=== PATIENT | male | born 1955 | race Two or more races ===

== ENCOUNTER → 2023-09-22 07:55 | Outpatient (BNV) | payer MEDICARE, SELFPAY | PROVIDERS: PCP Internal Medicine; Visit Provider Internal Medicine Medical Oncology | DX: D64.9 Anemia, unspecified (principal) | CPT/HCPCS: 99204; 99213; 99214 ==

== ENCOUNTER → 2023-09-22 09:37 | Outpatient (BNV) | payer MEDICARE, SELFPAY | PROVIDERS: PCP Internal Medicine; Visit Provider Internal Medicine | DX: I48.91 Unspecified atrial fibrillation (principal) | CPT/HCPCS: 93010 ==

== ENCOUNTER 2023-09-27 12:05 | Outpatient (REF) | payer MEDICARE, SELFPAY ==
[2023-09-27 13:28] LABS: OBS1 POSITIVE (NEGATIVE)
[2023-09-27 13:29] LABS: OBS Int Ctl Valid YES; OBS2 POSITIVE (NEGATIVE); OBS3 POSITIVE (NEGATIVE)
== END 2023-09-27 12:06 | disposition home or self-care (01) ==
LOC: HO.LNP 12:05
PROVIDERS: Visit Provider Internal Medicine Medical Oncology
DX: D46.4 Refractory anemia, unspecified (principal)
CPT/HCPCS: 82270

== ENCOUNTER 2023-10-20 12:25 | Day surgery (SDC) | payer MEDICARE, SELFPAY ==
--- NOTE | ~2023-10-20 | CT_ITS ---
Thrombocytopenia PROCEDURES: 1. Limited preprocedure CT of the pelvis. Permanent images saved in PACS. 2. 11 g bone marrow core biopsy of the right posterior iliac spine 3. 11 g bone marrow aspirate of the right posterior iliac spine CLINICIANS: Corbin Cutler PA-C MEDICATIONS: -Fentanyl 75 mcg, and lidocaine 1% 10 mL SQ -Antibiotics: None -For additional details, please see nursing flowsheet. COMPLICATIONS: None ESTIMATED BLOOD LOSS: < 5 ml CONTRAST: None SPECIMENS: 11 g core placed in formalin. Bone marrow aspirate placed in EDTA and sodium heparin tubes PROCEDURE NOTE: The procedure, risks, benefits, and alternatives were carefully explained to the patient and written informed consent was obtained. The patient was placed prone on the CT table. A timeout was performed. A limited CT of the pelvis was performed to localize posterior iliac spine and choose appropriate needle entry and trajectory. The patient was prepped and draped in usual sterile fashion. The skin, subcutaneous tissues, and periosteum were anesthetized with lidocaine. Under CT guidance, an 11-gauge bone marrow biopsy needle was advanced into the right posterior iliac spine, with the tip positioned slightly cephalad. An 11-gauge core biopsy of the bone marrow was performed and was placed in formalin. Next, the 11-gauge bone marrow biopsy needle was then advanced into the posterior iliac spine, under CT guidance, with the tip positioned slightly caudal. A bone marrow aspirate was performed. The specimen was placed in the provided EDTA and sodium heparin tubes. The needle was removed. A dry dressing was applied and secured with Tegaderm. There were no immediate complications. The patient was stable after the procedure and was transferred to the post anesthesia care unit. The procedure was done under moderate sedation with a dedicated nurse for monitoring of vital signs. CT/CT biopsy asp core bone marrow Impression: CT-guided bone marrow biopsy and aspirate This procedure was performed by Corbin Cutler PA-C and supervised by Dr. Fiore.
[2023-10-20 12:36] VITALS: BMI 41.8
[2023-10-20 12:47] LABS: INTERNATIONAL NORM RATIO 1.1 (0.9-1.1); Prothrombin Time 13.8 SEC (11.1-13.3)
[2023-10-20 12:50] LABS: Partial Thromboplastin Time 32.4 SEC (26.0-36.8)
[2023-10-20 13:01] LABS: Glucose, Whole Blood 83 mg/dL (60-115)
[2023-10-20 14:10] VITALS: BP 130/64; PULSE 67; RESP 18; TEMP 36.6; O2SAT 96
[2023-10-20 14:25] VITALS: BP 124/62; PULSE 62; RESP 18; TEMP 36.6; O2SAT 96
[2023-10-20 14:44] LABS: Bone Marrow SEE SEPARATE REPORT
== END 2023-10-20 14:39 | disposition home or self-care (01) ==
PROVIDERS: Pathology Anatomic Pathology & Clinical Pathology; Physician Assistant Surgical; Student in an Organized Health Care Education/Training Program; PCP Internal Medicine; Visit Provider Internal Medicine Medical Oncology
DX: D64.9 Anemia, unspecified (principal); D69.6 Thrombocytopenia, unspecified; E61.1 Iron deficiency; E11.22 Type 2 diabetes mellitus with diabetic chronic kidney disease; I12.9 Hypertensive chronic kidney disease with stage 1 through stage 4 chronic kidney disease, or unspecified chronic kidney disease; N18.4 Chronic kidney disease, stage 4 (severe); D63.1 Anemia in chronic kidney disease; I48.0 Paroxysmal atrial fibrillation; Z79.01 Long term (current) use of anticoagulants; Z79.4 Long term (current) use of insulin; Z79.84 Long term (current) use of oral hypoglycemic drugs; Z79.899 Other long term (current) drug therapy; Z88.0 Allergy status to penicillin; Z98.890 Other specified postprocedural states; F17.200 Nicotine dependence, unspecified, uncomplicated
CPT/HCPCS: 36415; 38222; 82947; 85610; 85730; 88184; 88185; 88237; 88264; 88305; 88311; 88313; 88374; J2250; J2310; J3010

== ENCOUNTER → 2023-10-20 12:44 | Outpatient (BNV) | payer MEDICARE, SELFPAY | PROVIDERS: PCP Internal Medicine; Visit Provider Physician Assistant Surgical | DX: D69.6 Thrombocytopenia, unspecified (principal) | CPT/HCPCS: 38222; 77012 ==

== ENCOUNTER 2024-02-07 10:00 | Outpatient (RCR) | payer MEDICARE, SELFPAY ==
[2024-01-31 09:45] VITALS: BP 102/51; PULSE 62; RESP 16; TEMP 37; O2SAT 94
[2024-01-31] MEDS: Ferric Carboxymaltose 750 MG in 0.9 % Sodium Chloride 250 ML 1060 MG IV (10:44)
[2024-01-31] MEDS: 0.9 % Sodium Chloride Flush 10 ML SYRINGE 5 ML IVFLUSH (11:08)
[2024-02-07 09:53] VITALS: BP 105/48; PULSE 73; RESP 18; TEMP 37.3; O2SAT 91
[2024-02-07] MEDS: Ferric Carboxymaltose 750 MG in 0.9 % Sodium Chloride 250 ML 1060 MG IV (10:09)
== END 2024-02-07 10:32 | disposition home or self-care (01) ==
LOC: HO.INF 10:00
PROVIDERS: Visit Provider Internal Medicine Medical Oncology
DX: D64.9 Anemia, unspecified (principal)
CPT/HCPCS: 96365; J1439

== ENCOUNTER 2024-08-27 15:38 | Inpatient (IN) | payer MEDICARE, SELFPAY ==
--- NOTE | ~2024-08-27 | XR_ITS ---
CLINICAL HISTORY: abd pain and distension 1 view abdomen Comparison: None Findings: Nonspecific bowel gas pattern with paucity of small bowel gas. No pneumoperitoneum or pneumatosis. No abnormal calcifications. No acute fractures. IMPRESSION: Nonspecific bowel gas pattern with generalized paucity of small bowel gas. Fluid-filled small-bowel loops can not be excluded. This document has been electronically signed by: Moon Gray MD on 08/28/2024 21:31:12
--- NOTE | ~2024-08-27 | XR_ITS ---
CLINICAL HISTORY: sob, crackles 1 view chest x-ray Comparison: CR - XR KUB - 08/28/24 19:53 EST Findings: No consolidation or effusion. The heart is within the upper limits of normal in size for technique. No acute fracture. IMPRESSION: 1. No acute cardiopulmonary abnormality. This document has been electronically signed by: Andrew Huggins on 08/30/2024 09:09:58
--- NOTE | ~2024-08-27 | XR_ITS ---
CLINICAL HISTORY: shortness of breath 2 view chest x-ray Comparison: None Findings: The lungs are clear. Heart size is normal. No acute fracture. IMPRESSION: 1. No acute findings. This document has been electronically signed by: Franko Groves MD on 08/27/2024 17:12:56
[2024-08-27 15:47] VITALS: BP 160/88; PULSE 64; O2SAT 100
[2024-08-27 15:53] VITALS: BP 129/47; PULSE 68; RESP 18; TEMP 36.8; O2SAT 98; BMI 41.4
--- NOTE | 2024-08-27 16:12 | ECG_ITS ---
Test Reason : SHORTNESS OF BREATH Blood Pressure : */* mmHG Vent. Rate : 68 BPM Atrial Rate : 68 BPM P-R Int : 186 ms QRS Dur : 76 ms QT Int : 386 ms P-R-T Axes : 17 21 49 degrees QTcB Int : 410 ms Normal sinus rhythm Normal ECG When compared with ECG of 22-Sep-2023 09:37, No significant change was found Referred By: Joseline Vazquez Electronically Signed By: Valdez Lowery
--- NOTE | 2024-08-27 16:13 | ED_ITS ---
HPI - SOB/Dyspnea General Chief Complaint: Dyspnea Stated Complaint: shortness of breath Time Seen by Provider: 08/27/24 15:56 Source: patient and EMS Mode of arrival: EMS Limitations: no limitations History of Present Illness ED Provider: Joseline Vazquez NP HPI Narrative: Patient is a 69-year-old male with past medical history of CKD stage [address] Ponce, atrial fibrillation on anticoagulation with warfarin, hypertension, diverticulitis, anemia, diabetes presents emergency department for evaluation. He reports that he has been experiencing intermittent shortness of breath for the past few years. However today after he walked up the stairs with his laundry he noticed he was feeling shortness of breath and dizziness, he put his laundry away. He sat down at the kitchen table and subsequently felt very cold having shaking chills and nausea. His daughter suggested that his sugar might be low though he did not feel this way. He drank a glass of orange juice any took 3 acetaminophen. He reports it this seemed to work some. He had 2 more glasses of orange juice half a sandwich and some coffee. Reports symptom onset was at approximately 12:00 this afternoon, about 4 hours prior to arrival, during this time he has also experienced 2 episodes of soft stools followed by 1 episode of liquid diarrhea without hematochezia or melena. He and his daughter thought to call EMS for further evaluation given the sudden increase in his shortness of breath from baseline. He denies any headache, vision changes, neck pain, chest pain, back pain, vomiting, abdominal pain. numbness or tingling of the extremities, genitourinary symptoms. Related Data Home Medications ?Medication ?Instructions ?Recorded ?Confirmed atenolol 50 mg tablet 50 mg PO DAILY 09/22/23 08/28/24 atorvastatin 40 mg tablet 40 mg PO BEDTIME 09/22/23 08/28/24 dapagliflozin propanediol 10 mg 10 mg PO DAILY 09/22/23 08/28/24 tablet (Farxiga) glipizide 5 mg tablet 5 mg PO BID 09/22/23 08/28/24 insulin glargine 100 unit/mL 62 unit subcut DAILY 09/22/23 08/28/24 subcutaneous solution (Lantus U-100 Insulin) insulin syringe-needle U-100 1 mL 09/22/23 07/27/24 31 gauge x 5/16 (BD Insulin Syringe Ultra-Fine) losartan 50 mg tablet 25 mg PO DAILY 09/22/23 08/28/24 warfarin 5 mg tablet 5 mg PO DAILY@1800 09/22/23 08/28/24 omeprazole 20 mg capsule,delayed 20 mg PO DAILY@0630 10/20/23 08/28/24 release calcitriol 0.25 mcg capsule 0.25 mcg PO Q48H 08/17/24 08/28/24 cetirizine 10 mg tablet 10 mg PO DAILY 08/28/24 08/28/24 isosorbide mononitrate 30 mg 30 mg PO DAILY 08/28/24 08/28/24 tablet,extended release 24 hr torsemide 20 mg tablet 40 mg PO BID 08/28/24 08/28/24 Allergies Allergy/AdvReac Type Severity Reaction Status Date / Time Penicillins Allergy Hives Verified 08/27/24 15:55 Review of Systems 2 Review of Systems: Yes all other systems are reviewed and are negative [facility] Past Medical History Attestation statement: The following information was validated with the patient. Source: old records reviewed Medical History Iron deficiency Chronic kidney disease Diabetes Surgical History H/O hernia repair Family History Family History Mother Cancer Lung cancer Father Testicular cancer Social History Social History Household Members: None Patient Tobacco Use Status: Current someday Tobacco user Tobacco use type: Cigarette Cigarettes Per Day: 2 Patient Interested in Nicotine Replacement: No Patient Given Instructions on How to Stop Smoking: No Advance Directives: No Advance Directives Information Provided: No Do you have a plan to hurt others: No Plan Nutrition Risks: No Nutritional Risk service: No Current occupational status: retired Physical Exam 2 Vital Signs: Vital Signs: Last Vital Signs Temp 97.8 F 08/28/24 12:00 Pulse 71 08/28/24 12:00 Resp 20 08/28/24 12:00 BP 126/59 L 08/28/24 12:00 Pulse Ox 95 08/28/24 12:00 O2 Del Method Nasal Cannula 08/28/24 12:00 O2 Flow Rate 2 08/28/24 12:00 BMI result Body Mass Index 41.4 Appearance: Alert.?Oriented to person, place and time. No acute distress.?Normal affect. Eyes: Pupils equal, round and reactive to light.? ENT: Pharynx normal.?? Neck: Normal inspection.? Neck supple.?? CVS: Heart sounds normal. Normal heart rate and rhythm.? Pulses normal.?? Respiratory: No respiratory distress.? Lung sounds mild rales at the bilateral bases Abdomen: Soft and non-tender. Normoactive bowel sounds. Skin: Skin warm and dry.? Normal skin color.? Extremities: No lower extremity edema.? No calf ttp? Neuro: Moves all extremities spontaneously. Sensation intact bilaterally. No focal neuro deficits. Ambulates with normal steady gait. Course Reevaluation(s) Reevaluation #1: CBC is without leukocytosis, stable chronic microcytic anemia that does not meet transfusion criteria at this time no active bleeding H&H 8.8 and 31.5, chronic thrombocytopenia. INR 3.6. BNP of 604. high sensitive troponin within normal range, EKG revealing normal sinus rhythm with ventricular rate of 68, QTC 410, no ST elevation, no evidence of acute ischemia . Urinalysis without evidence of infection. Chest x-ray without consolidation or infiltrate to suggest pneumonia, I do appreciate some haziness in the right lung base concerning for mild CHF exacerbation and conjunction with his BNP. Viral serologies and chemistries are pending at this time Reevaluation #2: Patient ambulated to the bathroom he again began feeling tremulous, dizzy. Stating ?I know I need an orange juice?. Obtaining POC, repeat temperature. On review, renal function is at baseline BUN/creatinine 58/2.57. INR 3.6 he is currently taking 5 mg of warfarin daily. He is mildly hyperkalemic 5.6 without acute see EKG changes, non a sinus rhythm with ventricular rate of 68, QTC 410, no ST elevation. POC glucose is 48 - provided with 2 orange juices and a sandwich. Time: 19:49 Reevaluation #3: Repeat point of care glucose 88, he is still mildly tremulous, reports that he feels persistently nauseous has no appetite to eat, continuously encouraged to eat but as far as only consumed half a sandwich and a single orange juice. Have concern about his persistent recurrent hypoglycemia in the setting of not really taking much oral intake, in conjunction with mild fluid volume overload, will receive 20 mg furosemide IV, D5W at 01:25 and pending for admission to medicine service Medications Administered Generic Name Dose Route Start Last Admin Trade Name Driss PRN Reason Stop Dose Admin Acetaminophen 650 mg 08/27/24 22:35 08/28/24 09:04 Acetaminophen 325 Mg Tablet PO 650 mg Q6H PRN Administration Pain, Mild 1-3,fever,headache Atenolol 50 mg 08/28/24 11:00 08/28/24 12:19 Atenolol 50 Mg Tablet PO 50 mg DAILY DAMIAN Administration Protocol Calcitriol 0.25 mcg 08/28/24 11:00 08/28/24 12:20 Calcitriol 0.25 Mcg Capsule PO 0.25 mcg Q48H DAMIAN Administration Isosorbide Mononitrate 30 mg 08/28/24 11:00 08/28/24 12:20 Isosorbide Mononitrate 30 Mg Tab.Er.24h PO 30 mg DAILY DAMIAN Administration Protocol Omeprazole 20 mg 08/28/24 06:30 08/28/24 05:50 Omeprazole 20 Mg Capsule.Dr PO 20 mg DAILY@0630 DAMIAN Administration Sodium Chloride 3 ml 08/28/24 00:00 08/28/24 07:46 0.9 % Sodium Chloride Flush 3 Ml Syringe IVFLUSH Not Given QSHIFT DAMIAN Discontinued Medications Generic Name Dose Route Start Last Admin Trade Name Driss PRN Reason Stop Dose Admin Furosemide 20 mg 08/27/24 21:24 08/27/24 22:03 Furosemide 20 Mg/2 Ml Vial IVPUSH 08/27/24 21:25 20 mg ONCE ONE Administration Protocol Dextrose 1,000 mls @ 100 mls/hr 08/27/24 21:30 08/28/24 09:39 D5w IVCONT Infused .Q10H DAMIAN Infusion Ondansetron HCl 4 mg 08/27/24 18:56 08/27/24 19:45 Ondansetron Hcl 4 Mg/2 Ml Vial IVPUSH 08/27/24 18:57 4 mg ONCE ONE Administration Sodium Zirconium Cyclosilicate 10 gm 08/27/24 20:01 08/27/24 20:15 Sodium Zirconium Cyclosilicate 10 Gm Powd.Pack PO 08/27/24 20:02 10 gm ONCE ONE Administration Sodium Zirconium Cyclosilicate 10 gm 08/28/24 06:23 08/28/24 06:44 Sodium Zirconium Cyclosilicate 10 Gm Powd.Pack PO 08/28/24 06:24 10 gm ONCE ONE Administration Medical Decision Making Medical Decision Making MDM Narrative: Patient is a 69-year-old male with past medical history of CKD stage [address] Ponce, atrial fibrillation on anticoagulation with warfarin, hypertension, diverticulitis, anemia, diabetes who presents emergency department for evaluation of sudden onset worsening shortness of breath shakiness dizziness and nausea as per HPI. Symptoms seemed to improve greatly after rest following carrying laundry up the stairs as well as with consumption of orange juice. Had no associated chest pain with this. He did have a few episodes of loose/diarrheal stools as per HPI as well. His abdominal examination is benign. At this time he reports feeling well has no physical complaints and states ?I feel silly for being here?. Currently he is overall well-appearing, nontoxic, afebrile, no respiratory distress. No rash or lesions, urticaria, or evidence of angioedema to suggest allergic reaction/anaphylaxis source of his symptoms. No swallowing difficulties to suggest aspiration. No associated chest pain, lower extremity redness pain or swelling, history of VTE/malignancy to suggest ACS, or pulmonary embolism and he is chronically anticoagulated with compliance on warfarin. Given his history of CKD, some possibility for CHF/fluid volume overload though I do not clinically appreciate significant findings to suggest such. Has a history of atrial fibrillation but is not noted to be tachycardic, endorses no palpitations. No recent URI symptoms to suggest viral illness, or pneumonia. He does have history of anemia and associated dizziness, though no acute bleeding does not appear overtly pale, no chest pain, given his history will obtain type and screen in addition to CBC in the event that symptoms are secondary to acute anemia. Differential Diagnosis Differential Diagnoses: The differential diagnosis associated with the presentation includes (See narrative above) Admission/Observation Consideration of admission/observation: Escalation of care including admission/observation considered (See narrative above and course narrative for further detail) Lab Data [facility] Lab Attestation statement: I reviewed the patient's lab results. (See course narrative) 08/27/24 17:55 08/28/24 12:47 Labs: Lab Results 08/27/24 08/27/24 08/27/24 Range/Units 17:55 19:50 20:40 WBC 7.3 (4.8-10.8) X10*3/uL RBC 4.16 L (4.60-5.80) X10*6/uL Hgb 8.8 L (14.0-18.0) g/dl Hct 31.5 L (42.0-52.0) % MCV 75.7 L (80.0-98.0) fL MCH 21.2 L (27.0-33.0) pg MCHC 27.9 L (31.0-36.0) g/dl RDW 19.5 H (11.0-16.0) % Plt Count 105 L (160-400) X10*3/uL MPV 10.7 (9.4-12.4) fL Immature Gran % (Auto) 0.4 (0.0-0.4) % Neut % (Auto) 87.3 H (45-73) % Lymph % (Auto) 2.2 L (20-40) % [place] % (Auto) 7.1 (2-11) % Eos % (Auto) 2.7 (0-4) % Baso % (Auto) 0.3 (0-2) % Lymph # (Auto) 0.2 L (1.2-4.9) X10*3/uL [place] # (Auto) 0.5 (0.1-1.2) X10*3/uL Eos # (Auto) 0.2 (0.0-0.4) X10*3/uL Baso # (Auto) 0.0 (0.0-0.2) X10*3/uL Abs Immat Gran (auto) 0.03 (0.00-0.03) X10*3/uL Absolute Neuts (auto) 6.4 (2.0-8.3) x10*3/uL Absolute Nucleated RBC 0.000 (0.0-0.012) X10*3/uL Nucleated RBC % (auto) 0.0 (0.0-0.2) /100WBC PT 42.3 H (10.9-12.4) SEC INR 3.6 H D (0.9-1.1) Sodium 139 (135-145) mmol/L Potassium 5.6 H (3.3-5.1) mmol/L Chloride 108 (96-108) mmol/L Carbon Dioxide 22 (22-29) mmol/L Anion Gap 15 (12-20) BUN 58 H (9-16) mg/dL Creatinine 2.57 H (0.5-1.4) mg/dL Estim Creat Clear Calc 33.1 Estimated GFR 25 POC Glucose 48 L* 88 (60-115) mg/dL Random Glucose 61 (60-115) mg/dL Estimat Average Glucose 120 mg/dL Hemoglobin A1c % 5.8 (<6.0) % Calcium 8.4 (8.4-10.2) mg/dL Magnesium 1.7 (1.6-2.6) mg/dL Total Bilirubin 0.9 (0.0-1.0) mg/dL AST 20 (5-37) U/L ALT 17 (0-40) U/L Alkaline Phosphatase 103 (39-117) U/L Troponin I High Sens 6.9 (<3.5-35.0) ng/L B-Natriuretic Peptide 604 H (<100) pg/mL Total Protein 7.6 (6.5-8.0) g/dL Albumin 4.1 (3.5-5.0) g/dL Lipase 25 (8-78) U/L Urine Color Yellow Urine Appearance Clear Urine pH 5.5 (5.0-9.0) Ur Specific [place] 1.010 (1.005-1.025) Urine Protein 30 (1+) H (Neg-Trace) mg/dL Urine Glucose (UA) 250 H (Negative) mg/dL Urine Ketones Negative (Negative) mg/dL Urine Blood Negative (Negative) Urine Nitrite Negative (Negative) Ur Leukocyte Esterase Negative (Negative) Urine RBC 0-2 (0-2) /HPF Urine WBC 0-5 (0-5) /HPF Ur Squamous Epith Cells 0-2 (0-2) /HPF Urine Bacteria None Seen (None Seen) Hyaline Casts 0-2 (0-2) /LPF Influenza Type A (PCR) (Negative) Influenza Type B (PCR) (Negative) RSV RNA Qual (PCR) (Negative) SARS-CoV-2 RNA (RT-PCR) (Negative) Blood Type O Positive Antibody Screen NEGATIVE 08/27/24 Range/Units 21:35 WBC (4.8-10.8) X10*3/uL RBC (4.60-5.80) X10*6/uL Hgb (14.0-18.0) g/dl Hct (42.0-52.0) % MCV (80.0-98.0) fL MCH (27.0-33.0) pg MCHC (31.0-36.0) g/dl RDW (11.0-16.0) % Plt Count (160-400) X10*3/uL MPV (9.4-12.4) fL Immature Gran % (Auto) (0.0-0.4) % Neut % (Auto) (45-73) % Lymph % (Auto) (20-40) % [place] % (Auto) (2-11) % Eos % (Auto) (0-4) % Baso % (Auto) (0-2) % Lymph # (Auto) (1.2-4.9) X10*3/uL [place] # (Auto) (0.1-1.2) X10*3/uL Eos # (Auto) (0.0-0.4) X10*3/uL Baso # (Auto) (0.0-0.2) X10*3/uL Abs Immat Gran (auto) (0.00-0.03) X10*3/uL Absolute Neuts (auto) (2.0-8.3) x10*3/uL Absolute Nucleated RBC (0.0-0.012) X10*3/uL Nucleated RBC % (auto) (0.0-0.2) /100WBC PT (10.9-12.4) SEC INR (0.9-1.1) Sodium (135-145) mmol/L Potassium (3.3-5.1) mmol/L Chloride (96-108) mmol/L Carbon Dioxide (22-29) mmol/L Anion Gap (12-20) BUN (9-16) mg/dL Creatinine (0.5-1.4) mg/dL Estim Creat Clear Calc Estimated GFR POC Glucose (60-115) mg/dL Random Glucose (60-115) mg/dL Estimat Average Glucose mg/dL Hemoglobin A1c % (<6.0) % Calcium (8.4-10.2) mg/dL Magnesium (1.6-2.6) mg/dL Total Bilirubin (0.0-1.0) mg/dL AST (5-37) U/L ALT (0-40) U/L Alkaline Phosphatase (39-117) U/L Troponin I High Sens (<3.5-35.0) ng/L B-Natriuretic Peptide (<100) pg/mL Total Protein (6.5-8.0) g/dL Albumin (3.5-5.0) g/dL Lipase (8-78) U/L Urine Color Urine Appearance Urine pH (5.0-9.0) Ur Specific [place] (1.005-1.025) Urine Protein (Neg-Trace) mg/dL Urine Glucose (UA) (Negative) mg/dL Urine Ketones (Negative) mg/dL Urine Blood (Negative) Urine Nitrite (Negative) Ur Leukocyte Esterase (Negative) Urine RBC (0-2) /HPF Urine WBC (0-5) /HPF Ur Squamous Epith Cells (0-2) /HPF Urine Bacteria (None Seen) Hyaline Casts (0-2) /LPF Influenza Type A (PCR) NEGATIVE (Negative) Influenza Type B (PCR) NEGATIVE (Negative) RSV RNA Qual (PCR) NEGATIVE (Negative) SARS-CoV-2 RNA (RT-PCR) NEGATIVE (Negative) Blood Type Antibody Screen Independent Interpretation I performed an independent interpretation of an: EKG (See course narrative) and Plain X-Ray (See course narrative) Radiology Impression Discussion of test interpretation with radiology: I have reviewed the radiologist's reading. Radiologist Impression: 2 view chest x-ray Comparison: None Findings: The lungs are clear. Heart size is normal. No acute fracture. IMPRESSION: 1. No acute findings Independent Historian Clinical information obtained from an independent historian. History obtained from or confirmed by: EMS External Record Review External record reviewed: Prior outpatient labs Chronic Conditions Patient?s care impacted by: Other (See narrative above) Critical Care Time Critical Care Time Critical Care Time: Yes Total Critical Care Time: 35 Attestation: I personally attest to this critical care time spent taking care of the patient exclusive of all other billable procedures was approximately 35 minutes including initial evaluation of patient, ordering tests, x-ray interpretation, EKG interpretation, acute hypoglycemic management, furosemide IV and re- evalutation,medical consultation, documentation, re-evaluation. Discharge Plan Discharge Clinical Impression: Shortness of breath, Acute hyperkalemia, Hypoglycemia associated with type 2 diabetes mellitus Patient Disposition: Admitted As Inpatient Interventions: Admission Worksheet (ED) Last Done: 08/28/24 08:44 Discharge Date/Time: 08/28/24 09:26
[2024-08-27 18:08] LABS: MANUAL DIFF FLAG NO
[2024-08-27 18:13] LABS: Appearance Urine Clear; Color Urine Yellow; Glucose Urine UA 250 mg/dL (Negative); Leukocyte Esterase Urine Negative (Negative); Nitrite Urine Negative (Negative); PH 5.5 (5.0-9.0); UMIC TRIGGER UACC YES; Urine Blood Negative (Negative); Urine Ketones Negative (Negative); Urine Protein 30 (1+) mg/dL (Neg-Trace)
[2024-08-27 18:16] LABS: Basophils Percent Auto 0.3 % (0-2); Eosinophils Absolute Auto 0.2 X10*3/uL (0.0-0.4); Eosinophils Percent Auto 2.7 % (0-4); Hematocrit 31.5 % (42.0-52.0); Hemoglobin 8.8 g/dl (14.0-18.0); Imm Gran Abs Auto 0.03 X10*3/uL (0.00-0.03); Imm Gran Pct Auto 0.4 % (0.0-0.4); Lymphocytes Absolute Auto 0.2 X10*3/uL (1.2-4.9); Lymphocytes Percent Auto 2.2 % (20-40); Mean Corpuscular HGB Conc 27.9 g/dl (31.0-36.0); Mean Corpuscular Hemoglobin 21.2 pg (27.0-33.0); Mean Corpuscular Volume 75.7 fL (80.0-98.0); Mean Platelet Volume 10.7 fL (9.4-12.4); Monocytes Absolute Auto 0.5 X10*3/uL (0.1-1.2); Monocytes Percent Auto 7.1 % (2-11); Neutrophils Absolute Auto 6.4 x10*3/uL (2.0-8.3); Neutrophils Percent Auto 87.3 % (45-73); Platelet Count 105 X10*3/uL (160-400); Red Blood Count 4.16 X10*6/uL (4.60-5.80); Red Cell Distribution Width 19.5 % (11.0-16.0); White Blood Count 7.3 X10*3/uL (4.8-10.8)
[2024-08-27 18:18] LABS: Bacteria Urine None Seen (None Seen); Hyaline Casts Urine 0-2 /LPF (0-2); RBC Urine 0-2 /HPF (0-2); Squamous Epithelial Cell Urine 0-2 /HPF (0-2); WBC Urine 0-5 /HPF (0-5)
[2024-08-27 18:20] LABS: INTERNATIONAL NORM RATIO 3.6 (0.9-1.1); Prothrombin Time 42.3 SEC (10.9-12.4)
[2024-08-27 18:32] LABS: B Type Natriuretic Peptide 604 pg/mL (<100)
[2024-08-27 18:33] LABS: Troponin-I High Sensitivity 6.9 ng/L (<3.5-35.0)
[2024-08-27 18:41] LABS: Alanine Aminotransferase 17 U/L (0-40); Albumin Level 4.1 g/dL (3.5-5.0); Alkaline Phosphatase 103 U/L (39-117); Anion Gap 15 (12-20); Aspartate Amino Transferase 20 U/L (5-37); Bilirubin Total 0.9 mg/dL (0.0-1.0); Blood Urea Nitrogen 58 mg/dL (9-16); Calcium 8.4 mg/dL (8.4-10.2); Carbon Dioxide 22 mmol/L (22-29); Chloride 108 mmol/L (96-108); Creatinine Clr Calc Pharmacy 33.1; Estimated Glomerular Filt Rate 25; Glucose Random 61 mg/dL (60-115); Lipase 25 U/L (8-78); Magnesium 1.7 mg/dL (1.6-2.6); Potassium 5.6 mmol/L (3.3-5.1); Sodium 139 mmol/L (135-145); Total Protein 7.6 g/dL (6.5-8.0)
[2024-08-27] MEDS: ondansetron HCL 4 MG/2 ML VIAL IVPUSH (19:45)
[2024-08-27 19:54] LABS: Glucose, Whole Blood 48 mg/dL (60-115)
[2024-08-27 20:03] VITALS: BP 148/57; PULSE 69; RESP 24; TEMP 36.9; O2SAT 94
[2024-08-27] MEDS: Sodium Zirconium Cyclosilicate 10 GM POWD.PACK PO (20:15)
[2024-08-27 20:44] LABS: Glucose, Whole Blood 88 mg/dL (60-115)
--- NOTE | 2024-08-27 21:44 | P.HPHOSP_ITS ---
History of Present Illness Date of Service: 08/27/24 Chief Complaint: hypoglycemia A 69 years old male with PMH of DMII, HTN, HLD, CKD4, Afib on warfarin presents to ED with SOB and hypoglycemic event at residential. The patient reports feeling unwell for the last few days with decrease PO intake, malaise, no energy, SOB and nausea. No chest pain, palpitations, vomiting, diarrhea or urinary symptoms. Noted to have low blood sugar reading in 40s with symptoms. he is on Lantus, Glipizide and Farxiga from his home medications. in ED CXR showing no clear infiltrates but slight fluid congestion, elevated BNP at 600. mild hyperkalemia with stable Creatinine. he had another episodes of low sugar around 48, responded to Dextrose IV. will be admitted for close monitoring. Review of Systems 2 Review of Systems: No fever, chills but has weakness No chest pain, palpitation having shortness of breath or coughing No abdominal pain, nausea or vomiting No urinary symptoms PMFSH Medical History Iron deficiency Chronic kidney disease Diabetes Family History Mother Cancer Lung cancer Father Testicular cancer Surgical History H/O hernia repair Social History Household Members: None Patient Tobacco Use Status: Current someday Tobacco user Advance Directives: No Advance Directives Information Provided: No Do you have a plan to hurt others: No Plan service: No Current occupational status: retired Meds Allergies Allergy/AdvReac Type Severity Reaction Status Date / Time Penicillins Allergy Hives Verified 08/27/24 15:55 Active Medications: Current Medications Dextrose (D5w) 1,000 mls @ 150 mls/hr IVCONT .[id number] DAMIAN Home Medications ?Medication ?Instructions ?Recorded ?Confirmed ?Last Taken ?Type atenolol 50 mg tablet 50 mg PO DAILY 09/22/23 07/27/24 Unknown History atorvastatin 40 mg tablet 40 mg PO BEDTIME 09/22/23 07/27/24 Unknown History dapagliflozin propanediol 10 mg 10 mg PO DAILY 09/22/23 07/27/24 Unknown History tablet (Farxiga) glipizide 5 mg tablet 5 mg PO BID 09/22/23 07/27/24 Unknown History insulin glargine 100 unit/mL 100 unit subcut DAILY 09/22/23 07/27/24 Unknown History subcutaneous solution (Lantus U-100 Insulin) insulin syringe-needle U-100 1 mL 09/22/23 07/27/24 Unknown History 31 gauge x 5/16 (BD Insulin Syringe Ultra-Fine) losartan 50 mg tablet 25 mg PO DAILY 09/22/23 07/27/24 Unknown History torsemide 20 mg tablet 40 mg PO DAILY 09/22/23 08/17/24 Unknown History warfarin 5 mg tablet 5 mg PO DAILY 09/22/23 07/27/24 Unknown History omeprazole 20 mg capsule,delayed 20 mg PO DAILY 10/20/23 07/27/24 Unknown History release calcitriol 0.25 mcg capsule 0.25 mcg PO Q OTHER DAY 08/17/24 08/17/24 Unknown History Physical Exam 2 Vital Signs and Narrative: Vital Signs: Last Vital Signs Temp 98.5 F 08/27/24 20:03 Pulse 69 08/27/24 20:03 Resp 24 H 08/27/24 20:03 BP 148/57 H 08/27/24 20:03 Pulse Ox 94 08/27/24 20:03 O2 Del Method Room Air 08/27/24 20:03 BMI result Body Mass Index 41.4 Const: Other: Constitutional : Awake, interactive, not in distress Neck : Normal inspection, Supple Cardiovascular : RRR, no JVP, no lower extremity edema Respiratory : good bilateral air entry, no crackles, wheezes or rhonchi Gastrointestinal: soft, lax, Normal bowel sounds, Non tender Skin : Warm, Dry Neurological : Alert & oriented x3, No focal deficit Results Labs 08/27/24 17:55 08/27/24 17:55 Labs: Laboratory Results - last 24 hr 08/27/24 08/27/24 08/27/24 17:55 19:50 20:40 MCV 75.7 L MCH 21.2 L MCHC 27.9 L RDW 19.5 H Plt Count 105 L MPV 10.7 Immature Gran % (Auto) 0.4 Neut % (Auto) 87.3 H Lymph % (Auto) 2.2 L [place] % (Auto) 7.1 Eos % (Auto) 2.7 Baso % (Auto) 0.3 Lymph # (Auto) 0.2 L [place] # (Auto) 0.5 Eos # (Auto) 0.2 Baso # (Auto) 0.0 Abs Immat Gran (auto) 0.03 Absolute Neuts (auto) 6.4 Absolute Nucleated RBC 0.000 Nucleated RBC % (auto) 0.0 PT 42.3 H INR 3.6 H D Anion Gap 15 Estim Creat Clear Calc 33.1 Estimated GFR 25 POC Glucose 48 L* 88 Random Glucose 61 Calcium 8.4 Magnesium 1.7 Total Bilirubin 0.9 AST 20 ALT 17 Alkaline Phosphatase 103 Troponin I High Sens 6.9 B-Natriuretic Peptide 604 H Total Protein 7.6 Albumin 4.1 Lipase 25 Urine Color Yellow Urine Appearance Clear Urine pH 5.5 Ur Specific [place] 1.010 Urine Protein 30 (1+) H Urine Glucose (UA) 250 H Urine Ketones Negative Urine Blood Negative Urine Nitrite Negative Ur Leukocyte Esterase Negative Urine RBC 0-2 Urine WBC 0-5 Ur Squamous Epith Cells 0-2 Urine Bacteria None Seen Hyaline Casts 0-2 Blood Type O Positive Antibody Screen NEGATIVE Assessment and Plan (1) Hypoglycemia associated with type 2 diabetes mellitus: Status: Acute (2) Acute hyperkalemia: Status: Acute (3) Shortness of breath: Status: Acute Plan A 69 years old male with PMH of DMII, HTN, HLD, CKD4, Afib on warfarin presents to ED with SOB and hypoglycemic event at residential. Acute hypoglycemic events in DMII on insulin Hold Lantus, Glipizide and Faxiga IV D5W for now POC start SSI tomorrow start diet Acute hyperkalemia Lokelma follow BMP SOB negative Flu, RSV and Covid CXR clear Not hypoxic, check [facility] resp viral panel Tylenol for chills CKD4 stable, monitor BMP Afib, HTN Continue Atenolol Continue Warfarin, follow INR GERD PPI chronic dCHF not in exacerbation continue Torsemide DVT PPx Warfarin The patient will be monitored for 24-48 hours for hypoglycemic events Quality Stroke Does the patient have a stroke diagnosis?: No VTE Prior VTE?: No VTE Risk Level:: Medical - moderate - high VTE Device Contraindication: Treatment Not Indicated VTE Drug Contraindication: N/A - Med Ordered
[2024-08-27] MEDS: Furosemide 20 MG/2 ML VIAL IVPUSH (22:03)
[2024-08-27] MEDS: Dextrose 5 % 1,000 ML 150 ML IVCONT (22:04)
[2024-08-27 22:26] LABS: Influenza A PCR NEGATIVE (Negative); Influenza B PCR NEGATIVE (Negative); Resp Syncy Virus RNA Qual PCR NEGATIVE (Negative); SARS COV2 PCR INHOUSE NEGATIVE (Negative)
[2024-08-27 23:46] VITALS: BP 138/47; PULSE 73; RESP 30; TEMP 37.5; O2SAT 91
[2024-08-28] VITALS (10 sets, daily range): BP systolic 102–145; BP diastolic 47–63; PULSE 62–73; RESP 18–20; TEMP 36.5–37.8; O2SAT 90–98
[2024-08-28 00:03] LABS: Glucose, Whole Blood 145 mg/dL (60-115)
[2024-08-28] MEDS: 0.9 % Sodium Chloride Flush 3 ML SYRINGE IVFLUSH ×3 (01:00→21:23)
[2024-08-28] MEDS: Acetaminophen 325 MG TABLET 650 MG PO ×4 (02:05→21:29)
[2024-08-28 02:17] LABS: Glucose, Whole Blood 121 mg/dL (60-115)
--- NOTE | 2024-08-28 04:32 | PC.NURSE ---
sitting up on stretcher, no complaints. continues on oxygen/NC/2L. waiting for bed assignemtn.
[2024-08-28 05:03] LABS: INTERNATIONAL NORM RATIO 4.1 (0.9-1.1); Prothrombin Time 47.6 SEC (10.9-12.4)
[2024-08-28 05:16] LABS: Anion Gap 15 (12-20); Blood Urea Nitrogen 60 mg/dL (9-16); Calcium 7.8 mg/dL (8.4-10.2); Carbon Dioxide 20 mmol/L (22-29); Chloride 105 mmol/L (96-108); Creatinine Clr Calc Pharmacy 28.2; Estimated Glomerular Filt Rate 21; Glucose Random 143 mg/dL (60-115); Potassium 5.8 mmol/L (3.3-5.1); Sodium 134 mmol/L (135-145)
[2024-08-28] MEDS: Omeprazole 20 MG CAPSULE.DR PO (05:50)
[2024-08-28 05:52] LABS: Estimated Average Glucose 120 mg/dL; Hemoglobin A1C 95.7218 umol/L; Hemoglobin A1c % 5.8 % (<6.0); Total Hemoglobin (HGBA1C) 2386.5652 umol/L
[2024-08-28] MEDS: Dextrose 5 % 1,000 ML 100 ML IVCONT (06:40)
[2024-08-28] MEDS: Sodium Zirconium Cyclosilicate 10 GM POWD.PACK PO (06:44)
--- NOTE | 2024-08-28 07:02 | PC.NURSE ---
Dr Velasquez notified of INR-4.1 bun-60 CR-3.1 little bit worse than yesterday.
[2024-08-28 07:48] LABS: Glucose, Whole Blood 114 mg/dL (60-115)
[2024-08-28 09:00] LABS: Adenovirus PCR Not Detected (Not Detect.); Bordetella parapertussis PCR Not Detected (Not Detect.); Bordetella pertussis PCR Not Detected (Not Detect.); Chlamydia pneumoniae PCR Not Detected (Not Detect.); Coronavirus 229E PCR Not Detected (Not Detect.); Coronavirus HKU1 PCR Not Detected (Not Detect.); Coronavirus NL63 PCR Not Detected (Not Detect.); Coronavirus OC43 PCR Not Detected (Not Detect.); Human metapneumovirus PCR Not Detected (Not Detect.); Influenza A PCR Not Detected (Not Detect.); Influenza B PCR Not Detected (Not Detect.); Mycoplasma pneumoniae PCR Not Detected (Not Detect.); Parainfluenza 1 PCR Not Detected (Not Detect.); Parainfluenza 2 PCR Not Detected (Not Detect.); Parainfluenza 3 PCR Not Detected (Not Detect.); Parainfluenza 4 PCR Not Detected (Not Detect.); RSV PCR Not Detected (Not Detect.); Rhino/Enterovirus PCR Not Detected (Not Detect.)
--- NOTE | 2024-08-28 09:20 | HO.PM.IMPN ---
Subjective Subjective Date of Service: 08/28/24 Interval History: no further diarrhea Physical Exam Vital Signs: Vital Signs: Last Vital Signs Temp 100.0 F 08/28/24 08:58 Pulse 71 08/28/24 08:58 Resp 18 08/28/24 08:58 BP 132/47 L 08/28/24 08:58 Pulse Ox 98 08/28/24 08:58 O2 Del Method Nasal Cannula 08/28/24 08:58 O2 Flow Rate 2 08/28/24 08:58 BMI result Body Mass Index 41.4 General: AO X 3, no acute distress Resp: CTA bilateral, no accessory muscles used CVS: S1,S2,RRR GI: soft, non tender, non distended Neuro: motor grossly intact, alert Psych: appropriate affect, appropriate insight Objective Data Active Medications Acetaminophen (Acetaminophen 325 Mg Tablet) 650 mg PO Q6H PRN PRN Reason: Pain, Mild 1-3,fever,headache Last Admin: 08/28/24 09:04 Dose: 650 mg Documented By: EL Benzonatate (Benzonatate 100 Mg Capsule) 100 mg PO TID PRN PRN Reason: Cough Calcium Carbonate (Calcium Carbonate 750 Mg Tab.Chew) 750 mg PO Q4H PRN PRN Reason: Heartburn Magnesium Hydroxide (Milk Of Magnesia 30 Ml Oral.Susp) 30 ml PO DAILY PRN PRN Reason: Constipation Melatonin (Melatonin 3 Mg Tablet) 6 mg PO BEDTIME PRN PRN Reason: Insomnia Omeprazole (Omeprazole 20 Mg Capsule.Dr) 20 mg PO DAILY@0630 [facility] Last Admin: 08/28/24 05:50 Dose: 20 mg Documented By: VALENTINE Ondansetron HCl (Ondansetron Hcl 4 Mg/2 Ml Vial) 4 mg IVPUSH Q8H PRN PRN Reason: Nausea and Vomiting Sodium Chloride (0.9 % Sodium Chloride Flush 3 Ml Syringe) 3 ml IVFLUSH QSHIFT [facility] Last Admin: 08/28/24 07:46 Dose: Not Given Documented By: EL Non-Admin Reason: IV Running Torsemide (Torsemide 20 Mg Tablet) 40 mg PO DAILY [facility]; Protocol Warfarin Sodium (Warfarin Sodium 5 Mg Tablet) 5 mg PO DAILY@1800 [facility] Labs 08/27/24 17:55 08/28/24 04:39 Labs: Laboratory Results - last 24 hr 08/27/24 08/27/24 08/27/24 17:55 19:50 20:40 MCV 75.7 L MCH 21.2 L MCHC 27.9 L RDW 19.5 H Plt Count 105 L MPV 10.7 Immature Gran % (Auto) 0.4 Neut % (Auto) 87.3 H Lymph % (Auto) 2.2 L [place] % (Auto) 7.1 Eos % (Auto) 2.7 Baso % (Auto) 0.3 Lymph # (Auto) 0.2 L [place] # (Auto) 0.5 Eos # (Auto) 0.2 Baso # (Auto) 0.0 Abs Immat Gran (auto) 0.03 Absolute Neuts (auto) 6.4 Absolute Nucleated RBC 0.000 Nucleated RBC % (auto) 0.0 PT 42.3 H INR 3.6 H D Anion Gap 15 Estim Creat Clear Calc 33.1 Estimated GFR 25 POC Glucose 48 L* 88 Random Glucose 61 Estimat Average Glucose 120 Hemoglobin A1c % 5.8 Calcium 8.4 Magnesium 1.7 Total Bilirubin 0.9 AST 20 ALT 17 Alkaline Phosphatase 103 Troponin I High Sens 6.9 B-Natriuretic Peptide 604 H Total Protein 7.6 Albumin 4.1 Lipase 25 Urine Color Yellow Urine Appearance Clear Urine pH 5.5 Ur Specific [place] 1.010 Urine Protein 30 (1+) H Urine Glucose (UA) 250 H Urine Ketones Negative Urine Blood Negative Urine Nitrite Negative Ur Leukocyte Esterase Negative Urine RBC 0-2 Urine WBC 0-5 Ur Squamous Epith Cells 0-2 Urine Bacteria None Seen Hyaline Casts 0-2 Influenza Type A (PCR) Influenza Type B (PCR) RSV RNA Qual (PCR) SARS-CoV-2 RNA (RT-PCR) Blood Type O Positive Antibody Screen NEGATIVE 08/27/24 08/27/24 08/28/24 21:35 23:58 02:12 MCV MCH MCHC RDW Plt Count MPV Immature Gran % (Auto) Neut % (Auto) Lymph % (Auto) [place] % (Auto) Eos % (Auto) Baso % (Auto) Lymph # (Auto) [place] # (Auto) Eos # (Auto) Baso # (Auto) Abs Immat Gran (auto) Absolute Neuts (auto) Absolute Nucleated RBC Nucleated RBC % (auto) PT INR Anion Gap Estim Creat Clear Calc Estimated GFR POC Glucose 145 H 121 H Random Glucose Estimat Average Glucose Hemoglobin A1c % Calcium Magnesium Total Bilirubin AST ALT Alkaline Phosphatase Troponin I High Sens B-Natriuretic Peptide Total Protein Albumin Lipase Urine Color Urine Appearance Urine pH Ur Specific [place] Urine Protein Urine Glucose (UA) Urine Ketones Urine Blood Urine Nitrite Ur Leukocyte Esterase Urine RBC Urine WBC Ur Squamous Epith Cells Urine Bacteria Hyaline Casts Influenza Type A (PCR) NEGATIVE Influenza Type B (PCR) NEGATIVE RSV RNA Qual (PCR) NEGATIVE SARS-CoV-2 RNA (RT-PCR) NEGATIVE Blood Type Antibody Screen 08/28/24 08/28/24 04:39 07:44 MCV MCH MCHC RDW Plt Count MPV Immature Gran % (Auto) Neut % (Auto) Lymph % (Auto) [place] % (Auto) Eos % (Auto) Baso % (Auto) Lymph # (Auto) [place] # (Auto) Eos # (Auto) Baso # (Auto) Abs Immat Gran (auto) Absolute Neuts (auto) Absolute Nucleated RBC Nucleated RBC % (auto) PT 47.6 H INR 4.1 H Anion Gap 15 Estim Creat Clear Calc 28.2 Estimated GFR 21 POC Glucose 114 Random Glucose 143 H Estimat Average Glucose Hemoglobin A1c % Calcium 7.8 L D Magnesium Total Bilirubin AST ALT Alkaline Phosphatase Troponin I High Sens B-Natriuretic Peptide Total Protein Albumin Lipase Urine Color Urine Appearance Urine pH Ur Specific [place] Urine Protein Urine Glucose (UA) Urine Ketones Urine Blood Urine Nitrite Ur Leukocyte Esterase Urine RBC Urine WBC Ur Squamous Epith Cells Urine Bacteria Hyaline Casts Influenza Type A (PCR) Influenza Type B (PCR) RSV RNA Qual (PCR) SARS-CoV-2 RNA (RT-PCR) Blood Type Antibody Screen Assessment and Plan (1) Hypoglycemia associated with type 2 diabetes mellitus: Status: Acute Plan 69M PMH morbid obesity, diabetes, hypertension, hyperlipidemia, CKD 4, paroxysmal atrial fibrillation on Coumadin presented with shortness of breath and hypoglycemia. Diabetes with acute hypoglycemia Hold Lantus, glipizide, Farxiga Hold D5W and monitor CKD 4 with hyperkalemia Continue Lokelma, low-potassium diet, follow up BMP Paroxysmal atrial fibrillation Continue warfarin, atenolol Chronic diastolic CHF Continue torsemide Morbid obesity Weight loss recommended DVT prophylaxis with Coumadin Full code reason for continued hospitalization: Monitoring hypoglycemia and hyperkalemia Quality Stroke Does the patient have a stroke diagnosis?: No VTE Prior VTE?: No VTE Risk Level:: Medical - moderate - high VTE Device Contraindication: Treatment Not Indicated VTE Drug Contraindication: N/A - Med Ordered
[2024-08-28 09:38] LABS: SARS-CoV-2 PCR Not Detected (Not Detect.)
--- NOTE | 2024-08-28 10:44 | PHA.MEDREC ---
Addendum entered by Lianne Giraldo RPh 08/28/24 11:07: reviewed by [facility]. Original Note: Pharmacy Consult ? Medication Reconciliation Pharmacy has completed the medication reconciliation. Spoke to patient to confirm med list. Patient states he hasn't started taking Jardiance 10 mg yet. He was instructed to start taking after he runs out of Farxiga 10 mg. Patient confirmed Lantus U-100 is 62 units daily. patient states he last took his medications 08/26/24.
[2024-08-28] MEDS: atenoloL 50 MG TABLET PO (12:19)
[2024-08-28] MEDS: Isosorbide Mononitrate 30 MG TAB.ER.24H PO (12:20)
[2024-08-28] MEDS: calcitrioL 0.25 MCG CAPSULE PO (12:20)
[2024-08-28 12:32] LABS: Glucose, Whole Blood 129 mg/dL (60-115)
[2024-08-28 13:22] LABS: Anion Gap 12 (12-20); Blood Urea Nitrogen 63 mg/dL (9-16); Calcium 7.3 mg/dL (8.4-10.2); Carbon Dioxide 23 mmol/L (22-29); Chloride 104 mmol/L (96-108); Creatinine Clr Calc Pharmacy 28.5; Estimated Glomerular Filt Rate 21; Glucose Random 115 mg/dL (60-115); Potassium 5.5 mmol/L (3.3-5.1); Sodium 133 mmol/L (135-145)
--- NOTE | 2024-08-28 13:45 | MHC.CM.PN ---
pt lives alone is independent has no services has own ride home dc plan home no sevices
[2024-08-28] MEDS: ondansetron HCL 4 MG/2 ML VIAL IVPUSH (15:29)
[2024-08-28 15:55] LABS: Glucose, Whole Blood 133 mg/dL (60-115)
--- NOTE | 2024-08-28 18:18 | PC.NURSE ---
Patient not tolerating regular diet ,c/o nausea when eating,c/o abdominal discomfort,Dr. King notified,diet changed to clear liquid,KUB ordered,patient made aware
[2024-08-28 20:23] LABS: Glucose, Whole Blood 143 mg/dL (60-115)
[2024-08-28] MEDS: Atorvastatin Calcium 40 MG TABLET PO (21:21)
[2024-08-28] MEDS: Torsemide 20 MG TABLET 40 MG PO (21:22)
[2024-08-28 23:36] LABS: Glucose, Whole Blood 130 mg/dL (60-115)
[2024-08-29] MEDS: diphenhydrAMINE HCL 25 MG CAPSULE 50 MG PO (03:12)
[2024-08-29 03:14] VITALS: BP 115/56; PULSE 67; RESP 19; TEMP 36.7; O2SAT 93
--- NOTE | 2024-08-29 03:14 | PC.NURSE ---
Pt reported itchiness to both feet & face, Dr. Bah made aware, new orders placed. Meds given per SEP.
[2024-08-29 03:21] LABS: Glucose, Whole Blood 142 mg/dL (60-115)
[2024-08-29] MEDS: Omeprazole 20 MG CAPSULE.DR PO (05:42)
[2024-08-29] MEDS: Calcium Carbonate 750 MG TAB.CHEW PO (05:45)
[2024-08-29 07:02] LABS: Hematocrit 30.5 % (42.0-52.0); Hemoglobin 8.6 g/dl (14.0-18.0); Mean Corpuscular HGB Conc 28.2 g/dl (31.0-36.0); Mean Corpuscular Hemoglobin 21.3 pg (27.0-33.0); Mean Corpuscular Volume 75.7 fL (80.0-98.0); Mean Platelet Volume 10.8 fL (9.4-12.4); PLT CLUMP 1; Platelet Count 108 X10*3/uL (160-400); Red Blood Count 4.03 X10*6/uL (4.60-5.80); Red Cell Distribution Width 20.6 % (11.0-16.0); White Blood Count 4.8 X10*3/uL (4.8-10.8)
[2024-08-29 07:06] LABS: INTERNATIONAL NORM RATIO 2.3 (0.9-1.1); Prothrombin Time 26.4 SEC (10.9-12.4)
[2024-08-29 07:17] LABS: Anion Gap 17 (12-20); Blood Urea Nitrogen 72 mg/dL (9-16); Calcium 7.7 mg/dL (8.4-10.2); Carbon Dioxide 17 mmol/L (22-29); Chloride 105 mmol/L (96-108); Creatinine Clr Calc Pharmacy 24.8; Estimated Glomerular Filt Rate 18; Glucose Random 129 mg/dL (60-115); Potassium 5.2 mmol/L (3.3-5.1); Sodium 134 mmol/L (135-145)
--- NOTE | 2024-08-29 07:22 | PC.NURSE ---
Bun [address] King made aware
[2024-08-29 07:50] VITALS: BP 129/60; PULSE 74; RESP 18; TEMP 36.3; O2SAT 93
[2024-08-29] MEDS: Loratadine 10 MG TABLET PO (07:52)
[2024-08-29] MEDS: Isosorbide Mononitrate 30 MG TAB.ER.24H PO (07:52)
[2024-08-29] MEDS: atenoloL 50 MG TABLET PO (07:52)
[2024-08-29] MEDS: Torsemide 20 MG TABLET 40 MG PO ×2 (07:52→20:19)
[2024-08-29 07:58] LABS: Glucose, Whole Blood 124 mg/dL (60-115)
[2024-08-29] MEDS: 0.9 % Sodium Chloride Flush 3 ML SYRINGE IVFLUSH ×3 (07:58→20:20)
--- NOTE | 2024-08-29 08:29 | P.PNIM_ITS ---
Subjective Subjective Date of Service: 08/29/24 Interval History: abd bloating improved, ready to restart solids, no further diarrhea, had formed stool Physical Exam 2 Vital Signs: Vital Signs: Last Vital Signs Temp 97.4 F 08/29/24 07:50 Pulse 74 08/29/24 07:50 Resp 18 08/29/24 07:50 BP 129/60 08/29/24 07:50 Pulse Ox 93 08/29/24 07:50 O2 Del Method Room Air 08/29/24 07:50 O2 Flow Rate 2 08/28/24 23:25 BMI result Body Mass Index 41.4 General: AO X 3, no acute distress Resp: CTA bilateral, no accessory muscles used CVS: S1,S2,RRR GI: soft, non tender, distended - reports unchanged from baseline Neuro: motor grossly intact, alert Psych: appropriate affect, appropriate insight Objective Data Active Medications Acetaminophen (Acetaminophen 325 Mg Tablet) 650 mg PO Q6H PRN PRN Reason: Pain, Mild 1-3,fever,headache Last Admin: 08/28/24 21:29 Dose: 650 mg Documented By: SABIHA Atenolol (Atenolol 50 Mg Tablet) 50 mg PO DAILY [facility]; Protocol Last Admin: 08/29/24 07:52 Dose: 50 mg Documented By: MONICA Atorvastatin Calcium (Atorvastatin Calcium 40 Mg Tablet) 40 mg PO BEDTIME [facility] Last Admin: 08/28/24 21:21 Dose: 40 mg Documented By: SABIHA Benzonatate (Benzonatate 100 Mg Capsule) 100 mg PO TID PRN PRN Reason: Cough Calcitriol (Calcitriol 0.25 Mcg Capsule) 0.25 mcg PO Q48H DAMIAN Last Admin: 08/28/24 12:20 Dose: 0.25 mcg Documented By: MONICA Calcium Carbonate (Calcium Carbonate 750 Mg Tab.Chew) 750 mg PO Q4H PRN PRN Reason: Heartburn Last Admin: 08/29/24 05:45 Dose: 750 mg Documented By: SABIHA Isosorbide Mononitrate (Isosorbide Mononitrate 30 Mg Tab.Er.24h) 30 mg PO DAILY [facility]; Protocol Last Admin: 08/29/24 07:52 Dose: 30 mg Documented By: MONICA Loratadine (Loratadine 10 Mg Tablet) 10 mg PO DAILY [facility] Last Admin: 08/29/24 07:52 Dose: 10 mg Documented By: MONICA Magnesium Hydroxide (Milk Of Magnesia 30 Ml Oral.Susp) 30 ml PO DAILY PRN PRN Reason: Constipation Melatonin (Melatonin 3 Mg Tablet) 6 mg PO BEDTIME PRN PRN Reason: Insomnia Omeprazole (Omeprazole 20 Mg Capsule.) 20 mg PO DAILY@0630 [facility] Last Admin: 08/29/24 05:42 Dose: 20 mg Documented By: SABIHA Ondansetron HCl (Ondansetron Hcl 4 Mg/2 Ml Vial) 4 mg IVPUSH Q8H PRN PRN Reason: Nausea and Vomiting Last Admin: 08/28/24 15:29 Dose: 4 mg Documented By: MONICA Sodium Chloride (0.9 % Sodium Chloride Flush 3 Ml Syringe) 3 ml IVFLUSH QSHIFT [facility] Last Admin: 08/29/24 07:58 Dose: 3 ml Documented By: MONICA Torsemide (Torsemide 20 Mg Tablet) 40 mg PO BID [facility]; Protocol Last Admin: 08/29/24 07:52 Dose: 40 mg Documented By: MONICA Warfarin Sodium (Warfarin Sodium 5 Mg Tablet) 5 mg PO DAILY@1800 [facility] Labs 08/29/24 05:58 08/29/24 05:58 Labs: Laboratory Results - last 24 hr 08/27/24 08/28/24 08/28/24 23:55 12:27 12:47 MCV MCH MCHC RDW Plt Count MPV Absolute Nucleated RBC Nucleated RBC % (auto) PT INR Anion Gap 12 Estim Creat Clear Calc 28.5 Estimated GFR 21 POC Glucose 129 H Random Glucose 115 Calcium 7.3 L D Respiratory Panel [place] See Note Adenovirus (Rapid PCR) Not Detected B.pert (TEM-PCR) Not Detected B.parapertussis DNA PCR Not Detected C. pneumoniae DNA (PCR) Not Detected Coronavirus OC43 (PCR) Not Detected Coronavirus HKU1 (PCR) Not Detected Coronavirus 229E (PCR) Not Detected Coronavirus NL63 (PCR) Not Detected Human Metapneumovir PCR Not Detected Influenza A (RT-PCR) Not Detected Influenza B (RT-PCR) Not Detected M. pneumoniae (PCR) Not Detected Parainfluenza 1 (PCR) Not Detected Parainfluenza 2 (PCR) Not Detected Parainfluenza 3 (PCR) Not Detected Parainfluenza 4 (PCR) Not Detected RSV (PCR) Not Detected Entero/Rhino (PCR) Not Detected SARS-CoV-2 RNA (RT-PCR) Not Detected 08/28/24 08/28/24 08/28/24 15:51 20:18 23:27 MCV MCH MCHC RDW Plt Count MPV Absolute Nucleated RBC Nucleated RBC % (auto) PT INR Anion Gap Estim Creat Clear Calc Estimated GFR POC Glucose 133 H 143 H 130 H Random Glucose Calcium Respiratory Panel [place] Adenovirus (Rapid PCR) B.pert (TEM-PCR) B.parapertussis DNA PCR C. pneumoniae DNA (PCR) Coronavirus OC43 (PCR) Coronavirus HKU1 (PCR) Coronavirus 229E (PCR) Coronavirus NL63 (PCR) Human Metapneumovir PCR Influenza A (RT-PCR) Influenza B (RT-PCR) M. pneumoniae (PCR) Parainfluenza 1 (PCR) Parainfluenza 2 (PCR) Parainfluenza 3 (PCR) Parainfluenza 4 (PCR) RSV (PCR) Entero/Rhino (PCR) SARS-CoV-2 RNA (RT-PCR) 08/29/24 08/29/24 08/29/24 03:16 05:58 07:52 MCV 75.7 L MCH 21.3 L MCHC 28.2 L RDW 20.6 H Plt Count 108 L MPV 10.8 Absolute Nucleated RBC 0.000 Nucleated RBC % (auto) 0.0 PT 26.4 H D INR 2.3 H Anion Gap 17 Estim Creat Clear Calc 24.8 Estimated GFR 18 POC Glucose 142 H 124 H Random Glucose 129 H Calcium 7.7 L Respiratory Panel [place] Adenovirus (Rapid PCR) B.pert (TEM-PCR) B.parapertussis DNA PCR C. pneumoniae DNA (PCR) Coronavirus OC43 (PCR) Coronavirus HKU1 (PCR) Coronavirus 229E (PCR) Coronavirus NL63 (PCR) Human Metapneumovir PCR Influenza A (RT-PCR) Influenza B (RT-PCR) M. pneumoniae (PCR) Parainfluenza 1 (PCR) Parainfluenza 2 (PCR) Parainfluenza 3 (PCR) Parainfluenza 4 (PCR) RSV (PCR) Entero/Rhino (PCR) SARS-CoV-2 RNA (RT-PCR) Assessment and Plan (1) Hypoglycemia associated with type 2 diabetes mellitus: Status: Acute Plan 69M PMH morbid obesity, diabetes, hypertension, hyperlipidemia, CKD 4, paroxysmal atrial fibrillation on Coumadin presented with shortness of breath and hypoglycemia. Diabetes with acute hypoglycemia Hold Lantus, glipizide, Farxiga Hold D5W and monitor - so far stable with POC in low 100s juliet on CKD 4 with hyperkalemia and acute metabolic acidosis Continue Lokelma, low-potassium diet, sodium bicarb po, follow up BMP gastroenteritis appears improved, follow up stool studies, restart solids Paroxysmal atrial fibrillation Continue warfarin, atenolol Chronic diastolic CHF Continue torsemide Morbid obesity Weight loss recommended DVT prophylaxis with Coumadin Full code reason for continued hospitalization: juliet, monitoring po tolerance Quality Stroke Does the patient have a stroke diagnosis?: No VTE Prior VTE?: No VTE Risk Level:: Medical - moderate - high VTE Device Contraindication: Treatment Not Indicated VTE Drug Contraindication: N/A - Med Ordered
--- NOTE | 2024-08-29 10:41 | PC.NURSE ---
Patient c/o his hands are swollen,Dr. King made aware
[2024-08-29 10:43] LABS: Adenovirus F 40/41 Not Detected (Not Detect.); Astrovirus Not Detected (Not Detect.); Campylobacter Not Detected (Not Detect.); Cryptosporidium Not Detected (Not Detect.); Cyclospora cayetanensis Not Detected (Not Detect.); E. coli EAEC Not Detected (Not Detect.); E. coli EPEC Not Detected (Not Detect.); E. coli ETEC Not Detected (Not Detect.); E. coli STEC Not Detected (Not Detect.); Entamoeba histolytica Not Detected (Not Detect.); Giardia lamblia Not Detected (Not Detect.); Plesiomonas shigelloides Not Detected (Not Detect.); Rotavirus A Not Detected (Not Detect.); Salmonella Not Detected (Not Detect.); Sapovirus Not Detected (Not Detect.); Shigella sp./EIEC Not Detected (Not Detect.); Vibrio Not Detected (Not Detect.); Vibrio Cholerae Not Detected (Not Detect.); Yersinia enterocolitica Not Detected (Not Detect.)
[2024-08-29] MEDS: Sodium Bicarbonate 650 MG TABLET PO ×3 (10:51→20:20)
[2024-08-29 11:27] VITALS: BP 121/58; PULSE 70; RESP 16; TEMP 36.8; O2SAT 92
[2024-08-29 11:36] LABS: Glucose, Whole Blood 175 mg/dL (60-115)
[2024-08-29 12:42] LABS: Norovirus GI/GII Detect (Not Detect.)
[2024-08-29 15:23] VITALS: BP 118/58; PULSE 70; RESP 18; TEMP 36.9; O2SAT 96
[2024-08-29 16:37] LABS: Glucose, Whole Blood 107 mg/dL (60-115)
[2024-08-29] MEDS: Warfarin Sodium 5 MG TABLET PO (18:23)
[2024-08-29 19:07] VITALS: BP 132/62; PULSE 72; RESP 18; TEMP 36.9; O2SAT 95
[2024-08-29 20:03] LABS: Glucose, Whole Blood 149 mg/dL (60-115)
[2024-08-29 20:19] VITALS: BP 132/62
[2024-08-29] MEDS: Atorvastatin Calcium 40 MG TABLET PO (20:19)
[2024-08-29] MEDS: Acetaminophen 325 MG TABLET 650 MG PO (20:19)
[2024-08-30] VITALS: BP 133/60; PULSE 73; RESP 18; TEMP 36.8; O2SAT 93
[2024-08-30 00:59] LABS: Glucose, Whole Blood 146 mg/dL (60-115)
[2024-08-30 03:51] VITALS: BP 134/63; PULSE 70; RESP 16; TEMP 36.3; O2SAT 93
[2024-08-30] MEDS: Omeprazole 20 MG CAPSULE.DR PO (05:35)
[2024-08-30 05:36] LABS: Glucose, Whole Blood 136 mg/dL (60-115)
[2024-08-30 06:16] LABS: INTERNATIONAL NORM RATIO 1.9 (0.9-1.1)
[2024-08-30 06:26] LABS: Hematocrit 30.7 % (42.0-52.0); Hemoglobin 8.7 g/dl (14.0-18.0); Mean Corpuscular HGB Conc 28.3 g/dl (31.0-36.0); Mean Corpuscular Hemoglobin 21.3 pg (27.0-33.0); Mean Corpuscular Volume 75.2 fL (80.0-98.0); Platelet Count 109 X10*3/uL (160-400); Red Blood Count 4.08 X10*6/uL (4.60-5.80); Red Cell Distribution Width 20.6 % (11.0-16.0); White Blood Count 5.2 X10*3/uL (4.8-10.8)
[2024-08-30 06:27] LABS: Anion Gap 15 (12-20); Blood Urea Nitrogen 78 mg/dL (9-16); Calcium 7.8 mg/dL (8.4-10.2); Carbon Dioxide 21 mmol/L (22-29); Chloride 104 mmol/L (96-108); Creatinine Clr Calc Pharmacy 25.4; Estimated Glomerular Filt Rate 18; Glucose Random 144 mg/dL (60-115); Potassium 4.5 mmol/L (3.3-5.1); Sodium 135 mmol/L (135-145)
[2024-08-30 07:25] LABS: Glucose, Whole Blood 132 mg/dL (60-115)
[2024-08-30] MEDS: Isosorbide Mononitrate 30 MG TAB.ER.24H PO (07:51)
[2024-08-30] MEDS: Loratadine 10 MG TABLET PO (07:51)
[2024-08-30] MEDS: Sodium Bicarbonate 650 MG TABLET PO (07:51)
[2024-08-30] MEDS: atenoloL 50 MG TABLET PO (07:51)
[2024-08-30] MEDS: Torsemide 20 MG TABLET 40 MG PO (07:51)
[2024-08-30] MEDS: 0.9 % Sodium Chloride Flush 3 ML SYRINGE IVFLUSH (07:52)
[2024-08-30 07:53] VITALS: BP 135/63; PULSE 71; RESP 18; TEMP 36.6; O2SAT 95
[2024-08-30 08:34] VITALS: BP 135/63; PULSE 71; O2SAT 95
--- NOTE | 2024-08-30 11:06 | P.DS_ITS ---
DS: Providers Provider Date of Service: 08/30/24 Date of admission: 08/29/24 07:30 Date of discharge: 08/30/24 Primary care physician: Eder Ortega DO, MD Consults: 08/28/24 22:06 Consult to Wound Care Routine Reason for consultation: redness between buttocks 08/29/24 21:06 Consult to Wound Care Routine Reason for consultation: blanchable redness between buttocks DS: Diagnosis Discharge Diagnosis (1) Hypoglycemia associated with type 2 diabetes mellitus: Status: Acute DS: Summary Hospital Course Hospital Course: Admission note HPI A 69 years old male with PMH of DMII, HTN, HLD, CKD4, Afib on warfarin presents to ED with SOB and hypoglycemic event at skilled nursing. The patient reports feeling unwell for the last few days with decrease PO intake, malaise, no energy, SOB and nausea. No chest pain, palpitations, vomiting, diarrhea or urinary symptoms. Noted to have low blood sugar reading in 40s with symptoms. he is on Lantus, Glipizide and Farxiga from his home medications. in ED CXR showing no clear infiltrates but slight fluid congestion, elevated BNP at 600. mild hyperkalemia with stable Creatinine. he had another episodes of low sugar around 48, responded to Dextrose IV. will be admitted for close monitoring. Hospital course The patient was admitted and treated for: # Type II Diabetes with acute hypoglycemia. Glucose on admission as low as 48. HbA1c of 5.8. Held Lantus, glipizide, Farxiga and started on D5W with fair response which was then discontinued. He did not require any insulin supplement while in hospital as his readings were 100-150s. Advised to restart his Lantus as low as 20 units for now and increase as tolerated. To keep both Farxiga and GLipizide on hold and follow with PCP for further adjustemnt of needed. Visiting nurses to follow with him at home. # He was also monitored for worsening CKD 4 with hyperkalemia and acute metabolic acidosis Potassium corrected by using Lokelma and low-potassium diet. Acidosis resolved by sodium bicarb po. To follow up with nephrology team as outpatient with repeat BMP. He was making good amount of urine while on Torsemide. to add Lokelma on discharge as well and repeat BMP next week. # Norovirus infection likely contributing to his overall weakness and dehydration with decrease PO intake. Stool became more formed. advised to stay hydrated. # Paroxysmal atrial fibrillation, Continued warfarin, atenolol # Chronic diastolic CHF, Continue torsemide # Morbid obesity, Weight loss recommended Discharge plan Hold Farxiga and Glipizide Decrease Lantus to 20 units daily only Monitor sugar levels at home for the next 2 weeks and report findings to PCP Start sodium bicarbonate twice a day continue rest of home medicaitons Follow up with PCP and nephrology within the next 2 weeks for close follow up To repeat blood work Time Attestation Discharge Coordination Time (in mins): 37 Quality: Safe Use of Opioids Does Pt have an Active Cancer Diagnosis on the Problem List?: No Quality: Stroke Does the patient have a stroke diagnosis?: No Physical Exam Vital Signs: Vital Signs: Last Vital Signs Temp 97.9 F 08/30/24 07:53 Pulse 71 08/30/24 08:34 Resp 18 08/30/24 07:53 BP 135/63 08/30/24 08:34 Pulse Ox 95 08/30/24 08:34 O2 Del Method Room Air 08/30/24 07:53 O2 Flow Rate 2 08/28/24 23:25 BMI result Body Mass Index 41.4 Const: Other: Constitutional : Awake, interactive, not in distress Neck : Normal inspection, Supple Cardiovascular : RRR, no JVP, no lower extremity edema Respiratory : good bilateral air entry, no crackles, wheezes or rhonchi Gastrointestinal: soft, lax, Normal bowel sounds, Non tender Skin : Warm, Dry Neurological : Alert & oriented x3, No focal deficit DS: Data Data Completed and Pending Labs on day of discharge: Laboratory Results - last 24 hr 08/28/24 08/29/24 08/29/24 15:25 11:30 16:33 WBC RBC Hgb Hct MCV MCH MCHC RDW Plt Count MPV Absolute Nucleated RBC Nucleated RBC % (auto) PT INR Sodium Potassium Chloride Carbon Dioxide Anion Gap BUN Creatinine Estim Creat Clear Calc Estimated GFR POC Glucose 175 H 107 Random Glucose Calcium Stl C. cayetanensis PCR Not Detected Stool Rotavirus A PCR Not Detected Stl Adenov F 40/41 PCR Not Detected Stool Astrovirus (PCR) Not Detected Stool Campylobacter PCR Not Detected Stool Cryptosporidium PCR Not Detected Stl Sh Tox Pr E STEC PCR Not Detected Stool E coli O157 PCR Not applicable Stl Enterotoxigenic E PCR Not Detected Stool EPEC (PCR) Not Detected Stool EAEC (PCR) Not Detected Stl E. histolytica PCR Not Detected Stool Giardia Lamblia PCR Not Detected Stl P. shigelloides PCR Not Detected Stool Salmonella PCR Not Detected Stool Sapovirus (PCR) Not Detected Stl Shigella/EIEC PCR Not Detected St Y.enterocolitica PCR Not Detected Stool Vibrio (PCR) Not Detected Stl Vibrio cholerae PCR Not Detected Stl Norovirus GI/GII PCR Detect A 08/29/24 08/30/24 08/30/24 19:59 00:10 03:55 WBC RBC Hgb Hct MCV MCH MCHC RDW Plt Count MPV Absolute Nucleated RBC Nucleated RBC % (auto) PT INR Sodium Potassium Chloride Carbon Dioxide Anion Gap BUN Creatinine Estim Creat Clear Calc Estimated GFR POC Glucose 149 H 146 H 136 H Random Glucose Calcium Stl C. cayetanensis PCR Stool Rotavirus A PCR Stl Adenov F 40/41 PCR Stool Astrovirus (PCR) Stool Campylobacter PCR Stool Cryptosporidium PCR Stl Sh Tox Pr E STEC PCR Stool E coli O157 PCR Stl Enterotoxigenic E PCR Stool EPEC (PCR) Stool EAEC (PCR) Stl E. histolytica PCR Stool Giardia Lamblia PCR Stl P. shigelloides PCR Stool Salmonella PCR Stool Sapovirus (PCR) Stl Shigella/EIEC PCR St Y.enterocolitica PCR Stool Vibrio (PCR) Stl Vibrio cholerae PCR Stl Norovirus GI/GII PCR 08/30/24 08/30/24 05:40 07:19 WBC 5.2 RBC 4.08 L Hgb 8.7 L Hct 30.7 L MCV 75.2 L MCH 21.3 L MCHC 28.3 L RDW 20.6 H Plt Count 109 L MPV Not Reportable Absolute Nucleated RBC 0.000 Nucleated RBC % (auto) 0.0 PT 22.0 H INR 1.9 H Sodium 135 Potassium 4.5 Chloride 104 Carbon Dioxide 21 L Anion Gap 15 BUN 78 H Creatinine 3.34 H Estim Creat Clear Calc 25.4 Estimated GFR 18 POC Glucose 132 H Random Glucose 144 H Calcium 7.8 L Stl C. cayetanensis PCR Stool Rotavirus A PCR Stl Adenov F 40/41 PCR Stool Astrovirus (PCR) Stool Campylobacter PCR Stool Cryptosporidium PCR Stl Sh Tox Pr E STEC PCR Stool E coli O157 PCR Stl Enterotoxigenic E PCR Stool EPEC (PCR) Stool EAEC (PCR) Stl E. histolytica PCR Stool Giardia Lamblia PCR Stl P. shigelloides PCR Stool Salmonella PCR Stool Sapovirus (PCR) Stl Shigella/EIEC PCR St Y.enterocolitica PCR Stool Vibrio (PCR) Stl Vibrio cholerae PCR Stl Norovirus GI/GII PCR Discharge Plan Discharge Anticipated Discharge Date/Time: 08/30/24 10:54 Patient Disposition: Home Health Service Discharge Diagnosis: Low blood sugar Noro virus infection Worsening kidney function Referrals: Eder Ortega DO, MD [Primary Care Provider] - 1 Week Discharge Medications: New sodium bicarbonate 650 mg Tablet 650 mg PO BID Qty: 180 0RF Lokelma 5 gram powder in packet 5 g PO DAILY Qty: 30 2RF Continued losartan 50 mg tablet 25 mg PO DAILY atorvastatin 40 mg tablet 40 mg PO BEDTIME warfarin 5 mg tablet 5 mg PO DAILY@1800 (DME) insulin syringe-needle U-100 [BD Insulin Syringe Ultra-Fine] 1 mL 31 gauge x 5/16 syringe MISCELLANEOUS DAILY atenolol 50 mg tablet 50 mg PO DAILY calcitriol 0.25 mcg Capsule 0.25 mcg PO Q48H cetirizine 10 mg tablet 10 mg PO DAILY isosorbide mononitrate 30 mg tablet extended release 24 hr 30 mg PO DAILY torsemide 20 mg tablet 40 mg PO BID omeprazole 20 mg Capsule,Delayed Release(Dr/Ec) 20 mg PO DAILY@0630 Changed insulin glargine [Lantus U-100 Insulin] 100 unit/mL solution 20 unit subcut DAILY Qty: 10 0RF Held glipizide 5 mg tablet 5 mg PO BID Hold Instructions: Until follow up with PCP for evaluation if needed or not. dapagliflozin propanediol [Farxiga] 10 mg tablet 10 mg PO DAILY Hold Instructions: Until follow up with PCP for evaluation if needed or not. Discharge Orders: Discharge Order (Routine); Ordered 08/30/24 Ordered By: Fidel Velasquez Diet: Diabetic diet Activity on Discharge: As tolerated Stand Alone Forms: Patient Portal Discharge page Print Language: Vincentian Other Ambulatory Orders: Basic Metabolic Panel (Routine) Timeframe: 5 Days Facility: [facility] - Location: Laboratory Ordered By: Fidel Velasquez Care Plan Goals: Hold Farxiga and Glipizide Decrease Lantus to 20 units daily only Monitor sugar levels at home for the next 2 weeks and report findings to PCP Start sodium bicarbonate twice a day continue rest of home medicaitons Follow up with PCP and nephrology within the next 2 weeks for close follow up To repeat blood work Health Concerns: Low blood sugar Worsening kidney function Plan of Treatment: Hold Farxiga and Glipizide Lower Lantus follow with PCP Assessment: as above Discharge Date/Time: 08/30/24 14:16
[2024-08-30 11:15] LABS: Glucose, Whole Blood 174 mg/dL (60-115)
--- NOTE | 2024-08-30 11:25 | HO.WOUND ---
Wound Consult: Initial 69yr old?male admitted to [facility] on 08/29/24 - See progress notes and H&P for detailed history.? Wound consult placed for intergluteal area.? Patient agreeable to assessment and photo documentation.? Patient reports he began using barrier cream today and this has helped significantly. He reports it is due to his frequent liquid bowel movements. Of note patient was positive for norovirus and was experiencing significant liquid bowel movements. Intergluteal Etiology: ?MASD ?Present on Admission Wound Bed: red pink moist tissue within the gluteal fold no open wounds noted Drainage / Odor: none Edges: ? mirrored Elvira wound: ? Intact No Induration, Fluctuance or Warmth noted Pain: tenderness reported Goals of Treatment: ? barrier cream recommended Recommendations: 1.Intergluteal - Cleanse with PH balanced wipes, pat dry. Apply barrier cream twice daily and after episodes of loose stool. Re-consult wound care Nurse for wound deterioration or wound changes.
--- NOTE | 2024-08-30 11:25 | W.MHC.F2F ---
Service Date Service Date: 08/30/24 Encounter Date of encounter: 08/30/24 Reasons for Services Signs and symptoms assessed: Hypoglycemia, Diabetes management. Reason for half-way: monitoring of unstable blood sugar and teach disease management Homebound: Leaving the home is medically contraindicated at this time without the asist of a device and/or another person due th the listed conditions above and below. Reason homebound: unable to drive Certification: Based on the above findings, I certify that this patient is confined to the home and needs intermittent half-way care, physical therapy and/or speech therapy, or continues to need occupational therapy. The patient is under my care, and I have initiated the establishment of the plan of care. The patient will be followed by a physician who will periodically review the plan of care. Time Spent With Patient Time: Total time managing care of this patient today ____ minutes.
[2024-08-30 12:00] VITALS: BP 131/63; PULSE 74; RESP 17; TEMP 36.7; O2SAT 95
[2024-08-30] MEDS: calcitrioL 0.25 MCG CAPSULE PO (12:48)
--- NOTE | 2024-08-30 15:00 | MHC.CM.PN ---
Patient is discharged to home today with home services. [facility] has been referred per pt choice. Patient arranged for transportation home.
== END 2024-08-30 14:16 | disposition home health service (06) | DRG 638 ==
LOC: HO.ED 16:20 → HO.EDOVER 22:43 → HO.S3 08-28 08:39
PROVIDERS: Internal Medicine; Nurse Practitioner Family; Admitting Provider Student in an Organized Health Care Education/Training Program; Emergency Provider Emergency Medicine; PCP Internal Medicine; Visit Provider Student in an Organized Health Care Education/Training Program
DX: E11.649 Type 2 diabetes mellitus with hypoglycemia without coma (principal); A08.11 Acute gastroenteropathy due to Norwalk agent; E87.21 Acute metabolic acidosis; I13.0 Hypertensive heart and chronic kidney disease with heart failure and stage 1 through stage 4 chronic kidney disease, or unspecified chronic kidney disease; I50.32 Chronic diastolic (congestive) heart failure; Z68.41 Body mass index [BMI] 40.0-44.9, adult; E87.5 Hyperkalemia; E66.01 Morbid (severe) obesity due to excess calories; E78.5 Hyperlipidemia, unspecified; I48.0 Paroxysmal atrial fibrillation; Z71.3 Dietary counseling and surveillance; N18.4 Chronic kidney disease, stage 4 (severe); E11.22 Type 2 diabetes mellitus with diabetic chronic kidney disease; F17.210 Nicotine dependence, cigarettes, uncomplicated; Z20.822 Contact with and (suspected) exposure to COVID-19; Z71.6 Tobacco abuse counseling; Z79.4 Long term (current) use of insulin; Z79.01 Long term (current) use of anticoagulants; Z79.84 Long term (current) use of oral hypoglycemic drugs; Z79.899 Other long term (current) drug therapy
CPT/HCPCS: 0241U; 36415; 71045; 71046; 74018; 80048; 80053; 81001; 82947; 83036; 83690; 83735; 83880; 84484; 85025; 85027; 85610; 86850; 86900; 86901; 87507; 87633; 93005; 97162; 99221; 99285; J1940; J2405; Q5106

== ENCOUNTER → 2024-08-27 16:02 | Outpatient (BNV) | payer MEDICARE, SELFPAY | PROVIDERS: Emergency Provider Emergency Medicine; Visit Provider Student in an Organized Health Care Education/Training Program | DX: E11.649 Type 2 diabetes mellitus with hypoglycemia without coma (principal); N18.4 Chronic kidney disease, stage 4 (severe); E87.5 Hyperkalemia | CPT/HCPCS: 99222; 99232; 99239 ==

== ENCOUNTER → 2024-08-27 16:12 | Outpatient (BNV) | payer MEDICARE, SELFPAY | PROVIDERS: Emergency Provider Emergency Medicine; Visit Provider Specialist | DX: R06.02 Shortness of breath (principal) | CPT/HCPCS: 71046 ==

== ENCOUNTER → 2024-08-27 16:12 | Outpatient (BNV) | payer MEDICARE, SELFPAY | PROVIDERS: Admitting Provider Student in an Organized Health Care Education/Training Program; Emergency Provider Emergency Medicine; PCP Internal Medicine; Visit Provider Internal Medicine Cardiovascular Disease | DX: R06.02 Shortness of breath (principal) | CPT/HCPCS: 93010 ==

== ENCOUNTER 2024-08-27 22:35 | Outpatient (BNV) | payer MEDICARE, SELFPAY | END 2024-08-28 19:50 | PROVIDERS: Admitting Provider Student in an Organized Health Care Education/Training Program; Emergency Provider Emergency Medicine; PCP Internal Medicine; Visit Provider Student in an Organized Health Care Education/Training Program | DX: R14.0 Abdominal distension (gaseous) (principal) | CPT/HCPCS: 74018 ==

== ENCOUNTER 2024-08-29 07:30 | Outpatient (BNV) | payer MEDICARE, SELFPAY | END 2024-08-29 11:25 | PROVIDERS: Admitting Provider Student in an Organized Health Care Education/Training Program; Emergency Provider Emergency Medicine; PCP Internal Medicine; Visit Provider Radiology Vascular & Interventional Radiology | DX: R06.02 Shortness of breath (principal); R09.89 Other specified symptoms and signs involving the circulatory and respiratory systems | CPT/HCPCS: 71045 ==

== ENCOUNTER 2024-09-14 12:26 | Inpatient (IN) | payer MEDICARE, SELFPAY ==
--- NOTE | ~2024-09-14 | MR_ITS ---
CLINICAL HISTORY: ptosis weakness-check for brain aneurism MR Angiography head without intravenous contrast Comparison: None Findings No ICA or M1 occlusion. The basilar artery is patent. Right vertebral artery is dominant. Imaged and tortuous anterior communicating artery is diminutive. Proximal ICAs, MCAs, and cardiology consultants are otherwise unremarkable. No proximal intracranial arterial aneurysm. Phase artifacts noted including about imaged brainstem and basal ganglia regions. IMPRESSION: 1. Negative screening MRA for aneurysm. 2. No ICA or M1 occlusion. 3. The basilar artery is patent. This document has been electronically signed by: Kevin Whittaker MD on 09/15/2024 19:14:53
--- NOTE | ~2024-09-14 | XR_ITS ---
EXAMINATION: XR CHEST CLINICAL INFORMATION: SOB COMPARISON: August 29, 2024. TECHNIQUE: Frontal view of the chest was obtained. FINDINGS: Indistinct margins in the perihilar regions. No pleural effusion. No pneumothorax. Cardiomediastinal silhouette size is mildly prominent, unchanged. Calcified plaque thoracic aorta. Multilevel thoracic spondylosis. XR/XR chest 1V IMPRESSION: Consider mild interstitial edema in the correct clinical settings. Electronically signed by: Celso Camarena MD 09/14/2024 01:58 PM EST
--- NOTE | ~2024-09-14 | CT_ITS ---
EXAMINATION: CT HEAD WITHOUT CONTRAST CLINICAL INFORMATION: left side weaknessx2 days COMPARISON: None available. TECHNIQUE: Contiguous axial imaging was performed from the skull base to vertex without intravenous administration of contrast. This CT examination was performed using dose optimization techniques as appropriate, variously including the following: *Automated exposure control *Adjustment of mA and/or kV according to patient size (this includes techniques or standardized protocols for targeted exams where dose is matched to indication/reason for exam; i.e. extremities or head) *Use of iterative reconstruction technique DLP: No documented mGy-cm FINDINGS: No acute intracranial hemorrhage, mass effect, midline shift, hydrocephalus or herniation. Ryder-white matter differentiation is normal. Mild patchy hypodensity in the deep periventricular white matter. Prominence of the extra-axial CSF spaces cerebral sulci and ventricles likely central volume loss. Posterior cranial fossa contents demonstrated no acute intracranial hemorrhage or mass effect. Calcified plaques in the cavernous supraclinoid segments both ICAs. Calcified plaques in the V4 segments of the vertebral arteries. Sellar/suprasellar region demonstrated no gross masses. Craniocervical junction is intact with a pannus formation in the periodontal region. There is increased density secretions and mucosal thickening, right maxillary sinus resulting in bowing of the medial wall into the right nasal cavity obstructing the right ostiomeatal unit. Mucosal thickening with increased density secretions in the right frontal sinus and right ethmoid air cells. There is increased attenuation within the right tympanic cavity, right mastoid antrum and mastoid air cells. No gross masses in the nasopharynx or the skull base. Bony calvarium is intact. CT/CT head/brain wo IV con IMPRESSION: No acute intracranial hemorrhage. Consider small vessel occlusive disease. Acute on chronic right-sided sinus disease with the questionable fungal infection etiology. Recommend direct inspection. Inflammatory versus infectious processes, right tympanic cavity and mastoid air cells. Cholesteatoma cannot be entirely excluded. Electronically signed by: Celso Camarena MD 09/14/2024 02:26 PM PILY
[2024-09-14 12:53] VITALS: BP 147/72; PULSE 56; RESP 16; TEMP 35.8; O2SAT 100; BMI 42.7
--- NOTE | 2024-09-14 13:43 | ECG_ITS ---
Test Reason : DYSPNEA Blood Pressure : */* mmHG Vent. Rate : 57 BPM Atrial Rate : 57 BPM P-R Int : 186 ms QRS Dur : 82 ms QT Int : 454 ms P-R-T Axes : 28 15 40 degrees QTcB Int : 441 ms Sinus bradycardia Otherwise normal ECG When compared with ECG of 27-Aug-2024 17:18, No significant change was found Referred By: Milad Avilez Electronically Signed By: NATY VERA
--- NOTE | 2024-09-14 13:45 | ED_ITS ---
HPI - General Adult General Chief complaint: Dyspnea Stated complaint: SOB, chills Time Seen by Provider: 09/14/24 13:33 Source: patient Mode of arrival: ambulatory Limitations: no limitations History of Present Illness ED Provider: DR. Avilez HPI narrative: This is a 69-year-old male brought in from Dr. Chong's office (oncologist) for evaluation of a concern of possible left-sided weakness for 2 days. Patient with chronic anemia require Procrit infusion and multiple blood transfusions in the past came in from oncology office for evaluation of a left- sided weakness started 2 days ago, otherwise no slurred speech, no headache, no numbness. Patient is more concern of exertional dyspnea and paroxysmal nocturnal dyspnea with lower extremity swelling and edema. Recently patient had norovirus with diarrhea and was feeling dehydrated and generalized weakness over the past last week now he is feeling better. Related Data Home Medications ?Medication ?Instructions ?Recorded ?Confirmed atenolol 50 mg tablet 50 mg PO DAILY 09/22/23 09/14/24 atorvastatin 40 mg tablet 40 mg PO BEDTIME 09/22/23 09/14/24 dapagliflozin propanediol 10 mg 10 mg PO DAILY 09/22/23 09/14/24 tablet (Farxiga) glipizide 5 mg tablet 5 mg PO BID 09/22/23 09/14/24 insulin syringe-needle U-100 1 mL 09/22/23 09/14/24 31 gauge x 5/16 (BD Insulin Syringe Ultra-Fine) losartan 50 mg tablet 25 mg PO DAILY 09/22/23 09/14/24 warfarin 5 mg tablet 5 mg PO DAILY@1800 09/22/23 09/14/24 omeprazole 20 mg capsule,delayed 20 mg PO DAILY@0630 10/20/23 09/14/24 release calcitriol 0.25 mcg capsule 0.25 mcg PO Q48H 08/17/24 09/14/24 cetirizine 10 mg tablet 10 mg PO DAILY 08/28/24 09/14/24 isosorbide mononitrate 30 mg 30 mg PO DAILY 08/28/24 09/14/24 tablet,extended release 24 hr torsemide 20 mg tablet 40 mg PO BID 08/28/24 09/14/24 sodium zirconium cyclosilicate 10 10 g PO Q OTHER DAY 09/07/24 09/14/24 gram oral powder packet (Lokelma) Previous Rx's ?Medication ?Instructions ?Recorded insulin glargine 100 unit/mL 20 unit (0.2 mL) subcut DAILY #10 08/30/24 subcutaneous solution (Lantus mL U-100 Insulin) sodium bicarbonate 650 mg tablet 650 mg PO BID #180 tabs 08/30/24 Allergies Allergy/AdvReac Type Severity Reaction Status Date / Time Penicillins Allergy Hives Verified 09/14/24 13:02 Review of Systems 2 Review of Systems: All other systems are reviewed and are negative Constitutional: Reports as per HPI and Reports no additional constitutional complaints Eyes: Reports as per HPI and Reports no additional eye complaints Reports system reviewed and no additional complaints, except as documented Cardiovascular: Reports as per HPI and Reports no additional cardiovascular complaints Respiratory: Reports as per HPI and Reports no additional respiratory complaints Gastrointestinal: Reports as per HPI and Reports no additional gastrointestinal complaints Genitourinary: Reports no additional female genitourinary complaints Musculoskeletal: Reports no additional musculoskeletal complaints Skin/Breast: Reports system reviewed and no additional complaints, except as docu Psychiatric: Reports no additional psychiatric complaints Endocrine: Reports no additional endocrine complaints Hematologic/Lymphatic: Reports no additional hematologic/lymphatic complaints Allergic/Immunologic: Reports no additional allergic/immunologic complaints Reports system reviewed and no additional complaints, except as documented and Reports Abnormal speech present [facility] Past Medical History Medical History Iron deficiency Chronic kidney disease Diabetes Surgical History H/O hernia repair Family History Family History Mother Cancer Lung cancer Father Testicular cancer Social History Social History Household Members: None Patient Tobacco Use Status: Current someday Tobacco user Tobacco use type: Cigarette Cigarettes Per Day: 2 Advance Directives: No Advance Directives Information Provided: Yes Do you have a plan to hurt others: No Plan service: No Current occupational status: retired Physical Exam ED Vital Signs: Vital Signs - 24 hr 09/14/24 12:53 Temperature 96.4 F L Pulse Rate 56 Respiratory Rate 16 Blood Pressure 147/72 H Pulse Oximetry 100 Oxygen Delivery Method Room Air BMI result Body Mass Index 42.7 Vital signs have been reviewed and appear to be correct. Blood pressure elevated. Heart rate normal. Respiratory rate normal. Temperature normal. Oxygen saturation normal. Appearance: Alert. Oriented X3. No acute distress. Head: Normal external exam. Normocephalic. Atraumatic. No Vazquez signs noted. No raccoon eyes noted Eyes: PERRLA. EOMI. Conjunctiva and sclera normal. Eyelids normal. ENT: TM's Normal. Pharynx normal. Uvula midline. Moist mucous membranes. No trismus noted. No drooling noted. No muffled voice noted. Neck: Normal inspection. Neck supple. FROM. No adenopathy. Thyroid Normal. No meningeal signs. No neck mass noted. CVS: Normal heart rate and rhythm. Heart sound normal. No murmurs noted. Pulses normal throughout. Respiratory: No respiratory distress. Painless inspiration. Breath sounds normal. No wheezes/rales/rhonchi noted. Chest nontender. No accessory muscle usage noted or decreased air movement noted. Abdomen: Soft and nontender. Bowel sounds normal in all 4 quadrants. No distention noted. No organomegaly noted. No visible injury noted. Back: No CVA tenderness. Full range of motion noted. Skin: Skin warm and dry. Normal skin color. Normal skin turgor. No rashes/lesions/lacerations noted. Extremities: No lower extremity edema. Extremities exhibit normal range of motion. Extremities nontender. Neuro: Mental status: Normal attention, orientation, memory, and affect. Cranial nerves: Pupils are equal, round and reactive to light, EOMI, visual carey are fall, very mild left facial droop, facial sensations are normal. Motor examination normal muscle tone, strength to 4 extremities. DTR are +2, planter's are flexor. Sensory exam; normal coordination, no ataxia, gait stable. Cerebellar exam: Pisfur-vq-xpsy and vvkz-yn-vprl is normal. Extrapyramidal system: No tremors, no rigidity with normal facial expressions. Pronator drift not present NIH Stroke Scale Internal: Initial- Upon Arrival Level of Consciousness: Alert Level of Consciousness Questions: Answers both questions correctly Level of Consciousness Commands: Performs both tasks correctly Best Gaze: Normal Visual: No visual loss Facial Palsy: Minor paralyis (Left-sided) Motor Arm (Right): No drift Motor Arm (Left): No drift Motor Leg (Right): No drift Motor Leg (Left): No drift Limb Ataxia: Absent Sensory: Normal Best Language: No aphasia Dysarthia: Normal Extinction and Inattention: No abnormality Score: 1 Course Reevaluation(s) Reevaluation #1: New onset CHF will consider Lasix, admission for further cardiac workup. A concern of 2-day-old of stroke, neuro exam is intact with NIH score of 0. Time: 16:44 Medical Decision Making Differential Diagnosis Differential Diagnoses: The differential diagnosis associated with the presentation includes (Pneumonia, pneumothorax, pleural effusion, congestive heart failure, ischemic stroke, electrolyte derangement, severe anemia.) Admission/Observation Consideration of admission/observation: Escalation of care including admission/observation considered Consult Healthcare Provider Management of the patient was discussed with: Hospitalist (Dr. Hoskins) Lab Data MDM Lab Attestation statement: I reviewed the patient's lab results. 09/14/24 14:32 09/14/24 14:32 Labs: Lab Results 09/14/24 Range/Units 14:32 WBC 6.1 (4.8-10.8) X10*3/uL RBC 4.11 L (4.60-5.80) X10*6/uL Hgb 8.8 L (14.0-18.0) g/dl Hct 31.5 L (42.0-52.0) % MCV 76.6 L (80.0-98.0) fL MCH 21.4 L (27.0-33.0) pg MCHC 27.9 L (31.0-36.0) g/dl RDW 20.1 H (11.0-16.0) % Plt Count 136 L (160-400) X10*3/uL MPV 10.0 (9.4-12.4) fL Immature Gran % (Auto) 0.3 (0.0-0.4) % Neut % (Auto) 73.7 H (45-73) % Lymph % (Auto) 11.2 L (20-40) % [place] % (Auto) 10.0 (2-11) % Eos % (Auto) 4.1 H (0-4) % Baso % (Auto) 0.7 (0-2) % Lymph # (Auto) 0.7 L (1.2-4.9) X10*3/uL [place] # (Auto) 0.6 (0.1-1.2) X10*3/uL Eos # (Auto) 0.3 (0.0-0.4) X10*3/uL Baso # (Auto) 0.0 (0.0-0.2) X10*3/uL Abs Immat Gran (auto) 0.02 (0.00-0.03) X10*3/uL Absolute Neuts (auto) 4.5 (2.0-8.3) x10*3/uL Absolute Nucleated RBC 0.000 (0.0-0.012) X10*3/uL Nucleated RBC % (auto) 0.0 (0.0-0.2) /100WBC Sodium 142 (135-145) mmol/L Potassium 5.2 H (3.3-5.1) mmol/L Chloride 108 (96-108) mmol/L Carbon Dioxide 25 (22-29) mmol/L Anion Gap 14 (12-20) BUN 49 H (9-16) mg/dL Creatinine 2.66 H (0.5-1.4) mg/dL Estim Creat Clear Calc 32.5 Estimated GFR 24 Random Glucose 68 (60-115) mg/dL Calcium 9.1 (8.4-10.2) mg/dL Total Bilirubin 0.7 (0.0-1.0) mg/dL Direct Bilirubin 0.3 (0.0-0.5) mg/dL AST 22 (5-37) U/L ALT 21 (0-40) U/L Alkaline Phosphatase 100 (39-117) U/L Troponin I High Sens 10.4 D (<3.5-35.0) ng/L B-Natriuretic Peptide 758 H (<100) pg/mL Total Protein 7.8 (6.5-8.0) g/dL Albumin 4.0 (3.5-5.0) g/dL Lipase 62 (8-78) U/L Independent Interpretation I performed an independent interpretation of an: Plain X-Ray (Chest:Consider mild interstitial edema in the correct clinical settings. ) and CT Scan (No acute intracranial hemorrhage. Consider small vessel occlusive disease. Acute on chronic right-sided sinus disease with the questionable fungal infection etiology. Recommend direct inspection. Inflammatory versus infectious processes, right tympanic cavity and mastoid air cells. Cholesteatoma c) Radiology Impression Discussion of test interpretation with radiology: I have reviewed the radiologist's reading. Discharge Plan Discharge Clinical Impression: Congestive heart failure Patient Disposition: Admitted As Inpatient Prescriptions: No Action losartan 50 mg tablet 25 mg PO DAILY atorvastatin 40 mg tablet 40 mg PO BEDTIME warfarin 5 mg tablet 5 mg PO DAILY@1800 (DME) insulin syringe-needle U-100 [BD Insulin Syringe Ultra-Fine] 1 mL 31 gauge x 5/16 syringe MISCELLANEOUS DAILY atenolol 50 mg tablet 50 mg PO DAILY glipizide 5 mg tablet 5 mg PO BID dapagliflozin propanediol [Farxiga] 10 mg tablet 10 mg PO DAILY calcitriol 0.25 mcg Capsule 0.25 mcg PO Q48H Lokelma 10 gram Powder In Packet 10 g PO Q OTHER DAY Rx Instructions: Pt is ordered to take 5 g PO daily, but takes equivalent cumulative dose of 10 g every other day cetirizine 10 mg tablet 10 mg PO DAILY isosorbide mononitrate 30 mg tablet extended release 24 hr 30 mg PO DAILY torsemide 20 mg tablet 40 mg PO BID sodium bicarbonate 650 mg Tablet 650 mg PO BID Qty: 180 0RF insulin glargine [Lantus U-100 Insulin] 100 unit/mL solution 20 unit subcut DAILY Qty: 10 0RF omeprazole 20 mg Capsule,Delayed Release(Dr/Ec) 20 mg PO DAILY@0630 Print Language: Luxembourger
--- OUTSIDE RECORDS SUMMARY | 2024-09-14 14:28 | XMS_ITS | Clinical Summary ---
Author Organization [facility] [employer] [facility] Address [address] [facility] [place] [address] Phone Care Team Providers Care Admitting Coordinator Name Role Phone Eder Ortega DO Primary Care Provider [phone] Allergies Active Allergy Reactions Criticality Noted Date Comments Penicillins Hives 12/08/2023 Medications atenoloL (TENORMIN) 50 mg tablet Take 1 Tablet by mouth daily. Active cetirizine (ZyrTEC) 10 mg tablet Take 1 Tablet by mouth daily. FOR 90 DAYS Active dapagliflozin propanediol (FARXIGA) 10 mg tablet Take 1 Tablet by mouth daily. Active glipiZIDE (GLUCOTROL) 5 mg tablet Take 1 tablet (5 mg total) by mouth 1 (one) time each day. Active insulin glargine (LANTUS) 100 unit/mL injection Inject 60 Units into the skin at bedtime. Active omeprazole (PriLOSEC) [address] capsule Take 1 Capsule by mouth daily. Active torsemide (DEMADEX) 20 mg tablet Take 2 tablets (40 mg total) by mouth 1 (one) time each day. Active warfarin (COUMADIN) 5 mg tablet Take 1 Tablet by mouth See Admin Instructions. As directed by PCP Active isosorbide mononitrate (IMDUR) 30 mg 24 hr tablet TAKE 1 TABLET BY MOUTH EVERY DAY 4 Active losartan (COZAAR) 25 mg tablet Take 1 tablet (25 mg total) by mouth 1 (one) time each day. Active atorvastatin (LIPITOR) 40 mg tablet Take 1 tablet (40 mg total) by mouth 1 (one) time each day. Take 1 Tablet by mouth daily. 90 tablet 3 4 Active Active Problems Problem Noted Date Diagnosed Date Smoking 08/12/2023 Overview (05/15/2024): Last Assessment & Plan: Smoking cessation education given. The patient is not ready to quit. He is aware of the effects on his heart. Dyspnea 08/12/2023 Overview (05/15/2024): Last Assessment & Plan: The patient had been experiencing episodes of dyspnea. Recently, he was reporting chronic shortness of breath with exertion and it was recommended he undergo nuclear stress test. Prior to the test, he underwent a CBC which showed a low hemoglobin of 7.7. He continues to follow with hematology regarding workup for anemia and continues to undergo transfusions as needed. He reports his blood counts have been stable maintaining hemoglobin level greater than 8 consistently. He has been feeling much better for the past month. We discussed this in depth today. Certainly his chronic dyspnea on exertion could be related to his chronic anemia. However, we discussed that the reason for the nuclear stress test to be ordered was to rule out ischemia as a cause of his dyspnea given his multiple risk factors for coronary artery disease including hypertension, hyperlipidemia, smoking, and diabetes. His last H&H was noted to be 8.0 and 26.2 on . At this point, we will arrange for the patient to undergo nuclear stress test to rule out ischemia. He will reschedule this today. He also notes that he did not start isosorbide mononitrate as initially recommended. We discussed the potential side effects and at the end of the discussion, he agrees to start the medication. He will also continue his current dose of atenolol and statin as prescribed. I will notify him of the results of the nuclear stress test as soon as the become available. Patient advised to seek emergency medical attention by calling 911 if they were to develop severe dyspnea, chest pain that did not resolve with rest or nitroglycerin, or if they were to faint. Assessment & Plan (05/30/2024 10:57 AM EST): The patient continues to experience episodes of dyspnea. He reports his symptoms have actually improved. In the past, he was recommended to undergo nuclear stress test, however the nuclear stress test had to be rescheduled due to a low hemoglobin level. He continues with weekly laboratory work with hematology regarding workup for anemia and continues to undergo transfusions as needed. He reports his last hemoglobin level was noted to be 8.2. We discussed the importance of undergoing cardiac testing to rule out ischemia as a cause of his symptoms and the importance of stress testing. At this point, the patient is adamant he does not want to undergo stress testing at this time given he is unable to afford any more procedures or testing and he would like to prioritize his anemia. We discussed that certainly his chronic dyspnea on exertion could be related to his chronic anemia, however he has multiple risk factors for coronary artery disease including hypertension, hyperlipidemia, smoking and diabetes. He will notify our office when he is able to undergo stress testing financially. In the meantime, he will continue on cardioprotective medical therapy with beta- carson, statin, isosorbide mononitrate and warfarin. Patient advised to seek emergency medical attention by calling 911 if they were to develop severe dyspnea, chest pain that did not resolve with rest or nitroglycerin, or if they were to faint. Chronic heart failure with p reserved ejection fraction (HFpEF) 08/12/2023 Overview (05/15/2024): Last Assessment & Plan: Patient has a history of heart failure preserved ejection fraction. He recently underwent echocardiogram July 2023 which showed normal LV function and grade 2 diastolic dysfunction. He will continue his current dose of torsemide as prescribed. He appears euvolemic on physical exam today without clinical signs of acute heart failure. He will continue current therapies. Assessment & Plan (05/30/2024 10:57 AM EST): Patient has a history of heart failure with preserved ejection fraction. His last echocardiogram July 2023 showed normal LV function and grade 2 diastolic dysfunction. He continues on torsemide and Farxiga as prescribed. He appears euvolemic on physical exam today without clinical signs of acute heart failure. Will continue current therapies. Aneurysm of ascending aorta 08/12/2023 Overview (05/15/2024): Last Assessment & Plan: Patient has a history of ascending aorta dilation measuring 3.9 cm on recent echocardiogram completed July 2023. Will continue with periodic echocardiograms to evaluate for progression. Assessment & Plan (05/30/2024 10:57 AM EST): Will continue with annual monitoring of mild dilation of aorta. Last echocardiogram July 2023. Paroxysmal A-fib 08/11/2023 Overview (05/15/2024): Last Assessment & Plan: The patient has a history of paroxysmal atrial fibrillation and continues on rate control therapy with atenolol as prescribed. His heart rate is well-controlled today. He also continues on anticoagulation therapy with warfarin given his [id number]- VASc score of 4. The patient has remained on warfarin despite ongoing anemia. We discussed the possibility of a Watchman device placement and at this point, the patient declined consultation with electrophysiology and does not want to proceed with Watchman device placement at this time given his blood counts have been stable and financially, the patient is unable to afford any more procedures at this point. He will notify us if anything changes with the status of his anemia. He will continue to follow with hematology at [facility]. Assessment & Plan (05/30/2024 10:57 AM EST): Patient has a history of paroxysmal atrial fibrillation continues on rate control therapy with atenolol as prescribed. His heart rate is adequate today. He also continues on anticoagulation therapy with warfarin. He has a [id number] score of 4. He has remained on warfarin despite ongoing anemia and continues to follow with hematology. We did discuss the possibility of a Watchman device placement again today and we have had these discussions in the past as well and the patient continues to decline this procedure at this time. He does not want to proceed with the Watchman device placement given he is unable to afford any more procedures. Orders: Pulse oximetry, spot ECG 12 lead HTN (hypertension) 08/11/2023 Overview (05/15/2024): Last Assessment & Plan: Patient has a history of hypertension. His blood pressure is noted to be acceptable today. He will continue his current antihypertensive medication regimen. Assessment & Plan (05/30/2024 10:57 AM EST): Patient's blood pressure is acceptable today. He will continue his current antihypertensive medication regimen as prescribed. Encounters Date Type Department Care Team Description 06/15/2024 Telephone [facility] [address] [facility] [address] [place] [address] Omaira Cruz NP Appointment (CT Coronary Calcium Scoring) from Last 3 Months Medical History Medical History Date Comments Diabetes mellitus, type II (CMS/HCC) DX:Diabetes mellitus, type II (HCC) Anemia in chronic kidney disease DX:Anemia in chronic kidney disease CKD (chronic kidney disease) , stage IV (CMS/HCC) DX:CKD (chronic kidney disea se), stage IV (HCC) Social History Tobacco Use Types Packs/Day Years Used Date Smoking Tobacco: Some Days Cigarettes Smokeless Tobacco: Never Alcohol Use Standard Drinks/Week Comments Yes 0 (1 standard drink = 0.6 oz pur e alcohol) ocasional Sex and Gender Information Value Date Recorded Sex Assigned at Not on file Legal Sex Male 11:54 AM EST Gender Identity Not on file Sexual Orientation Not on file Obstetrics History Last Filed Vital Signs Vital Sign Reading Time Taken Comments Blood Pressure 126/70 05/30/2024 9:59 AM EST Pulse 65 05/30/2024 9:59 AM EST Temperature - - Respiratory Rate - - Oxygen Saturation 95% 05/30/2024 9:59 AM EST Inhaled Oxygen Concentration - - Weight 117 kg (259 lb) 05/30/2024 9:59 AM EST Height 170.2 cm (5' 7 ) 05/30/2024 9:59 AM EST Body Mass Index 40.57 05/30/2024 9:59 AM EST Plan of Treatment Health Maintenance Due Date Last Done Comments Diabetes: Annual Foot Exam 1964 Diabetes: Annual Retina Eye Exam 1964 DTaP,Tdap,and Td Vaccines (1 - Tdap) 1973 Pneumococcal Vaccine: 50+ Years (1 of 2 - PCV) 1973 Zoster Vaccines (1 of 2) 2004 RSV Immunization Patients 60 + Years Old (1 - Risk 60-74 years 1-dose series) 2014 Abdominal Aortic Aneurysm (AAA) Screen 06/23/2022 Colorectal Cancer Screening: Colonoscopy 06/23/2022 Depression Screening 06/23/2022 Falls Risk Assessment 06/23/2022 Hepatitis C Screening 06/23/2022 Medicare Annual Wellness Visit 06/23/2022 Social Influencers of Health Screening 06/23/2022 COVID-19 Vaccine (2023-2 5 season) 2024 08/08/2021, 12/30/2020, 12/09/2020 Diabetes: Annual Urine Albumin-Creatinine Ratio (uACR) 05/30/2024 Diabetes: Blood Sugar Contro l Test (HGBA1C) 12/06/2024 06/08/2024, 06/10/2023 Diabetes: Annual GFR (Glomerular Filtration Rate) 06/08/2025 06/08/2024 Hypertension/CHF/CAD Annual BMP Blood Test 06/08/2025 06/08/2024 Cholesterol Screening (Lipid Panel) 06/08/2029 06/08/2024 Influenza Vaccine Completed 06/19/2024, 05/10/2023, 05/11/2022 HIB Vaccines Aged Out No longer eligi ble based on patient's age to complete this topic HPV Vaccines Aged Out No longer eligi ble based on patient's age to complete this topic Hepatitis A Vaccines Aged Out No long er eligible based on patient's age to complete this topic Hepatitis B Vaccines Aged Out No long er eligible based on patient's age to complete this topic IPV Vaccines Aged Out No longer eligi ble based on patient's age to complete this topic MMR Vaccines Aged Out No longer eligi ble based on patient's age to complete this topic Meningococcal ACWY Vaccine Aged Out N o longer eligible based on patient's age to complete this topic Meningococcal B Vacine Aged Out No lo nger eligible based on patient's age to complete this topic RSV Immunization Patients Under 20 months Aged Out No longer eligible b ased on patient's age to complete this topic Varicella Vaccines Aged Out No longer eligible based on patient's age to complete this topic Procedures Procedure Name Priority Date/Time Associated Diagnosis Comments PROTHROMBIN TIME WITH INR Routine 08/08/2024 11:33 AM EST senior living (current) use of anticoagulants PROTHROMBIN TIME WITH INR Routine 07/11/2024 11:19 AM EST 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 BASIC METABOLIC PANEL Routine 06/08/2024 1:33 PM EST senior living (current) use of anticoagulants Essential hypertension, malignant Diabetes mellitus (CMS/HCC) Hyperlipemia Chronic kidney disease, stage IV (severe) (CMS/HCC) HEMOGLOBIN A1C Routine 06/08/2024 1:33 PM EST senior living (current) use of anticoagulants Essential hypertension, malignant Diabetes mellitus (CMS/HCC) Hyperlipemia Chronic kidney disease, stage IV (severe) (CMS/HCC) LIPID PANEL WITH REFLEX TO DIRECT LDL Routine 06/08/2024 1:33 PM EST 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 Pathologist [facility] Protime 32.4(H) 10.6 - 13.9 sec LAB COAGULATION METHOD 08/08/2024 1:[address] [facility] INR 2.6 LAB COAGULATION METHOD 08/08/2024 1:[address] [facility] Blood Venous blood specimen / Unknown Venipuncture / Unknown 08/08/2024 11:33 AM EST 08/08/2024 11:33 AM EST us Eder Oretga DO LAB BLOOD ORDERABLES Final Re sult [facility] [address] [place] [address], [place] [phone] * (ABNORMAL) Lipid panel with reflex to direct LDL (06/08/2024 1:33 PM EST) Cholesterol 64 0 - 200 mg/dL LAB CHEMISTRY METHOD 06/08/2024 7:[address] [facility] Triglycerides 159(H) 0 - 150 mg/dL LAB CHEMISTRY METHOD 06/08/2024 7:[address] [facility] HDL 24(L) >=40 mg/dL LAB CHEMISTRY METHOD 06/08/2024 7:31 PM [facility] LDL Calculated 8 0 - 100 mg/dL LAB CHEMISTRY METHOD 06/08/2024 7:[address] [facility] VLDL Cholesterol Shaka 31.8 mg/dL LAB CHEMISTRY METHOD 06/08/2024 7:[address] [facility] Non HDL Chol. (LDL+VLDL) 40 <145 mg/dL LAB CHEMISTRY METHOD 06/08/2024 7:31 PM [facility] Chol/HDL Ratio 2.7 0.0 - 4.4 LAB CHEMISTRY METHOD 06/08/2024 7:31 PM [facility] Blood Venous blood specimen / Unknown Venipuncture / Unknown 06/08/2024 1:33 PM EST 06/08/2024 1:33 PM EST Eder Ortega DO LAB BLOOD ORDERABLES Final Re sult [facility] [address] [place] [address], * Hemoglobin A1c (06/08/2024 1:33 PM EST) Hemoglobin A1C 5.5 <6.5 % LAB CHEMISTRY METHOD 06/08/2024 10:[address] [facility] Mean Bld Glu Estim. 111 mg/dL LAB CHEMISTRY METHOD 06/08/2024 10:[address] [facility] Blood Venous blood specimen / Unknown Venipuncture / Unknown 06/08/2024 1:33 PM EST 06/08/2024 1:33 PM EST [employer] DO LAB BLOOD ORDERABLES Final Re sult [facility] [address] [place] [address], * (ABNORMAL) Basic metabolic panel (06/08/2024 1:33 PM EST) Sodium 143 133 - 145 mmol/L LAB CHEMISTRY METHOD 06/08/2024 7:[address] [facility] Potassium 4.8 3.5 - 5.5 mmol/L LAB CHEMISTRY METHOD 06/08/2024 7:31 PM [facility] Chloride 112(H) 96 - 110 mmol/L LAB CHEMISTRY METHOD 06/08/2024 7:31 PM [facility] CO2 23 21 - 32 mmol/L LAB CHEMISTRY METHOD 06/08/2024 7:31 PM [facility] Anion Gap 8 3 - 11 LAB CHEMISTRY METHOD 06/08/2024 7:31 PM [facility] Glucose 150(H) 70 - 100 mg/dL LAB CHEMISTRY METHOD 06/08/2024 7:31 PM [facility] BUN 39(H) 5 - 25 mg/dL LAB CHEMISTRY METHOD 06/08/2024 7:31 PM [facility] Creatinine 2.80(H) 0.70 - 1.30 mg/dL LAB CHEMISTRY METHOD 06/08/2024 7:31 PM [facility] eGFR 24(L) >=60 mL/min/1. 73m2 LAB CHEMISTRY METHOD 06/08/2024 7:31 PM [facility] Comment:Calculation based on the??Chronic Kidney Disease Epidemiology Collaboration (CKD-EPI) equation refit??without adjustment for race. BUN/Creatinine Ratio 13.9 LAB CHEMISTRY METHOD 06/08/2024 7:31 PM [facility] Calcium 8.2(L) 8.5 - 10.5 mg/dL LAB CHEMISTRY METHOD 06/08/2024 7:[address] [facility] Blood Venous blood specimen / Unknown Venipuncture / Unknown 06/08/2024 1:33 PM EST 06/08/2024 1:33 PM EST Eder Ortega DO LAB BLOOD ORDERABLES Final Re sult [facility] [address] [place] [address], from Last 3 Months or Most Recently Relevant to Health Maintenance Insurance MEDICARE Advance Directives Documents on File Type Date Recorded 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
[2024-09-14 14:38] LABS: Hematocrit 31.5 % (42.0-52.0); Hemoglobin 8.8 g/dl (14.0-18.0); MANUAL DIFF FLAG NO; Red Blood Count 4.11 X10*6/uL (4.60-5.80); White Blood Count 6.1 X10*3/uL (4.8-10.8)
[2024-09-14 14:39] LABS: Basophils Percent Auto 0.7 % (0-2); Eosinophils Absolute Auto 0.3 X10*3/uL (0.0-0.4); Eosinophils Percent Auto 4.1 % (0-4); Imm Gran Abs Auto 0.02 X10*3/uL (0.00-0.03); Imm Gran Pct Auto 0.3 % (0.0-0.4); Lymphocytes Absolute Auto 0.7 X10*3/uL (1.2-4.9); Lymphocytes Percent Auto 11.2 % (20-40); Mean Corpuscular HGB Conc 27.9 g/dl (31.0-36.0); Mean Corpuscular Hemoglobin 21.4 pg (27.0-33.0); Mean Corpuscular Volume 76.6 fL (80.0-98.0); Monocytes Absolute Auto 0.6 X10*3/uL (0.1-1.2); Neutrophils Absolute Auto 4.5 x10*3/uL (2.0-8.3); Neutrophils Percent Auto 73.7 % (45-73); Platelet Count 136 X10*3/uL (160-400); Red Cell Distribution Width 20.1 % (11.0-16.0)
[2024-09-14 14:53] LABS: Alanine Aminotransferase 21 U/L (0-40); Alkaline Phosphatase 100 U/L (39-117); Anion Gap 14 (12-20); Aspartate Amino Transferase 22 U/L (5-37); Bilirubin Direct 0.3 mg/dL (0.0-0.5); Bilirubin Total 0.7 mg/dL (0.0-1.0); Blood Urea Nitrogen 49 mg/dL (9-16); Calcium 9.1 mg/dL (8.4-10.2); Carbon Dioxide 25 mmol/L (22-29); Chloride 108 mmol/L (96-108); Creatinine Clr Calc Pharmacy 32.5; Estimated Glomerular Filt Rate 24; Glucose Random 68 mg/dL (60-115); Lipase 62 U/L (8-78); Potassium 5.2 mmol/L (3.3-5.1); Sodium 142 mmol/L (135-145); Total Protein 7.8 g/dL (6.5-8.0)
[2024-09-14 14:58] LABS: B Type Natriuretic Peptide 758 pg/mL (<100)
[2024-09-14 15:00] LABS: Troponin-I High Sensitivity 10.4 ng/L (<3.5-35.0)
[2024-09-14 18:11] LABS: Glucose, Whole Blood 77 mg/dL (60-115)
--- NOTE | 2024-09-14 18:24 | PM.IMHP ---
History of Present Illness Date of Service: 09/14/24 Attending physician on admission: Melida Hoskins Chief Complaint: chf execerebation HPI:69 years old male with PMH of DMII, HTN, HLD, CKD4, Afib on warfarin presents to ED with SOB(he is sent from oncology office as per ed physician -?left sided weakness 2days duration)and chronic anemia require Procrit infusion and blood transfusions in hematology office . He was recently admitted to the hospital because of hypoglycemia and norovirus infection- where patient said he received IV fluids, and when he went home he started to having leg swelling as well as shortness of breath with exertion mostly. Does not remember if gained any weight, Denies any chest pain or dizziness or nausea vomiting, has some dry cough,denies any soar throat ,rinnrhae ,sinus pain or drainge. Left-sided weakness: Currently patient does not seem to have left-sided weakness, could not not able to elaborate on it , otherwise no slurred speech, no headache, no numbness. Recently patient had norovirus with diarrhea and was feeling dehydrated and generalized weakness over the past last week now he is feeling better. Lab imaging reviewed: H&H 8.8/31.5 Mild thrombocytopenia platelets are 135 BUN 49 creatinine 2.66 Potassium 5.2 EKG sinus bradycardia BNP: 758(last BNP was in 600 range). Chest x-ray: Possible mild interstitial edema CT head:No acute intracranial hemorrhage. Consider small vessel occlusive disease. Review of Systems Review of Systems: As above. Yes all other systems are reviewed and are negative [facility]LY [facility] Medical History Iron deficiency Chronic kidney disease Diabetes Family History Mother Cancer Lung cancer Father Testicular cancer Surgical History H/O hernia repair Social History Household Members: None Patient Tobacco Use Status: Current someday Tobacco user Tobacco use type: Cigarette Cigarettes Per Day: 2 Advance Directives: No Advance Directives Information Provided: Yes Do you have a plan to hurt others: No Plan service: No Current occupational status: retired Meds Allergies Allergy/AdvReac Type Severity Reaction Status Date / Time Penicillins Allergy Hives Verified 09/14/24 13:02 Active Medications: Current Medications Acetaminophen (Acetaminophen 325 Mg Tablet) 650 mg PO Q6H PRN PRN Reason: Pain, Mild 1-3,fever,headache Calcium Carbonate (Calcium Carbonate 750 Mg Tab.Chew) 750 mg PO Q4H PRN PRN Reason: Heartburn Dextrose (Dextrose 50 % 25 Gm/50 Ml Syringe) 25 gm IVPUSH Q15M PRN; Protocol PRN Reason: per Hypoglycemia Standing Ord. Enoxaparin Sodium (Enoxaparin Sodium 40 Mg/0.4 Ml Syringe) 40 mg SUBCUT Q24H DAMIAN Famotidine (Famotidine 20 Mg Tablet) 20 mg PO DAILY DAMIAN Furosemide (Furosemide 40 Mg/4 Ml Vial) 40 mg IVPUSH BID DAMIAN; Protocol Glucose (Glucose Gel 15 Gm Gel..Gram.) 15 gm PO Q15M PRN; Protocol PRN Reason: per Hypoglycemia Standing Ord. Insulin Human Lispro (Insulin Lispro 100 Unit/Ml 3 Ml Vial) 0 unit SUBCUT QIDACHS [facility]; Protocol Magnesium Hydroxide (Milk Of Magnesia 30 Ml Oral.Susp) 30 ml PO DAILY PRN PRN Reason: Constipation Melatonin (Melatonin 3 Mg Tablet) 6 mg PO BEDTIME PRN PRN Reason: Insomnia Sodium Chloride (0.9 % Sodium Chloride Flush 3 Ml Syringe) 3 ml IVFLUSH QSHIFT [facility] Home Medications ?Medication ?Instructions ?Recorded ?Confirmed ?Last Taken ?Type atenolol 50 mg tablet 50 mg PO DAILY 09/22/23 09/14/24 08/26/24 History atorvastatin 40 mg tablet 40 mg PO BEDTIME 09/22/23 09/14/24 08/26/24 History dapagliflozin propanediol 10 mg 10 mg PO DAILY 09/22/23 09/14/24 08/26/24 History tablet (Farxiga) glipizide 5 mg tablet 5 mg PO BID 09/22/23 09/14/24 08/26/24 History insulin syringe-needle U-100 1 mL 09/22/23 09/14/24 Unknown History 31 gauge x 5/16 (BD Insulin Syringe Ultra-Fine) losartan 50 mg tablet 25 mg PO DAILY 09/22/23 09/14/24 08/26/24 History warfarin 5 mg tablet 5 mg PO DAILY@1800 09/22/23 09/14/24 08/26/24 History omeprazole 20 mg capsule,delayed 20 mg PO DAILY@0630 10/20/23 09/14/24 08/26/24 History release calcitriol 0.25 mcg capsule 0.25 mcg PO Q48H 08/17/24 09/14/24 08/26/24 History cetirizine 10 mg tablet 10 mg PO DAILY 08/28/24 09/14/24 08/26/24 History isosorbide mononitrate 30 mg 30 mg PO DAILY 08/28/24 09/14/24 08/26/24 History tablet,extended release 24 hr torsemide 20 mg tablet 40 mg PO BID 08/28/24 09/14/24 08/26/24 History sodium zirconium cyclosilicate 10 10 g PO Q OTHER DAY 09/07/24 09/14/24 Unknown History gram oral powder packet ([employer]) Physical Exam Vital Signs and Narrative: Vital Signs: Last Vital Signs Temp 96.4 F L 09/14/24 12:53 Pulse 56 09/14/24 12:53 Resp 16 09/14/24 12:53 BP 147/72 H 09/14/24 12:53 Pulse Ox 100 09/14/24 12:53 O2 Del Method Room Air 09/14/24 12:53 BMI result Body Mass Index 42.7 Appearance: Alert.? Oriented X3.? Eyes: Pupils equal, round and reactive to light.? Sclera nonicteric.? ENT: Pharynx normal.? Moist mucous membranes. cvs: rrr, [id number] ,jvd equivocal. res: air entry fair ,few rales scattered ta bases. abd: no rebound or guarding ,nt, bs present. ext pulses present , no cyanosis ,2+edema . neuro: axo3 , nonfocal. Results Labs 09/14/24 14:32 09/14/24 14:32 Labs: Laboratory Results - last 24 hr 09/14/24 09/14/24 14:32 18:07 MCV 76.6 L MCH 21.4 L MCHC 27.9 L RDW 20.1 H Plt Count 136 L MPV 10.0 Immature Gran % (Auto) 0.3 Neut % (Auto) 73.7 H Lymph % (Auto) 11.2 L Fajardo % (Auto) 10.0 Eos % (Auto) 4.1 H Baso % (Auto) 0.7 Lymph # (Auto) 0.7 L Fajardo # (Auto) 0.6 Eos # (Auto) 0.3 Baso # (Auto) 0.0 Abs Immat Gran (auto) 0.02 Absolute Neuts (auto) 4.5 Absolute Nucleated RBC 0.000 Nucleated RBC % (auto) 0.0 Anion Gap 14 Estim Creat Clear Calc 32.5 Estimated GFR 24 POC Glucose 77 Random Glucose 68 Calcium 9.1 Total Bilirubin 0.7 Direct Bilirubin 0.3 AST 22 ALT 21 Alkaline Phosphatase 100 B-Natriuretic Peptide 758 H Total Protein 7.8 Albumin 4.0 Lipase 62 Imaging Radiologist's Impressions: Impressions Chest X-Ray 09/14/24 13:43 IMPRESSION: Consider mild interstitial edema in the correct clinical settings. Electronically signed by: Celso Camarena MD 09/14/2024 01:58 PM EST RP Head CT 09/14/24 14:04 IMPRESSION: No acute intracranial hemorrhage. Consider small vessel occlusive disease. Acute on chronic right-sided sinus disease with the questionable fungal infection etiology. Recommend direct inspection. Inflammatory versus infectious processes, right tympanic cavity and mastoid air cells. Cholesteatoma cannot be entirely excluded. Electronically signed by: Celso Camarena MD 09/14/2024 02:26 PM EST RP Assessment and Plan (1) Congestive heart failure: Status: Acute Plan 69M PMH morbid obesity, diabetes, hypertension, hyperlipidemia, CKD 4, paroxysmal atrial fibrillation on Coumadin presented with shortness of breath . acute on ch diastolic Chf excerebation moniter on tele moniter i/o daily weights echo cardiology eval. iv lasix 40 mg bid chf education discussed ? left sided weakness -unclear etiology 2 days duration -seems to be improved to baseline ct head negative added neurochecks neurology input. Diabetes Hold glipizide, Farxiga( from last admission) hold lantus also-fs here is 77 he says his fs were ok at home above 100 will continue to moniter ckd 3b: moniter renal function/electrolytes nephrology eval gastroenteritis-had norovirus infection appears improved. Paroxysmal atrial fibrillation Continue warfarin, atenolol check inr Morbid obesity Weight loss recommended DVT prophylaxis with Coumadin Full code Patient will benefit from 2 midnight stay considering CHF exacerbation in the setting of recent norovirus infection/hydration as well as worsening exertional dyspnea, CKD: Need close I&O monitoring, IV diuretics and nephro /neurology evaluation. Above management discussed with the patient in detail length he understand and in agreement with the above plan, time spent 70 minute, patient full code. Quality Stroke Does the patient have a stroke diagnosis?: No VTE Prior VTE?: No VTE Risk Level:: Medical - moderate - high VTE Device Contraindication: N/A - Device Ordered VTE Drug Contraindication: N/A - Med Ordered
[2024-09-14 18:41] VITALS: BP 164/67; PULSE 69; RESP 16; TEMP 37; O2SAT 98
[2024-09-14] MEDS: Famotidine 20 MG TABLET PO (18:45)
--- NOTE | 2024-09-14 19:19 | PHA.MEDREC ---
Addendum entered by Lianne Giraldo [facility] 09/14/24 19:46: called [facility] to confirm lokel[facility] dosing/frq - [facility] said pt got a 30 ds for daily use but never picked it up so it was returned to stock. Addendum entered by Lianne Giraldo [facility] 09/14/24 19:28: reviewed by [facility]. Original Note: Pharmacy Consult ? Medication Reconciliation Pharmacy has completed the medication reconciliation. Spoke to patient to confirm med list. Patient states he was just discharged 08/30/24 the only change is they added Lokelma 5 gm , Sodium bicarbonate 650 mg and Lantus is now 20 units daily. Patient no longer takes Farxiga 10 mg and Glipizide 5 mg.
[2024-09-14 19:40] VITALS: BP 164/67
[2024-09-14 19:40] LABS: INTERNATIONAL NORM RATIO 2.9 (0.9-1.1); Prothrombin Time 33.5 SEC (10.9-12.4)
[2024-09-14] MEDS: Furosemide 40 MG/4 ML VIAL IVPUSH ×2 (19:40→22:55)
--- NOTE | 2024-09-14 19:59 | PC.NURSE ---
Pt has been very pleasant, he is a/ox4, has remained on RA with minimal SOB, after ambulating he does need to recover his breathing. IV placed for medications in Left FA as his Right is not able to be used due to dialysis fistula. Pt has admit orders in place, pt does not want lovenox and wants to resume his normal coumadin (reporting he takes 5mg daily) last INR was 2 days ago and was 1.9. Dr. Hoskins made aware, no new orders placed at this time. Pt is resting in a recliner per his preference vs stretcher. Vitals have remained stable, pt alerts staff when he needs to ambulate to for stand by assist, pt has been steady on his feet at this time. Pt is a DM and has not eat since yesterday, PO checked and was 77, pt had a juice and sandwhich per his request, pt reports he only takes his insulin at night time and can be sensitive to his blood sugars. Pt given emotional support and updated of the current plan and orders in place at this time.
[2024-09-14 22:43] LABS: Glucose, Whole Blood 106 mg/dL (60-115)
[2024-09-14] MEDS: Atorvastatin Calcium 40 MG TABLET PO (22:50)
[2024-09-14] MEDS: Sodium Bicarbonate 650 MG TABLET PO (22:50)
[2024-09-14 22:53] VITALS: BP 151/62; PULSE 57; RESP 16; TEMP 36.6; O2SAT 97
[2024-09-14 22:55] VITALS: BP 151/62
[2024-09-15] VITALS (10 sets, daily range): BP systolic 124–155; BP diastolic 50–69; PULSE 55–85; RESP 16–20; TEMP 36–36.7; O2SAT 93–97; BMI 39.6
--- NOTE | 2024-09-15 | MHC.EDTECH ---
This tech took over care of patient at 2300,rounded and introduced self to pt,vitals taken, emptied 1000MLS from urinal,(yellow in color), patient is in a recliner ,offered bed patient refused and wants to stay in recliner, patient is resting quietly appears comfortable.
[2024-09-15 06:52] LABS: INTERNATIONAL NORM RATIO 2.3 (0.9-1.1); Prothrombin Time 27.4 SEC (10.9-12.4)
[2024-09-15 06:57] LABS: Anion Gap 15 (12-20); Blood Urea Nitrogen 48 mg/dL (9-16); Calcium 9.2 mg/dL (8.4-10.2); Carbon Dioxide 27 mmol/L (22-29); Chloride 103 mmol/L (96-108); Creatinine Clr Calc Pharmacy 29.7; Estimated Glomerular Filt Rate 22; Glucose Random 146 mg/dL (60-115); Potassium 4.9 mmol/L (3.3-5.1); Sodium 140 mmol/L (135-145)
--- NOTE | 2024-09-15 07:00 | CA_ITS ---
Transthoracic Echocardiogram Patient (Last, First, Middle): Clinton Zapata, Gender: Male Date of : 1955 Age: 69 Procedure Date: 09/15/2024 Procedure Type: Transthoracic Echocardiogram Location: ER Height: 170.18 cm Weight: 123.38 kg BSA: 2.30 m2 Heart Rate: bpm BP: 136 / 51 mmHg President & Ceo: Referring MD: Melida Hoskins MD Symptoms: chf Study Quality: Adequate ECG Rhythm: Sinus Conclusions: - The left ventricular systolic function is normal. The calculated ejection fraction is 67% by biplane method. - Evidence suggests grade II (moderate) diastolic dysfunction. - There is mild calcification of the aortic valve. - There is mild mitral annular calcification. - There is mild tricuspid valve regurgitation. - Mild pulmonary hypertension is present. Findings Procedure Information Contrast agent, definity, is being given per protocol without apparent complications. Left Ventricle Normal left ventricular cavity size. There is mildly increased left ventricular wall thickness. The left ventricular systolic function is normal. The calculated ejection fraction is 67% by biplane method. There is no evidence of regional wall motion abnormalities. Evidence suggests grade II (moderate) diastolic dysfunction. Right Ventricle Moderately increased right ventricular cavity size. There is normal right ventricular systolic function. Atria Moderate biatrial enlargement. Aortic Valve There is a normal trileaflet aortic valve. There is mild calcification of the aortic valve. There is no aortic valve stenosis. There is no aortic valve regurgitation. Mitral Valve There is mild mitral annular calcification. There is trace mitral valve regurgitation. There is no mitral valve stenosis. Pulmonic Valve The pulmonic valve is likely normal. Tricuspid Valve There is mild tricuspid valve regurgitation. Mild pulmonary hypertension is present. Great Vessels The asc aorta is normal in size. Venous The inferior vena cava is mildly dilated and collapses greater than 50% with inspiration. Pericardium/Pleural There is no evidence of pericardial effusion. Prior Study Comparison No prior study available for comparison. Measurements 2D Linear Measurements IVSd: 1.30 0.6-0.9/0.6-1.0 cm LVIDd: 5.76 3.9-5.3/4.2-5.9 cm LVIDd Index: 2.50 2.4-3.2/2.2-3.1 cm/m2 LVIDs: 3.67 2.0-3.6 cm LVPWd: 1.20 0.7-1.1 cm Ao Root: 3.80 2.1-3.5 cm LA Diam: 4.20 2.7-3.8/3.0-4.0 cm LAIDs Index: 1.83 1.5-2.3 cm/m2 LV Mass: 387.36 67-162/88-224 g LV Mass Index: 168.42 43-95/49-115 g/m2 LVOT Diam: 2.10 3.0+(-)1.3 cm 2D Systolic Function EF 4C: 60.30 >55% EF 2C: 71.30 >55% EF BiP: 66.80 >55% Mitral Valve MV Pk E: 0.97 MV PK A: 0.79 MV Decel Time: 308.00 E/A: 1.20 E'Lateral: 10.40 E'Medial: 5.98 E/E' Med: 16.30 E/E' Lat: 9.40 PHT: 90.00 MVA PHT: 2.44 Decel Cottle: 3.15 Aortic Valve AoV Pk Diego: 1.91 AoV Mn Diego: 1.18 AoV VTI: 0.54 AoV Pk Grad: 15.00 Aov Mn Grad: 7.00 SIRISHA Cont.VTI: 1.89 LVOT LVOT Pk Diego: 1.09 LVOT Mn Diego: 0.75 LVOT VTI: 0.29 LVOT Pk Grad: 5.00 LVOT Mn Grad: 3.00 LVOT Diam: 2.10 LVOT Area: 3.46 Diastolic Function MV Pk E: 0.97 MV Pk A: 0.79 E/A: 1.20 E'Medial: 5.98 E/E' Med: 16.30 E' Laterial: 10.40 E/E' Lat: 9.40 Right Ventricle TAPSE (mm): 29.90 TVS' Diego: 14.00 Tricuspid Valve TR Pk Deigo: 2.88 TR Pk Grad: 33.00 RA Press: 8.00 RVSP: 41.00 Great Vessels Aorta Ao Root-2D: 3.80 2.0-3.7 cm Ao Asc: 3.60 2.1-3.4 cm Pulmonary Valve PV Pk Diego: 1.01 Peak PV Grad: 4.00 Updated in Other Vendor System with Status of Final Hesham Du MD electronically signed on 09/15/2024 3:32:31 PM with status of Final
[2024-09-15 07:04] LABS: B Type Natriuretic Peptide 402 pg/mL (<100)
[2024-09-15] MEDS: Omeprazole 20 MG CAPSULE.DR PO (07:21)
[2024-09-15 07:57] LABS: Glucose, Whole Blood 202 mg/dL (60-115)
[2024-09-15] MEDS: Furosemide 40 MG/4 ML VIAL IVPUSH ×2 (08:48→20:10)
[2024-09-15] MEDS: Losartan Potassium 25 MG TABLET PO (08:49)
[2024-09-15] MEDS: Isosorbide Mononitrate 30 MG TAB.ER.24H PO (08:49)
[2024-09-15] MEDS: atenoloL 50 MG TABLET PO (08:50)
[2024-09-15] MEDS: Sodium Zirconium Cyclosilicate 5 GM POWD.PACK PO (08:50)
[2024-09-15] MEDS: Loratadine 10 MG TABLET PO (08:50)
[2024-09-15] MEDS: Famotidine 20 MG TABLET PO (08:58)
[2024-09-15] MEDS: 0.9 % Sodium Chloride Flush 3 ML SYRINGE IVFLUSH ×3 (09:00→20:11)
--- NOTE | 2024-09-15 09:03 | HO.PM.IMPN ---
Subjective Subjective Date of Service: 09/15/24 Interval History: chf, ptosis with some left arm weakness Review of Systems sob somewhat improving no chest pain Physical Exam Vital Signs: Vital Signs: Last Vital Signs Temp 96.8 F 09/15/24 08:52 Pulse 58 09/15/24 08:52 Resp 18 09/15/24 08:52 BP 136/51 L 09/15/24 08:52 Pulse Ox 94 09/15/24 08:52 O2 Del Method Room Air 09/15/24 08:52 BMI result Body Mass Index 42.7 Appearance: Alert.? Oriented X3.? Eyes: has ptosis left side ( at least few days duration). cvs: rrr, [id number] ,jvd equivocal. res: air entry fair ,few rales scattered ta bases. abd: no rebound or guarding ,nt, bs present. ext pulses present , no cyanosis ,2+edema . neuro: axo3 , nonfoca Objective Data Active Medications Acetaminophen (Acetaminophen 325 Mg Tablet) 650 mg PO Q6H PRN PRN Reason: Pain, Mild 1-3,fever,headache Atenolol (Atenolol 50 Mg Tablet) 50 mg PO DAILY [facility]; Protocol Last Admin: 09/15/24 08:50 Dose: 50 mg Documented By: LUDWIN Atorvastatin Calcium (Atorvastatin Calcium 40 Mg Tablet) 40 mg PO BEDTIME [facility] Last Admin: 09/14/24 22:50 Dose: 40 mg Documented By: GIBRAN Calcitriol (Calcitriol 0.25 Mcg Capsule) 0.25 mcg PO Q48H [facility] Calcium Carbonate (Calcium Carbonate 750 Mg Tab.Chew) 750 mg PO Q4H PRN PRN Reason: Heartburn Dextrose (Dextrose 50 % 25 Gm/50 Ml Syringe) 25 gm IVPUSH Q15M PRN; Protocol PRN Reason: per Hypoglycemia Standing Ord. Famotidine (Famotidine 20 Mg Tablet) 20 mg PO DAILY [facility] Last Admin: 09/15/24 08:58 Dose: 20 mg Documented By: LUDWIN Furosemide (Furosemide 40 Mg/4 Ml Vial) 40 mg IVPUSH BID [facility]; Protocol Last Admin: 09/15/24 08:48 Dose: 40 mg Documented By: LUDWIN Glucose (Glucose Gel 15 Gm Gel..Gram.) 15 gm PO Q15M PRN; Protocol PRN Reason: per Hypoglycemia Standing Ord. Insulin Human Lispro (Insulin Lispro 100 Unit/Ml 3 Ml Vial) 0 unit SUBCUT QIDACHS [facility]; Protocol Last Admin: 09/15/24 08:40 Dose: Not Given Documented By: LUDWIN Non-Admin Reason: See Note Comments: pts POC was obtained after he had eaten breakfast Isosorbide Mononitrate (Isosorbide Mononitrate 30 Mg Tab.Er.24h) 30 mg PO DAILY [facility]; Protocol Last Admin: 09/15/24 08:49 Dose: 30 mg Documented By: LUDWIN Loratadine (Loratadine 10 Mg Tablet) 10 mg PO DAILY [facility] Last Admin: 09/15/24 08:50 Dose: 10 mg Documented By: LUDWIN Losartan Potassium (Losartan Potassium 25 Mg Tablet) 25 mg PO DAILY [facility]; Protocol Last Admin: 09/15/24 08:49 Dose: 25 mg Documented By: LUDWIN Magnesium Hydroxide (Milk Of Magnesia 30 Ml Oral.Susp) 30 ml PO DAILY PRN PRN Reason: Constipation Melatonin (Melatonin 3 Mg Tablet) 6 mg PO BEDTIME PRN PRN Reason: Insomnia Omeprazole (Omeprazole 20 Mg Capsule.Dr) 20 mg PO DAILY@0630 [facility] Last Admin: 09/15/24 07:21 Dose: 20 mg Documented By: GIBRAN Sodium Bicarbonate (Sodium Bicarbonate 650 Mg Tablet) 650 mg PO BID [facility] Last Admin: 09/14/24 22:50 Dose: 650 mg Documented By: GIBRAN Sodium Chloride (0.9 % Sodium Chloride Flush 3 Ml Syringe) 3 ml IVFLUSH QSHIFT [facility] Last Admin: 09/15/24 09:00 Dose: 3 ml Documented By: LUDWIN Sodium Zirconium Cyclosilicate (Sodium Zirconium Cyclosilicate 5 Gm Powd.Pack) 5 gm PO DAILY [facility] Last Admin: 09/15/24 08:50 Dose: 5 gm Documented By: LUDWIN Warfarin Sodium (Warfarin Sodium 5 Mg Tablet) 5 mg PO DAILY@1800 [facility] Labs 09/14/24 14:32 09/15/24 05:56 Labs: Laboratory Results - last 24 hr 09/14/24 09/14/24 09/14/24 14:32 18:07 19:30 MCV 76.6 L MCH 21.4 L MCHC 27.9 L RDW 20.1 H Plt Count 136 L MPV 10.0 Immature Gran % (Auto) 0.3 Neut % (Auto) 73.7 H Lymph % (Auto) 11.2 L Hill % (Auto) 10.0 Eos % (Auto) 4.1 H Baso % (Auto) 0.7 Lymph # (Auto) 0.7 L Hill # (Auto) 0.6 Eos # (Auto) 0.3 Baso # (Auto) 0.0 Abs Immat Gran (auto) 0.02 Absolute Neuts (auto) 4.5 Absolute Nucleated RBC 0.000 Nucleated RBC % (auto) 0.0 PT 33.5 H D INR 2.9 H Anion Gap 14 Estim Creat Clear Calc 32.5 Estimated GFR 24 POC Glucose 77 Random Glucose 68 Calcium 9.1 Total Bilirubin 0.7 Direct Bilirubin 0.3 AST 22 ALT 21 Alkaline Phosphatase 100 B-Natriuretic Peptide 758 H Total Protein 7.8 Albumin 4.0 Lipase 62 09/14/24 09/15/24 09/15/24 22:38 05:56 07:53 MCV MCH MCHC RDW Plt Count MPV Immature Gran % (Auto) Neut % (Auto) Lymph % (Auto) Hill % (Auto) Eos % (Auto) Baso % (Auto) Lymph # (Auto) Hill # (Auto) Eos # (Auto) Baso # (Auto) Abs Immat Gran (auto) Absolute Neuts (auto) Absolute Nucleated RBC Nucleated RBC % (auto) PT 27.4 H INR 2.3 H Anion Gap 15 Estim Creat Clear Calc 29.7 Estimated GFR 22 POC Glucose 106 202 H Random Glucose 146 H Calcium 9.2 Total Bilirubin Direct Bilirubin AST ALT Alkaline Phosphatase B-Natriuretic Peptide 402 H Total Protein Albumin Lipase Assessment and Plan (1) Congestive heart failure: Status: Acute (2) Acute worsening of stage 4 chronic kidney disease: Status: Acute Plan 69M PMH morbid obesity, diabetes, hypertension, hyperlipidemia, CKD 4, paroxysmal atrial fibrillation on Coumadin presented with shortness of breath . acute on ch diastolic Chf excerebation moniter on tele moniter i/o daily weights echo cardiology eval. iv lasix 40 mg bid chf education discussed ? intermittent ptosis left sided weakness -unclear etiology ct head negative neurochecks neurology input-rec to check for cerbral aneurism -patient has ckd so will mri to check for it . Diabetes : fs flactuating 100-160 range Hold glipizide, Farxiga( from last admission) hold lantus he says his fs were ok at home above 100 will continue to moniter ckd 3b: moniter renal function/electrolytes nephrology eval gastroenteritis-had norovirus infection appears improved. Paroxysmal atrial fibrillation Continue warfarin, atenolol check inr Morbid obesity Weight loss recommended DVT prophylaxis with Coumadin ongoing need to stay considering CHF exacerbation in the setting of recent norovirus infection/hydration as well as worsening exertional dyspnea, CKD: Need close I&O monitoring, IV diuretics and nephro /neurology evaluation. Quality Stroke Does the patient have a stroke diagnosis?: No VTE Prior VTE?: No VTE Risk Level:: Medical - moderate - high VTE Device Contraindication: N/A - Device Ordered VTE Drug Contraindication: N/A - Med Ordered
--- NOTE | 2024-09-15 11:03 | P.CDIM_ITS ---
PROVIDER RESPONSE TEXT: To clarify, the appropriate diagnosis supported by the clinical indicators: CKD 3b QUERY TEXT: PHYSICIAN'S DOCUMENTATION REQUEST Date of Query: 09/15/2024 07:16 AM EST Patient Name: Clinton Zapata Admit Date: 09/14/2024 Dear Melida Hoskins MD, A review of the medical record indicates additional documentation may be needed. Please review below and update the documentation accordingly. Clinical Indicators: H&P / - 69 year old with PMH morbid obesity, hypertension, CKD 4 Within the written Plan: CKD 3b Monitor renal function/electrolytes Bun 50 Cr 2.70/2.91 Gfr Please clarify which of the following accurately represents the stage of the noted CKD: CKD 3b CKD 4 Other (explain) Clinically unable to determine (explain) Thank you, Sol Gentile, CCS, CDIS Use of terms such as suspected, likely, concern for, or probable (associated with a specific diagnosi s that is being evaluated, monitored, or treated as if it exists) are acceptable and can be coded in the inpatient se tting, when documented at the time of discharge. Please use your independent medical judgment in providing your response. THIS QUERY IS PART OF THE PERMANENT MEDICAL RECORD
--- NOTE | 2024-09-15 12:03 | P.CNNE_ITS ---
History of Present Illness Data of Consult Service Date: 09/15/24 Primary Care Provider: Eder Ortega DO, MD HPI Reason for consult: WEAKNESS 69 YEARS OLD MAN WITH CONGESTIVE HEART FAILURE AND AFIB ON WARFARIN I WAS ASKED TO SEE FOR LEFT-SIDED WEAKNESS. HE SAID THAT HIS WEAKNESS STARTED DAYS AGO. HE WAS MOSTLY TALKING ABOUT HIS LEFT HAND AND ARM BUT ALSO SAID THAT HIS LEFT EYE WAS DROOPING. APPARENTLY LEFT EYE DROOPINESS INITIALLY APPEARED 2-3 YEARS AGO AND WAS HAPPENING INTERMITTENTLY AND RECENTLY GOT WORSE. HE SAID THAT WHEN HE WOKE UP IN THE MORNING HE WAS FINE BUT LATER IN THE DAY HE WAS HAVING THIS PROBLEM AND SOMETIME HE WOULD SEE DOUBLE. BREATHING AND SWALLOWING WERE OKAY. Review of Systems 2 Review of Systems: HE WAS COMPLAINING OF SHORTNESS OF BREATH PMFSH Past Medical History Medical History Iron deficiency Chronic kidney disease Diabetes Family History Family History Mother Cancer Lung cancer Father Testicular cancer Surgical History Surgical History H/O hernia repair Social History Social History Household Members: None Patient Tobacco Use Status: Never used Tobacco Tobacco use type: Cigarette Cigarettes Per Day: 2 Use of substances other than those prescribed or required for medical reasons: No Advance Directives: No Advance Directives Information Provided: Yes Do you have a plan to hurt others: No Plan Nutrition Risks: No Nutritional Risk service: No Current occupational status: retired Meds Allergies Allergy/AdvReac Type Severity Reaction Status Date / Time Penicillins Allergy Hives Verified 09/14/24 13:02 Active Medications: Current Medications Acetaminophen (Acetaminophen 325 Mg Tablet) 650 mg PO Q6H PRN PRN Reason: Pain, Mild 1-3,fever,headache Atenolol (Atenolol 50 Mg Tablet) 50 mg PO DAILY [facility]; Protocol Last Admin: 09/15/24 08:50 Dose: 50 mg Atorvastatin Calcium (Atorvastatin Calcium 40 Mg Tablet) 40 mg PO BEDTIME [facility] Last Admin: 09/14/24 22:50 Dose: 40 mg Calcitriol (Calcitriol 0.25 Mcg Capsule) 0.25 mcg PO Q48H [facility] Calcium Carbonate (Calcium Carbonate 750 Mg Tab.Chew) 750 mg PO Q4H PRN PRN Reason: Heartburn Dextrose (Dextrose 50 % 25 Gm/50 Ml Syringe) 25 gm IVPUSH Q15M PRN; Protocol PRN Reason: per Hypoglycemia Standing Ord. Famotidine (Famotidine 20 Mg Tablet) 20 mg PO DAILY [facility] Last Admin: 09/15/24 08:58 Dose: 20 mg Furosemide (Furosemide 40 Mg/4 Ml Vial) 40 mg IVPUSH BID [facility]; Protocol Last Admin: 09/15/24 08:48 Dose: 40 mg Glucose (Glucose Gel 15 Gm Gel..Gram.) 15 gm PO Q15M PRN; Protocol PRN Reason: per Hypoglycemia Standing Ord. Insulin Human Lispro (Insulin Lispro 100 Unit/Ml 3 Ml Vial) 0 unit SUBCUT QIDACHS [facility]; Protocol Last Admin: 09/15/24 08:40 Dose: Not Given Isosorbide Mononitrate (Isosorbide Mononitrate 30 Mg Tab.Er.24h) 30 mg PO DAILY [facility]; Protocol Last Admin: 09/15/24 08:49 Dose: 30 mg Loratadine (Loratadine 10 Mg Tablet) 10 mg PO DAILY [facility] Last Admin: 09/15/24 08:50 Dose: 10 mg Losartan Potassium (Losartan Potassium 25 Mg Tablet) 25 mg PO DAILY [facility]; Protocol Last Admin: 09/15/24 08:49 Dose: 25 mg Magnesium Hydroxide (Milk Of Magnesia 30 Ml Oral.Susp) 30 ml PO DAILY PRN PRN Reason: Constipation Melatonin (Melatonin 3 Mg Tablet) 6 mg PO BEDTIME PRN PRN Reason: Insomnia Omeprazole (Omeprazole 20 Mg Capsule.Dr) 20 mg PO DAILY@0630 [facility] Last Admin: 09/15/24 07:21 Dose: 20 mg Sodium Bicarbonate (Sodium Bicarbonate 650 Mg Tablet) 650 mg PO BID [facility] Last Admin: 09/14/24 22:50 Dose: 650 mg Sodium Chloride (0.9 % Sodium Chloride Flush 3 Ml Syringe) 3 ml IVFLUSH QSHIFT [facility] Last Admin: 09/15/24 09:00 Dose: 3 ml Sodium Zirconium Cyclosilicate (Sodium Zirconium Cyclosilicate 5 Gm Powd.Pack) 5 gm PO DAILY [facility] Last Admin: 09/15/24 08:50 Dose: 5 gm Warfarin Sodium (Warfarin Sodium 5 Mg Tablet) 5 mg PO DAILY@1800 [facility] Home Medications ?Medication ?Instructions ?Recorded ?Confirmed ?Last Taken ?Type atenolol 50 mg tablet 50 mg PO DAILY 09/22/23 09/14/24 09/14/24 History atorvastatin 40 mg tablet 40 mg PO BEDTIME 09/22/23 09/14/24 09/14/24 History insulin syringe-needle U-100 1 mL 09/22/23 09/14/24 Unknown History 31 gauge x 5/16 (BD Insulin Syringe Ultra-Fine) losartan 50 mg tablet 25 mg PO DAILY 09/22/23 09/14/24 09/14/24 History warfarin 5 mg tablet 5 mg PO DAILY@1800 09/22/23 09/14/24 09/14/24 History omeprazole 20 mg capsule,delayed 20 mg PO DAILY@0630 10/20/23 09/14/24 09/14/24 History release calcitriol 0.25 mcg capsule 0.25 mcg PO Q48H 08/17/24 09/14/24 09/14/24 History cetirizine 10 mg tablet 10 mg PO DAILY 08/28/24 09/14/24 09/14/24 History isosorbide mononitrate 30 mg 30 mg PO DAILY 08/28/24 09/14/24 09/14/24 History tablet,extended release 24 hr torsemide 20 mg tablet 40 mg PO DAILY 08/28/24 09/14/24 09/14/24 History sodium zirconium cyclosilicate 5 5 g PO DAILY 09/14/24 09/14/24 Unknown History gram oral powder packet (Lokelma) Physical Exam 2 Vital Signs: Vital Signs: Last Vital Signs Temp 96.8 F 09/15/24 08:52 Pulse 58 09/15/24 08:52 Resp 18 09/15/24 08:52 BP 136/51 L 09/15/24 08:52 Pulse Ox 94 09/15/24 08:52 O2 Del Method Room Air 09/15/24 08:52 BMI result Body Mass Index 42.7 Neuro: Other: HE IS ALERT AND AWAKE WITH NORMAL SPONTANEITY OF SPEECH FLUENCY COMPREHENSION AND AFFECT. THERE IS MODERATE LEFT-SIDED PTOSIS. THERE WAS NO FOCAL ASYMMETRIC WEAKNESS IN ARMS THOUGH MILD TREMOR AND MILD WEAKNESS WAS NOTED IN ARMS AND LEGS. DEEP TENDON REFLEXES WERE ABSENT. SPEECH WAS NORMAL. VISUAL POPE ARE FULL. EXTRAOCULAR MUSCLES WERE INTACT. PUPILS WERE ROUND REACTIVE. THERE WERE ALSO EQUAL. Results Labs 09/14/24 14:32 09/15/24 05:56 Labs: Short CBC 09/14/24 Range/Units 14:32 WBC 6.1 (4.8-10.8) X10*3/uL Hgb 8.8 L (14.0-18.0) g/dl Hct 31.5 L (42.0-52.0) % Plt Count 136 L (160-400) X10*3/uL BMP 09/14/24 09/15/24 14:32 05:56 Sodium 142 140 Potassium 5.2 H 4.9 Chloride 108 103 Carbon Dioxide 25 27 BUN 49 H 48 H Creatinine 2.66 H 2.91 H Calcium 9.1 9.2 Liver Function 09/14/24 Range/Units 14:32 Total Bilirubin 0.7 (0.0-1.0) mg/dL Direct Bilirubin 0.3 (0.0-0.5) mg/dL AST 22 (5-37) U/L ALT 21 (0-40) U/L Alkaline Phosphatase 100 (39-117) U/L Albumin 4.0 (3.5-5.0) g/dL HEAD CT DID NOT REVEAL ANY SIGNIFICANT ABNORMALITY Assessment and Plan (1) Ptosis: Qualifiers: Laterality: left Qualified Code(s): H02.402 - Unspecified ptosis of left eyelid Status: Acute 69 YEARS OLD MAN WITH LEFT-SIDED PTOSIS HE SAID WAS ASSOCIATED WITH LEFT ARM WEAKNESS. HE ALSO REPORTED THAT THIS PTOSIS FLUCTUATED AND NOT 2-3 YEARS AND WAS NOTED MORE SO IN THE EVENING SOMETIME WITH DOUBLE VISION. IT COULD BE NEUROMUSCULAR DISEASE LIKE MYASTHENIA GRAVIS BUT IF LEFT ARM WEAKNESS WAS ASSOCIATED WITH IT, CEREBRAL ANEURYSM WAS MORE LIKELY POSSIBILITY. THIS IS, IF PTOSIS WAS NEW DURING LAST 2-3 YEARS, WHICH HE SAID IT WAS. I RECOMMEND CTA OF BRAIN TO RULE OUT CEREBRAL ANEURYSM. IF NO ANEURYSM IS FOUND, I RECOMMEND ACETYL CHOLINE RECEPTOR BLOCKING BINDING AND MODULATING ANTIBODY TITERS. Procedures Date of Service Date of Service: 09/15/24
[2024-09-15] MEDS: Acetaminophen 325 MG TABLET 650 MG PO ×2 (12:06→20:11)
[2024-09-15] MEDS: Sodium Bicarbonate 650 MG TABLET PO ×2 (12:06→20:10)
[2024-09-15 12:19] LABS: Glucose, Whole Blood 168 mg/dL (60-115)
--- NOTE | 2024-09-15 12:37 | MHC.CM.PN ---
IMM 09/15/24, Pt. lives alone, he is active with [facility], was DC from here on 08/30/24. PCP confirmed: Eder Ortega, HCP on file and confirmed: Liz. Family to transport home at DC, DCP: home, resume [facility], CM to follow for DC needs.
[2024-09-15 13:22] LABS: Appearance Urine Clear; Color Urine Yellow; Glucose Urine UA 250 mg/dL (Negative); Leukocyte Esterase Urine Negative (Negative); Nitrite Urine Negative (Negative); UMIC TRIGGER UACC YES; Urine Blood Negative (Negative); Urine Ketones Negative (Negative); Urine Protein 30 (1+) mg/dL (Neg-Trace)
[2024-09-15 13:24] LABS: Bacteria Urine None Seen (None Seen); Hyaline Casts Urine 0-2 /LPF (0-2); RBC Urine 0-2 /HPF (0-2); Squamous Epithelial Cell Urine 0-2 /HPF (0-2); WBC Urine 0-5 /HPF (0-5)
--- NOTE | 2024-09-15 13:29 | MHC.EDTECH ---
empty patient urinal for 900 nurse aware
--- NOTE | 2024-09-15 13:39 | PC.NURSE ---
Pt to ECHO.
--- NOTE | 2024-09-15 15:08 | PC.NURSE ---
MD Hoskins made aware that neuro recommends CTA (pt does have CKD).
[2024-09-15 16:34] LABS: Glucose, Whole Blood 132 mg/dL (60-115)
[2024-09-15] MEDS: Warfarin Sodium 5 MG TABLET PO (17:39)
--- NOTE | 2024-09-15 19:43 | PM.CNNEP ---
History of Present Illness Reason for Consult Consult date: 09/15/24 Reason for consult: CKD 4- Patient requesting transfer of renal care to [facility] Chief Complaint Chief complaint: CHF, Exacerbation History of Present Illness Narrative: CKD 4- Patient requesting transfer of renal care to [facility] 69 years old male with DM, HTN & CKD4 presented to ER with SOB. He was recently admitted to the hospital for hypoglycemia and norovirus infection- where patient said he received IV fluids. when he went home he started to having leg swelling as well as shortness of breath with exertion mostly. Does not remember if gained any weight, Denies any chest pain or dizziness or nausea vomiting, has some dry cough,denies any sore throat.He was admitted for further management . Nephrology has been consulted to assist in his clinical care during his current hospital stay Review of Systems Review of Systems Yes all other systems are reviewed and are negative PMF Past Medical History Medical History Iron deficiency Chronic kidney disease Diabetes Family History Family History Mother Cancer Lung cancer Father Testicular cancer Surgical History Surgical History H/O hernia repair Social History Social History Household Members: None Housing: House Do you presently have visiting nurse or other home services: Yes Patient Tobacco Use Status: Current someday Tobacco user Tobacco use type: Cigarette Cigarettes Per Day: 1 service: No Current occupational status: retired Meds Allergies Allergy/AdvReac Type Severity Reaction Status Date / Time Penicillins Allergy Hives Verified 09/14/24 13:02 Active Medications: Current Medications Acetaminophen (Acetaminophen 325 Mg Tablet) 650 mg PO Q6H PRN PRN Reason: Pain, Mild 1-3,fever,headache Atenolol (Atenolol 50 Mg Tablet) 50 mg PO DAILY [facility]; Protocol Last Admin: 09/15/24 08:50 Dose: 50 mg Atorvastatin Calcium (Atorvastatin Calcium 40 Mg Tablet) 40 mg PO BEDTIME [facility] Last Admin: 09/14/24 22:50 Dose: 40 mg Calcitriol (Calcitriol 0.25 Mcg Capsule) 0.25 mcg PO Q48H [facility] Calcium Carbonate (Calcium Carbonate 750 Mg Tab.Chew) 750 mg PO Q4H PRN PRN Reason: Heartburn Dextrose (Dextrose 50 % 25 Gm/50 Ml Syringe) 25 gm IVPUSH Q15M PRN; Protocol PRN Reason: per Hypoglycemia Standing Ord. Famotidine (Famotidine 20 Mg Tablet) 20 mg PO DAILY [facility] Last Admin: 09/15/24 08:58 Dose: 20 mg Furosemide (Furosemide 40 Mg/4 Ml Vial) 40 mg IVPUSH BID [facility]; Protocol Last Admin: 09/15/24 08:48 Dose: 40 mg Glucose (Glucose Gel 15 Gm Gel..Gram.) 15 gm PO Q15M PRN; Protocol PRN Reason: per Hypoglycemia Standing Ord. Insulin Human Lispro (Insulin Lispro 100 Unit/Ml 3 Ml Vial) 0 unit SUBCUT QIDACHS [facility]; Protocol Last Admin: 09/15/24 16:46 Dose: Not Given Isosorbide Mononitrate (Isosorbide Mononitrate 30 Mg Tab.Er.24h) 30 mg PO DAILY [facility]; Protocol Last Admin: 09/15/24 08:49 Dose: 30 mg Loratadine (Loratadine 10 Mg Tablet) 10 mg PO DAILY [facility] Last Admin: 09/15/24 08:50 Dose: 10 mg Losartan Potassium (Losartan Potassium 25 Mg Tablet) 25 mg PO DAILY [facility]; Protocol Last Admin: 09/15/24 08:49 Dose: 25 mg Magnesium Hydroxide (Milk Of Magnesia 30 Ml Oral.Susp) 30 ml PO DAILY PRN PRN Reason: Constipation Melatonin (Melatonin 3 Mg Tablet) 6 mg PO BEDTIME PRN PRN Reason: Insomnia Omeprazole (Omeprazole 20 Mg Capsule.Dr) 20 mg PO DAILY@0630 [facility] Last Admin: 09/15/24 07:21 Dose: 20 mg Sodium Bicarbonate (Sodium Bicarbonate 650 Mg Tablet) 650 mg PO BID [facility] Last Admin: 09/15/24 12:06 Dose: 650 mg Sodium Chloride (0.9 % Sodium Chloride Flush 3 Ml Syringe) 3 ml IVFLUSH QSHIFT [facility] Last Admin: 09/15/24 17:39 Dose: 3 ml Sodium Zirconium Cyclosilicate (Sodium Zirconium Cyclosilicate 5 Gm Powd.Pack) 5 gm PO DAILY [facility] Last Admin: 09/15/24 08:50 Dose: 5 gm Warfarin Sodium (Warfarin Sodium 5 Mg Tablet) 5 mg PO DAILY@1800 [facility] Last Admin: 09/15/24 17:39 Dose: 5 mg Home Medications ?Medication ?Instructions ?Recorded ?Confirmed ?Last Taken ?Type atenolol 50 mg tablet 50 mg PO DAILY 09/22/23 09/14/24 09/14/24 History atorvastatin 40 mg tablet 40 mg PO BEDTIME 09/22/23 09/14/24 09/14/24 History insulin syringe-needle U-100 1 mL 09/22/23 09/14/24 Unknown History 31 gauge x 5/16 (BD Insulin Syringe Ultra-Fine) losartan 50 mg tablet 25 mg PO DAILY 09/22/23 09/14/24 09/14/24 History warfarin 5 mg tablet 5 mg PO DAILY@1800 09/22/23 09/14/24 09/14/24 History omeprazole 20 mg capsule,delayed 20 mg PO DAILY@0630 10/20/23 09/14/24 09/14/24 History release calcitriol 0.25 mcg capsule 0.25 mcg PO Q48H 08/17/24 09/14/24 09/14/24 History cetirizine 10 mg tablet 10 mg PO DAILY 08/28/24 09/14/24 09/14/24 History isosorbide mononitrate 30 mg 30 mg PO DAILY 08/28/24 09/14/24 09/14/24 History tablet,extended release 24 hr torsemide 20 mg tablet 40 mg PO DAILY 08/28/24 09/14/24 09/14/24 History sodium zirconium cyclosilicate 5 5 g PO DAILY 09/14/24 09/14/24 Unknown History gram oral powder packet (Lokelma) Physical Exam Vital Signs: Last Vital Signs Temp 97.2 F 09/15/24 16:46 Pulse 85 09/15/24 16:46 Resp 20 09/15/24 16:46 BP 155/64 H 09/15/24 16:46 Pulse Ox 97 09/15/24 16:46 O2 Del Method Room Air 09/15/24 16:46 BMI result Body Mass Index 39.6 Const General: no acute distress Orientation/consciousness: patient oriented x3 Neck Neck: Yes supple Resp Auscultation: diminished lung sounds Cardio Rate: regular rate GI Palpation (GI): Soft to palpation Skin General skin exam: no rashes or lesions noted Neuro General: patient oriented x3 Extrem General: Yes edema Results Lab Results 09/14/24 14:32 09/15/24 05:56 Lab results: Chemistry 09/14/24 09/15/24 14:32 05:56 Sodium 142 140 Potassium 5.2 H 4.9 Carbon Dioxide 25 27 BUN 49 H 48 H Creatinine 2.66 H 2.91 H Calcium 9.1 9.2 Hematology 09/14/24 14:32 WBC 6.1 Hgb 8.8 L Plt Count 136 L Urinalysis 09/15/24 13:06 Urine Color Yellow Urine Appearance Clear Urine pH 6.0 Ur Specific Chrisney 1.010 Urine Protein 30 (1+) H Urine Glucose (UA) 250 H Urine Ketones Negative Urine Blood Negative Urine Nitrite Negative Ur Leukocyte Esterase Negative Urine RBC 0-2 Urine WBC 0-5 Ur Squamous Epith Cells 0-2 Hyaline Casts 0-2 Assessment and Plan (1) Acute kidney injury superimposed on CKD: Status: Acute Plan MARK due to compromise in renal perfusion with resultant tubular injury Has CKD 4 at baseline. UO good. No reason to suspect obstruction/GN/AIN Continue diuresis; BP needs to be maintained at goal. Continue to hold ARB Shall continue to optimize medications. No indication for renal replacement Shall follow up in the office when discharged for continued care Procedures Date of Service Date of Service: 09/15/24
[2024-09-15] MEDS: Atorvastatin Calcium 40 MG TABLET PO (20:10)
[2024-09-15 20:21] LABS: Glucose, Whole Blood 183 mg/dL (60-115)
[2024-09-15] MEDS: diphenhydrAMINE HCl 12.5 MG/5 ML LIQUID PO (23:36)
[2024-09-16 03:29] VITALS: BP 155/76; PULSE 61; RESP 18; TEMP 36.7; O2SAT 93
[2024-09-16 06:00] VITALS: BMI 39.6
[2024-09-16] MEDS: Omeprazole 20 MG CAPSULE.DR PO (06:12)
[2024-09-16 06:26] LABS: INTERNATIONAL NORM RATIO 2.1 (0.9-1.1); Prothrombin Time 24.6 SEC (10.9-12.4)
[2024-09-16 07:00] VITALS: BP 145/70; PULSE 54; RESP 18; TEMP 36.7; O2SAT 98
[2024-09-16 07:02] LABS: Glucose, Whole Blood 137 mg/dL (60-115)
[2024-09-16] MEDS: atenoloL 50 MG TABLET PO (07:53)
[2024-09-16] MEDS: Sodium Zirconium Cyclosilicate 5 GM POWD.PACK PO (07:53)
[2024-09-16] MEDS: Losartan Potassium 25 MG TABLET PO (07:53)
[2024-09-16] MEDS: Famotidine 20 MG TABLET PO (07:53)
[2024-09-16] MEDS: Furosemide 40 MG/4 ML VIAL IVPUSH (07:54)
[2024-09-16] MEDS: 0.9 % Sodium Chloride Flush 3 ML SYRINGE IVFLUSH ×3 (07:54→20:15)
[2024-09-16] MEDS: Loratadine 10 MG TABLET PO (07:54)
[2024-09-16] MEDS: Isosorbide Mononitrate 30 MG TAB.ER.24H PO (07:54)
[2024-09-16] MEDS: calcitrioL 0.25 MCG CAPSULE PO (08:01)
[2024-09-16] MEDS: Sodium Bicarbonate 650 MG TABLET PO ×2 (10:47→20:14)
[2024-09-16 10:53] LABS: Glucose, Whole Blood 296 mg/dL (60-115)
[2024-09-16 11:01] VITALS: BP 148/63; PULSE 59; RESP 20; TEMP 36.2; O2SAT 96
[2024-09-16] MEDS: Insulin Lispro 100 UNIT/ML 3 ML VIAL SUBCUT (11:52)
[2024-09-16 11:56] LABS: Anion Gap 15 (12-20); Blood Urea Nitrogen 55 mg/dL (9-16); Calcium 8.5 mg/dL (8.4-10.2); Carbon Dioxide 26 mmol/L (22-29); Chloride 100 mmol/L (96-108); Creatinine Clr Calc Pharmacy 25.1; Estimated Glomerular Filt Rate 19; Glucose Random 268 mg/dL (60-115); Potassium 4.8 mmol/L (3.3-5.1); Sodium 136 mmol/L (135-145)
[2024-09-16 12:03] LABS: B Type Natriuretic Peptide 367 pg/mL (<100)
[2024-09-16 16:00] VITALS: BP 126/54; PULSE 56; RESP 18; TEMP 36.5; O2SAT 92
[2024-09-16 16:22] LABS: Glucose, Whole Blood 123 mg/dL (60-115)
--- NOTE | 2024-09-16 16:46 | HO.PM.IMPN ---
Subjective Subjective Date of Service: 09/16/24 Interval History: chf ,ptosis Review of Systems sob seems improving ptosis similar Physical Exam Vital Signs: Vital Signs: Last Vital Signs Temp 97.7 F 09/16/24 16:00 Pulse 56 09/16/24 16:00 Resp 18 09/16/24 16:00 BP 126/54 L 09/16/24 16:00 Pulse Ox 92 09/16/24 16:00 O2 Del Method Room Air 09/16/24 16:00 BMI result Body Mass Index 39.6 Appearance: Alert.? Oriented X3.? Eyes: has ptosis left side ( at least few days duration). cvs: rrr, [id number] ,jvd equivocal. res: air entry fair ,few rales scattered at bases. abd: no rebound or guarding ,nt, bs present. ext pulses present , no cyanosis ,2+edema . neuro: moves all ext. Objective Data Active Medications Acetaminophen (Acetaminophen 325 Mg Tablet) 650 mg PO Q6H PRN PRN Reason: Pain, Mild 1-3,fever,headache Last Admin: 09/15/24 20:11 Dose: 650 mg Documented By: JAYDON Atenolol (Atenolol 50 Mg Tablet) 50 mg PO DAILY [facility]; Protocol Last Admin: 09/16/24 07:53 Dose: 50 mg Documented By: TIM Atorvastatin Calcium (Atorvastatin Calcium 40 Mg Tablet) 40 mg PO BEDTIME [facility] Last Admin: 09/15/24 20:10 Dose: 40 mg Documented By: JAYDON Calcitriol (Calcitriol 0.25 Mcg Capsule) 0.25 mcg PO Q48H [facility] Last Admin: 09/16/24 08:01 Dose: 0.25 mcg Documented By: TIM Calcium Carbonate (Calcium Carbonate 750 Mg Tab.Chew) 750 mg PO Q4H PRN PRN Reason: Heartburn Dextrose (Dextrose 50 % 25 Gm/50 Ml Syringe) 25 gm IVPUSH Q15M PRN; Protocol PRN Reason: per Hypoglycemia Standing Ord. Diphenhydramine HCl (Diphenhydramine Hcl 12.5 Mg/5 Ml Liquid) 12.5 mg PO Q4H PRN PRN Reason: Itching Last Admin: 09/15/24 23:36 Dose: 12.5 mg Documented By: JAYDON Famotidine (Famotidine 20 Mg Tablet) 20 mg PO DAILY [facility] Last Admin: 09/16/24 07:53 Dose: 20 mg Documented By: TIM Furosemide (Furosemide 40 Mg/4 Ml Vial) 40 mg IVPUSH DAILY [facility]; Protocol Glucose (Glucose Gel 15 Gm Gel..Gram.) 15 gm PO Q15M PRN; Protocol PRN Reason: per Hypoglycemia Standing Ord. Insulin Human Lispro (Insulin Lispro 100 Unit/Ml 3 Ml Vial) 0 unit SUBCUT QIDACHS [facility]; Protocol Last Admin: 09/16/24 16:29 Dose: Not Given Documented By: TIM Non-Admin Reason: No Insulin Coverage Isosorbide Mononitrate (Isosorbide Mononitrate 30 Mg Tab.Er.24h) 30 mg PO DAILY [facility]; Protocol Last Admin: 09/16/24 07:54 Dose: 30 mg Documented By: TIM Loratadine (Loratadine 10 Mg Tablet) 10 mg PO DAILY [facility] Last Admin: 09/16/24 07:54 Dose: 10 mg Documented By: TIM Losartan Potassium (Losartan Potassium 25 Mg Tablet) 25 mg PO DAILY [facility]; Protocol Last Admin: 09/16/24 07:53 Dose: 25 mg Documented By: TIM Magnesium Hydroxide (Milk Of Magnesia 30 Ml Oral.Susp) 30 ml PO DAILY PRN PRN Reason: Constipation Melatonin (Melatonin 3 Mg Tablet) 6 mg PO BEDTIME PRN PRN Reason: Insomnia Omeprazole (Omeprazole 20 Mg Capsule.Dr) 20 mg PO DAILY@0630 [facility] Last Admin: 09/16/24 06:12 Dose: 20 mg Documented By: JAYDON Sodium Bicarbonate (Sodium Bicarbonate 650 Mg Tablet) 650 mg PO BID [facility] Last Admin: 09/16/24 10:47 Dose: 650 mg Documented By: TIM Sodium Chloride (0.9 % Sodium Chloride Flush 3 Ml Syringe) 3 ml IVFLUSH QSHIFT [facility] Last Admin: 09/16/24 16:29 Dose: 3 ml Documented By: TIM Sodium Zirconium Cyclosilicate (Sodium Zirconium Cyclosilicate 5 Gm Powd.Pack) 5 gm PO DAILY [facility] Last Admin: 09/16/24 07:53 Dose: 5 gm Documented By: TIM Warfarin Sodium (Warfarin Sodium 5 Mg Tablet) 5 mg PO DAILY@1800 [facility] Last Admin: 09/15/24 17:39 Dose: 5 mg Documented By: ROSCOE Labs 09/14/24 14:32 09/16/24 11:33 Labs: Laboratory Results - last 24 hr 09/15/24 09/16/24 09/16/24 20:18 05:50 06:55 Hold Purple Top SEE NOTE PT 24.6 H INR 2.1 H Anion Gap Estim Creat Clear Calc Estimated GFR POC Glucose 183 H 137 H Random Glucose Calcium B-Natriuretic Peptide 09/16/24 09/16/24 09/16/24 10:45 11:33 16:18 Hold Purple Top PT INR Anion Gap 15 Estim Creat Clear Calc 25.1 Estimated GFR 19 POC Glucose 296 H 123 H Random Glucose 268 H Calcium 8.5 D B-Natriuretic Peptide 367 H Assessment and Plan (1) Acute kidney injury superimposed on CKD: Status: Acute (2) Ptosis: Status: Acute Plan 69M PMH morbid obesity, diabetes, hypertension, hyperlipidemia, CKD 4, paroxysmal atrial fibrillation on Coumadin presented with shortness of breath . acute on ch diastolic Chf excerebation moniter on tele moniter i/o daily weights echo cardiology eval. iv lasix 40 mg bid chf education discussed ? intermittent ptosis left sided weakness -unclear etiology ct head negative neurochecks neurology input-mri: negative for brain aneurism added testing for suspected myasthenia gravis -added acetylcholine ab testing added pyridostigmine 60 mg qid. Diabetes : fs flactuating Hold glipizide, Farxiga( from last admission) hold lantus he says his fs were ok at home above 100 will continue to moniter ckd 3b: moniter renal function/electrolytes nephrology eval gastroenteritis-had norovirus infection appears improved. Paroxysmal atrial fibrillation Continue warfarin, atenolol inr 2.1 Morbid obesity Weight loss recommended DVT prophylaxis with Coumadin ongoing need to stay considering CHF exacerbation in the setting of recent norovirus infection/hydration as well as worsening exertional dyspnea, CKD: Need close I&O monitoring, IV diuretics and nephro /neurology evaluation. Quality Stroke Does the patient have a stroke diagnosis?: No VTE Prior VTE?: No VTE Risk Level:: Medical - moderate - high VTE Device Contraindication: N/A - Device Ordered VTE Drug Contraindication: N/A - Med Ordered
[2024-09-16 17:32] VITALS: BP 126/54; PULSE 56; O2SAT 92
[2024-09-16] MEDS: Warfarin Sodium 5 MG TABLET PO (17:43)
[2024-09-16] MEDS: pyRIDostigmine bromide 60 MG TABLET PO ×2 (17:43→20:14)
[2024-09-16 20:00] VITALS: BP 144/64; PULSE 56; RESP 16; TEMP 36.3; O2SAT 97
[2024-09-16] MEDS: Atorvastatin Calcium 40 MG TABLET PO (20:14)
[2024-09-16] MEDS: diphenhydrAMINE HCl 12.5 MG/5 ML LIQUID PO (20:14)
[2024-09-16] MEDS: Acetaminophen 325 MG TABLET 650 MG PO (20:18)
[2024-09-16 21:53] LABS: Glucose, Whole Blood 199 mg/dL (60-115)
[2024-09-17] VITALS: BP 137/62; PULSE 55; RESP 16; TEMP 36.2; O2SAT 98
[2024-09-17 04:00] VITALS: BP 162/70; PULSE 57; RESP 16; TEMP 36; O2SAT 96
[2024-09-17] MEDS: Omeprazole 20 MG CAPSULE.DR PO (05:37)
[2024-09-17 06:00] VITALS: BMI 39.2
[2024-09-17 06:28] LABS: INTERNATIONAL NORM RATIO 1.9 (0.9-1.1); Prothrombin Time 22.7 SEC (10.9-12.4)
[2024-09-17 07:44] LABS: Glucose, Whole Blood 142 mg/dL (60-115)
[2024-09-17 07:49] VITALS: BP 146/67; PULSE 64; RESP 18; TEMP 36.2; O2SAT 95
--- NOTE | 2024-09-17 08:15 | P.PNIM_ITS ---
Subjective Subjective Date of Service: 09/17/24 Interval History: ? myasthenia chf mild juliet Review of Systems sob seems resolved no chest pain left eye ptosis present Review of Systems: Yes all other systems are reviewed and are negative Physical Exam 2 Vital Signs: Vital Signs: Last Vital Signs Temp 97.1 F 09/17/24 07:49 Pulse 64 09/17/24 07:49 Resp 18 09/17/24 07:49 BP 146/67 H 09/17/24 07:49 Pulse Ox 95 09/17/24 07:49 O2 Del Method Room Air 09/17/24 07:49 BMI result Body Mass Index 39.2 Appearance: Alert.? Oriented X3.? Eyes: has ptosis left side-improving cvs: rrr, [id number] ,jvd equivocal. res: air entry fair ,few rales scattered at bases. abd: no rebound or guarding ,nt, bs present. ext pulses present , no cyanosis ,trace edema . neuro: moves all ext. Objective Data Active Medications Acetaminophen (Acetaminophen 325 Mg Tablet) 650 mg PO Q6H PRN PRN Reason: Pain, Mild 1-3,fever,headache Last Admin: 09/16/24 20:18 Dose: 650 mg Documented By: JAYDON Atenolol (Atenolol 50 Mg Tablet) 50 mg PO DAILY [facility]; Protocol Last Admin: 09/16/24 07:53 Dose: 50 mg Documented By: TIM Atorvastatin Calcium (Atorvastatin Calcium 40 Mg Tablet) 40 mg PO BEDTIME [facility] Last Admin: 09/16/24 20:14 Dose: 40 mg Documented By: JAYDON Calcitriol (Calcitriol 0.25 Mcg Capsule) 0.25 mcg PO Q48H [facility] Last Admin: 09/16/24 08:01 Dose: 0.25 mcg Documented By: TIM Calcium Carbonate (Calcium Carbonate 750 Mg Tab.Chew) 750 mg PO Q4H PRN PRN Reason: Heartburn Dextrose (Dextrose 50 % 25 Gm/50 Ml Syringe) 25 gm IVPUSH Q15M PRN; Protocol PRN Reason: per Hypoglycemia Standing Ord. Diphenhydramine HCl (Diphenhydramine Hcl 12.5 Mg/5 Ml Liquid) 12.5 mg PO Q4H PRN PRN Reason: Itching Last Admin: 09/16/24 20:14 Dose: 12.5 mg Documented By: JAYDON Famotidine (Famotidine 20 Mg Tablet) 20 mg PO DAILY [facility] Last Admin: 09/16/24 07:53 Dose: 20 mg Documented By: TIM Glucose (Glucose Gel 15 Gm Gel..Gram.) 15 gm PO Q15M PRN; Protocol PRN Reason: per Hypoglycemia Standing Ord. Insulin Human Lispro (Insulin Lispro 100 Unit/Ml 3 Ml Vial) 0 unit SUBCUT QIDACHS [facility]; Protocol Last Admin: 09/17/24 07:49 Dose: Not Given Documented By: KEVON Non-Admin Reason: No Insulin Coverage Isosorbide Mononitrate (Isosorbide Mononitrate 30 Mg Tab.Er.24h) 30 mg PO DAILY [facility]; Protocol Last Admin: 09/16/24 07:54 Dose: 30 mg Documented By: TIM Loratadine (Loratadine 10 Mg Tablet) 10 mg PO DAILY [facility] Last Admin: 09/16/24 07:54 Dose: 10 mg Documented By: TIM Losartan Potassium (Losartan Potassium 25 Mg Tablet) 25 mg PO DAILY [facility]; Protocol Last Admin: 09/16/24 07:53 Dose: 25 mg Documented By: TIM Magnesium Hydroxide (Milk Of Magnesia 30 Ml Oral.Susp) 30 ml PO DAILY PRN PRN Reason: Constipation Melatonin (Melatonin 3 Mg Tablet) 6 mg PO BEDTIME PRN PRN Reason: Insomnia Omeprazole (Omeprazole 20 Mg Capsule.Dr) 20 mg PO DAILY@0630 [facility] Last Admin: 09/17/24 05:37 Dose: 20 mg Documented By: JAYDON Pyridostigmine Adrian (Pyridostigmine Adrian 60 Mg Tablet) 60 mg PO QID [facility] Last Admin: 09/16/24 20:14 Dose: 60 mg Documented By: JAYDON Sodium Bicarbonate (Sodium Bicarbonate 650 Mg Tablet) 650 mg PO BID [facility] Last Admin: 09/16/24 20:14 Dose: 650 mg Documented By: JAYDON Sodium Chloride (0.9 % Sodium Chloride Flush 3 Ml Syringe) 3 ml IVFLUSH QSHIFT [facility] Last Admin: 09/16/24 20:15 Dose: 3 ml Documented By: JAYDON Sodium Zirconium Cyclosilicate (Sodium Zirconium Cyclosilicate 5 Gm Powd.Pack) 5 gm PO DAILY [facility] Last Admin: 09/16/24 07:53 Dose: 5 gm Documented By: TIM Warfarin Sodium (Warfarin Sodium 5 Mg Tablet) 5 mg PO DAILY@1800 [facility] Last Admin: 09/16/24 17:43 Dose: 5 mg Documented By: TIM Labs 09/14/24 14:32 09/17/24 05:52 Labs: Laboratory Results - last 24 hr 09/16/24 09/16/24 09/16/24 10:45 11:33 16:18 Hold Purple Top PT INR Anion Gap 15 Estim Creat Clear Calc 25.1 Estimated GFR 19 POC Glucose 296 H 123 H Random Glucose 268 H Calcium 8.5 D B-Natriuretic Peptide 367 H 09/16/24 09/17/24 09/17/24 21:50 05:52 05:56 Hold Purple Top SEE NOTE PT 22.7 H INR 1.9 H Anion Gap Estim Creat Clear Calc Estimated GFR POC Glucose 199 H Random Glucose Calcium B-Natriuretic Peptide 09/17/24 07:16 Hold Purple Top PT INR Anion Gap Estim Creat Clear Calc Estimated GFR POC Glucose 142 H Random Glucose Calcium B-Natriuretic Peptide Assessment and Plan (1) Acute kidney injury superimposed on CKD: Status: Acute (2) Ptosis: Status: Acute Plan 69M PMH morbid obesity, diabetes, hypertension, hyperlipidemia, CKD 4, paroxysmal atrial fibrillation on Coumadin presented with shortness of breath . acute on diastolic Chf excerebation moniter on tele moniter i/o-5.3liter negative daily weights echo plan: cardiology evalnoted hold lasix due somewhat worseing renal function chf education discussed ? intermittent ptosis left sided weakness -unclear etiology ct head negative neurochecks neurology input-mri: negative for brain aneurism added testing for suspected myasthenia gravis -added acetylcholine ab testing added pyridostigmine 60 mg qid. Diabetes : fs flactuating Hold glipizide, Farxiga( from last admission) hold lantus he says his fs were ok at home above 100 will continue to moniter juliet onckd 3b:? related to diuresis moniter renal function/electrolytes nephrology eval gastroenteritis-had norovirus infection appears improved. Paroxysmal atrial fibrillation Continue warfarin, atenolol inr 1.9,added 0.5 mg extra warfarin Morbid obesity Weight loss recommended DVT prophylaxis with Coumadin ongoing need to stay considering CHF exacerbation in the setting of recent norovirus infection/hydration as well as worsening exertional dyspnea, CKD: Need close I&O monitoring, IV diuretics and nephro /neurology evaluation. Quality Stroke Does the patient have a stroke diagnosis?: No VTE Prior VTE?: No VTE Risk Level:: Medical - moderate - high VTE Device Contraindication: N/A - Device Ordered VTE Drug Contraindication: N/A - Med Ordered
[2024-09-17 08:32] LABS: Anion Gap 14 (12-20); Blood Urea Nitrogen 51 mg/dL (9-16); Calcium 8.4 mg/dL (8.4-10.2); Carbon Dioxide 25 mmol/L (22-29); Chloride 103 mmol/L (96-108); Creatinine Clr Calc Pharmacy 28.3; Estimated Glomerular Filt Rate 21; Glucose Random 133 mg/dL (60-115); Potassium 4.7 mmol/L (3.3-5.1); Sodium 137 mmol/L (135-145)
[2024-09-17] MEDS: 0.9 % Sodium Chloride Flush 3 ML SYRINGE IVFLUSH ×3 (08:47→23:52)
[2024-09-17] MEDS: atenoloL 50 MG TABLET PO (08:48)
[2024-09-17] MEDS: Loratadine 10 MG TABLET PO (08:49)
[2024-09-17] MEDS: Isosorbide Mononitrate 30 MG TAB.ER.24H PO (08:49)
[2024-09-17] MEDS: pyRIDostigmine bromide 60 MG TABLET PO ×4 (08:49→21:38)
[2024-09-17] MEDS: Famotidine 20 MG TABLET PO (08:49)
--- NOTE | 2024-09-17 10:08 | PC.NURSE ---
Dr Hoskins notified of 09/17/2024 potassium of 4.7. He ordered [facility] to held.
[2024-09-17] MEDS: Sodium Bicarbonate 650 MG TABLET PO ×2 (10:50→21:38)
[2024-09-17 11:52] LABS: Glucose, Whole Blood 220 mg/dL (60-115)
[2024-09-17 12:00] VITALS: BP 101/49; PULSE 52; RESP 19; TEMP 36.3; O2SAT 93
[2024-09-17] MEDS: Insulin Lispro 100 UNIT/ML 3 ML VIAL SUBCUT (12:20)
[2024-09-17] MEDS: Calcium Carbonate 750 MG TAB.CHEW PO (15:02)
[2024-09-17 15:31] LABS: Glucose, Whole Blood 186 mg/dL (60-115)
[2024-09-17 15:40] VITALS: BP 100/51; PULSE 53; RESP 19; TEMP 36.2; O2SAT 96
[2024-09-17] MEDS: Warfarin Sodium 5 MG TABLET PO (17:54)
[2024-09-17] MEDS: Warfarin Sodium 1 MG TABLET 0.5 MG PO (17:56)
[2024-09-17 19:36] VITALS: BP 133/60; PULSE 55; RESP 20; TEMP 36.5; O2SAT 93
[2024-09-17 21:19] LABS: Glucose, Whole Blood 187 mg/dL (60-115)
[2024-09-17] MEDS: Acetaminophen 325 MG TABLET 650 MG PO (21:38)
[2024-09-17] MEDS: Atorvastatin Calcium 40 MG TABLET PO (21:38)
[2024-09-17] MEDS: diphenhydrAMINE HCl 12.5 MG/5 ML LIQUID PO (21:38)
[2024-09-18] VITALS: BP 143/66; PULSE 54; RESP 20; TEMP 36.4; O2SAT 92
[2024-09-18 04:00] VITALS: BP 138/65; PULSE 56; RESP 16; TEMP 36.5; O2SAT 93
[2024-09-18 06:00] VITALS: BMI 38.8
[2024-09-18] MEDS: Omeprazole 20 MG CAPSULE.DR PO (06:29)
[2024-09-18 07:10] LABS: INTERNATIONAL NORM RATIO 2.1 (0.9-1.1); Prothrombin Time 24.9 SEC (10.9-12.4)
[2024-09-18 07:19] LABS: Anion Gap 13 (12-20); Blood Urea Nitrogen 53 mg/dL (9-16); Calcium 8.5 mg/dL (8.4-10.2); Carbon Dioxide 25 mmol/L (22-29); Chloride 104 mmol/L (96-108); Creatinine Clr Calc Pharmacy 27.6; Estimated Glomerular Filt Rate 21; Glucose Random 158 mg/dL (60-115); Potassium 4.7 mmol/L (3.3-5.1); Sodium 137 mmol/L (135-145)
[2024-09-18 07:31] LABS: Glucose, Whole Blood 163 mg/dL (60-115)
[2024-09-18 07:45] VITALS: BP 153/68; PULSE 55; RESP 20; TEMP 36.1; O2SAT 97
[2024-09-18] MEDS: Famotidine 20 MG TABLET PO (09:18)
[2024-09-18] MEDS: pyRIDostigmine bromide 60 MG TABLET PO ×2 (09:18→12:21)
[2024-09-18] MEDS: Sodium Bicarbonate 650 MG TABLET PO (09:18)
[2024-09-18] MEDS: Loratadine 10 MG TABLET PO (09:18)
[2024-09-18 09:20] VITALS: BP 144/65
[2024-09-18] MEDS: Isosorbide Mononitrate 30 MG TAB.ER.24H PO (09:20)
--- NOTE | 2024-09-18 10:12 | P.PNNP_ITS ---
Subjective Subjective Date of Service: 09/18/24 Interval history: Events noted. Discussed with Dr. Hoskins Physical Exam 2 Vital Signs: Vital Signs: Last Vital Signs Temp 97.0 F 09/18/24 07:45 Pulse 55 09/18/24 07:45 Resp 20 09/18/24 07:45 BP 144/65 H 09/18/24 09:20 Pulse Ox 97 09/18/24 07:45 O2 Del Method Room Air 09/18/24 07:45 BMI result Body Mass Index 38.8 Const: General: no acute distress Orientation/consciousness: patient oriented x3 Neck: Neck: Yes supple Resp: Auscultation: diminished lung sounds Cardio: Rate: regular rate GI: Palpation (GI): Soft to palpation Skin: General skin exam: no rashes or lesions noted Neuro: General: patient oriented x3 Extrem: General: Yes edema Objective Data Labs 09/14/24 14:32 09/18/24 06:35 Labs: Laboratory Results - last 24 hr 09/17/24 09/17/24 09/17/24 11:40 15:13 21:10 PT INR Sodium Potassium Chloride Carbon Dioxide Anion Gap BUN Creatinine Estim Creat Clear Calc Estimated GFR POC Glucose 220 H 186 H 187 H Random Glucose Calcium 09/18/24 09/18/24 06:35 07:28 PT 24.9 H INR 2.1 H Sodium 137 Potassium 4.7 Chloride 104 Carbon Dioxide 25 Anion Gap 13 BUN 53 H Creatinine 2.99 H Estim Creat Clear Calc 27.6 Estimated GFR 21 POC Glucose 163 H Random Glucose 158 H Calcium 8.5 Procedures Date of Service Date of Service: 09/27/24 Assessment & Plan Assessment and plan (1) Acute kidney injury superimposed on CKD: Status: Acute (2) Anemia: Status: Acute Plan MARK due to compromise in renal perfusion with resultant tubular injury Has CKD 4 at baseline. UO good. No reason to suspect obstruction/GN/AIN Continue diuresis; BP needs to be maintained at goal. Continue to hold ARB Shall continue to optimize medications. No indication for renal replacement Can keep on torsemide 40 mg upon discharge Continue Epogen as outpatient to correct anemia Shall follow up in the office when discharged for continued care Time Spent With Patient Time: Total time managing care of this patient today ____ minutes. Progress Note: Quality Stroke Does the patient have a stroke diagnosis?: No
[2024-09-18 10:55] LABS: Glucose, Whole Blood 223 mg/dL (60-115)
[2024-09-18 11:37] VITALS: BP 123/58; PULSE 53; RESP 20; TEMP 36.7; O2SAT 95
[2024-09-18] MEDS: calcitrioL 0.25 MCG CAPSULE PO (11:50)
[2024-09-18] MEDS: atenoloL 50 MG TABLET PO (11:50)
[2024-09-18] MEDS: 0.9 % Sodium Chloride Flush 3 ML SYRINGE IVFLUSH (11:51)
[2024-09-18] MEDS: Insulin Lispro 100 UNIT/ML 3 ML VIAL SUBCUT (11:53)
[2024-09-18] MEDS: Insulin Glargine,Hum.rec.anlog 100 UNIT/ML 10 ML VIAL 10 UNIT SUBCUT (12:20)
--- NOTE | 2024-09-18 12:36 | MHC.CM.PN ---
PT TO [facility] HOME TODAY WITH RESUMPTION OF [facility] VIA PRIVATE TRANSPORT
--- NOTE | 2024-09-18 13:23 | W.MHC.F2F ---
Service Date Service Date: 09/18/24 Encounter Date of encounter: 09/18/24 Encounter: chf , dm , ckd Reasons for Services Signs and symptoms assessed: sob or chest pain or leg edema or fever or chills Reason for group home: CV/CP assess and/or care, diabetic teaching, monitoring of unstable blood sugar, medication management, medication treatment and teach disease management MD Overseeing Care: Eder Ortega Homebound: Leaving the home is medically contraindicated at this time without the asist of a device and/or another person due th the listed conditions above and below. Reason homebound: weakness related to hospital stay Homebound supporting statement: Patient is generalised weak post hospitlisation and need help with going to appointments and labs draws , disease management as well as PT. Certification: Based on the above findings, I certify that this patient is confined to the home and needs intermittent group home care, physical therapy and/or speech therapy, or continues to need occupational therapy. The patient is under my care, and I have initiated the establishment of the plan of care. The patient will be followed by a physician who will periodically review the plan of care. Time Spent With Patient Time: Total time managing care of this patient today ____ minutes.
--- NOTE | 2024-09-18 13:30 | PM.DS ---
DS: Providers Provider Date of Service: 09/18/24 Date of admission: 09/14/24 18:08 Date of discharge: 09/18/24 Primary care physician: Eder Ortega DO, MD Consults: 09/14/24 18:24 Consult to Nephrology Routine Consulting Provider: [facility] Reason for consultation: chf /ckd Has provider been notified: No 09/14/24 18:45 Consult to Neurology Routine Consulting Provider: [facility] Reason for consultation: left sided weakness Has provider been notified: No Attending physician on discharge: Melida Hoskins Discharging clinician: Melida Hoskins DS: Diagnosis Discharge Diagnosis (1) Acute kidney injury superimposed on CKD: Status: Acute (2) Anemia: Status: Acute (3) Ptosis: Status: Acute (4) Congestive heart failure: Status: Acute (5) Acute worsening of stage 4 chronic kidney disease: Status: Acute DS: Summary Hospital Course Hospital Course: HPI:69 years old male with PMH of DMII, HTN, HLD, CKD4, Afib on warfarin presents to ED with SOB(he is sent from oncology office as per ed physician -?left sided weakness 2days duration)and chronic anemia require Procrit infusion and blood transfusions in hematology office . He was recently admitted to the hospital because of hypoglycemia and norovirus infection- where patient said he received IV fluids, and when he went home he started to having leg swelling as well as shortness of breath with exertion mostly. Does not remember if gained any weight, Denies any chest pain or dizziness or nausea vomiting, has some dry cough,denies any soar throat ,rinnrhae ,sinus pain or drainge. Left-sided weakness: Currently patient does not seem to have left-sided weakness, could not not able to elaborate on it , otherwise no slurred speech, no headache, no numbness. Recently patient had norovirus with diarrhea and was feeling dehydrated and generalized weakness over the past last week now he is feeling better. Hospital course: 69M PMH morbid obesity, diabetes, hypertension, hyperlipidemia, CKD 4, paroxysmal atrial fibrillation on Coumadin presented with shortness of breath -patient was started on IV Lasix, I&O monitored, echo done: EF is 67%: With IV diuresis and underlying CKD patient was seen by Nephrology. Patient diuresed well, CKD creatinine is near baseline 2.9. Nephro recommended continue torsemide at home as well as losartan and Lokelma. repeat bmp outpatient. follow up with pcp and nephrology. Diabetes: Recently his glipizide and Farxiga was stopped and Lantus was adjusted due to hypoglycemia last admission. Is fingersticks are fluctuating 140-200 range so Lantus adjusted to 10 units. Monitor fingersticks at home and further management out patiently. CKD: Please see as above,possible Anemia with chronic disease-further workup out patiently with Nephro . Patient came with ptosis; CT head and negative, MRI also negative for brain aneurysm-testing for suspected myasthenia gravis -added acetylcholine ab testing added pyridostigmine 60 mg qid. Patient is to follow-up with neurology outpatient. plan: moniter bmp ,low potassium diet repeat bmp outpatient in 1 week . lantus adjusted to 10 units daily -moniter fs and further adjustment outpatient. moniter cbc outpatient and further workup outpatient, has external haemrroids (added hydrocortisone supp). chf education given -if gains weight 2 lb or more in a week-will need outpatient diurectics dosing assessment with PCP. Consider Follow-up with cardiology outpatient. suspected myasthenia gravis :acetylcholine ab testing, continue pyridostigmine 60 mg qid. Above management discussed with the patient in detail length he understand and in agreement with the above plan, patient will go home with VNA/PT. Time Attestation Total time managing care of this patient today: 40 mintues. Discharge Coordination Time (in mins): 40min Quality: Safe Use of Opioids Does Pt have an Active Cancer Diagnosis on the Problem List?: No Quality: Stroke Does the patient have a stroke diagnosis?: No Physical Exam Vital Signs: Vital Signs: Last Vital Signs Temp 98.0 F 09/18/24 11:37 Pulse 53 09/18/24 11:37 Resp 20 09/18/24 11:37 BP 123/58 L 09/18/24 11:37 Pulse Ox 95 09/18/24 11:37 O2 Del Method Room Air 09/18/24 11:37 BMI result Body Mass Index 38.8 Appearance: Alert.? Oriented X3.? Eyes: has ptosis left side-improving nasal: no nasal pain or dscharge or erythema . cvs: rrr, [id number] . res: air entry fair,no rales or wheezing. abd: no rebound or guarding ,nt, bs present. ext pulses present , no cyanosis ,trace edema . neuro: moves all ext. DS: Data Data Completed and Pending Labs on day of discharge: Laboratory Results - last 24 hr 09/17/24 09/17/24 09/18/24 15:13 21:10 06:35 PT 24.9 H INR 2.1 H Sodium 137 Potassium 4.7 Chloride 104 Carbon Dioxide 25 Anion Gap 13 BUN 53 H Creatinine 2.99 H Estim Creat Clear Calc 27.6 Estimated GFR 21 POC Glucose 186 H 187 H Random Glucose 158 H Calcium 8.5 09/18/24 09/18/24 07:28 10:49 PT INR Sodium Potassium Chloride Carbon Dioxide Anion Gap BUN Creatinine Estim Creat Clear Calc Estimated GFR POC Glucose 163 H 223 H Random Glucose Calcium Imaging Chest x-ray: Radiologist's impression: ITS Impressions Chest X-Ray 09/14/24 13:43 IMPRESSION: Consider mild interstitial edema in the correct clinical settings. Electronically signed by: Celso Camarena MD 09/14/2024 01:58 PM EST RP Head CT 09/14/24 14:04 IMPRESSION: No acute intracranial hemorrhage. Consider small vessel occlusive disease. Acute on chronic right-sided sinus disease with the questionable fungal infection etiology. Recommend direct inspection. Inflammatory versus infectious processes, right tympanic cavity and mastoid air cells. Cholesteatoma cannot be entirely excluded. Electronically signed by: Celso Camarena MD 09/14/2024 02:26 PM EST RP Discharge Plan Discharge Anticipated Discharge Date/Time: 09/18/24 12:00 Patient Disposition: Home Health Service Discharge Diagnosis: chf , possible myasthenia gravis ,ckd Referrals: [facility] [Outside] Tarik Bean MD [Physician] - 1 Week Jero Sanderson MD [Physician] - 2 Weeks Eder Ortega DO, MD [Primary Care Provider] - 1 Week Discharge Medications: New pyridostigmine bromide 60 mg Tablet 60 mg PO QID Qty: 240 0RF hydrocortisone [Proctozone-HC] 2.5 % Cream With Perineal Applicator 1 appl [place] BEDTIME Qty: 14 0RF Continued losartan 50 mg tablet 25 mg PO DAILY atorvastatin 40 mg tablet 40 mg PO BEDTIME warfarin 5 mg tablet 5 mg PO DAILY@1800 (DME) insulin syringe-needle U-100 [BD Insulin Syringe Ultra-Fine] 1 mL 31 gauge x 5/16 syringe MISCELLANEOUS DAILY atenolol 50 mg tablet 50 mg PO DAILY calcitriol 0.25 mcg Capsule 0.25 mcg PO Q48H cetirizine 10 mg tablet 10 mg PO DAILY isosorbide mononitrate 30 mg tablet extended release 24 hr 30 mg PO DAILY torsemide 20 mg tablet 40 mg PO DAILY sodium bicarbonate 650 mg Tablet 650 mg PO BID Qty: 180 0RF Lokelma 5 gram Powder In Packet 5 g PO DAILY omeprazole 20 mg Capsule,Delayed Release(Dr/Ec) 20 mg PO DAILY@0630 Changed insulin glargine [Lantus U-100 Insulin] 100 unit/mL solution 10 unit subcut DAILY Qty: 10 0RF Discharge Orders: Discharge Order (Routine); Ordered 09/18/24 Ordered By: Melida Hoskins Diet: low potassium diet Activity on Discharge: As tolerated Stand Alone Forms: Patient Portal Discharge page Print Language: Latvian Other Ambulatory Orders: Basic Metabolic Panel (Routine) Timeframe: 1 Week Facility: [facility] - Location: Laboratory Ordered By: Melida Hoskins Complete Blood Count no Diff (Routine) Timeframe: 1 Week Facility: [facility] - Location: Laboratory Ordered By: Melida Hoskins Care Plan Goals: 69M PMH morbid obesity, diabetes, hypertension, hyperlipidemia, CKD 4, paroxysmal atrial fibrillation on Coumadin presented with shortness of breath -patient was started on IV Lasix, I&O monitored, echo done: EF is 67%: With IV diuresis and underlying CKD patient was seen by Nephrology. Patient diuresed well, CKD creatinine is near baseline 2.9. Nephro recommended continue torsemide at home as well as losartan and Lokelma. repeat bmp outpatient. follow up with pcp and nephrology. Diabetes: Recently his glipizide and Farxiga was stopped and Lantus was adjusted due to hypoglycemia last admission. Is fingersticks are fluctuating 140-200 range so Lantus adjusted to 10 units. Monitor fingersticks at home and further management out patiently. CKD: Please see as above,possible Anemia with chronic disease-further workup out patiently with Nephro . Patient came with ptosis; CT head and negative, MRI also negative for brain aneurysm-testing for suspected myasthenia gravis -added acetylcholine ab testing added pyridostigmine 60 mg qid. Patient is to follow-up with neurology outpatient. Above management discussed with the patient in detail length he understand and in agreement with the above plan, patient will go home with VNA/PT. Health Concerns: As above. Plan of Treatment: moniter bmp ,low potassium diet hold lokelma /losartan for 1 week and repeat bmp outpatient in 1 week . lantus adjusted to 10 units daily -moniter fs and further adjustment outpatient. moniter cbc outpatient and further workup outpatient, has external haemrroids (added hydrocortisone supp). chf education given -if gains weight 2 lb or more in a week-will need outpatient diurectics dosing assessment with PCP. Consider Follow-up with cardiology outpatient. suspected myasthenia gravis :acetylcholine ab testing, continue pyridostigmine 60 mg qid. Assessment: as above. Patient Instructions: Pyridostigmine [place] (By mouth) Discharge Date/Time: 09/18/24 14:00
--- NOTE | 2024-09-18 13:37 | W.MHC.F2F ---
Service Date Service Date: 09/18/24 Encounter Date of encounter: 09/18/24 Encounter: chf Reasons for Services Signs and symptoms assessed: please see f2f today Overseeing Care: Eder Ortega Homebound: Leaving the home is medically contraindicated at this time without the asist of a device and/or another person due th the listed conditions above and below. Reason homebound: weakness related to hospital stay Homebound supporting statement: Patient is generalised weak post hospitlisation and need help with going to appointments and labs draws as well as PT. Certification: Based on the above findings, I certify that this patient is confined to the home and needs intermittent long term care, physical therapy and/or speech therapy, or continues to need occupational therapy. The patient is under my care, and I have initiated the establishment of the plan of care. The patient will be followed by a physician who will periodically review the plan of care. Time Spent With Patient Time: Total time managing care of this patient today ____ minutes.
[2024-09-21 22:04] LABS: Acetylcholine Recept. Blocking 48 (<15)
[2024-09-22 16:48] LABS: Acetylcholine Recep Modulating 75
[2024-09-23 01:42] LABS: Acetylcholine Receptor Binding 15.67 nmol/L
== END 2024-09-18 14:00 | disposition home health service (06) | DRG 291 ==
LOC: HO.ED 16:50 → HO.EDOVER 18:18 → HO.IMC 09-15 15:17
PROVIDERS: Student in an Organized Health Care Education/Training Program; Admitting Provider Internal Medicine; Emergency Provider Emergency Medicine; PCP Internal Medicine; Visit Provider Internal Medicine
DX: I13.0 Hypertensive heart and chronic kidney disease with heart failure and stage 1 through stage 4 chronic kidney disease, or unspecified chronic kidney disease (principal); I50.33 Acute on chronic diastolic (congestive) heart failure; N17.9 Acute kidney failure, unspecified; G70.00 Myasthenia gravis without (acute) exacerbation; E66.01 Morbid (severe) obesity due to excess calories; D63.1 Anemia in chronic kidney disease; Z68.38 Body mass index [BMI] 38.0-38.9, adult; K52.9 Noninfective gastroenteritis and colitis, unspecified; I48.0 Paroxysmal atrial fibrillation; E11.22 Type 2 diabetes mellitus with diabetic chronic kidney disease; N18.32 Chronic kidney disease, stage 3b; Z79.4 Long term (current) use of insulin; Z79.01 Long term (current) use of anticoagulants; Z79.899 Other long term (current) drug therapy
CPT/HCPCS: 36415; 70450; 70544; 71045; 80048; 80076; 81001; 82947; 83690; 83880; 84484; 85025; 85610; 86041; 86042; 86043; 93005; 93306; 97161; 99285; J1940; Q9957

== ENCOUNTER → 2024-09-14 13:42 | Outpatient (BNV) | payer MEDICARE, SELFPAY | PROVIDERS: Emergency Provider Emergency Medicine; PCP Internal Medicine; Visit Provider Radiology Diagnostic Radiology | DX: R06.02 Shortness of breath (principal); G81.94 Hemiplegia, unspecified affecting left nondominant side | CPT/HCPCS: 70450; 71045 ==

== ENCOUNTER → 2024-09-14 13:43 | Outpatient (BNV) | payer MEDICARE, SELFPAY | PROVIDERS: Admitting Provider Internal Medicine; Emergency Provider Emergency Medicine; PCP Internal Medicine; Visit Provider Internal Medicine | DX: R00.1 Bradycardia, unspecified (principal); R06.09 Other forms of dyspnea | CPT/HCPCS: 93010 ==

== ENCOUNTER 2024-09-14 18:08 | Outpatient (BNV) | payer MEDICARE, SELFPAY | END 2024-09-15 07:00 | PROVIDERS: Admitting Provider Internal Medicine; Emergency Provider Emergency Medicine; PCP Internal Medicine; Visit Provider Internal Medicine | DX: I50.30 Unspecified diastolic (congestive) heart failure (principal); I51.7 Cardiomegaly; I35.8 Other nonrheumatic aortic valve disorders; I34.81 Nonrheumatic mitral (valve) annulus calcification | CPT/HCPCS: 93306 ==

== ENCOUNTER 2024-09-14 18:08 | Outpatient (BNV) | payer MEDICARE, SELFPAY | END 2024-09-15 16:59 | PROVIDERS: Admitting Provider Internal Medicine; Emergency Provider Emergency Medicine; PCP Internal Medicine; Visit Provider Radiology Neuroradiology | DX: R53.1 Weakness (principal); H02.402 Unspecified ptosis of left eyelid | CPT/HCPCS: 70544 ==

== ENCOUNTER → 2024-09-14 18:08 | Outpatient (BNV) | payer MEDICARE, SELFPAY | PROVIDERS: Admitting Provider Internal Medicine; Emergency Provider Emergency Medicine; PCP Internal Medicine; Visit Provider Internal Medicine Nephrology | DX: N17.9 Acute kidney failure, unspecified (principal); N18.9 Chronic kidney disease, unspecified | CPT/HCPCS: 99223 ==

== ENCOUNTER → 2024-09-14 18:08 | Outpatient (BNV) | payer MEDICARE, SELFPAY | PROVIDERS: Admitting Provider Internal Medicine; Emergency Provider Emergency Medicine; PCP Internal Medicine; Visit Provider Internal Medicine | DX: N17.9 Acute kidney failure, unspecified (principal); N18.9 Chronic kidney disease, unspecified; H02.402 Unspecified ptosis of left eyelid | CPT/HCPCS: 99222; 99231; 99232 ==

== ENCOUNTER → 2024-09-14 18:08 | Outpatient (BNV) | payer MEDICARE, SELFPAY | PROVIDERS: Admitting Provider Internal Medicine; Emergency Provider Emergency Medicine; PCP Internal Medicine; Visit Provider Psychiatry & Neurology Neurology | DX: H02.402 Unspecified ptosis of left eyelid (principal) | CPT/HCPCS: 99222 ==

== ENCOUNTER 2024-09-20 14:09 | Observation (INO) | payer MEDICARE, SELFPAY ==
--- NOTE | ~2024-09-20 | CT_ITS ---
EXAMINATION: CT ABDOMEN PELVIS WITHOUT IV CONTRAST HISTORY: Upper abdominal pain COMPARISON: There are no prior studies for comparison. TECHNIQUE: CT scan of the abdomen and pelvis was performed without contrast using standard departmental protocol. Coronal and sagittal reformatted images were generated and reviewed. Oral contrast material was not administered at the request of the referring physician. This CT exam was performed with one or more of the following dose reduction techniques: automated exposure control, adjustment of the mA and/or kV according to patient size, use of iterative reconstruction technique. DLP: 1299 mGy-cm FINDINGS: LOWER CHEST: The visualized lung bases are clear. There is no pleural effusion. CARDIOVASCULATURE: The heart is normal in size. There is no pericardial effusion. LIVER: The liver is normal in size and contour. The liver has an unremarkable unenhanced appearance. GALLBLADDER / BILE DUCTS: The gallbladder is unremarkable. There is no intra or extrahepatic biliary ductal dilatation. SPLEEN: The spleen is normal in size and has an unremarkable unenhanced appearance. PANCREAS: The pancreas has an unremarkable unenhanced appearance. ADRENAL GLANDS: Unremarkable. KIDNEYS/RETROPERITONEUM: The left kidney is atrophic. No renal calculi are identified. There is no hydronephrosis. LYMPH NODES: No retroperitoneal lymphadenopathy is identified in the abdomen or pelvis. VASCULATURE: The abdominal aorta demonstrates atherosclerotic calcification, but is normal in caliber. MESENTERY/PERITONEUM: There is a small amount of free fluid in the paracolic gutters and in the pelvis. There is no free intraperitoneal gas. STOMACH: The stomach is distended with fluid. SMALL BOWEL: There is wall thickening of multiple loops of jejunum, consistent with enteritis. Evaluation is somewhat limited by lack of intravenous and oral contrast material. COLON: There is diverticulosis of the descending and sigmoid colon. There is wall thickening of the sigmoid colon without definite evidence of diverticulitis. APPENDIX: Normal. URINARY BLADDER/PELVIC ORGANS: The urinary bladder is unremarkable. The prostate is normal in size. BONES / SOFT TISSUES: There is degenerative disc disease of the spine. CT/CT abdomen pelvis wo IV con IMPRESSION: 1. Wall thickening of multiple loops of jejunum, consistent with enteritis. Small amount of free fluid in the paracolic gutters and in the pelvis. 2. Diverticulosis of the distal descending and sigmoid colon without evidence of diverticulitis. Electronically signed by: Clinton Cano MD 09/20/2024 03:58 PM [facility]
[2024-09-20 14:18] VITALS: BP 139/58; BP 160/70; PULSE 50; PULSE 51; RESP 16; TEMP 36.6; O2SAT 97; O2SAT 99; BMI 40.3
[2024-09-20 14:56] LABS: MANUAL DIFF FLAG NO
[2024-09-20 14:59] LABS: Basophils Percent Auto 0.6 % (0-2); Eosinophils Absolute Auto 0.2 X10*3/uL (0.0-0.4); Hematocrit 32.8 % (42.0-52.0); Hemoglobin 9.2 g/dl (14.0-18.0); Imm Gran Abs Auto 0.01 X10*3/uL (0.00-0.03); Imm Gran Pct Auto 0.2 % (0.0-0.4); Lymphocytes Absolute Auto 0.5 X10*3/uL (1.2-4.9); Lymphocytes Percent Auto 7.8 % (20-40); Mean Corpuscular Hemoglobin 21.2 pg (27.0-33.0); Mean Corpuscular Volume 75.6 fL (80.0-98.0); Mean Platelet Volume 10.3 fL (9.4-12.4); Monocytes Absolute Auto 0.6 X10*3/uL (0.1-1.2); Monocytes Percent Auto 9.2 % (2-11); Neutrophils Absolute Auto 5.1 x10*3/uL (2.0-8.3); Neutrophils Percent Auto 79.2 % (45-73); Platelet Count 119 X10*3/uL (160-400); Red Blood Count 4.34 X10*6/uL (4.60-5.80); Red Cell Distribution Width 19.3 % (11.0-16.0); White Blood Count 6.4 X10*3/uL (4.8-10.8)
[2024-09-20 15:23] LABS: Alanine Aminotransferase 16 U/L (0-40); Albumin Level 3.8 g/dL (3.5-5.0); Alkaline Phosphatase 91 U/L (39-117); Anion Gap 12 (12-20); Aspartate Amino Transferase 21 U/L (5-37); Bilirubin Total 0.5 mg/dL (0.0-1.0); Blood Urea Nitrogen 55 mg/dL (9-16); Calcium 9.3 mg/dL (8.4-10.2); Carbon Dioxide 25 mmol/L (22-29); Chloride 107 mmol/L (96-108); Creatinine Clr Calc Pharmacy 27.7; Estimated Glomerular Filt Rate 21; Glucose Random 200 mg/dL (60-115); Lipase 112 U/L (8-78); Potassium 5.2 mmol/L (3.3-5.1); Sodium 139 mmol/L (135-145); Total Protein 7.2 g/dL (6.5-8.0)
--- NOTE | 2024-09-20 15:31 | ED_ITS ---
HPI - Abdominal Pain General Chief Complaint: Abdominal Pain Stated Complaint: From home, abd pain/distention, confused, afib EKG Time Seen by Provider: 09/20/24 15:29 Source: patient Mode of arrival: EMS Limitations: no limitations History of Present Illness ED Provider: HPI narrative: 69M PMH morbid obesity, diabetes, hypertension, hyperlipidemia, CKD 4, paroxysmal atrial fibrillation on Coumadin discharge on 09/18 for CHF comes back as at 11:00 noticed pain in the right upper quadrant sharp in character no nausea no vomiting patient's recent diagnose of myasthenia gravis started on pyridostigmine 3 days ago 60 mg 4 times a day since patient is started on pyridostigmine been having multiple episodes of diarrhea unable to hold any food down feel very weak and exhausted patient's diagnose with noro virus on 08/28/24 diarrhea has a improved since then which restarted after taking pyridostigmine Related Data Home Medications ?Medication ?Instructions ?Recorded ?Confirmed atenolol 50 mg tablet 50 mg PO DAILY 09/22/23 09/20/24 atorvastatin 40 mg tablet 40 mg PO BEDTIME 09/22/23 09/20/24 insulin syringe-needle U-100 1 mL 09/22/23 09/14/24 31 gauge x 5/16 (BD Insulin Syringe Ultra-Fine) losartan 50 mg tablet 25 mg PO DAILY 09/22/23 09/20/24 warfarin 5 mg tablet 5 mg PO DAILY@1800 09/22/23 09/20/24 omeprazole 20 mg capsule,delayed 20 mg PO DAILY@0630 10/20/23 09/20/24 release calcitriol 0.25 mcg capsule 0.25 mcg PO Q48H 08/17/24 09/20/24 cetirizine 10 mg tablet 10 mg PO DAILY 08/28/24 09/20/24 isosorbide mononitrate 30 mg 30 mg PO DAILY 08/28/24 09/20/24 tablet,extended release 24 hr torsemide 20 mg tablet 40 mg PO DAILY 08/28/24 09/20/24 sodium zirconium cyclosilicate 5 5 g PO DAILY 09/14/24 09/20/24 gram oral powder packet (Lokelma) Previous Rx's ?Medication ?Instructions ?Recorded sodium bicarbonate 650 mg tablet 650 mg PO BID #180 tabs 08/30/24 hydrocortisone 2.5 % topical cream 1 appl [place] BEDTIME #14 grams 09/18/24 with perineal applicator (Proctozone-HC) insulin glargine 100 unit/mL 10 unit (0.1 mL) subcut DAILY #10 09/18/24 subcutaneous solution (Lantus mL U-100 Insulin) pyridostigmine bromide 60 mg tablet 60 mg PO QID #240 tabs 09/18/24 Allergies Allergy/AdvReac Type Severity Reaction Status Date / Time Penicillins Allergy Hives Verified 09/20/24 14:27 Review of Systems Review of Systems Yes all other systems are reviewed and are negative [facility] Past Medical History Medical History (Updated 09/20/24 @ 19:51 by Kavon Nguyen MD) Myasthenia gravis Iron deficiency Chronic kidney disease Diabetes Surgical History H/O hernia repair Family History Family History Mother Cancer Lung cancer Father Testicular cancer Social History Social History Household Members: None Housing: House Do you presently have visiting nurse or other home services: Yes Alcohol intake: current Alcohol intake frequency: a few times a month Patient Tobacco Use Status: Current someday Tobacco user Tobacco use type: Cigarette Cigarettes Per Day: 1 Smoked in Last 30 Days: Yes Use of substances other than those prescribed or required for medical reasons: No Advance Directives: No Advance Directives Information Provided: Yes Do you have a plan to hurt others: No Plan service: No Current occupational status: retired Physical Exam ED Vital Signs: Vital Signs - 24 hr 09/20/24 14:18 09/20/24 15:54 09/20/24 18:41 Temperature 97.8 F 97.7 F Pulse Rate 51 49 L 52 Respiratory Rate 16 20 17 Blood Pressure 139/58 L 143/57 H 144/54 H Pulse Oximetry 97 98 98 Oxygen Delivery Method Room Air Room Air Room Air 09/20/24 18:43 09/20/24 18:43 09/20/24 18:43 Temperature Pulse Rate 54 52 54 Respiratory Rate Blood Pressure 153/52 H 144/54 H 144/54 H Pulse Oximetry Oxygen Delivery Method BMI result Body Mass Index 40.3 Appearance: Alert. Oriented X3. No acute distress. Eyes: No pallor or icterus slight ptosis of left eye ENT: Pharynx normal. Oral Mucosa moist Neck: Normal inspection. Neck supple. CVS: Normal heart rate and rhythm. Pulses normal. Respiratory: No respiratory distress. Equal air entry bilateral, no wheezing/rales/rhonchi Abdomen: Soft and tenderness right upper quadrant no rebound tenderness or guarding Bowel sounds are present, no mass palpable, no CVA tenderness Skin: Skin warm and dry. Normal skin color. Normal skin turgor. Extremities: No lower extremity edema. No calf tenderness Neuro: Oriented X 3. No motor deficit. No sensory deficit.No cerebellar signs , cranial nerves II-XII intact Medical Decision Making Medical Decision Making MDM Narrative: Patient has increased weakness and diarrhea after taking pyridostigmine lives alone unable to take p.o. fluids because of diarrhea case discussed Dr. Sanderson neurologist advised to decrease the dose of pyridostigmine to 30 mg 3 times a day and start on prednisone 20 mg daily, patient is still not feeling well and weak will admit patient for weakness and diarrhea Differential Diagnosis Differential Diagnoses: The differential diagnosis associated with the presentation includes Admission/Observation Consideration of admission/observation: Escalation of care including admission/observation considered Consult Healthcare Provider Management of the patient was discussed with: Hospitalist Lab Data [facility] Lab Attestation statement: I reviewed the patient's lab results. 09/20/24 14:52 09/20/24 14:53 Labs: Lab Results 09/20/24 09/20/24 09/20/24 Range/Units 14:52 14:53 17:41 WBC 6.4 (4.8-10.8) X10*3/uL RBC 4.34 L (4.60-5.80) X10*6/uL Hgb 9.2 L (14.0-18.0) g/dl Hct 32.8 L (42.0-52.0) % MCV 75.6 L (80.0-98.0) fL MCH 21.2 L (27.0-33.0) pg MCHC 28.0 L (31.0-36.0) g/dl RDW 19.3 H (11.0-16.0) % Plt Count 119 L (160-400) X10*3/uL MPV 10.3 (9.4-12.4) fL Immature Gran % (Auto) 0.2 (0.0-0.4) % Neut % (Auto) 79.2 H (45-73) % Lymph % (Auto) 7.8 L (20-40) % [place] % (Auto) 9.2 (2-11) % Eos % (Auto) 3.0 (0-4) % Baso % (Auto) 0.6 (0-2) % Lymph # (Auto) 0.5 L (1.2-4.9) X10*3/uL [place] # (Auto) 0.6 (0.1-1.2) X10*3/uL Eos # (Auto) 0.2 (0.0-0.4) X10*3/uL Baso # (Auto) 0.0 (0.0-0.2) X10*3/uL Abs Immat Gran (auto) 0.01 (0.00-0.03) X10*3/uL Absolute Neuts (auto) 5.1 (2.0-8.3) x10*3/uL Absolute Nucleated RBC 0.000 (0.0-0.012) X10*3/uL Nucleated RBC % (auto) 0.0 (0.0-0.2) /100WBC Sodium 139 (135-145) mmol/L Potassium 5.2 H (3.3-5.1) mmol/L Chloride 107 (96-108) mmol/L Carbon Dioxide 25 (22-29) mmol/L Anion Gap 12 (12-20) BUN 55 H (9-16) mg/dL Creatinine 2.93 H (0.5-1.4) mg/dL Estim Creat Clear Calc 27.7 Estimated GFR 21 Random Glucose 200 H (60-115) mg/dL Calcium 9.3 D (8.4-10.2) mg/dL Total Bilirubin 0.5 (0.0-1.0) mg/dL AST 21 (5-37) U/L ALT 16 (0-40) U/L Alkaline Phosphatase 91 (39-117) U/L Total Protein 7.2 (6.5-8.0) g/dL Albumin 3.8 (3.5-5.0) g/dL Lipase 112 H (8-78) U/L Influenza Type A (PCR) NEGATIVE (Negative) Influenza Type B (PCR) NEGATIVE (Negative) RSV RNA Qual (PCR) NEGATIVE (Negative) SARS-CoV-2 RNA (RT-PCR) NEGATIVE (Negative) Radiology Impression Discussion of test interpretation with radiology: I have reviewed the radiologist's reading. Radiologist Impression: [address] [address] [address] Scan Report Signed Patient: Clinton Zapata MR#: [id number] : 1955 Acct:[id number] Age/Sex: 69 / M ADM Date: 09/20/24 Loc: HO.ED Attending Dr: Ordering Physician: Kavon Nguyen MD Date of Service: 09/20/24 Procedure(s): CT abdomen pelvis wo IV con Accession Number(s): [id number] cc: Physician,Unknown ; Kavon Nguyen MD~ Report Number: [id number]: Total DLP = 1299.00 mGy-cm EXAMINATION: CT ABDOMEN PELVIS WITHOUT IV CONTRAST HISTORY: Upper abdominal pain COMPARISON: There are no prior studies for comparison. TECHNIQUE: CT scan of the abdomen and pelvis was performed without contrast using standard departmental protocol. Coronal and sagittal reformatted images were generated and reviewed. Oral contrast material was not administered at the request of the referring physician. This CT exam was performed with one or more of the following dose reduction techniques: automated exposure control, adjustment of the mA and/or kV according to patient size, use of iterative reconstruction technique. DLP: 1299 mGy-cm FINDINGS: LOWER CHEST: The visualized lung bases are clear. There is no pleural effusion. CARDIOVASCULATURE: The heart is normal in size. There is no pericardial effusion. LIVER: The liver is normal in size and contour. The liver has an unremarkable unenhanced appearance. GALLBLADDER / BILE DUCTS: The gallbladder is unremarkable. There is no intra or extrahepatic biliary ductal dilatation. SPLEEN: The spleen is normal in size and has an unremarkable unenhanced appearance. PANCREAS: The pancreas has an unremarkable unenhanced appearance. ADRENAL GLANDS: Unremarkable. KIDNEYS/RETROPERITONEUM: The left kidney is atrophic. No renal calculi are identified. There is no hydronephrosis. LYMPH NODES: No retroperitoneal lymphadenopathy is identified in the abdomen or pelvis. VASCULATURE: The abdominal aorta demonstrates atherosclerotic calcification, but is normal in caliber. MESENTERY/PERITONEUM: There is a small amount of free fluid in the paracolic gutters and in the pelvis. There is no free intraperitoneal gas. STOMACH: The stomach is distended with fluid. SMALL BOWEL: There is wall thickening of multiple loops of jejunum, consistent with enteritis. Evaluation is somewhat limited by lack of intravenous and oral contrast material. COLON: There is diverticulosis of the descending and sigmoid colon. There is wall thickening of the sigmoid colon without definite evidence of diverticulitis. APPENDIX: Normal. URINARY BLADDER/PELVIC ORGANS: The urinary bladder is unremarkable. The prostate is normal in size. BONES / SOFT TISSUES: There is degenerative disc disease of the spine. CT/CT abdomen pelvis wo IV con IMPRESSION: 1. Wall thickening of multiple loops of jejunum, consistent with enteritis. Small amount of free fluid in the paracolic gutters and in the pelvis. 2. Diverticulosis of the distal descending and sigmoid colon without evidence of diverticulitis. Medications Administered Discontinued Medications Generic Name Dose Route Start Last Admin Trade Name Freq PRN Reason Stop Dose Admin Loperamide HCl 2 mg 09/20/24 18:32 09/20/24 19:17 Loperamide Hcl 2 Mg Capsule PO 09/20/24 18:33 2 mg ONCE ONE Administration Methylprednisolone Sodium Succinate 125 mg 09/20/24 18:24 09/20/24 19:16 Methylprednisolone Sod Succ 125 Mg/2 Ml Vial IVPUSH 09/20/24 18:25 125 mg ONCE ONE Administration Ondansetron HCl 4 mg 09/20/24 19:11 09/20/24 19:16 Ondansetron Hcl 4 Mg/2 Ml Vial IVPUSH 09/20/24 19:12 4 mg ONCE ONE Administration Pyridostigmine [place] 30 mg 09/20/24 19:08 09/20/24 19:23 Pyridostigmine [place] 60 Mg Tablet PO 09/20/24 19:09 30 mg ONCE ONE Administration Sodium Zirconium Cyclosilicate 10 gm 09/20/24 17:09 09/20/24 18:14 Sodium Zirconium Cyclosilicate 10 Gm Powd.Pack PO 09/20/24 17:10 10 gm ONCE ONE Administration Discharge Plan Discharge Clinical Impression: Diarrhea, Weakness, Myasthenia gravis Patient Disposition: Admitted As Inpatient
[2024-09-20 15:54] VITALS: BP 143/57; PULSE 49; RESP 20; TEMP 36.5; O2SAT 98
--- NOTE | 2024-09-20 16:04 | PC.NURSE ---
pt is alert and oriented, skin pwd, respirations even and unlabored, pt reports epigastric pain and vomiting that started at 1100 today, bowel sounds in all 4 quadrants, abd soft and non-tender, sinus fox on the monitor in the low 40's
--- NOTE | 2024-09-20 17:01 | PC.NURSE ---
Patients daughter is in room asked to see taking care of her father. She said everytime her father gets pain his heart rate drops to 38. patient is tele: afib 38-70's
--- NOTE | 2024-09-20 17:10 | ECG_ITS ---
Test Reason : BRADYCARDIA Blood Pressure : */* mmHG Vent. Rate : 52 BPM Atrial Rate : 52 BPM P-R Int : 178 ms QRS Dur : 88 ms QT Int : 460 ms P-R-T Axes : 61 11 37 degrees QTcB Int : 427 ms Sinus bradycardia with Premature supraventricular complexes Otherwise normal ECG When compared with ECG of 14-Sep-2024 12:47, Premature supraventricular complexes are now Present Referred By: Kavon Nguyen Electronically Signed By: Valdez Lowery
[2024-09-20] MEDS: Sodium Zirconium Cyclosilicate 10 GM POWD.PACK PO (18:14)
--- OUTSIDE RECORDS SUMMARY | 2024-09-20 18:19 | XMS_ITS | Encounter Summary ---
Author Organization [facility] Address [address] [facility] [address] [place] [address] Phone Care Team Providers Care Ornamental Plasterer Helper Name Role Phone Eder Ortega DO Primary Care Provider [phone] Encounter Details Date Type Department Care Team (Late st Contact Info) Description 09/07/2024 Documentation Only [facility] [address] [phone] Dali Carbone MA 100 [facility] [address] [place] [address] Social History Tobacco Use Types Packs/Day Years Used Date Smoking Tobacco: Light Smoker Cigarettes Smokeless Tobacco: Never Comments:1-2 sometimes none a day Alcohol Use Standard Drinks/Week Comments Yes 0 (1 standard drink = 0.6 oz pur e alcohol) Sex and Gender Information Value Date Recorded Sex Assigned at Not on file Legal Sex Male 9:07 AM EDT Gender Identity Not on file Sexual Orientation Not on file documented as of this encounter Plan of Treatment Upcoming Encounters Date Type Department Care Team (Latest Contact Info) Description 09/23/2024 Orders Only [facility] [address] [facility] [address] [place] [address] Cassandra Jordan ARNP [address] [phone] Chronic kidney disease, stage 4 (severe) (HCC); Hypertension; Anemia in chronic kidney disease; Secondary hyperparathyroidism of renal origin (HCC) 10/25/2024 10:00 AM EDT Office Visit [facility] [address] [phone] Cassandra Jordan ARNP [address] [address] documented as of this encounter Procedures Procedure Name Priority Date/Time Associated Diagnosis Comments EXT RESULT ENTRY Routine 09/07/2024 documented in this encounter Results * (ABNORMAL) EXT RESULT ENTRY (09/07/2024) Hemoglobin 8.1(A) 13.5 - 17.5 Hematocrit 28.6(A) 41.0 - 53.0 Sodium 141 137 - 147 Potassium 5.3 3.4 - 5.5 Carbon Dioxide 25 mmol/L BUN 47(A) 4 - 21 mg/dL Creatinine 2.67(A) 0.60 - 1.30 mg/dL Calcium 8.5(A) 8.7 - 10.7 mg/dL eGFR Non-Afr Yemeni 24 09/07/2024 us Historical Provider LAB BLOOD ORDERABLES Marianna l Result documented in this encounter Visit Diagnoses Not on filedocumented in this encounter Care Teams Ornamental Plasterer Helper Relationship Specialty Start Date End Date Eder Ortega DO [address] [place] [address] PCP - General Internal Medicine 02/26/21 documented as of this encounter
--- OUTSIDE RECORDS SUMMARY | 2024-09-20 18:20 | XMS_ITS | Clinical Summary ---
Author Organization [facility] Address [address] [address] Phone Care Team Providers Care Solid Glass Rod Dowel Machine Operator Name Role Phone DexEder loera Primary Care Provider [phone] Allergies Active Allergy Reactions Criticality Noted Date Comments Penicillins 04/17/2021 Medications cetirizine (ZyrTEC) 10 MG tablet Take 10 mg by mouth 1 (one) time each day Active warfarin (COUMADIN) 5 MG tablet Take 5 mg by mouth Active insulin glargine (LANTUS) 100 UNIT/ML injection Inject under the skin every night 60 units qhs Active FREESTYLE LITE test strip USE TO TEST BLOOD SUGAR TWICE DAILY DIRECTED E11.9 30 DAYS Active BD Insulin Syringe U/F 31G X 12/08 1 ML misc 022 Active Lancets (freestyle) lancets USE TO TEST SUGARS TWICE A DAY Active glipiZIDE (GLUCOTROL) 5 MG tablet Take 1 tablet (5 mg total) by mouth 1 (one) time each day 30 tablet 5 022 Active omeprazole (PriLOSEC) [address] capsule Take 20 mg by mouth 1 (one) time each day Do not crush or chew. Active atorvastatin (LIPITOR) 40 MG tablet Take 1 tablet (40 mg total) by mouth at bed time 90 tablet 1 Active isosorbide mononitrate (IMDUR) 30 MG 24 hr tablet Take 30 mg by mouth 1 (one) time each day Active losartan (COZAAR) 25 MG tabletIndications:Outbound Supervisor temi kidney disease, stage 4 (severe) (HCC),Hypertension Take 1 tablet (25 mg total) by mouth 1 (one) time each day 90 tablet 3 024 Active torsemide (DEMADEX) 20 MG tabletIndications:Outbound Supervisor temi kidney disease, stage 4 (severe) (HCC),Hypertension Take 2 tablets (40 mg total) by mouth in the morning and 2 tablets (40 mg total) in the evening. 360 tablet 1 024 2024 Active Additional Information Patient taking differently:40 mg OralDaily, Reported on 06/26/2024 Sodium Zirconium Cyclosilicate (LOKELMA PO) Take by mouth Weekly Active calcitriol (Rocaltrol) 0.25 MCG capsuleIndications:Chr onic kidney disease, stage 4 (severe) (HCC),Secondary hyperparathyroidism of renal origin (HCC) Take 1 capsule (0.25 mcg total) by mouth every other day 15 capsule 5 024 2024 Active atenolol (TENORMIN) 50 MG tablet TAKE 1 TABLET BY MOUTH EVERY DAY 90 tablet 1 025 Active Jardiance 10 MG tabletIndications:Outbound Supervisor temi kidney disease, stage 4 (severe) (HCC),Type 2 diabetes mellitus with diabetic chronic kidney disease (HCC),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 Take 10 mg by mouth 1 (one) time each day in the morning 30 tablet 11 025 2025 Active Dapagliflozin Propanediol (Farxiga) 10 MG tablet Take 10 mg by mouth 1 (one) time each day 90 tablet 3 024 2024 Mary Jane newby(For [facility]) Hospital, Clinic, or Other Facility Administered Medication Ordered Dose Route Frequency Start Date End Date Status epoetin lawson (EPOGEN,PROCRIT) injection 20,000 UnitsIndications:Anemi a due to Renal Failure 30572 Units IV Every 14 days 07/08/2022 Active epoetin lawson (EPOGEN,PROCRIT) injection 40,000 UnitsIndications:Anemi a due to Renal Failure 16288 Units IV Every 14 days 07/22/2022 Active epoetin lawson (EPOGEN,PROCRIT) injection 30,000 UnitsIndications:Anemi a due to Renal Failure 92527 Units IV Every 14 days 08/05/2022 Active ferumoxytol (FERAHEME) injection 510 mgIndications:Iron deficiency anemia, not otherwise specified 510 mg IV Once in dialysis 01/28/2023 Active Epoetin Lawson-epbx solution 20,000 UnitsIndications:Chron ic kidney disease, not otherwise specified,Anemia in chronic kidney disease 23958 Units IJ Once 07/27/2023 A ctive Active Problems Problem Noted Date Diagnosed Date Hypertension 06/26/2024 Anemia in chronic kidney disease 06/26/2024 Secondary hyperparathyroidism of renal origin Hypertensive chronic kidney disease stage 4 08/27 Other iron deficiency anemia 09/17/2023 Type 2 diabetes mellitus wit h diabetic chronic kidney disease 12/02/2021 Type 2 diabetes mellitus without complication Chronic kidney disease, stage 4 (severe) 021 Encounters Date Type Department Care Team Description 09/07/2024 Documentation Only [facility] [address] [place] [address] Dali Carbone MA 08/09/2024 Refill [facility] [place] 100 [facility] 200 [place] [address] Colten Ponce MD 06/26/2024 10:30 AM EST Office Visit [facility] [address] [address] Cassandra Jordan ARNP Chronic kidney disease, stage 4 (severe) (HCC) (Primary Dx); Hypertension; Anemia in chronic kidney disease; Secondary hyperparathyroidism of renal origin (HCC) from Last 3 Months Family History Medical History Relation Comments Diabetes Father Cancer Mother Diabetes Paternal Grandfather Diabetes Paternal Grandmother Relation Status Comments Father Mother Paternal Grandfather Paternal Grandmother Social History Tobacco Use Types Packs/Day Years Used Date Smoking Tobacco: Light Smoker Cigarettes Smokeless Tobacco: Never Tobacco Cessation:Ready to Q uit: Not Asked; Counseling Given: No Comments:1-2 sometimes none a day Alcohol Use Standard Drinks/Week Comments Yes 0 (1 standard drink = 0.6 oz pur e alcohol) Sex and Gender Information Value Date Recorded Sex Assigned at Not on file Legal Sex Male 9:07 AM EDT Gender Identity Not on file Sexual Orientation Not on file Last Filed Vital Signs Vital Sign Reading Time Taken Comments Blood Pressure 122/60 06/26/2024 10:42 AM EST Pulse 64 06/26/2024 10:22 AM EST Temperature - - Respiratory Rate 20 06/22/2023 11:30 AM EST Oxygen Saturation 98% 06/26/2024 10:22 AM EST Inhaled Oxygen Concentration - - Weight 117 kg (258 lb) 06/26/2024 10:22 AM EST Height 172.7 cm (5' 8 ) 04/17/2021 4:04 PM EDT Body Mass Index 39.23 04/17/2021 4:04 PM EDT Plan of Treatment Upcoming Encounters Date Type Department Care Team (Latest Contact Info) Description 09/23/2024 Orders Only [facility] [address] [phone] Cassandra Jordan ARNP [address] [address] Chronic kidney disease, stage 4 (severe) (HCC); Hypertension; Anemia in chronic kidney disease; Secondary hyperparathyroidism of renal origin (HCC) 10/25/2024 10:00 AM EDT Office Visit [facility] [address] [phone] Cassandra Jordan ARNP [address] [address] Health Maintenance Due Date Last Done Comments Pneumococcal Vaccine: 65+ Years (1 of 2 - PCV) 1960 Colorectal Cancer Screening: Annual FOBT 2003 Colorectal Cancer Screening: Colonoscopy 2003 Colorectal Cancer Screening: Sigmoidoscopy 2003 Diabetes: Ophthalmology Exam 04/17/2021 Diabetes: Pedal Pulse Checked 04/17/2021 Diabetes: Sensory Foot Exam 04/17/2021 Diabetes: Visual Foot Exam 04/17/2021 Influenza Vaccine (#1) 2024 Diabetes: Hemoglobin A1C 09/08/202406/08/ 024, 06/10/2023, 03/11/2023, Additional history exists Hepatitis B Vaccine Aged Out No longe r eligible based on patient's age to complete this topic Procedures Procedure Name Priority Date/Time Associated Diagnosis Comments EXT RESULT ENTRY Routine 09/07/2024 HEMOGLOBIN A1C Routine 06/10/2023 11:01 AM EST Anemia in chronic kidney disease Type 2 diabetes mellitus without complication (HCC) Focal segmental glomerulosclerosis Hyperkalemia Hypertensive heart and chronic kidney disease without heart failure, with stage 1 through stage 4 chronic kidney disease, or unspecified chronic kidney disease Iron deficiency anemia, not otherwise specified 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 Chronic kidney disease, stage 4 (severe) (HCC) from Last 3 Months or Most Recently Relevant to Health Maintenance Results * (ABNORMAL) EXT RESULT ENTRY (09/07/2024) Hemoglobin 8.1(A) 13.5 - 17.5 Hematocrit 28.6(A) 41.0 - 53.0 Sodium 141 137 - 147 Potassium 5.3 3.4 - 5.5 Carbon Dioxide 25 mmol/L BUN 47(A) 4 - 21 mg/dL Creatinine 2.67(A) 0.60 - 1.30 mg/dL Calcium 8.5(A) 8.7 - 10.7 mg/dL eGFR Non-Afr Maltese 24 09/07/2024 us Historical Provider LAB BLOOD ORDERABLES Marianna l Result * (ABNORMAL) Hemoglobin A1c (06/10/2023 11:01 AM EST) Hemoglobin A1C 5.9(H) (4.0-5.6) % [facility] Comment: MONITORING: In known diabetic patients, hemoglobin A1c targets should be discussed with health care provider. DIAGNOSTIC USE: ??The [place] Diabetes Association (ADA) and the World Health Organization (WHO) recommend the use of HbA1c to diagnose diabetes using a threshold of 6.5%. Patients who have an HbA1c between 5.7% and 6.4% are considered at increased risk for developing diabetes in the future. CAUTION: Falsely low HbA1c results may be observed in patients with hemolytic anemia, homozygous forms of abnormal hemoglobin (e.g. SS, CC, SC), , recent blood loss or hemoglobin F greater than 7%. Fructosamine may be used as an alternate test in these cases. REFERENCE: ADA: Standards of Medical Care in Diabetes 2020, The Journal of Clinical and Applied Research and Education Volume 43, Supplement 1 Testing performed or reported by [facility], a Service of [facility], [address] [place] [address] Keegan Carrillo MD, Backhoe Operator [facility]# [id number] Blood (Blood, Venous) 06/10/2023 11:01 AM EST 06/10/2023 11:06 AM EST Shawn Florez MD LAB BLOOD ORDERABLES Marianna anderson Result [facility] from Last 3 Months or Most Recently Relevant to Health Maintenance Insurance MEDICARE MEDICARE Care Teams Solid Glass Rod Dowel Machine Operator Relationship Specialty Start Date End Date Eder Ortega DO [address] [place] [address] PCP - General Internal Medicine 02/26/21
--- OUTSIDE RECORDS SUMMARY | 2024-09-20 18:20 | XMS_ITS | Clinical Summary ---
Author Organization [facility] Address [address] [facility] [place] [address] Phone Care Team Providers Care Skip Tracer Name Role Phone Eder Ortega DO Primary Care Provider [phone] Allergies Active Allergy Reactions Criticality Noted Date [...] TAKE 1 TABLET BY MOUTH EVERY DAY Active losartan (COZAAR) 25 mg tablet Take [...] on anticoagulation therapy with warfarin given his [id number]- VASc score of 4. The patient has [...] will continue to follow with hematology at [facility]. Assessment & Plan (05/30/2024 10:57 AM EST): Patient has a history of paroxysmal atrial fibrillation continues on rate control therapy with atenolol as prescribed. His heart rate is adequate today. He also continues on anticoagulation therapy with warfarin. He has a [id number] score of 4. He has remained on [...] his current antihypertensive medication regimen as prescribed. 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 Essential hypertension, malignant Diabetes mellitus (CMS/HCC) Hyperlipemia Chronic kidney disease, stage IV (severe) (CMS/HCC) HEMOGLOBIN A1C Routine 06/08/2024 1:33 PM EST [facility] (current) use of anticoagulants Essential hypertension, malignant Diabetes mellitus (CMS/HCC) Hyperlipemia Chronic kidney disease, stage IV (severe) (CMS/HCC) LIPID PANEL WITH REFLEX TO DIRECT LDL Routine 06/08/2024 1:33 PM EST [facility] (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 Protime 32.4(H) 10.6 - 13.9 sec LAB COAGULATION METHOD 08/08/2024 1:47 PM EST [facility] INR 2.6 LAB COAGULATION METHOD 08/08/2024 1:47 PM [facility] Blood Venous blood specimen / Unknown Venipuncture / Unknown 08/08/2024 11:33 AM EST 08/08/2024 11:33 AM EST us Eder Ortega DO LAB BLOOD ORDERABLES Final Re sult [facility] [address] [place] [address], * (ABNORMAL) Lipid panel with reflex to direct LDL (06/08/2024 1:33 PM EST) Cholesterol 64 0 - 200 mg/dL LAB CHEMISTRY METHOD 06/08/2024 7:31 PM EST [facility] Triglycerides 159(H) 0 - 150 mg/dL LAB CHEMISTRY METHOD 06/08/2024 7:31 PM [facility] HDL 24(L) >=40 mg/dL LAB CHEMISTRY METHOD 06/08/2024 7:31 PM EST [facility] LDL Calculated 8 0 - 100 mg/dL LAB CHEMISTRY METHOD 06/08/2024 7:31 PM [facility] VLDL Cholesterol Shaka 31.8 mg/dL LAB CHEMISTRY METHOD 06/08/2024 7:31 PM [facility] Non HDL Chol. (LDL+VLDL) 40 <145 mg/dL LAB CHEMISTRY METHOD 06/08/2024 7:31 PM [facility] Chol/HDL Ratio 2.7 0.0 - 4.4 LAB CHEMISTRY METHOD 06/08/2024 7:31 PM [facility] Blood Venous blood specimen / Unknown Venipuncture / Unknown 06/08/2024 1:33 PM EST 06/08/2024 1:33 PM EST us Eder Mercadante DO LAB BLOOD ORDERABLES Final Re sult Performing Organization Address City/[facility]/ZIP Co de Phone Number [facility] [address] [place] [address], [place] [phone] * Hemoglobin A1c (06/08/2024 1:33 PM EST) Hemoglobin A1C 5.5 <6.5 % LAB CHEMISTRY METHOD 06/08/2024 10:30 PM [facility] Mean Bld Glu Estim. 111 mg/dL LAB CHEMISTRY METHOD 06/08/2024 10:30 PM [facility] Blood Venous blood specimen / Unknown Venipuncture / Unknown 06/08/2024 1:33 PM EST 06/08/2024 1:33 PM EST us Eder Mercadante DO LAB BLOOD ORDERABLES Final Re sult Performing Organization Address City/[facility]/ZIP Co de Phone Number [facility] [address] [place] [address], [place] [phone] * (ABNORMAL) Basic metabolic panel (06/08/2024 1:33 PM EST) Sodium 143 133 - 145 mmol/L LAB CHEMISTRY METHOD 06/08/2024 7:31 PM [facility] Potassium 4.8 3.5 - 5.5 mmol/L LAB CHEMISTRY METHOD 06/08/2024 7:31 PM [facility] Chloride 112(H) 96 - 110 mmol/L LAB CHEMISTRY METHOD 06/08/2024 7:31 PM [facility] CO2 23 21 - 32 mmol/L LAB CHEMISTRY METHOD 06/08/2024 7:31 PM [facility] Anion Gap 8 3 - 11 LAB CHEMISTRY METHOD 06/08/2024 7:31 PM [facility] Glucose 150(H) 70 - 100 mg/dL LAB CHEMISTRY METHOD 06/08/2024 7:31 PM [facility] BUN 39(H) 5 - 25 mg/dL LAB CHEMISTRY METHOD 06/08/2024 7:31 PM [facility] Creatinine 2.80(H) 0.70 - 1.30 mg/dL LAB CHEMISTRY METHOD 06/08/2024 7:31 PM [facility] eGFR 24(L) >=60 mL/min/1. 73m2 LAB CHEMISTRY METHOD 06/08/2024 7:31 PM [facility] Comment:Calculation based on the??Chronic Kidney Disease Epidemiology Collaboration (CKD-EPI) equation refit??without adjustment for race. BUN/Creatinine Ratio 13.9 LAB CHEMISTRY METHOD 06/08/2024 7:31 PM [facility] Calcium 8.2(L) 8.5 - 10.5 mg/dL LAB CHEMISTRY METHOD 06/08/2024 7:31 PM [facility] Blood Venous blood specimen / Unknown Venipuncture / Unknown 06/08/2024 1:33 PM EST 06/08/2024 1:33 PM EST Eder Ortega DO LAB BLOOD ORDERABLES Final Re sult [facility] [address] [place] [address], from Last 3 Months or Most Recently Relevant to Health Maintenance Insurance MEDICARE Advance Directives Documents on File Type Date Recorded Patient Botany Technician Expl anation Health Care Decision (hx) 05/07/2022 AD CAMACHO DIRECTIVE Health Care Decision (hx) 05/07/2022 AD CAMACHO DIRECTIVE Health Care Decision (hx) 05/07/2022 AD CAMACHO DIRECTIVE Care Teams Skip Tracer Relationship Specialty Start Date End Date Eder Ortega DO [address] [place] [phone] PCP - General 06/27/14
[2024-09-20 18:28] LABS: Influenza A PCR NEGATIVE (Negative); Influenza B PCR NEGATIVE (Negative); Resp Syncy Virus RNA Qual PCR NEGATIVE (Negative); SARS COV2 PCR INHOUSE NEGATIVE (Negative)
[2024-09-20 18:41] VITALS: BP 144/54; PULSE 52; RESP 17; O2SAT 98
[2024-09-20 18:43] VITALS: BP 144/54; BP 153/52; PULSE 52; PULSE 54
[2024-09-20] MEDS: ondansetron HCL 4 MG/2 ML VIAL IVPUSH (19:16)
[2024-09-20] MEDS: methylPREDNISolone Sod Succ 125 MG/2 ML VIAL IVPUSH (19:16)
[2024-09-20] MEDS: Loperamide HCl 2 MG CAPSULE PO (19:17)
[2024-09-20] MEDS: pyRIDostigmine bromide 60 MG TABLET 30 MG PO (19:23)
--- NOTE | 2024-09-20 19:29 | PC.NURSE ---
this rn assumed care of pt. pt ambulatory to bathroom with steady gait, pt reports diarrhea but nausea with no vomiting. pt medicated per mar at this time. pt noted to have bilateral hand shaking.
--- NOTE | 2024-09-20 19:52 | PM.IMHP ---
History of Present Illness Date of Service: 09/20/24 Attending physician on admission: Sergei Peres Chief Complaint: Anais brown Pt is a 69-year-old female with a PMH significant for Paroxysmal AFib on warfarin, HTN, HLD, CKD 4, insulin-dependent type 2 diabetes, and recent diagnosis of myasthenia gravis?who presents to the ED with abdominal pain, bloating, and diarrhea x2 days. Pt was just discharged from this facility 2 days prior on 09/18/2024 after being admitted for SOB, weakness, and diarrhea. Was noted to haveptosis and generalized weakness, and was diagnosed with likely myasthenia gravis and discharged home on pyridostigmine 60 mg q.i.d. pt reports that the medication is a miracle drug and relieves symptoms doses, neck cramps, and generalized weakness very soon after taking it; however, has been experiencing significant side effects. Reports tendon 15 minutes after taking pyridostigmine experiences bloating, extreme gas pains, and then diarrhea. Also has been having nausea without vomiting. Currently pt feels well after receiving a decreased dose of 30 mg. Has been able to tolerate dinner and had no significant abdominal discomfort or diarrhea. Pt, however, lives alone andwould like to stay overnight for observation to monitor how well he tolerates the medication, and whether side effects return. No SOB or difficulty breathing. Denies chest pain /pressure, palpitations. No numbness or tingling in extremities. Currently no weakness, difficulty seeing/changes in vision, nausea, vomiting, or abdominal pain. Patient's daughter was previously at beside an update about her father's treatment plan once known. ED clinician contacted Neurology who suggested reducing pyridostigmine to 30 mg t.i.d. and adding course of prednisone. In the ED pt was bradycardic as low as 49 and hypotension up to 153/52. Labs were significant for Potassium 5.2 and lipase 112, otherwise grossly unremarkable and around baseline for pt. Stable microcytic anemia of 9.2/32.8. stable thrombocytopenia 119. Renal function baseline. Hepatic function baseline. Tested negative for flu, COVID, RSV. CT of abdomen and pelvis found wall thickening of multiple loops of jejunum, consistent with enteritis. EKG demonstrated Sinus bradycardia with premature supraventricular complexes but no evidence of significant ST elevations or depressions. Pt was treated with Lokelma, Solu-Medrol, ondansetron, loperamide, and pyridostigmine. Pt will be admitted to the hospital for treatment and further evaluation of abdominal pain, bloating, diarrhea, and nausea likely secondary to medication side effect. Review of Systems Review of Systems: Negative except for that which is stated in the [facility] Medical History Myasthenia gravis Iron deficiency Chronic kidney disease Diabetes Family History Mother Cancer Lung cancer Father Testicular cancer Surgical History H/O hernia repair Social History Household Members: None Housing: House Do you presently have visiting nurse or other home services: Yes Alcohol intake: current Alcohol intake frequency: a few times a month Patient Tobacco Use Status: Current someday Tobacco user Tobacco use type: Cigarette Cigarettes Per Day: 1 Smoked in Last 30 Days: Yes Use of substances other than those prescribed or required for medical reasons: No Advance Directives: No Advance Directives Information Provided: Yes Do you have a plan to hurt others: No Plan service: No Current occupational status: retired Meds Allergies Allergy/AdvReac Type Severity Reaction Status Date / Time Penicillins Allergy Hives Verified 09/20/24 14:27 Active Medications: Current Medications Acetaminophen (Acetaminophen 325 Mg Tablet) 650 mg PO Q6H PRN PRN Reason: Pain, Mild 1-3,fever,headache Calcium Carbonate (Calcium Carbonate 750 Mg Tab.Chew) 750 mg PO Q4H PRN PRN Reason: Heartburn Dextrose (Dextrose 50 % 25 Gm/50 Ml Syringe) 25 gm IVPUSH Q15M PRN; Protocol PRN Reason: per Hypoglycemia Standing Ord. Glucose (Glucose Gel 15 Gm Gel..Gram.) 15 gm PO Q15M PRN; Protocol PRN Reason: per Hypoglycemia Standing Ord. Insulin Human Lispro (Insulin Lispro 100 Unit/Ml 3 Ml Vial) 0 unit SUBCUT QIDACHS [facility]; Protocol Magnesium Hydroxide (Milk Of Magnesia 30 Ml Oral.Susp) 30 ml PO DAILY PRN PRN Reason: Constipation Melatonin (Melatonin 3 Mg Tablet) 6 mg PO BEDTIME PRN PRN Reason: Insomnia Ondansetron HCl (Ondansetron Hcl 4 Mg/2 Ml Vial) 4 mg IVPUSH Q8H PRN PRN Reason: Nausea and Vomiting Prednisone (Prednisone 20 Mg Tablet) 20 mg PO DAILY DAMIAN Pyridostigmine [place] (Pyridostigmine [place] 60 Mg Tablet) 30 mg PO Q8H DAMIAN Sodium Chloride (0.9 % Sodium Chloride Flush 3 Ml Syringe) 3 ml IVFLUSH QSHIFT [facility] Home Medications ?Medication ?Instructions ?Recorded ?Confirmed ?Last Taken ?Type atenolol 50 mg tablet 50 mg PO DAILY 09/22/23 09/20/24 09/14/24 History atorvastatin 40 mg tablet 40 mg PO BEDTIME 09/22/23 09/20/24 09/14/24 History insulin syringe-needle U-100 1 mL 09/22/23 09/14/24 Unknown History 31 gauge x 5/16 (BD Insulin Syringe Ultra-Fine) losartan 50 mg tablet 25 mg PO DAILY 09/22/23 09/20/24 09/14/24 History warfarin 5 mg tablet 5 mg PO DAILY@1800 09/22/23 09/20/24 09/14/24 History omeprazole 20 mg capsule,delayed 20 mg PO DAILY@0630 10/20/23 09/20/24 09/14/24 History release calcitriol 0.25 mcg capsule 0.25 mcg PO Q48H 08/17/24 09/20/24 09/14/24 History cetirizine 10 mg tablet 10 mg PO DAILY 08/28/24 09/20/24 09/14/24 History isosorbide mononitrate 30 mg 30 mg PO DAILY 08/28/24 09/20/24 09/14/24 History tablet,extended release 24 hr torsemide 20 mg tablet 40 mg PO DAILY 08/28/24 09/20/24 09/14/24 History sodium zirconium cyclosilicate 5 5 g PO DAILY 09/14/24 09/20/24 Unknown History gram oral powder packet (Lokelma) Physical Exam Vital Signs and Narrative: Vital Signs: Last Vital Signs Temp 97.7 F 09/20/24 15:54 Pulse 54 09/20/24 18:43 Resp 17 09/20/24 18:41 BP 144/54 H 09/20/24 18:43 Pulse Ox 98 09/20/24 18:41 O2 Del Method Room Air 09/20/24 18:41 BMI result Body Mass Index 40.3 General: AOx3, no acute distress Face: No ptosis noted Resp: CTA bilaterally CVS: S1, S2, RRR GI: +BS, NT, no distention Skin: Warm, dry Neuro: Cranial nerves II-XII grossly intact bilaterally. Motor grossly intact bilaterally. Strength of upper and lower extremities intact bilaterally Extremities: No edema Psych: Appropriate affect Results Labs 09/20/24 14:52 09/20/24 14:53 Labs: Laboratory Results - last 24 hr 09/20/24 09/20/24 09/20/24 14:52 14:53 17:41 MCV 75.6 L MCH 21.2 L MCHC 28.0 L RDW 19.3 H Plt Count 119 L MPV 10.3 Immature Gran % (Auto) 0.2 Neut % (Auto) 79.2 H Lymph % (Auto) 7.8 L [place] % (Auto) 9.2 Eos % (Auto) 3.0 Baso % (Auto) 0.6 Lymph # (Auto) 0.5 L [place] # (Auto) 0.6 Eos # (Auto) 0.2 Baso # (Auto) 0.0 Abs Immat Gran (auto) 0.01 Absolute Neuts (auto) 5.1 Absolute Nucleated RBC 0.000 Nucleated RBC % (auto) 0.0 Anion Gap 12 Estim Creat Clear Calc 27.7 Estimated GFR 21 Random Glucose 200 H Calcium 9.3 D Total Bilirubin 0.5 AST 21 ALT 16 Alkaline Phosphatase 91 Total Protein 7.2 Albumin 3.8 Lipase 112 H Influenza Type A (PCR) NEGATIVE Influenza Type B (PCR) NEGATIVE RSV RNA Qual (PCR) NEGATIVE SARS-CoV-2 RNA (RT-PCR) NEGATIVE Imaging Radiologist's Impressions: Impressions Abdomen/Pelvis CT 09/20/24 15:31 IMPRESSION: 1. Wall thickening of multiple loops of jejunum, consistent with enteritis. Small amount of free fluid in the paracolic gutters and in the pelvis. 2. Diverticulosis of the distal descending and sigmoid colon without evidence of diverticulitis. Electronically signed by: Clinton Cano MD 09/20/2024 03:58 PM [facility] [place] Assessment and Plan (1) Diarrhea: Status: Acute (2) Abdominal pain: Status: Acute Plan Pt is a 69-year-old female with a PMH significant for Paroxysmal AFib on warfarin, HTN, HLD, CKD 4, insulin-dependent type 2 diabetes, and recent diagnosis of myasthenia gravis?who presents to the ED with abdominal pain, bloating, and diarrhea x2 days. Pt will be admitted to the hospital under observation for treatment and further evaluation of abdominal pain, bloating, diarrhea, and nausea likely secondary to medication side effect. Abdominal pain, bloating, diarrhea, nausea Likely secondary to starting pyridostigmine 60mg qid on 09/18/2024 Will reduce pyridostigmine to 30mg tid Hold atenolol due to bradycardia Add prednisone 20mg daily HFpEF Not in acute exacerbation Hold atenolol Continue torsemide Paroxysmal AFib Continue warfarin Monitor INR HTN Continue losartan Insulin-dependent type 2 diabetes SSI, Lantus Diabetic diet GERD PPI Full Code Attending:?Dr. Peres DVT Prophylaxis: On warfarin Pt will Be admitted to the hospital under observation for treatment and further evaluation of abdominal pain, bloating, diarrhea, nausea likely secondary to pyridostigmine side effects. Quality Stroke Does the patient have a stroke diagnosis?: No VTE Prior VTE?: No VTE Risk Level:: Medical - moderate - high VTE Device Contraindication: Treatment Not Indicated VTE Drug Contraindication: N/A - Med Ordered
--- NOTE | 2024-09-20 20:07 | MHC.CM.ED ---
Addendum entered by Rema Garcia 09/20/24 21:01: [facility] notified via [facility] of patient placement to observation. Addendum entered by Rema Garcia 09/20/24 20:54: HCP is on file. HCP/daughter, Liz Faria ([phone]). Liz requests updates regarding patient care and plan. [place] [facility] [place] and 09/14-09/18/2024. Pt has various medical issues, including a new diagnosis of Myasthenia Gravis. He was started on new medication for M.G. on 09/09-pyridostigmine bromide 60 mg QID. His complaints are weakness and diarrhea from the medication. States his heart rate has been low. States his brother also has M.G. Patient and daughter are not comfortable at home with the side effects of this medication, but the patient states it works well for his M.G. Dr. Nguyen spoke with patient and daughter. Will admit to observation. Original Note: [facility] met with patient and his daughter at the request of Dr. Nguyen. Pt lives alone. Is active with [facility]. Uses not DME. PCP is Eder Ortega
--- NOTE | 2024-09-20 20:08 | PHA.MEDREC ---
Addendum entered by Nicholas Valle judi 09/20/24 20:15: med rec reviewed Original Note: Pharmacy Consult ? Medication Reconciliation Pharmacy has completed the medication reconciliation. patient was just discharged from [facility] [place] 09/18/24. Utilized discharged packet and claims to confirm med list.
[2024-09-20 20:25] VITALS: BP 137/57; PULSE 54; RESP 22; TEMP 36.6; O2SAT 94
[2024-09-20 21:27] LABS: Glucose, Whole Blood 166 mg/dL (60-115)
[2024-09-20] MEDS: Insulin Lispro 100 UNIT/ML 3 ML VIAL SUBCUT (21:29)
[2024-09-20] MEDS: Hydrocortisone 2.5 % Rectal Cr 30 GM TUBE 1 APPL PR (21:49)
[2024-09-20] MEDS: Sodium Bicarbonate 650 MG TABLET PO (21:49)
[2024-09-20] MEDS: Atorvastatin Calcium 40 MG TABLET PO (21:49)
[2024-09-21] MEDS: 0.9 % Sodium Chloride Flush 3 ML SYRINGE IVFLUSH ×2 (00:23→07:50)
[2024-09-21] MEDS: pyRIDostigmine bromide 60 MG TABLET 30 MG PO ×2 (02:33→11:10)
[2024-09-21 04:30] VITALS: BP 159/65; PULSE 57; RESP 18; TEMP 36.6; O2SAT 96
[2024-09-21] MEDS: Acetaminophen 325 MG TABLET 650 MG PO (04:48)
[2024-09-21 05:09] LABS: Basophils Percent Auto 0.2 % (0-2); Eosinophils Percent Auto 0.2 % (0-4); Hematocrit 33.5 % (42.0-52.0); Hemoglobin 9.4 g/dl (14.0-18.0); Imm Gran Abs Auto 0.01 X10*3/uL (0.00-0.03); Imm Gran Pct Auto 0.2 % (0.0-0.4); Lymphocytes Absolute Auto 0.3 X10*3/uL (1.2-4.9); Lymphocytes Percent Auto 5.1 % (20-40); MANUAL DIFF FLAG SCAN; Mean Corpuscular HGB Conc 28.1 g/dl (31.0-36.0); Mean Corpuscular Hemoglobin 21.5 pg (27.0-33.0); Mean Corpuscular Volume 76.5 fL (80.0-98.0); Monocytes Absolute Auto 0.1 X10*3/uL (0.1-1.2); Neutrophils Absolute Auto 4.7 x10*3/uL (2.0-8.3); Neutrophils Percent Auto 93.3 % (45-73); PLT ABN DIST 1; Platelet Count 121 X10*3/uL (160-400); Red Blood Count 4.38 X10*6/uL (4.60-5.80); Red Cell Distribution Width 19.3 % (11.0-16.0); SCAN SMEAR FLAG 1; White Blood Count 5.1 X10*3/uL (4.8-10.8)
[2024-09-21 05:11] LABS: Anion Gap 17 (12-20); Blood Urea Nitrogen 60 mg/dL (9-16); Calcium 9.2 mg/dL (8.4-10.2); Carbon Dioxide 22 mmol/L (22-29); Chloride 103 mmol/L (96-108); Estimated Glomerular Filt Rate 20; Glucose Random 316 mg/dL (60-115); Potassium 5.5 mmol/L (3.3-5.1); Sodium 136 mmol/L (135-145)
[2024-09-21 05:15] LABS: INTERNATIONAL NORM RATIO 2.9 (0.9-1.1); Prothrombin Time 34.2 SEC (10.9-12.4)
[2024-09-21 05:27] LABS: SLIDE REVIEW VERIFIED
[2024-09-21] MEDS: Omeprazole 20 MG CAPSULE.DR PO (06:26)
--- NOTE | 2024-09-21 06:32 | PC.NURSE ---
pt ambulatory to bathroom with steady gait, pt medicated per sep, tolerated well whole with water.
[2024-09-21 07:17] VITALS: BP 150/61; PULSE 53; RESP 18; TEMP 36.5; O2SAT 95
[2024-09-21 07:18] VITALS: BMI 40.6
[2024-09-21 07:19] LABS: Glucose, Whole Blood 262 mg/dL (60-115)
[2024-09-21] MEDS: Insulin Lispro 100 UNIT/ML 3 ML VIAL SUBCUT (07:44)
[2024-09-21] MEDS: Insulin Glargine,Hum.rec.anlog 100 UNIT/ML 10 ML VIAL 8 UNIT SUBCUT (07:45)
[2024-09-21] MEDS: Sodium Bicarbonate 650 MG TABLET PO (07:46)
[2024-09-21] MEDS: Loratadine 10 MG TABLET PO (07:46)
[2024-09-21] MEDS: predniSONE 20 MG TABLET PO (07:46)
[2024-09-21 07:47] VITALS: BP 150/61
[2024-09-21] MEDS: Isosorbide Mononitrate 30 MG TAB.ER.24H PO (07:47)
[2024-09-21] MEDS: Torsemide 20 MG TABLET 40 MG PO (07:47)
--- NOTE | 2024-09-21 09:44 | P.DS_ITS ---
DS: Providers Provider Date of Service: 09/21/24 Date of admission: 09/20/24 19:36 Date of discharge: 09/21/24 Primary care physician: Eder Ortega DO, MD DS: Diagnosis Discharge Diagnosis (1) Diarrhea: Status: Acute (2) Abdominal pain: Status: Acute DS: Summary Hospital Course Hospital Course: from initial hpi: 69-year-old female with a PMH significant for Paroxysmal AFib on warfarin, HTN, HLD, CKD 4, insulin-dependent type 2 diabetes, and recent diagnosis of myasthenia gravis?who presents to the ED with abdominal pain, bloating, and diarrhea x2 days. Pt was just discharged from this facility 2 days prior on 09/18/2024 after being admitted for SOB, weakness, and diarrhea. Was noted to haveptosis and generalized weakness, and was diagnosed with likely myasthenia gravis and discharged home on pyridostigmine 60 mg q.i.d. pt reports that the medication is a miracle drug and relieves symptoms doses, neck cramps, and generalized weakness very soon after taking it; however, has been experiencing significant side effects. Reports tendon 15 minutes after taking pyridostigmine experiences bloating, extreme gas pains, and then diarrhea. Also has been having nausea without vomiting. Currently pt feels well after receiving a decreased dose of 30 mg. Has been able to tolerate dinner and had no significant abdominal discomfort or diarrhea. Pt, however, lives alone andwould like to stay overnight for observation to monitor how well he tolerates the medication, and whether side effects return. No SOB or difficulty breathing. Denies chest pain /pressure, palpitations. No numbness or tingling in extremities. Currently no weakness, difficulty seeing/changes in vision, nausea, vomiting, or abdominal pain. Patient's daughter was previously at beside an update about her father's treatment plan once known. ED clinician contacted Neurology who suggested reducing pyridostigmine to 30 mg t.i.d. and adding course of prednisone. In the ED pt was bradycardic as low as 49 and hypotension up to 153/52. Labs were significant for Potassium 5.2 and lipase 112, otherwise grossly unremarkable and around baseline for pt. Stable microcytic anemia of 9.2/32.8. stable thrombocytopenia 119. Renal function baseline. Hepatic function baseline. Tested negative for flu, COVID, RSV. CT of abdomen and pelvis found wall thickening of multiple loops of jejunum, consistent with enteritis. EKG demonstrated Sinus bradycardia with premature supraventricular complexes but no evidence of significant ST elevations or depressions. Pt was treated with Lokelma, Solu-Medrol, ondansetron, loperamide, and pyridostigmine. Pt will be admitted to the hospital for treatment and further evaluation of abdominal pain, bloating, diarrhea, and nausea likely secondary to medication side effect. hospital course: Was admitted for enteritis and diarrhea likely combination of viral enteritis and side effects from pyridostigmine. Patient's. Hysterectomy was decreased to 30 mg t.i.d. and symptoms resolved. Initially atenolol held for bradycardia but bradycardia not severe and can continue. For chronic diastolic CHF was continued on torsemide. For paroxysmal AFib was continued on warfarin. For hypertension was continued on losartan. For diabetes was continued on basal bolus insulin. For GERD was continued on PPI. Patient is feeling better will be discharged home. Time Attestation Discharge Coordination Time (in mins): 34 Quality: Safe Use of Opioids Does Pt have an Active Cancer Diagnosis on the Problem List?: No Quality: Stroke Does the patient have a stroke diagnosis?: No Physical Exam Vital Signs: Vital Signs: Last Vital Signs Temp 97.7 F 09/21/24 07:17 Pulse 53 09/21/24 07:17 Resp 18 09/21/24 07:17 BP 150/61 H 09/21/24 07:47 Pulse Ox 95 09/21/24 07:17 O2 Del Method Room Air 09/21/24 07:17 BMI result Body Mass Index 40.6 Appearance: Alert.? Oriented X3.? Eyes: has ptosis left side-improving nasal: no nasal pain or dscharge or erythema . cvs: rrr, [id number] . res: air entry fair,no rales or wheezing. abd: no rebound or guarding ,nt, bs present. ext pulses present , no cyanosis ,trace edema . neuro: moves all ext. DS: Data Data Completed and Pending Labs on day of discharge: Laboratory Results - last 24 hr 09/20/24 09/20/24 09/20/24 14:52 14:53 17:41 WBC 6.4 RBC 4.34 L Hgb 9.2 L Hct 32.8 L MCV 75.6 L MCH 21.2 L MCHC 28.0 L RDW 19.3 H Plt Count 119 L MPV 10.3 Immature Gran % (Auto) 0.2 Neut % (Auto) 79.2 H Lymph % (Auto) 7.8 L [place] % (Auto) 9.2 Eos % (Auto) 3.0 Baso % (Auto) 0.6 Lymph # (Auto) 0.5 L [place] # (Auto) 0.6 Eos # (Auto) 0.2 Baso # (Auto) 0.0 Abs Immat Gran (auto) 0.01 Absolute Neuts (auto) 5.1 Absolute Nucleated RBC 0.000 Nucleated RBC % (auto) 0.0 Smear Tech's Comments PT INR Sodium 139 Potassium 5.2 H Chloride 107 Carbon Dioxide 25 Anion Gap 12 BUN 55 H Creatinine 2.93 H Estim Creat Clear Calc 27.7 Estimated GFR 21 POC Glucose Random Glucose 200 H Calcium 9.3 D Total Bilirubin 0.5 AST 21 ALT 16 Alkaline Phosphatase 91 Total Protein 7.2 Albumin 3.8 Lipase 112 H Influenza Type A (PCR) NEGATIVE Influenza Type B (PCR) NEGATIVE RSV RNA Qual (PCR) NEGATIVE SARS-CoV-2 RNA (RT-PCR) NEGATIVE 09/20/24 09/21/24 09/21/24 21:24 04:43 07:12 WBC 5.1 RBC 4.38 L Hgb 9.4 L Hct 33.5 L MCV 76.5 L MCH 21.5 L MCHC 28.1 L RDW 19.3 H Plt Count 121 L MPV Not Reportable Immature Gran % (Auto) 0.2 Neut % (Auto) 93.3 H Lymph % (Auto) 5.1 L [place] % (Auto) 1.0 L Eos % (Auto) 0.2 Baso % (Auto) 0.2 Lymph # (Auto) 0.3 L [place] # (Auto) 0.1 Eos # (Auto) 0.0 Baso # (Auto) 0.0 Abs Immat Gran (auto) 0.01 Absolute Neuts (auto) 4.7 Absolute Nucleated RBC 0.000 Nucleated RBC % (auto) 0.0 Smear Tech's Comments VERIFIED PT 34.2 H D INR 2.9 H Sodium 136 Potassium 5.5 H Chloride 103 Carbon Dioxide 22 Anion Gap 17 BUN 60 H Creatinine 3.12 H Estim Creat Clear Calc 26.0 Estimated GFR 20 POC Glucose 166 H 262 H Random Glucose 316 H Calcium 9.2 Total Bilirubin AST ALT Alkaline Phosphatase Total Protein Albumin Lipase Influenza Type A (PCR) Influenza Type B (PCR) RSV RNA Qual (PCR) SARS-CoV-2 RNA (RT-PCR) Discharge Plan Discharge Anticipated Discharge Date/Time: 09/21/24 09:33 Patient Disposition: Home Health Service Discharge Diagnosis: eneteritis Referrals: [facility] [Outside] - 1 Week Eder Ortega DO, MD [Primary Care Provider] - 1 Week Discharge Medications: New pyridostigmine bromide 60 mg Tablet 30 mg PO Q8H Qty: 270 0RF Continued losartan 50 mg tablet 25 mg PO DAILY atorvastatin 40 mg tablet 40 mg PO BEDTIME warfarin 5 mg tablet 5 mg PO DAILY@1800 (DME) insulin syringe-needle U-100 [BD Insulin Syringe Ultra-Fine] 1 mL 31 gauge x 5/16 syringe MISCELLANEOUS DAILY atenolol 50 mg tablet 50 mg PO DAILY calcitriol 0.25 mcg Capsule 0.25 mcg PO Q48H cetirizine 10 mg tablet 10 mg PO DAILY isosorbide mononitrate 30 mg tablet extended release 24 hr 30 mg PO DAILY torsemide 20 mg tablet 40 mg PO DAILY sodium bicarbonate 650 mg Tablet 650 mg PO BID Qty: 180 0RF Lokelma 5 gram Powder In Packet 5 g PO DAILY insulin glargine [Lantus U-100 Insulin] 100 unit/mL solution 10 unit subcut DAILY Qty: 10 0RF hydrocortisone [Proctozone-HC] 2.5 % Cream With Perineal Applicator 1 appl MS BEDTIME Qty: 14 0RF omeprazole 20 mg Capsule,Delayed Release(Dr/Ec) 20 mg PO DAILY@0630 Discontinued pyridostigmine bromide 60 mg Tablet 60 mg PO QID Qty: 240 0RF Discharge Orders: Discharge Order (Routine); Ordered 09/21/24 Ordered By: Mac King Diet: Advance to usual diet Activity on Discharge: As tolerated Stand Alone Forms: Patient Portal Discharge page Print Language: Tristanian Care Plan Goals: recovery Health Concerns: enteritis Plan of Treatment: pyridostigmine Assessment: see above
[2024-09-21 11:20] VITALS: BP 150/61; PULSE 53; RESP 18; TEMP 36.5; O2SAT 95
== END 2024-09-21 11:37 | disposition home health service (06) ==
LOC: HO.ED 19:51 → HO.EDOVER 20:04
PROVIDERS: Emergency Medicine; Student in an Organized Health Care Education/Training Program; Admitting Provider Student in an Organized Health Care Education/Training Program; Emergency Provider Internal Medicine; PCP Internal Medicine; Visit Provider Internal Medicine
DX: K52.9 Noninfective gastroenteritis and colitis, unspecified (principal); R10.11 Right upper quadrant pain; R14.0 Abdominal distension (gaseous); R00.1 Bradycardia, unspecified; I95.9 Hypotension, unspecified; I48.0 Paroxysmal atrial fibrillation; E11.22 Type 2 diabetes mellitus with diabetic chronic kidney disease; I12.9 Hypertensive chronic kidney disease with stage 1 through stage 4 chronic kidney disease, or unspecified chronic kidney disease; N18.4 Chronic kidney disease, stage 4 (severe); G70.00 Myasthenia gravis without (acute) exacerbation; E78.5 Hyperlipidemia, unspecified; Z79.01 Long term (current) use of anticoagulants; Z79.4 Long term (current) use of insulin; Z79.899 Other long term (current) drug therapy; Z03.818 Encounter for observation for suspected exposure to other biological agents ruled out
CPT/HCPCS: 0241U; 36415; 74176; 80048; 80053; 82947; 83690; 85025; 85610; 93005; 96372; 96374; 96375; 99221; 99285; J0885; J2405; J2919

== ENCOUNTER → 2024-09-20 15:31 | Outpatient (BNV) | payer MEDICARE, SELFPAY | PROVIDERS: Emergency Provider Internal Medicine; Visit Provider Radiology Diagnostic Radiology | DX: R10.10 Upper abdominal pain, unspecified (principal); K57.90 Diverticulosis of intestine, part unspecified, without perforation or abscess without bleeding | CPT/HCPCS: 74176 ==

== ENCOUNTER → 2024-09-20 17:10 | Outpatient (BNV) | payer MEDICARE, SELFPAY | PROVIDERS: Admitting Provider Student in an Organized Health Care Education/Training Program; Emergency Provider Internal Medicine; PCP Internal Medicine; Visit Provider Internal Medicine Cardiovascular Disease | DX: R00.1 Bradycardia, unspecified (principal) | CPT/HCPCS: 93010 ==

== ENCOUNTER → 2024-09-20 19:36 | Outpatient (BNV) | payer MEDICARE, SELFPAY | PROVIDERS: Admitting Provider Student in an Organized Health Care Education/Training Program; Emergency Provider Internal Medicine; Visit Provider Student in an Organized Health Care Education/Training Program | DX: R19.7 Diarrhea, unspecified (principal); R10.9 Unspecified abdominal pain | CPT/HCPCS: 99222 ==

== ENCOUNTER 2024-11-16 15:23 | Outpatient (REF) | payer MEDICARE, SELFPAY ==
--- OUTSIDE RECORDS SUMMARY | 2024-11-16 18:06 | XMS_ITS | Clinical Summary ---
Author Organization [facility] The car easily beat [facility] Address [address] [place] [address] Phone Care Team Providers Care Erp Engineer Name Role Phone Eder Ortega DO Primary Care Provider [phone] Allergies Active Allergy Reactions Criticality Noted Date [...] failure with p reserved ejection fraction (HFpEF) ([facility] V24, [facility] V28) 08/12/2023 Overview (05/15/2024): Last Assessment & Plan: [...] continue current therapies. Aneurysm of ascending aorta ([facility] V24) 2023 Overview (05/15/2024): Last Assessment & Plan: Patient has a history of ascending aorta dilation measuring 3.9 cm on recent echocardiogram completed July 2023. Will continue with periodic echocardiograms to evaluate for progression. Assessment & Plan (05/30/2024 10:57 AM EST): Will continue with annual monitoring of mild dilation of aorta. Last echocardiogram July 2023. Paroxysmal A-fib (CMS/HCC V24, CMS/HCC V28) 07/26 Overview (05/15/2024): Last Assessment & Plan: The patient has a history of paroxysmal atrial fibrillation and continues on rate control therapy with atenolol as prescribed. His heart rate is well-controlled today. He also continues on anticoagulation therapy with warfarin given his [id number] VASc score of 4. The patient has [...] will continue to follow with hematology at [facility] [place]. Assessment & Plan (05/30/2024 10:57 AM EST): Patient has a history of paroxysmal atrial fibrillation continues on rate control therapy with atenolol as prescribed. His heart rate is adequate today. He also continues on anticoagulation therapy with warfarin. He has a [id number] score of 4. He has remained on [...] History Date Comments Diabetes mellitus, type II ( [facility]/HCC V24, CMS/[facility] V28) DX:Diabetes mellitus, type I I (HCC) Anemia in chronic kidney disease DX:Anemia in chronic kidney disease CKD (chronic kidney disease) , stage IV (CMS/HCC V24, CMS/[facility] V28) DX:CKD (chronic kidney dise ase), stage IV (HCC) Social History Tobacco Use [...] Vaccines (1 of 2) 2004 RSV Immunization Adult Patients (1 - Risk 60-74 years 1-dose series) 2014 Abdominal Aortic Aneurysm (AAA) Screen 06/23/2022 Colorectal Cancer Screening: Colonoscopy 06/23/2022 Depression Screening 06/23/2022 Falls Risk Assessment 06/23/2022 Hepatitis C Screening 06/23/2022 Medicare Annual Wellness Visit 06/23/2022 Social Influencers of Health Screening 06/23/2022 COVID-19 Vaccine (2 5 season) 2024 08/08/2021, 12/30/2020, 12/09/2020 Diabetes: Annual Urine Albumin-Creatinine Ratio (uACR) 05/30/2024 Diabetes: Blood Sugar Contro l Test (HGBA1C) 04/04/2025 10/02/2024, 06/08/2024, 06/10/2023 Diabetes: Annual GFR (Glomerular Filtration Rate) 10/02/2025 10/02/2024, 06/08/2024 Hypertension/CHF/CAD Annual BMP Blood Test 10/02/2025 10/02/2024, 06/08/2024 Cholesterol Screening (Lipid Panel) 10/02/2029 10/02/2024, 06/08/2024 Influenza Vaccine Completed 06/19/2024, 05/10/2023, 05/11/2022 [...] age to complete this topic Meningococcal B Vaccine Aged Out No l onger eligible based on patient's age to complete this topic RSV Immunization Patients Under 20 months Aged Out No longer eligible b ased on patient's age to complete this topic Varicella Vaccines Aged Out No longer eligible based on patient's age to complete this topic Procedures Procedure Name Priority Date/Time Associated Diagnosis Comments PROTHROMBIN TIME WITH INR Routine 11/08/2024 12:11 PM EDT jail (current) use of anticoagulants HEMOGLOBIN A1C Routine 10/02/2024 9:59 AM EDT Hyperlipemia Essential hypertension, malignant Diabetes mellitus (CMS/HCC V24, CMS/HCC V28) COMPREHENSIVE METABOLIC PANEL Routine 10/02/2024 9:59 AM EDT Hyperlipemia Essential hypertension, malignant Diabetes mellitus (CMS/HCC V24, CMS/HCC V28) CREATINE KINASE Routine 10/02/2024 9:59 AM EDT Hyperlipemia Essential hypertension, malignant Diabetes mellitus (CMS/HCC V24, CMS/HCC V28) LIPID PANEL WITH REFLEX TO DIRECT LDL Routine 10/02/2024 9:59 AM EDT Hyperlipemia Essential hypertension, malignant Diabetes mellitus (CMS/HCC V24, CMS/HCC V28) PROTHROMBIN TIME WITH INR Routine 10/02/2024 9:59 AM EDT 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 Protime 23.2(H) 10.6 - 13.9 sec LAB COAGULATION METHOD 11/08/2024 3:22 PM EDT [facility] INR 1.9 LAB COAGULATION METHOD 11/08/2024 3:22 PM EDT [facility] Blood Venous blood specimen / Unknown Venipuncture / Unknown 11/08/2024 12:11 PM EDT 11/08/2024 12:11 PM EDT us Eder Ortega DO LAB BLOOD ORDERABLES Final Re sult [facility] [address] [place] [address], [place] [phone] * (ABNORMAL) Lipid panel with reflex to direct LDL (10/02/2024 9:59 AM EDT) Pathologist [facility] Cholesterol 84 0 - 200 mg/dL LAB CHEMISTRY METHOD 10/02/2024 12:05 PM EDT [facility] Triglycerides 186(H) 0 - 150 mg/dL LAB CHEMISTRY METHOD 10/02/2024 12:05 PM EDT [facility] HDL 28(L) >=40 mg/dL LAB CHEMISTRY METHOD 10/02/2024 12:05 PM EDT [facility] LDL Calculated 19 0 - 100 mg/dL LAB CHEMISTRY METHOD 10/02/2024 12:05 PM EDT [facility] VLDL Cholesterol Shaka 37.2 mg/dL LAB CHEMISTRY METHOD 10/02/2024 12:05 PM EDT [facility] Non HDL Chol. (LDL+VLDL) 56 <145 mg/dL LAB CHEMISTRY METHOD 10/02/2024 12:05 PM EDT [facility] Chol/HDL Ratio 3.0 0.0 - 4.4 LAB CHEMISTRY METHOD 10/02/2024 12:05 PM EDT [facility] Blood Venous blood specimen / Unknown Venipuncture / Unknown 10/02/2024 9:59 AM EDT 10/02/2024 9:59 AM EDT Jeannine Monroe DESIZING MACHINE OPERATOR HEAD END LAB BLOOD ORDERABLES Fi nal Result [facility] [address] [place] [address], * (ABNORMAL) Hemoglobin A1c (10/02/2024 9:59 AM EDT) Hemoglobin A1C 7.3(H) <6.5 % LAB CHEMISTRY METHOD 10/02/2024 1:49 PM EDT [facility] Mean Bld Glu Estim. 163 mg/dL LAB CHEMISTRY METHOD 10/02/2024 1:49 PM EDT [facility] Blood Venous blood specimen / Unknown Venipuncture / Unknown 10/02/2024 9:59 AM EDT 10/02/2024 9:59 AM EDT us Jeannine Monroe NP LAB BLOOD ORDERABLES Fi nal Result Performing Organization Address City/[facility]/ZIP Co de Phone Number [facility] [address] [place] [address], [place] [phone] * Creatine kinase (10/02/2024 9:59 AM EDT) [facility] Total CK 142 22 - 269 unit/L LAB CHEMISTRY METHOD 10/02/2024 12:05 PM EDT [facility] Blood Venous blood specimen / Unknown Venipuncture / Unknown 10/02/2024 9:59 AM EDT 10/02/2024 9:59 AM EDT us Jeannine Monroe NP LAB BLOOD ORDERABLES Fi nal Result Performing Organization Address City/[facility]/ZIP Co de Phone Number [facility] [address] [place] [address], [place] [phone] * (ABNORMAL) Comprehensive metabolic panel (10/02/2024 9:59 AM EDT) [facility] Sodium 138 133 - 145 mmol/L LAB CHEMISTRY METHOD 10/02/2024 12:14 PM T [facility] Potassium 4.3 3.5 - 5.5 mmol/L LAB CHEMISTRY METHOD 10/02/2024 12:14 PM EDT [facility] Chloride 104 96 - 110 mmol/L LAB CHEMISTRY METHOD [facility]/02[facility]24 [facility] 25 21 - 32 mmol/L LAB CHEMISTRY METHOD 10/02/2024 12:14 PM T [facility] Anion Gap 9 3 - 11 LAB CHEMISTRY METHOD 10/02/2024 12:14 PM EDT [facility] Glucose 202(H) 70 - 100 mg/dL LAB CHEMISTRY METHOD 10/02/2024 12:14 PM [facility] BUN 41(H) 5 - 25 mg/dL LAB CHEMISTRY METHOD 10/02/2024 12:14 PM [facility] Creatinine 2.57(H) 0.70 - 1.30 mg/dL LAB CHEMISTRY METHOD 10/02/2024 12:14 PM [facility] eGFR 26(L) >=60 mL/min/1. 73m2 LAB CHEMISTRY METHOD 10/02/2024 12:14 PM [facility] Comment:Calculation based on the??Chronic Kidney Disease Epidemiology Collaboration (CKD-EPI) equation refit??without adjustment for race. BUN/Creatinine Ratio 16.0 LAB CHEMISTRY METHOD 10/02/2024 12:14 PM [facility] Calcium 8.9 8.5 - 10.5 mg/dL LAB CHEMISTRY METHOD 10/02/2024 12:14 PM [facility] AST (SGOT) 13 10 - 42 unit/L LAB CHEMISTRY METHOD 10/02/2024 12:14 PM [facility] ALT (SGPT) 24 10 - 60 unit/L LAB CHEMISTRY METHOD 10/02/2024 12:14 PM [facility] Alkaline Phosphatase 87 42 - 121 unit/L LAB CHEMISTRY METHOD 10/02/2024 12:14 PM [facility] Total Protein 6.7 6.0 - 8.0 g/dL LAB CHEMISTRY METHOD 10/02/2024 12:14 PM [facility] Albumin 3.5 3.2 - 5.0 g/dL LAB CHEMISTRY METHOD 10/02/2024 12:14 PM [facility] Total Bilirubin 0.7 0.0 - 1.4 mg/dL LAB CHEMISTRY METHOD 10/02/2024 12:14 PM [facility] Blood Venous blood specimen / Unknown Venipuncture / Unknown 10/02/2024 9:59 AM EDT 10/02/2024 9:59 AM EDT us Jeannine Monroe DESIZING MACHINE OPERATOR HEAD END LAB BLOOD ORDERABLES Fi nal Result [facility] ([facility]) [facility] [address] [place] [address], [place] [phone] from Last 3 Months Insurance MEDICARE Advance Directives Documents on File Type Date Recorded Patient Postbed Stitcher Expl anation Health Care Decision (hx) 05/07/2022 AD CAMACHO DIRECTIVE Health Care Decision (hx) 05/07/2022 AD CAMACHO DIRECTIVE Health Care Decision (hx) 05/07/2022 AD CAMACHO DIRECTIVE Care Teams Erp Engineer Relationship Specialty Start Date End Date Eder Ortega DO [address] [place] [phone] PCP - General 06/27/14
--- OUTSIDE RECORDS SUMMARY | 2024-11-16 18:06 | XMS_ITS | Clinical Summary ---
Author Organization [facility] Address [address] [address] Phone Care Team Providers Care Dev Ops Engineer Name Role Phone DexEder loera Primary Care Provider Allergies Active Allergy Reactions Criticality Noted Date Comments Penicillins 04/17/2021 Medications warfarin (COUMADIN) 5 MG tablet Take 5 mg by mouth 021 Active insulin glargine (LANTUS) 100 UNIT/ML injection Inject under the skin every night 60 units qhs Active BD Insulin Syringe U/F 31G X 12/08 1 ML misc 022 Active Lancets (freestyle) lancets USE TO TEST SUGARS TWICE A DAY 022 Active glipiZIDE (GLUCOTROL) 5 MG tablet Take [...] mouth at bed time 90 tablet 1 024 Active isosorbide mononitrate (IMDUR) 30 MG 24 hr tablet Take 30 mg by mouth 1 (one) time each day 024 Active losartan (COZAAR) 25 MG tabletIndications:[employer] kidney disease, stage 4 (severe) (HCC),Hypertension Take 1 tablet (25 mg total) by mouth 1 (one) time each day 90 tablet 3 024 Active Additional Information Patient not taking.Reported on 10/25/2024 torsemide (DEMADEX) 20 MG tabletIndications:[employer] kidney disease, stage 4 (severe) (HCC),Hypertension Take 2 tablets (40 mg total) by mouth in the morning and 2 tablets (40 mg total) in the evening. 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 Active sodium bicarbonate 650 MG tablet Take 650 mg by mouth in the morning and 650 mg in the evening. Active methocarbamol (ROBAXIN) 500 MG tablet Take 500 mg by mouth in the morning and 500 mg in the evening and 500 mg before bedtime. Active cetirizine (ZyrTEC) 10 MG tablet Take 10 mg by mouth 1 (one) time each day 021 2024 Disconti nued(Med List Maintena nce) FREESTYLE LITE test strip USE TO TEST BLOOD SUGAR TWICE DAILY DIRECTED E11.9 30 DAYS 022 2024 Disconti nued(Med List Maintena nce) atenolol (TENORMIN) 50 MG tablet TAKE 1 TABLET BY MOUTH EVERY DAY 90 tablet 1 025 2024 Disconti nued(Med List Maintena nce) Hospital, Clinic, or Other Facility Administered Medication Ordered Dose Route Frequency Start Date End Date Status epoetin lawson (EPOGEN,PROCRIT) injection 20,000 UnitsIndications:Anemi a due to Renal Failure 26230 Units IV Every 14 days 07/08/2022 Active epoetin lawson (EPOGEN,PROCRIT) injection 40,000 UnitsIndications:Anemi a due to Renal Failure 47794 Units IV Every 14 days 07/22/2022 Active epoetin lawson (EPOGEN,PROCRIT) injection 30,000 UnitsIndications:Anemi a due to Renal Failure 39703 Units IV Every 14 days 08/05/2022 Active ferumoxytol (FERAHEME) injection 510 mgIndications:Iron deficiency anemia, not otherwise specified 510 mg IV Once in dialysis 01/28/2023 Active Epoetin Lawson-epbx solution 20,000 UnitsIndications:Chron ic kidney disease, not otherwise specified,Anemia in chronic kidney disease 59878 Units IJ Once 07/27/2023 A ctive Active Problems Problem Noted Date Diagnosed Date 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 Hypertension 06/26/2024 Anemia in chronic kidney disease 06/26/2024 Secondary hyperparathyroidism of renal origin Hypertensive chronic kidney disease stage 4 08/27 Other iron deficiency anemia 09/17/2023 Type 2 diabetes mellitus wit h diabetic chronic kidney disease 12/02/2021 Type 2 diabetes mellitus without complication Chronic kidney disease, stage 4 (severe) 021 Encounters Date Type Department Care Team Description 10/25/2024 10:00 AM EDT Office Visit [facility] [address] [phone] Cassandra Jordan ARNP Chronic kidney disease, stage 4 (severe) (HCC) (Primary Dx); Hypertension; Anemia in chronic kidney disease; Secondary hyperparathyroidism of renal origin (HCC); Focal segmental glomerulosclerosis; Other iron deficiency anemia 09/23/2024 Orders Only [facility] [address] [phone] Cassandra Jordan ARNP Chronic kidney disease, stage 4 (severe) (HCC); Hypertension; Anemia in chronic kidney disease; Secondary hyperparathyroidism of renal origin (HCC) 09/07/2024 Documentation Only [facility] [address] [phone] Dail Carbone MA from Last 3 Months Family History Medical [...] Sign Reading Time Taken Comments Blood Pressure 150/70 10/25/2024 10:12 AM EDT Pulse 78 10/25/2024 10:12 AM EDT Temperature - - Respiratory Rate 20 06/22/2023 11:30 AM EST Oxygen Saturation 98% 10/25/2024 10:12 AM EDT Inhaled Oxygen Concentration - - Weight 111 kg (245 lb) 10/25/2024 10:12 AM EDT Height 172.7 cm (5' 8 ) 04/17/2021 4:04 PM EDT Body Mass Index 37.25 04/17/2021 4:04 PM EDT Plan of Treatment Upcoming Encounters Date Type Department Care Team (Late st Contact Info) Description 02/26/2025 1:15 PM EDT Office Visit [facility] [address] [phone] Cassandra Jordan ARNP [address] [phone] Health Maintenance Due Date Last Done Comments Pneumococcal Vaccine: 50+ Years (1 of 2 - PCV) 1973 Colorectal Cancer Screening: Annual FOBT 2003 Colorectal Cancer Screening: Colonoscopy 2003 Colorectal Cancer Screening: Sigmoidoscopy 2003 Diabetes: Ophthalmology Exam 04/17/2021 Diabetes: Pedal Pulse Checked 04/17/2021 Diabetes: Sensory Foot Exam 04/17/2021 Diabetes: Visual Foot Exam 04/17/2021 Diabetes: Hemoglobin A1C 01/02/2025 025, 06/08/2024, 06/10/2023, Additional history exists Influenza Vaccine (Season Ended) 2025 Hepatitis B Vaccine Aged Out No longe r eligible based on patient's age to complete this topic Procedures Procedure Name Priority Date/Time Associated Diagnosis Comments EXT RESULT ENTRY Routine 10/18/2024 EXT RESULT ENTRY Routine 09/07/2024 HEMOGLOBIN A1C [...] Maintenance Results * (ABNORMAL) EXT RESULT ENTRY (10/18/2024) Only the most recent of2 resultswithin the time period is included. WBC 5.3 3.3 - 10.0 10*3/ML Red Blood Cell Count 3.86 Hemoglobin 8.2(A) 13.5 - 17.5 Hematocrit 28.2(A) 41.0 - 53.0 Platelets 136(A) 150 - 399 10*3/UL 10/18/2024 us Historical Provider LAB BLOOD ORDERABLES Marianna l Result * (ABNORMAL) Hemoglobin A1c (06/10/2023 11:01 AM EST) Hemoglobin A1C 5.9(H) (4.0-5.6) % [facility] Comment: MONITORING: In known diabetic patients, hemoglobin A1c targets should be discussed with health care provider. DIAGNOSTIC USE: ??The [place] Diabetes Association (ADA) and the World Health [...] Supplement 1 Testing performed or reported by [facility], a Service of [facility], [address] [place] [address] Keegan Carrillo MD, Reservations Agent [facility]# [id number] Blood (Blood, Venous) 06/10/2023 11:01 AM EST 06/10/2023 11:06 AM EST Shawn Florez MD LAB BLOOD ORDERABLES Marianna anderson Result [facility] from Last 3 Months or Most Recently Relevant to Health [place] [id number] Medicare Care Teams Dev Ops Engineer Relationship Specialty Start Date End Date Eder Ortega DO [address] [place] [address] PCP - General Internal Medicine 02/26/21
[2024-11-23 01:03] LABS: Acetylcholine Receptor Binding 15.57 nmol/L
[2024-11-23 19:13] LABS: Acetylcholine Recept. Blocking 54 (<15)
[2024-11-24 11:28] LABS: Acetylcholine Recep Modulating 85
== END 2024-11-16 15:24 | disposition home or self-care (01) ==
LOC: HO.LAB 15:23
PROVIDERS: PCP Internal Medicine; Visit Provider Psychiatry & Neurology Neurology
DX: G70.00 Myasthenia gravis without (acute) exacerbation (principal)
CPT/HCPCS: 36415; 86041; 86042; 86043

== ENCOUNTER 2025-01-16 14:37 | Outpatient (REF) | payer MEDICARE, SELFPAY ==
--- NOTE | ~2025-01-16 | CT_ITS ---
CLINICAL HISTORY: MYASTHENIA CT chest without contrast Comparison: None provided Findings: Lung carey are clear without acute infiltrates. No significant mediastinal adenopathy. No significant free pleural fluid. No significant focal bony abnormalities. Impression: No acute processes This document has been electronically signed by: Isaac Hall MD on 01/16/2025 19:08:46
--- OUTSIDE RECORDS SUMMARY | 2025-01-16 17:48 | XMS_ITS | Encounter Summary ---
Author Organization [facility] Address [address] [phone] Phone Care Team Providers Care Director Auto Name Role Phone Shannon Ederdaphne GREENE Primary Care Provider [phone] Encounter Details Date Type Department Care Team (Late Contact Info) Description 01/11/2025 Orders Only [facility] [address] [phone] Cassandra Jordan ARNP [address] [phone] Chronic kidney disease, stage 4 (severe) (HCC); Hypertension Social History Tobacco Use Types Packs/Day Years [...] Office Visit [facility] [address] [phone] Cassandra Jordan ARNP [address] [phone] documented as of this encounter Visit Diagnoses Diagnosis Chronic kidney disease, stage 4 (severe) (HCC) Hypertension documented in this encounter Care Teams Director Auto Relationship Specialty Start Date End Date Eder Ortega DO [address] [place] [address] PCP - General Internal Medicine 02/26/21 documented as of this encounter
[2025-01-17 11:18] LABS: GFR POC 34
== END 2025-01-16 14:38 | disposition home or self-care (01) ==
LOC: HO.CT 14:37
PROVIDERS: PCP Internal Medicine; Visit Provider Psychiatry & Neurology Neurology
DX: G70.00 Myasthenia gravis without (acute) exacerbation (principal)
CPT/HCPCS: 71250; 82565

== ENCOUNTER → 2025-01-16 14:45 | Outpatient (BNV) | payer MEDICARE, SELFPAY | PROVIDERS: PCP Internal Medicine; Visit Provider Radiology Diagnostic Radiology | DX: G70.00 Myasthenia gravis without (acute) exacerbation (principal) | CPT/HCPCS: 71250 ==

== ENCOUNTER 2025-03-01 12:16 | Outpatient (AMB) | payer MEDICARE, SELFPAY ==
--- NOTE | 2025-03-01 12:33 | A.OFFVIS_ITS ---
Intake Visit Reasons: 6 Weeks Allergies Penicillins Allergy (Verified 01/25/25 10:28) Hives HPI Comments Details: 69 years old man with chronic renal insufficiency, chronic anemia, type 2 diabetes, and antibody positive generalized myasthenia gravis. He presented with fluctuating ptosis in August of 2023. CTA of brain did not reveal aneurysm while acetylcholine receptor antibody titers were high. In November of 2024, he developed difficulty swallowing and speaking and went to [facility] where he was treated wtih IVIg for 5 days. He was having blurry vision. NO double vision. [facility] Medical History (Updated 03/01/25 @ 12:46 by Jero Sanderson MD) Diabetic neuropathy Multifactorial gait disorder Myasthenia gravis Iron deficiency Chronic kidney disease Diabetes Surgical History H/O hernia repair Family History Mother Cancer Lung cancer Father Testicular cancer Social History Household Members: None Housing: House Do you presently have visiting nurse or other home services: Yes Alcohol intake: current Alcohol intake frequency: a few times a month Patient Tobacco Use Status: Never used Tobacco Tobacco use type: Cigarette Cigarettes Per Day: 1 service: No Current occupational status: retired Assessment & Plan Assessment & Plan (1) Myasthenia gravis: Comment: Ach receptor Abs at [facility] [place] in Oct 2024: all three are high CTA brain at [facility] [place] [facility] [place] in Aug 2024: [place] Chest WO at [facility] [place] 20[place]: [place] Code(s): G70.00 - Myasthenia gravis without (acute) exacerbation Category: Medical (2) Diabetic neuropathy: Code(s): E11.40 - Type 2 diabetes mellitus with diabetic neuropathy, unspecified Category: Medical Qualifiers: Diabetes mellitus type: type 2 Diabetes mellitus complication detail: with other neurological complication Qualified Code(s): E11.49 - Type 2 diabetes mellitus with other diabetic neurological complication (3) Multifactorial gait disorder: Code(s): R26.89 - Other abnormalities of gait and mobility Category: Medical Plan Impression: a: Myasthenia gravis, mostly ocular b: Myasthenia gravis exacerbation in November, which can happen again b: Diabetic neuropathy Rec: a: Decrease prednisone 20mg to one tab one day and 1/2 the next day, alternating every day b: Pyridostigmine 60mg tid c: I was considering IV Ig but he said that he could not afford its co-pay. He was advised to come back to ER or contact us if situation worsens. e: Meds like azathioprin was also risky due to significant anemia Coding Level of Care Code Est Pt Level 4 (86396) Diagnoses Myasthenia gravis G70.00 Other diabetic neurological complication associated with type 2 diabetes mellitus E11.49 Diabetes mellitus type: type 2 Diabetes mellitus complication detail: with other neurological complication Multifactorial gait disorder R26.89
--- OUTSIDE RECORDS SUMMARY | 2025-03-01 12:35 | XMS_ITS | Clinical Summary ---
Author Organization [facility] Address [address] [place] [address] Phone Care Team Providers Care Program Production Specialist Name Role Phone Eder Ortega DO Primary Care Provider [phone] Allergies Active Allergy Reactions Criticality Noted Date [...] failure with p reserved ejection fraction (HFpEF) ([facility] V24, [facility] V28) 08/12/2023 Overview (05/15/2024): Last Assessment [...] continue current therapies. Aneurysm of ascending aorta ([facility] V24) 2023 Overview (05/15/2024): Last Assessment [...] on anticoagulation therapy with warfarin given his [id number]- VASc score of 4. The patient has [...] will continue to follow with hematology at [facility]. Assessment & Plan (05/30/2024 10:57 AM EST): Patient has a history of paroxysmal atrial fibrillation continues on rate control therapy with atenolol as prescribed. His heart rate is adequate today. He also continues on anticoagulation therapy with warfarin. He has a [id number] score of 4. He has remained on [...] Date Comments Diabetes mellitus, type II ( [facility]/HCC V24, CMS/[facility] V28) DX:Diabetes mellitus, type I I (HCC) Anemia in chronic kidney disease DX:Anemia in chronic kidney disease CKD (chronic kidney disease) , stage IV (CMS/HCC V24, CMS/HCC V28) DX:CKD (chronic kidney dise ase), stage [...] PCV) 1973 Zoster Vaccines (1 of 2) 1973 RSV Immunization Adult Patients (1 - Risk 60-74 years 1-dose series) 2014 Abdominal Aortic Aneurysm (AAA) Screen 06/23/2022 Colorectal Cancer Screening: Colonoscopy 06/23/2022 Falls Risk Assessment 06/23/2022 Hepatitis C Screening 06/23/2022 Medicare Annual Wellness Visit 06/23/2022 Social Influencers of Health Screening 06/23/2022 COVID-19 Vaccine ( season) 2024 08/08/2021, 12/30/2020, 12/09/2020 Diabetes: Annual Urine Albumin-Creatinine Ratio (uACR) 05/30/2024 Depression Screening 07/26/2024 Influenza Vaccine (#1) 2025 , 05/10/2023, 05/11/2022 Diabetes: Blood Sugar Control Test (HGBA1C) 08/05/2025 02/02/2025, 10/02/2024, 06/08/2024, Additional history exists Diabetes: Annual GFR (Glomerular Filtration Rate) 02/02/2026 02/02/2025, 10/02/2024, 06/08/2024 Hypertension/CHF/CAD Annual BMP Blood Test 02/02/2026 02/02/2025, 10/02/2024, 06/08/2024 Cholesterol Screening (Lipid Panel) 02/02/2030 02/02/2025, 10/02/2024, 06/08/2024 HIB Vaccines Aged Out No longer eligi [...] 20 months Aged Out No longer eligible based on patient's age to complete this topic Varicella Vaccines Aged Out No longer eligible based on patient's age to complete this topic Procedures Procedure Name Priority Date/Time Associated Diagnosis Comments HEMOGLOBIN A1C Routine 02/02/2025 11:19 AM EDT Diabetes mellitus ([facility]/HCC V24, [facility]/HCC V28) Essential hypertension, malignant Hyperlipemia COMPREHENSIVE METABOLIC PANEL Routine 02/02/2025 11:19 AM EDT Diabetes mellitus (CMS/HCC V24, CMS/HCC V28) Essential hypertension, malignant Hyperlipemia THYROID STIMULATING HORMONE Routine 02/02/2025 11:19 AM EDT Diabetes mellitus (CMS/HCC V24, CMS/HCC V28) Essential hypertension, malignant Hyperlipemia PROSTATE SPECIFIC ANTIGEN SCREEN Routine 02/02/2025 11:19 AM EDT Diabetes mellitus (CMS/HCC V24, CMS/HCC V28) Essential hypertension, malignant Hyperlipemia Encounter for screening for malignant neoplasm of prostate CREATINE KINASE Routine 02/02/2025 11:19 AM EDT Diabetes mellitus (CMS/HCC V24, CMS/HCC V28) Essential hypertension, malignant Hyperlipemia LIPID PANEL WITH REFLEX TO DIRECT LDL Routine 02/02/2025 11:19 AM EDT Diabetes mellitus (CMS/HCC V24, CMS/HCC V28) Essential hypertension, malignant Hyperlipemia PROTHROMBIN TIME WITH INR Routine 02/02/2025 11:19 AM EDT FDC (current) use of anticoagulants PROTHROMBIN TIME WITH INR Routine 01/09/2025 12:12 PM EDT keno terminal operator (current) use of anticoagulants from Last 3 Months Results * Prostate specific antigen screen (02/02/2025 11:19 AM EDT) PSA 0.94 0.00 - 4.00 ng/mL LAB CHEMISTRY METHOD 02/02/2025 4:28 PM EDT [facility] Blood Venous blood specimen / Unknown Venipuncture / Unknown 02/02/2025 11:19 AM EDT 02/02/2025 11:19 AM EDT Narrative [facility] - 02/02/2025 4:28 PM EDT The Siemens Advia Centaur Chemiluminescent Immunoassay is used. Results obtained with different assay methods or kits cannot be used interchangeably. Results cannot be interpreted as absolute evidence of the presence or absence of malignant disease. Jeannine Monroe NP LAB BLOOD ORDERABLES Fi nal Result [facility] [address] [place] [address], [place] [phone] * Lipid panel with reflex to direct LDL (02/02/2025 11:19 AM EDT) Cholesterol 87 0 - 200 mg/dL LAB CHEMISTRY METHOD 02/02/2025 4:04 PM EDT [facility] Triglycerides 93 0 - 150 mg/dL LAB CHEMISTRY METHOD 02/02/2025 4:04 PM EDT [facility] HDL 52 >=40 mg/dL LAB CHEMISTRY METHOD 02/02/2025 4:04 PM EDT [facility] LDL Calculated 16 0 - 100 mg/dL LAB CHEMISTRY METHOD 02/02/2025 4:04 PM EDT [facility] VLDL Cholesterol Shaka 18.6 mg/dL LAB CHEMISTRY METHOD 02/02/2025 4:04 PM EDT [facility] Non HDL Chol. (LDL+VLDL) 35 <145 mg/dL LAB CHEMISTRY METHOD 02/02/2025 4:04 PM EDT [facility] Chol/HDL Ratio 1.7 0.0 - 4.4 LAB CHEMISTRY METHOD 02/02/2025 4:04 PM EDT [facility] Blood Venous blood specimen / Unknown Venipuncture / Unknown 02/02/2025 11:19 AM EDT 02/02/2025 11:19 AM EDT Jeannine Monroe NP LAB BLOOD ORDERABLES Fi nal Result Performing Organization Address City/[facility]/ZIP Co de Phone Number [facility] [address] [place] [address], * (ABNORMAL) Prothrombin time with INR (02/02/2025 11:19 AM EDT) Only the most recent of2 resultswithin the time period is included. [facility] Protime 37.3(H) 10.6 - 13.9 sec LAB COAGULATION METHOD 02/02/2025 3:28 PM EDT [facility] INR 3.0 LAB COAGULATION METHOD 02/02/2025 3:28 PM EDT [facility] Blood Venous blood specimen / Unknown Venipuncture / Unknown 02/02/2025 11:19 AM EDT 02/02/2025 11:19 AM EDT Eder Ortega DO LAB BLOOD ORDERABLES Final Re sult [facility] [address] [place] [address], * Thyroid stimulating hormone (02/02/2025 11:19 AM EDT) [facility] TSH 0.78 0.40 - 4.00 mcIU/mL LAB CHEMISTRY METHOD 02/02/2025 5:04 PM EDT [facility] Blood Venous blood specimen / Unknown Venipuncture / Unknown 02/02/2025 11:19 AM EDT 02/02/2025 11:19 AM EDT Jeannine Monroe [employer] LAB BLOOD ORDERABLES Fi nal Result [facility] [address] [place] [address], * (ABNORMAL) Hemoglobin A1c (02/02/2025 11:19 AM EDT) [facility] Hemoglobin A1C 8.1(H) <6.5 % LAB CHEMISTRY METHOD 02/02/2025 9:25 PM EDT [facility] Mean Bld Glu Estim. 186 mg/dL LAB CHEMISTRY METHOD 02/02/2025 9:25 PM EDT [facility] Blood Venous blood specimen / Unknown Venipuncture / Unknown 02/02/2025 11:19 AM EDT 02/02/2025 11:19 AM EDT Jeannine Monroe [employer] LAB BLOOD ORDERABLES Fi nal Result [facility] [address] [place] [address], [place] [phone] * Creatine kinase (02/02/2025 11:19 AM EDT) Pathologist [facility] Total CK 71 22 - 269 unit/L LAB CHEMISTRY METHOD 02/02/2025 4:03 PM EDT [facility] Blood Venous blood specimen / Unknown Venipuncture / Unknown 02/02/2025 11:19 AM EDT 02/02/2025 11:19 AM EDT Jeannine Monroe [employer] LAB BLOOD ORDERABLES Fi nal Result Performing Organization Address [facility]/ZIP Co de Phone Number [facility] [address] [place] [address], [place] [phone] * (ABNORMAL) Comprehensive metabolic panel (02/02/2025 11:19 AM EDT) Pathologist [facility] Sodium 135 133 - 145 mmol/L LAB CHEMISTRY METHOD 02/02/2025 4:03 PM EDT [facility] Potassium 4.3 3.5 - 5.5 mmol/L LAB CHEMISTRY METHOD 02/02/2025 4:03 PM EDT [facility] Chloride 98 96 - 110 mmol/L LAB CHEMISTRY METHOD 02/02/2025 4:03 PM EDT [facility] CO2 25 21 - 32 mmol/L LAB CHEMISTRY METHOD 02/02/2025 4:03 PM [facility] Anion Gap 12(H) 3 - 11 LAB CHEMISTRY METHOD 02/02/2025 4:03 PM [facility] Glucose 247(H) 70 - 100 mg/dL LAB CHEMISTRY METHOD 02/02/2025 4:03 PM [facility] BUN 66(H) 5 - 25 mg/dL LAB CHEMISTRY METHOD 02/02/2025 4:03 PM [facility] Creatinine 2.95(H) 0.70 - 1.30 mg/dL LAB CHEMISTRY METHOD 02/02/2025 4:03 PM [facility] eGFR 22(L) >=60 mL/min/1. 73m2 LAB CHEMISTRY METHOD 02/02/2025 4:03 PM [facility] Comment:Calculation based on the Chronic Kidney Disease Epidemiology Collaboration (CKD-EPI) equation refit without adjustment for race. BUN/Creatinine Ratio 22.4 LAB CHEMISTRY METHOD 02/02/2025 4:03 PM [facility] Calcium 8.2(L) 8.5 - 10.5 mg/dL LAB CHEMISTRY METHOD 02/02/2025 4:03 PM [facility] AST (SGOT) 12 10 - 42 unit/L LAB CHEMISTRY METHOD 02/02/2025 4:03 PM [facility] ALT (SGPT) 30 10 - 60 unit/L LAB CHEMISTRY METHOD 02/02/2025 4:03 PM [facility] Alkaline Phosphatase 80 42 - 121 unit/L LAB CHEMISTRY METHOD 02/02/2025 4:03 PM [facility] Total Protein 6.7 6.0 - 8.0 g/dL LAB CHEMISTRY METHOD 02/02/2025 4:03 PM [facility] Albumin 3.6 3.2 - 5.0 g/dL LAB CHEMISTRY METHOD 02/02/2025 4:03 PM EDT [facility] Total Bilirubin 0.6 0.0 - 1.4 mg/dL LAB CHEMISTRY METHOD 02/02/2025 4:03 PM EDT [facility] Blood Venous blood specimen / Unknown Venipuncture / Unknown 02/02/2025 11:19 AM EDT 02/02/2025 11:19 AM EDT us Jeannine Monroe [employer] LAB BLOOD ORDERABLES Fi nal Result [facility] [address] [place] [address], from Last 3 Months Insurance MEDICARE Advance Directives Documents on File Type Date Recorded Patient Assistant Director Expl anation Health Care Decision (hx) 05/07/2022 AD CAMACHO DIRECTIVE Health Care Decision (hx) 05/07/2022 AD CAMACHO DIRECTIVE Health Care Decision (hx) 05/07/2022 AD CAMACHO DIRECTIVE Care Teams Program Production Specialist Relationship Specialty Start Date End Date Eder Ortega DO [address] [place] [phone] PCP - General 06/27/14
== END 2025-03-01 12:52 | disposition home or self-care (01) ==
LOC: HO.HSM 12:17
PROVIDERS: PCP Internal Medicine; Referring Provider Internal Medicine; Visit Provider Psychiatry & Neurology Neurology
DX: G70.00 Myasthenia gravis without (acute) exacerbation (principal); E11.49 Type 2 diabetes mellitus with other diabetic neurological complication; R26.89 Other abnormalities of gait and mobility
CPT/HCPCS: 99214

== ENCOUNTER → 2025-03-01 12:16 | Outpatient (BNVA) | payer MEDICARE, SELFPAY | PROVIDERS: PCP Internal Medicine; Referring Provider Internal Medicine; Visit Provider Psychiatry & Neurology Neurology | DX: G70.00 Myasthenia gravis without (acute) exacerbation (principal); E11.49 Type 2 diabetes mellitus with other diabetic neurological complication; R26.89 Other abnormalities of gait and mobility; Z79.52 Long term (current) use of systemic steroids | CPT/HCPCS: 99212 ==

== ENCOUNTER 2025-03-12 10:11 | Inpatient (IN) | payer MEDICARE, SELFPAY ==
[2025-03-12] VITALS (9 sets, daily range): BP systolic 125–140; BP diastolic 61–78; PULSE 87–103; RESP 14–25; TEMP 36.4–36.8; O2SAT 95–99; BMI 40.6
--- NOTE | ~2025-03-12 | XR_ITS ---
EXAMINATION: XR CHEST CLINICAL INFORMATION: edema COMPARISON: September 14, 2024. TECHNIQUE: Frontal view of the chest was obtained. FINDINGS: No hyperinflation. Mild prominence of the interstitial markings in the perihilar region. No consolidation pleural effusion or pneumothorax. Cardiomediastinal silhouette size is normal. Calcified plaque thoracic aorta. Multilevel thoracic spondylosis no fully evaluated patient's body habitus. XR/XR chest 1V IMPRESSION: Mild interstitial edema should be considered in the correct clinical settings. Electronically signed by: Celso Camarena MD 03/12/2025 11:27 AM EDT
--- NOTE | 2025-03-12 10:21 | ECG_ITS ---
Test Reason : EDEMA Blood Pressure : */* mmHG Vent. Rate : 103 BPM Atrial Rate : * BPM P-R Int : * ms QRS Dur : 80 ms QT Int : 338 ms P-R-T Axes : * 13 5 degrees QTcB Int : 442 ms Atrial fibrillation with rapid ventricular response Abnormal ECG When compared with ECG of 20-Sep-2024 17:32, Atrial fibrillation has replaced Sinus rhythm Vent. rate has increased by 51 bpm Referred By: Doreen Becerra Electronically Signed By: SALVATORE MAHONEY MD
--- NOTE | 2025-03-12 10:26 | ED.GENADULT ---
HPI - General Adult General Chief complaint: General Medical Stated complaint: INCR FLUID RET,SOB ON EXER X10D PER EMS Time Seen by Provider: 03/12/25 10:18 Source: patient, EMS and old records reviewed Mode of arrival: EMS Limitations: no limitations History of Present Illness ED Provider: CHARO HPI narrative: 69 yo male with PMH of anemia, myasthenia gravis, DM, afib on coumadin, anemia, CKD baseline Cr 2.8, dCHF he states he takes 40mg of torsemide in the AM and 40mg at night. He is still urinating normally. He does not want to go on HD though he has a fistula already. He notes he is compliant with his meds and diet. He reprots about 10 days of 12lb weight gain up to his abdomen. He has some orthopnea in the AM and wakes up gasping but states it is only in the AM. He is using 2 pillows at baseline. He has no chest pain. When walking he notes he has fatigue and dyspnea MD complaint: edema, weight gain, dyspnea Onset (ago): day(s) () Location: chest, abdomen, upper extremity and lower extremity Radiation: non-radiation Severity: moderate Relieving factors: rest Exacerbating factors: other (walking, laying supine) Associated symptoms: shortness of breath Treatments prior to arrival: none Related Data Home Medications ?Medication ?Instructions ?Recorded ?Confirmed atorvastatin 40 mg tablet 40 mg PO BEDTIME 09/22/23 01/25/25 insulin syringe-needle U-100 1 mL 09/22/23 01/25/25 31 gauge x 5/16 (BD Insulin Syringe Ultra-Fine) warfarin 5 mg tablet 5 mg PO DAILY@1800 09/22/23 01/25/25 omeprazole 20 mg capsule,delayed 20 mg PO DAILY@0630 10/20/23 01/25/25 release calcitriol 0.25 mcg capsule 0.25 mcg PO Q48H 08/17/24 01/25/25 isosorbide mononitrate 30 mg 30 mg PO DAILY 08/28/24 01/25/25 tablet,extended release 24 hr torsemide 20 mg tablet 40 mg PO DAILY 08/28/24 01/25/25 sodium zirconium cyclosilicate 5 5 g PO DAILY 09/14/24 01/25/25 gram oral powder packet ([facility]) empagliflozin 10 mg tablet 10 mg PO DAILY 10/19/24 01/25/25 (Jardiance) pyridostigmine bromide 60 mg 30 mg PO Q8H 10/19/24 01/25/25 tablet (Mestinon) Previous Rx's ?Medication ?Instructions ?Recorded sodium bicarbonate 650 mg tablet 650 mg PO BID #180 tabs 08/30/24 insulin glargine 100 unit/mL 10 unit (0.1 mL) subcut DAILY #10 09/18/24 subcutaneous solution (Lantus mL U-100 Insulin) ferrous sulfate 325 mg (65 mg 325 mg PO DAILY #90 tabs 01/27/25 iron) tablet prednisone 20 mg tablet 20 mg PO DAILY #60 tabs 02/05/25 Allergies Allergy/AdvReac Type Severity Reaction Status Date / Time Penicillins Allergy Hives Verified 03/12/25 10:20 Review of Systems Review of Systems: Constitutional : No Fever, No Chills ENT/Mouth : No sore throat, No Rhinorrhea, No Swallowing Difficulty Eyes: No Eye Pain, No Swelling, No Redness Cardiovascular : No Chest Pain, positive SOB, No Orthopnea, positive Edema Respiratory : No Cough, No Sputum, No Wheezing, positive dyspnea Gastrointestinal : No Nausea, No Vomiting, No Diarrhea, No abdominal Pain, No Hematochezia, No Melena Genitourinary : No Dysuria, No Urinary Frequency, No Hematuria Musculoskeletal : No joint pain, No Myalgias Skin : No Skin Lesions, No rash Neuro : No Weakness, No Numbness, No Dizziness, No Headache All other systems reviewed and are negative [facility] Past Medical History Attestation statement: The following information was validated with the patient. Source: old records reviewed Medical History Diabetic neuropathy Multifactorial gait disorder Myasthenia gravis Iron deficiency Chronic kidney disease Diabetes Surgical History H/O hernia repair Family History Family History Mother Cancer Lung cancer Father Testicular cancer Social History Social History Household Members: None Housing: House Do you presently have visiting nurse or other home services: Yes Alcohol intake: current Alcohol intake frequency: a few times a month Patient Tobacco Use Status: Never used Tobacco Tobacco use type: Cigarette Cigarettes Per Day: 1 Smoked in Last 30 Days: Yes Use of substances other than those prescribed or required for medical reasons: No Advance Directives: No Advance Directives Information Provided: Yes Do you have a plan to hurt others: No Plan service: No Current occupational status: retired Physical Exam ED Vital Signs: Vital Signs - 24 hr 03/12/25 10:18 03/12/25 10:24 03/12/25 10:53 Temperature 98.3 F 98.3 F Pulse Rate 103 H 103 H Respiratory Rate 18 18 Blood Pressure 125/69 125/69 125/66 Pulse Oximetry 95 95 Oxygen Delivery Method Room Air Room Air BMI result Body Mass Index 40.6 Appearance: Alert. Oriented X3. No acute distress. Eyes: Pupils equal, round and reactive to light. ENT: Pharynx normal. Neck: Normal inspection. Neck supple. CVS: Normal heart rate and rhythm. Pulses normal. Respiratory: No respiratory distress. Breath sounds rales both bases Back: sacral pitting edema Abdomen: Soft and nontender. anasarca up to abdomen Skin: Skin warm and dry. Normal skin color. Normal skin turgor. Extremities: 3+ pitting edema symmetric lower legs Neuro: Oriented X 3. No motor deficit. No sensory deficit. CN2-12 intact Medications Administered Discontinued Medications Generic Name Dose Route Start Last Admin Trade Name Freq PRN Reason Stop Dose Admin Furosemide 40 mg 03/12/25 10:42 03/12/25 10:53 Furosemide 40 Mg/4 Ml Vial IVPUSH 03/12/25 10:43 40 mg STAT STA Administration Protocol Medical Decision Making Medical Decision Making [facility] Narrative: 69 yo male with PMH of anemia, myasthenia gravis, DM, afib on coumadin, anemia, CKD baseline Cr 2.8, dCHF here with c/o edema/anasarca/MARIE and orthopnea at this time will obtain CXR, labs, INR, Cr and start on IV lasix. He will need admission at this time for volume overload and diuresis. Differential Diagnosis Differential Diagnoses: The differential diagnosis associated with the presentation includes MARK on CKD, cardiorrenal, CHF, anasarca Admission/Observation Consideration of admission/observation: Escalation of care including admission/observation considered admit for IV lasix Consult Healthcare Provider Management of the patient was discussed with: Hospitalist (will admit) Lab Data MDM Lab Attestation statement: I reviewed the patient's lab results. 03/12/25 10:49 03/12/25 10:49 Labs: Lab Results 03/12/25 03/12/25 Range/Units 10:49 10:50 WBC 9.3 (4.8-10.8) X10*3/uL RBC 4.93 (4.60-5.80) X10*6/uL Hgb 9.9 L (14.0-18.0) g/dl Hct 35.9 L (42.0-52.0) % MCV 72.8 L (80.0-98.0) fL MCH 20.1 L (27.0-33.0) pg MCHC 27.6 L (31.0-36.0) g/dl RDW 19.8 H (11.0-16.0) % Plt Count 105 L (160-400) X10*3/uL MPV Not Reportable Immature Gran % (Auto) 0.5 H (0.0-0.4) % Neut % (Auto) 90.6 H (45-73) % Lymph % (Auto) 3.8 L (20-40) % Oliver % (Auto) 4.2 (2-11) % Eos % (Auto) 0.6 (0-4) % Baso % (Auto) 0.3 (0-2) % Lymph # (Auto) 0.4 L (1.2-4.9) X10*3/uL Oliver # (Auto) 0.4 (0.1-1.2) X10*3/uL Eos # (Auto) 0.1 (0.0-0.4) X10*3/uL Baso # (Auto) 0.0 (0.0-0.2) X10*3/uL Abs Immat Gran (auto) 0.05 H (0.00-0.03) X10*3/uL Absolute Neuts (auto) 8.4 H (2.0-8.3) x10*3/uL Absolute Nucleated RBC 0.000 (0.0-0.012) X10*3/uL Nucleated RBC % (auto) 0.0 (0.0-0.2) /100WBC Smear Tech's Comments VERIFIED PT 17.2 H D (10.9-12.4) SEC INR 1.5 H (0.9-1.1) Sodium 140 (135-145) mmol/L Potassium 4.2 (3.3-5.1) mmol/L Chloride 101 (96-108) mmol/L Carbon Dioxide 28 (22-29) mmol/L Anion Gap 15 (12-20) BUN 61 H (9-16) mg/dL Creatinine 2.82 H (0.5-1.4) mg/dL Estim Creat Clear Calc 29.8 Estimated GFR 22 Random Glucose 132 H (60-115) mg/dL Calcium 8.2 L (8.4-10.2) mg/dL Magnesium 2.2 (1.6-2.6) mg/dL Total Bilirubin 0.7 (0.0-1.0) mg/dL Direct Bilirubin 0.3 (0.0-0.5) mg/dL AST 21 (5-37) U/L ALT 34 (0-40) U/L Alkaline Phosphatase 100 (39-117) U/L Troponin I High Sens 22.1 D (<3.5-35.0) ng/L Total Protein 6.5 (6.5-8.0) g/dL Albumin 4.1 (3.5-5.0) g/dL Urine Color Yellow Urine Appearance Clear Urine pH 5.5 (5.0-9.0) Ur Specific [place] 1.010 (1.005-1.025) Urine Protein Trace (Neg-Trace) mg/dL Urine Glucose (UA) 500 H (Negative) mg/dL Urine Ketones Negative (Negative) mg/dL Urine Blood Trace H (Negative) Urine Nitrite Negative (Negative) Ur Leukocyte Esterase Negative (Negative) Independent Interpretation I performed an independent interpretation of an: EKG and Plain X-Ray (interstitial edema) Interpretation: Rate: 103 Rhythm: afib Hooper: normal . Normal QRS complex. ST T wave : normal no MARIEL qTC: 442 prior studies: hx of afib The study has been interpreted contemporaneously by me. . Radiology Impression Discussion of test interpretation with radiology: I have reviewed the radiologist's reading. Independent Historian Clinical information obtained from an independent historian. History obtained from or confirmed by: EMS External Record Review External record reviewed: Inpatient record and Outpatient record Discharge Plan Discharge Clinical Impression: CHF (congestive heart failure) Patient Disposition: Admitted As Inpatient Print Language: Unable To Collect
[2025-03-12] MEDS: Furosemide 40 MG/4 ML VIAL IVPUSH ×2 (10:53→18:56)
[2025-03-12 10:58] LABS: Appearance Urine Clear; Glucose Urine UA 500 mg/dL (Negative); PH 5.5 (5.0-9.0); Specific Gravity - Urine 1.010 (1.005-1.025); UMIC TRIGGER UACC YES
[2025-03-12 10:59] LABS: Hematocrit 35.9 % (42.0-52.0); Hemoglobin 9.9 g/dl (14.0-18.0); Imm Gran Abs Auto 0.05 X10*3/uL (0.00-0.03); Imm Gran Pct Auto 0.5 % (0.0-0.4); Lymphocytes Absolute Auto 0.4 X10*3/uL (1.2-4.9); MANUAL DIFF FLAG SCAN; Mean Corpuscular HGB Conc 27.6 g/dl (31.0-36.0); Mean Corpuscular Hemoglobin 20.1 pg (27.0-33.0); Mean Corpuscular Volume 72.8 fL (80.0-98.0); NRBC Abs Auto 0.000 X10*3/uL (0.0-0.012); NRBC Pct Auto 0.0 /100WBC (0.0-0.2); Platelet Count 105 X10*3/uL (160-400); Red Blood Count 4.93 X10*6/uL (4.60-5.80); SCAN SMEAR FLAG 1; White Blood Count 9.3 X10*3/uL (4.8-10.8)
[2025-03-12 11:04] LABS: INTERNATIONAL NORM RATIO 1.5 (0.9-1.1); Prothrombin Time 17.2 SEC (10.9-12.4)
[2025-03-12 11:35] LABS: Alanine Aminotransferase 34 U/L (0-40); Albumin Level 4.1 g/dL (3.5-5.0); Alkaline Phosphatase 100 U/L (39-117); Anion Gap 15 (12-20); Aspartate Amino Transferase 21 U/L (5-37); Blood Urea Nitrogen 61 mg/dL (9-16); Calcium 8.2 mg/dL (8.4-10.2); Carbon Dioxide 28 mmol/L (22-29); Chloride 101 mmol/L (96-108); Creatinine Clr Calc Pharmacy 29.8; Estimated Glomerular Filt Rate 22; Magnesium 2.2 mg/dL (1.6-2.6); Potassium 4.2 mmol/L (3.3-5.1); Sodium 140 mmol/L (135-145); Total Protein 6.5 g/dL (6.5-8.0)
[2025-03-12 11:36] LABS: Troponin-I High Sensitivity 22.1 ng/L (<3.5-35.0)
--- NOTE | 2025-03-12 12:18 | PM.IMHP ---
History of Present Illness Date of Service: 03/12/25 Chief Complaint: edema 69M PMH DM, mysathenia gravis, pafib on warfarin, ckd IV, morbid obesity, htn, hld presented with worsening edema and weight gain. Patient states over the past couple weeks he has noticed increased lower extremity edema coming up to his abdomen. Worsening shortness of breath on exertion. 15-20 lb weight gain. Only change in medication was tapering of prednisone for myasthenia. He takes torsemide 40 mg b.i.d.. Denies chest pain, fever, chills, cough. In ED noted to have interstitial prominence on chest x-ray. Review of Systems Review of Systems: Yes all other systems are reviewed and are negative [facility] Medical History Diabetic neuropathy Multifactorial gait disorder Myasthenia gravis Iron deficiency Chronic kidney disease Diabetes Family History Mother Cancer Lung cancer Father Testicular cancer Surgical History H/O hernia repair Social History Household Members: None Housing: House Do you presently have visiting nurse or other home services: Yes Alcohol intake: current Alcohol intake frequency: a few times a month Patient Tobacco Use Status: Never used Tobacco Tobacco use type: Cigarette Cigarettes Per Day: 1 Smoked in Last 30 Days: Yes Use of substances other than those prescribed or required for medical reasons: No Advance Directives: No Advance Directives Information Provided: Yes Do you have a plan to hurt others: No Plan service: No Current occupational status: retired Meds Allergies Allergy/AdvReac Type Severity Reaction Status Date / Time Penicillins Allergy Hives Verified 03/12/25 10:20 Active Medications: Current Medications Acetaminophen (Acetaminophen 325 Mg Tablet) 650 mg PO Q6H PRN PRN Reason: Pain, Mild 1-3,fever,headache Calcium Carbonate (Calcium Carbonate 750 Mg Tab.Chew) 750 mg PO Q4H PRN PRN Reason: Heartburn Dextrose (Dextrose 50 % 25 Gm/50 Ml Syringe) 25 gm IVPUSH Q15M PRN; Protocol PRN Reason: per Hypoglycemia Standing Ord. Furosemide (Furosemide 40 Mg/4 Ml Vial) 40 mg IVPUSH BID@0900,1800 [facility]; Protocol Glucose (Glucose Gel 15 Gm Gel..Gram.) 15 gm PO Q15M PRN; Protocol PRN Reason: per Hypoglycemia Standing Ord. Insulin Human Lispro (Insulin Lispro 100 Unit/Ml 3 Ml Vial) 0 unit SUBCUT QIDACHS [facility]; Protocol Magnesium Hydroxide (Milk Of Magnesia 30 Ml Oral.Susp) 30 ml PO DAILY PRN PRN Reason: Constipation Melatonin (Melatonin 3 Mg Tablet) 6 mg PO BEDTIME PRN PRN Reason: Insomnia Sodium Chloride (0.9 % Sodium Chloride Flush 3 Ml Syringe) 3 ml IVFLUSH QSHIFT [facility] Home Medications ?Medication ?Instructions ?Recorded ?Confirmed ?Last Taken ?Type atorvastatin 40 mg tablet 40 mg PO BEDTIME 09/22/23 01/25/25 09/14/24 History insulin syringe-needle U-100 1 mL 09/22/23 01/25/25 Unknown History 31 gauge x 5/16 (BD Insulin Syringe Ultra-Fine) warfarin 5 mg tablet 5 mg PO DAILY@1800 09/22/23 01/25/25 09/14/24 History omeprazole 20 mg capsule,delayed 20 mg PO DAILY@0630 10/20/23 01/25/25 09/14/24 History release calcitriol 0.25 mcg capsule 0.25 mcg PO Q48H 08/17/24 01/25/25 09/14/24 History isosorbide mononitrate 30 mg 30 mg PO DAILY 08/28/24 01/25/25 09/14/24 History tablet,extended release 24 hr torsemide 20 mg tablet 40 mg PO DAILY 08/28/24 01/25/25 09/14/24 History empagliflozin 10 mg tablet 10 mg PO DAILY 10/19/24 01/25/25 Unknown History (Jardiance) atenolol 50 mg tablet 50 mg PO DAILY 03/12/25 Unknown History glipizide 5 mg tablet 5 mg PO BID 03/12/25 Unknown History loperamide 2 mg capsule 2 mg PO Q3H PRN Loose Stool 03/12/25 Unknown History pyridostigmine bromide 60 mg tablet 60 mg PO TID-QID 03/12/25 Unknown History sodium zirconium cyclosilicate 10 10 g PO QWEEK 03/12/25 Unknown History gram oral powder packet (Lokelma) Physical Exam Vital Signs and Narrative: Vital Signs: Last Vital Signs Temp 98.3 F 03/12/25 10:24 Pulse 103 H 03/12/25 10:24 Resp 18 03/12/25 10:24 BP 125/66 03/12/25 10:53 Pulse Ox 95 03/12/25 10:24 O2 Del Method Room Air 03/12/25 10:24 BMI result Body Mass Index 40.6 General: AO X 3, no acute distress Resp: CTA bilateral, no accessory muscles used CVS: S1,S2,RRR, 4+ edema GI: soft, non tender, non distended Neuro: motor grossly intact, alert Psych: appropriate affect, appropriate insight Results Labs 03/12/25 10:49 03/12/25 10:49 Labs: Laboratory Results - last 24 hr 03/12/25 03/12/25 10:49 10:50 MCV 72.8 L MCH 20.1 L MCHC 27.6 L RDW 19.8 H Plt Count 105 L MPV Not Reportable Immature Gran % (Auto) 0.5 H Neut % (Auto) 90.6 H Lymph % (Auto) 3.8 L Cla[place]orne % (Auto) 4.2 Eos % (Auto) 0.6 Baso % (Auto) 0.3 Lymph # (Auto) 0.4 L [place] # (Auto) 0.4 Eos # (Auto) 0.1 Baso # (Auto) 0.0 Abs Immat Gran (auto) 0.05 H Absolute Neuts (auto) 8.4 H Absolute Nucleated RBC 0.000 Nucleated RBC % (auto) 0.0 Smear Tech's Comments VERIFIED PT 17.2 H D INR 1.5 H Anion Gap 15 Estim Creat Clear Calc 29.8 Estimated GFR 22 Random Glucose 132 H Calcium 8.2 L Magnesium 2.2 Total Bilirubin 0.7 Direct Bilirubin 0.3 AST 21 ALT 34 Alkaline Phosphatase 100 Total Protein 6.5 Albumin 4.1 TSH 1.13 Urine Color Yellow Urine Appearance Clear Urine pH 5.5 Ur Specific Taberg 1.010 Urine Protein Trace Urine Glucose (UA) 500 H Urine Ketones Negative Urine Blood Trace H Urine Nitrite Negative Ur Leukocyte Esterase Negative Imaging Radiologist's Impressions: Impressions Chest X-Ray 03/12/25 11:00 IMPRESSION: Mild interstitial edema should be considered in the correct clinical settings. Electronically signed by: Celso Camarena MD 03/12/2025 11:27 AM EDT RP Assessment and Plan (1) CHF (congestive heart failure): Qualifiers: Heart failure chronicity: acute on chronic Heart failure type: unspecified Qualified Code(s): I50.9 - Heart failure, unspecified Status: Acute Plan 69M PMH DM, mysathenia gravis, pafib on warfarin, ckd IV, morbid obesity, htn, hld presented with worsening edema and weight gain Acute on chronic diastolic CHF IV Lasix, monitor electrolytes Diabetes Insulin sliding scale Myasthenia gravis Controlled, continue prednisone taper Paroxysmal AFib Continue warfarin Morbid obesity Weight loss recommended CKD 4 Stable, monitor DVT prophylaxis-warfarin Full Code Quality Stroke Does the patient have a stroke diagnosis?: No VTE Prior VTE?: No VTE Risk Level:: Medical - moderate - high VTE Device Contraindication: Treatment Not Indicated VTE Drug Contraindication: N/A - Med Ordered
--- OUTSIDE RECORDS SUMMARY | 2025-03-12 12:30 | XMS_ITS | Clinical Summary ---
Author Organization [facility] Address [address] [phone] Phone Care Team Providers Care Sleeve Wheel Maker Name Role Phone DexEder loera Primary Care Provider [phone] Allergies Active Allergy Reactions Criticality Noted Date Comments Penicillins 04/17/2021 Medications warfarin (COUMADIN) 5 MG tablet Take 5 mg by mouth 03/03/20 21 Active insulin glargine (LANTUS) 100 UNIT/ML injection Inject under the skin every night 60 units qhs Active BD Insulin Syringe U/F 31G X 12/08 1 ML misc 22 Active Lancets (freestyle) lancets USE TO TEST SUGARS TWICE A DAY 10/30/19 22 Active glipiZIDE (GLUCOTROL) 5 MG tablet Take 1 tablet (5 mg total) by mouth 1 (one) time each day 30 tablet 5 06/10/20 22 Active omeprazole (PriLOSEC) [address] capsule Take 20 mg by mouth 1 (one) time each day Do not crush or chew. 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 temi kidney disease, stage 4 (severe) (HCC),Secondary hyperparathyroidism of renal origin (HCC) Take 1 capsule (0.25 mcg total) by mouth every other day 15 capsule 5 06/26/20 24 Active Jardiance 10 MG tabletIndications:Chron ic kidney disease, stage 4 (severe) (HCC),Type 2 diabetes mellitus with diabetic chronic kidney disease (HCC),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 09/18/19 25 Active methocarbamol (ROBAXIN) 500 MG tablet Take 500 mg by mouth in the morning and 500 mg in the evening and 500 mg before bedtime. 10/17/19 25 Active torsemide (DEMADEX) 20 MG tabletIndications:Chron ic kidney disease, stage 4 (severe) (HCC),Hypertension Take 2 tablets (40 mg total) by mouth 1 (one) time each day 180 tablet 3 01/12/20 25 026 Active predniSONE (DELTASONE) 20 MG tablet Take 20 mg by mouth 1 (one) time each day Active calcium carbonate (TUMS) 500 MG chewable tablet Chew 1 tablet 1 (one) time each day Active atenolol (TENORMIN) 50 MG tablet Take 50 mg by mouth 1 (one) time each day Active sodium bicarbonate 650 MG tabletIndications:Chron ic kidney disease, stage 4 (severe) (HCC),Chronic metabolic acidosis Take 1 tablet (650 mg total) by mouth 1 (one) time each day 90 tablet 3 02/27/20 25 026 Active Sodium Zirconium Cyclosilicate (Lokelma) 10 g packIndications:Chronic kidney disease, stage 4 (severe) (HCC),Chronic metabolic acidosis Take 10 g by mouth every other day Weekly 36 each 3 02/27/20 25 026 Active losartan (COZAAR) 25 MG tabletIndications:Chron ic kidney disease, stage 4 (severe) (HCC),Hypertension Take 1 tablet (25 mg total) by mouth 1 (one) time each day 90 tablet 3 02/21/20 24 025 Discontin ued(Med List Maintenan ce) Sodium Zirconium Cyclosilicate (LOKELMA PO) Take by mouth Weekly 025 Discontin ued(Reord er (does not appear on AVS)) sodium bicarbonate 650 MG tablet Take 650 mg by mouth in the morning and 650 mg in the evening. 10/17/19 25 025 Discontin ued(Reord er (does not appear on AVS)) Hospital, Clinic, or Other Facility Administered Medication Ordered Dose Route Frequency Start Date End Date Status epoetin lawson (EPOGEN,PROCRIT) injection 20,000 UnitsIndications:Anemi a due to Renal Failure 02523 Units IV Every 14 days 07/08/2022 Active epoetin lawson (EPOGEN,PROCRIT) injection 40,000 UnitsIndications:Anemi a due to Renal Failure 63244 Units IV Every 14 days 07/22/2022 Active epoetin lawson (EPOGEN,PROCRIT) injection 30,000 UnitsIndications:Anemi a due to Renal Failure 56353 Units IV Every 14 days 08/05/2022 Active ferumoxytol (FERAHEME) injection 510 mgIndications:Iron deficiency anemia, not otherwise specified 510 mg IV Once in dialysis 01/28/2023 Active Epoetin Lawson-epbx solution 20,000 UnitsIndications:Chron ic kidney disease, not otherwise specified,Anemia in chronic kidney disease 73032 Units IJ Once 07/27/2023 A ctive Active [...] Encounters Date Type Department Care Team Description 03/09/2025 Orders Only [facility] [address] [phone] Cassandra Jordan ARNP 02/26/2025 1:15 PM EDT Office Visit [facility] 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 Chronic kidney disease, stage 4 (severe) ([facility]); Hypertension; Anemia in chronic kidney disease; Secondary hyperparathyroidism of renal origin (HCC); Focal segmental glomerulosclerosis; Other iron deficiency anemia 01/11/2025 Orders Only [facility] [address] [phone] Cassandra JordanARLINP Chronic kidney disease, stage 4 (severe) ([facility]); Hypertension 01/11/2025 Refill [facility] [address] [phone] Cassandra JordanSATNAM Chronic kidney disease, stage 4 (severe) ([facility]); Hypertension from Last 3 Months Family History Medical [...] Sign Reading Time Taken Comments Blood Pressure 132/70 02/26/2025 1:39 PM EDT Pulse 86 02/26/2025 1:11 PM EDT Temperature - - Respiratory Rate 20 06/22/2023 11:30 AM EST Oxygen Saturation 98% 10/25/2024 10:12 AM EDT Inhaled Oxygen Concentration - - Weight 112 kg (247 lb 6.4 oz) 02/26/2025 1:11 PM EDT Height 172.7 cm (5' 8 ) 04/17/2021 4:04 PM EDT Body Mass Index 37.62 04/17/2021 4:04 PM EDT Plan of Treatment Upcoming Encounters Date Type Department Care Team (Late st Contact Info) Description 05/28/2025 3:15 PM EST Office Visit [facility] [address] [phone] Colten Ponce MD [address] [phone] Health Maintenance Due Date Last Done Comments Pneumococcal Vaccine: 50+ Years (1 of 2 - PCV) 1973 Colorectal Cancer Screening: Annual FOBT 2003 Colorectal Cancer Screening: Colonoscopy 2003 Colorectal Cancer Screening: Sigmoidoscopy 2003 Diabetes: Ophthalmology Exam 04/17/2021 Diabetes: Pedal Pulse Checked 04/17/2021 Diabetes: Sensory Foot Exam 04/17/2021 Diabetes: Visual Foot Exam 04/17/2021 Influenza Vaccine (#1) 2025 Diabetes: Hemoglobin A1C 05/05/2025 025, 10/02/2024, 06/08/2024, Additional history exists Hepatitis B Vaccine Aged Out No longe r eligible based on patient's age to complete this topic Procedures Procedure Name Priority Date/Time Associated Diagnosis Comments URINALYSIS RFX MICROSCOPIC Routine 03/09/2025 12:00 PM EDT URINE CULTURE Routine 03/09/2025 12:00 PM EDT Chronic kidney disease, stage 4 (severe) (HCC) PTH, INTACT Routine 03/09/2025 12:00 PM EDT Chronic kidney disease, stage 4 (severe) (HCC) Focal segmental glomerulosclerosis Hypertension Anemia in chronic kidney disease Secondary hyperparathyroidism of renal origin (HCC) FERRITIN Routine 03/09/2025 12:00 PM EDT Chronic kidney disease, stage 4 (severe) (HCC) Focal segmental glomerulosclerosis Hypertension Anemia in chronic kidney disease Secondary hyperparathyroidism of renal origin (HCC) IRON PANEL (FE, TIBC, TSAT) Routine 03/09/2025 12:00 PM EDT Chronic kidney disease, stage 4 (severe) (HCC) Focal segmental glomerulosclerosis Hypertension Anemia in chronic kidney disease Secondary hyperparathyroidism of renal origin (HCC) CBC Routine 03/09/2025 12:00 PM EDT Chronic kidney disease, stage 4 (severe) (HCC) Focal segmental glomerulosclerosis Hypertension Anemia in chronic kidney disease Secondary hyperparathyroidism of renal origin (HCC) PROTEIN / CREATININE RATIO, URINE Routine 03/09/2025 12:00 PM EDT Chronic kidney disease, stage 4 (severe) (HCC) Focal segmental glomerulosclerosis Hypertension Anemia in chronic kidney disease Secondary hyperparathyroidism of renal origin (HCC) URINE ALBUMIN / CREATININE RATIO Routine 03/09/2025 12:00 PM EDT Chronic kidney disease, stage 4 (severe) (HCC) Focal segmental glomerulosclerosis Hypertension Anemia in chronic kidney disease Secondary hyperparathyroidism of renal origin (HCC) RENAL FUNCTION PANEL Routine 03/09/2025 12:00 PM EDT Chronic kidney disease, stage 4 (severe) (HCC) Focal segmental glomerulosclerosis Hypertension Anemia in chronic kidney disease Secondary hyperparathyroidism of renal origin (HCC) HEMOGLOBIN A1C Routine 06/10/2023 11:01 AM EST [...] Relevant to Health Maintenance Results * (ABNORMAL) Iron Panel (Fe, TIBC, TSAT) (03/09/2025 12:00 PM EDT) Iron 24(L) 50 - 160 mcg/dL [facility] TIBC 374 250 - 450 mcg/dL [facility] Iron Saturation (TSat) 6(L) 20 - 50 % [facility] Blood Venous blood / Unknown 03/09/2025 12:00 PM EDT 03/09/2025 3:07 PM EDT Cassandra OLIVEROSP LAB BLOOD ORDERABLES Final Result Performing Organization Address City/[facility]/ZIP Co de Phone Number [facility] [address] [place] [address] * (ABNORMAL) Urine Protein / creatinine ratio (03/09/2025 12:00 PM EDT) Protein, Ur 32 mg/dL [facility] Urine Protein/Creati nine Ratio 0.68(H) <=0.20 mg/mg [facility] Creatinine, Urine 47.0 mg/dL [facility] Urine Urine specimen obtained by clean catch procedure / Unknown 03/09/2025 12:00 PM EDT 03/09/2025 3:09 PM EDT Cassandra Jordan [facility] URINE ORDERABLES Final Result Performing Organization Address [facility]/ZIP Co de Phone Number [facility] [address] [place] [address] * (ABNORMAL) Urine Albumin / Creatinine Ratio (03/09/2025 12:00 PM EDT) Creatinine, Urine 47.0 mg/dL [facility] Microalbumin Urine Random 325.0(H) 0.0 - 29.0 mg/L [facility] Microalbumin/Cre atinine Ratio 691(H) <30 mg/g [facility] Urine Urine specimen obtained by clean catch procedure / Unknown 03/09/2025 12:00 PM EDT 03/09/2025 3:09 PM EDT [facility] URINE ORDERABLES Final Result [facility] [address] [place] [address] * (ABNORMAL) Urinalysis Reflex Microscopic (03/09/2025 12:00 PM EDT) Specific [place] 1.010 1.003 - 1.030 [facility] pH Urine 5.5 5.0 - 8.0 pH [facility] LEUKOCYTES, URINE Negative Negative [facility] Nitrite, Urine Negative Negative [facility] Protein, Urine 30(A) <=Trace mg/dL [facility] Glucose Urine >=1000(A) Negative mg/dL [facility] Ketones, Urine Negative Negative mg/dL [facility] Urobilinogen Urine 0.2 0.2 - 1.0 mg/dL [facility] Bilirubin Urine Negative Negative [facility] Blood Urine Negative Negative [facility] RBC, Urine 2.0 0 - 4 /HPF [facility] WBC, Urine 0.1 0 - 4 /HPF [facility] Squamous Epithelial, Urine 1 0 - 60 /LPF [facility] Bacteria, Urine Negative Negative /HPF [facility] Hyaline Casts, UA 0.0 0 - 3 /LPF [facility] 03/09/2025 12:0 0 PM EDT 03/09/2025 3:09 PM EDT Result [facility] URINE ORDERABLES Final Result [facility] [address] [place] [address] * (ABNORMAL) CBC (03/09/2025 12:00 PM EDT) WBC 7.6 4.8 - 10.8 K/[facility] RBC 4.60 4.50 - 5.50 M/[facility] Hgb 9.2(L) 13.5 - 17.5 g/dL [facility] Hematocrit 33.4(L) 42.0 - 54.0 % [facility] MCV 73.4(L) 79.0 - 98.0 FL [facility] MCH 20.2(L) 27.0 - 32.0 pcg [facility] MCHC 27.5(L) 32.0 - 37.0 g/dL [facility] RDW 19.2(H) 11.0 - 15.0 % [facility] Platelets 119(L) 130 - 400 K/[facility] MPV [facility] Comment:Not Measured nRBC Count 0.3 <1.0 % [facility] NRBC Absolute 0.02 <0.10 K/[facility] Blood Venous blood / Unknown 03/09/2025 12:00 PM EDT 03/09/2025 3:11 PM EDT Cassandra Jordan [facility] BLOOD ORDERABLES Final Result [facility] [address] [place] [address] * Urine culture (03/09/2025 12:00 PM EDT) Culture Result, Urine No growth [facility] Urine Urine specimen obtained by clean catch procedure / Unknown 03/09/2025 12:00 PM EDT 03/09/2025 3:09 PM EDT [facility]INE ORDERABLES Final Result Performing Organization Address [facility] Co de Phone Number [facility] [address] [place] [address] * (ABNORMAL) PTH, intact (03/09/2025 12:00 PM EDT) Pathologist [facility] PTH 487.2(H) 18.5 - 88.0 pcg/mL [facility] Blood Venous blood / Unknown 03/09/2025 12:00 PM EDT 03/09/2025 3:07 PM EDT us [facility] BLOOD ORDERABLES Final Result Performing Organization Address [facility] Co de Phone Number [facility] [address] [place] [address] * (ABNORMAL) Ferritin (03/09/2025 12:00 PM EDT) [facility] [address] Ferritin 10(L) 26 - 388 ng/mL [facility] Blood Venous blood / Unknown 03/09/2025 12:00 PM EDT 03/09/2025 3:[address] [facility] BLOOD ORDERABLES Final Result Performing Organization Address [facility] Co de Phone Number [facility] [address] [place] [address] * (ABNORMAL) Renal function panel (03/09/2025 12:00 PM EDT) [facility] [address] Sodium 138 133 - 145 mmol/L [facility] Potassium 3.8 3.5 - 5.5 mmol/L [facility] Chloride 103 96 - 110 mmol/L [facility] Bicarbonate (CO2) 27 21 - 32 mmol/L [facility] Anion Gap 8 3 - 11 [facility] Glucose 122(H) 70 - 100 mg/dL [facility] BUN 63(H) 5 - 25 mg/dL [facility] Creatinine Serum 2.86(H) 0.70 - 1.30 mg/dL [facility] eGFR 23(L) >=60 mL/min/1. 73m2 [facility] Comment:Calculation based on the Chronic Kidney Disease Epidemiology Collaboration (CKD-EPI) equation refit without adjustment for race. BUN/Creatinine Ratio 22.0 [facility] Albumin 3.2 3.2 - 5.0 g/dL [facility] Calcium 7.5(L) 8.5 - 10.5 mg/dL [facility] Phosphorus 4.0 2.5 - 4.5 mg/dL [facility] Blood Venous blood / Unknown 03/09/2025 12:00 PM EDT 03/09/2025 3:07 PM EDT Cassandra Jordan [facility] BLOOD ORDERABLES Final Result RANDY [facility] [address] [place] [address] * (ABNORMAL) Hemoglobin A1c (06/10/2023 11:01 AM EST) Hemoglobin A1C 5.9(H) (4.0-5.6) % [facility] Comment: MONITORING: In known diabetic patients, hemoglobin A1c targets should be discussed with health care provider. DIAGNOSTIC USE: The [place] Diabetes Association (ADA) and the World Health [...] Supplement 1 Testing performed or reported by [facility] Reference [employer], a Service of [facility], [address] [place] [address] Keegan Carrillo MD, Drilling Engineering Manager [facility]# [id number] Blood specimen (specimen) Venous blood / Unknown 06/10/2023 11:01 AM EST 06/10/2023 11:06 AM EST Shawn Florez MD LAB BLOOD ORDERABLES Marianna anderson Result [facility] from Last 3 Months or Most Recently Relevant to Health Maintenance Insurance Medicare Care Teams Sleeve Wheel Maker Relationship Specialty Start Date End Date Eder Ortega DO [address] [place] [address] PCP - General Internal Medicine 02/26/21
--- NOTE | 2025-03-12 13:56 | PHA.MEDREC ---
Addendum entered by Sal Ferrari RP 03/12/25 14:15: Reviewed by [facility] Original Note: Pharmacy Consult ? Medication Reconciliation Pharmacy has completed the medication reconciliation. patient states he is no longer taking Ferrous sulfate 325 mg. Patient states he thinks he takes Jardiance 10 mg , however there is no claim history and patient is also taking Glipizide 5 mg BID. Left Jardiance of med rec. Patient confirmed Lantus 30 units daily, Mestinon 60 mg 3-4 times daily PRN. Patient states he only takes when his legs start cramping, Prednisone 10 mg daily for 4 weeks then will be tapered by provider. Patient is taring to wean off, Lokelma 10 g every Wednesday, last dose 03/05/25, Sodium Bicarbonate 650 mg daily not BID at claims states, Warfarin 5 mg daily. Patient states he just got his INR checked and it was 1.9. He is to continue 5 mg daily. Patient states he last had his medications yesterday.
[2025-03-12] MEDS: 0.9 % Sodium Chloride Flush 3 ML SYRINGE IVFLUSH ×2 (15:31→23:25)
[2025-03-12 18:03] LABS: Glucose, Whole Blood 169 mg/dL (60-115)
--- NOTE | 2025-03-12 19:21 | PC.NURSE ---
Paco text sent to pharmacy as warfaring is not in the pyxis. Waiting for med to come down for administration.
--- NOTE | 2025-03-12 20:28 | PC.NURSE ---
Second tiger text sent to pharmacy regarding missing warfarin.
[2025-03-12 22:08] LABS: Glucose, Whole Blood 160 mg/dL (60-115)
[2025-03-12 23:30] LABS: Glucose, Whole Blood 123 mg/dL (60-115)
[2025-03-13 02:18] VITALS: BP 124/63; PULSE 91; RESP 24; TEMP 37; O2SAT 95
--- NOTE | 2025-03-13 03:28 | PC.NURSE ---
Called lab regarding BNP from 03/12/25 0405. Manan at the lab reports there is no reagent to run this lab. Labs are being held and tested once reagent is available.
[2025-03-13 05:43] VITALS: BP 135/72; PULSE 88; RESP 18; TEMP 36.7; O2SAT 95
[2025-03-13 05:47] LABS: Hemoglobin 9.5 g/dl (14.0-18.0); NRBC Abs Auto 0.000 X10*3/uL (0.0-0.012); NRBC Pct Auto 0.0 /100WBC (0.0-0.2); White Blood Count 7.5 X10*3/uL (4.8-10.8)
[2025-03-13 05:49] LABS: Hematocrit 34.8 % (42.0-52.0); Mean Corpuscular HGB Conc 27.3 g/dl (31.0-36.0); Mean Corpuscular Hemoglobin 19.9 pg (27.0-33.0); Mean Corpuscular Volume 73.0 fL (80.0-98.0); Red Blood Count 4.77 X10*6/uL (4.60-5.80)
[2025-03-13 05:53] LABS: PLT ABN DIST 1; Platelet Count 97 X10*3/uL (160-400)
[2025-03-13 06:05] LABS: Anion Gap 17 (12-20); Blood Urea Nitrogen 63 mg/dL (9-16); Calcium 8.2 mg/dL (8.4-10.2); Carbon Dioxide 27 mmol/L (22-29); Chloride 101 mmol/L (96-108); Creatinine Clr Calc Pharmacy 30.2; Estimated Glomerular Filt Rate 23; Magnesium 2.3 mg/dL (1.6-2.6); Potassium 4.2 mmol/L (3.3-5.1); Sodium 141 mmol/L (135-145)
[2025-03-13 06:15] LABS: INTERNATIONAL NORM RATIO 1.5 (0.9-1.1); Prothrombin Time 16.8 SEC (10.9-12.4)
[2025-03-13 07:33] LABS: Glucose, Whole Blood 118 mg/dL (60-115)
[2025-03-13 08:02] VITALS: BP 134/78; PULSE 93; RESP 16; TEMP 36.5; O2SAT 97
[2025-03-13] MEDS: Insulin Glargine,Hum.rec.anlog 100 UNIT/ML 10 ML VIAL 30 UNIT SUBCUT (08:12)
[2025-03-13] MEDS: Ferrous Sulfate 324 MG TABLET.DR PO (08:12)
[2025-03-13] MEDS: Furosemide 40 MG/4 ML VIAL IVPUSH ×2 (08:12→18:17)
--- NOTE | 2025-03-13 09:46 | MHC.CM.PN ---
IMM 03/13/25, Pt. lives alone, he does not use home health services or DME. He has had services from [facility] a few months ago. HCP is on file and confirmed: Liz. PCP confirmed: Dr. Ortega. Pt. is able to arrange transport home at DC, DCP: home, self care, CM to follow for DC needs.
[2025-03-13] MEDS: Sodium Ferric Gluconat/Sucrose 125 MG in 0.9 % Sodium Chloride 100 ML 100 MG IV (10:27)
--- NOTE | 2025-03-13 10:38 | HO.PM.IMPN ---
Subjective Subjective Date of Service: 03/13/25 Interval History: Abdominal bloating slightly improved Reports urinating more than usual with Lasix neck is tired and left eye with some ptosis, feels MG starting to flare Physical Exam Exam: Exam: General: AO X 3, no acute distress Resp: CTA bilateral, no accessory muscles used CVS: S1,S2,RRR, 4+ edema GI: soft, non tender, non distended Neuro: left eye ptosis, alert Psych: appropriate affect, appropriate insight Vital Signs: Vital Signs: Last Vital Signs Temp 97.7 F 03/13/25 08:02 Pulse 93 03/13/25 08:02 Resp 16 03/13/25 08:02 BP 134/78 03/13/25 08:02 Pulse Ox 97 03/13/25 08:02 O2 Del Method Room Air 03/13/25 08:02 BMI result Body Mass Index 40.6 Objective Data Active Medications Acetaminophen (Acetaminophen 325 Mg Tablet) 650 mg PO Q6H PRN PRN Reason: Pain, Mild 1-3,fever,headache Atenolol (Atenolol 50 Mg Tablet) 50 mg PO DAILY [facility]; Protocol Last Admin: 03/13/25 08:13 Dose: Not Given Documented By: MADELEINE Non-Admin Reason: Patient Refused Atorvastatin Calcium (Atorvastatin Calcium 40 Mg Tablet) 40 mg PO BEDTIME [facility] Last Admin: 03/12/25 20:50 Dose: 40 mg Documented By: NATE Calcitriol (Calcitriol 0.25 Mcg Capsule) 0.25 mcg PO Q48H [facility] Last Admin: 03/13/25 08:13 Dose: Not Given Documented By: MADELEINE Non-Admin Reason: Patient Refused Calcium Carbonate (Calcium Carbonate 750 Mg Tab.Chew) 750 mg PO Q4H PRN PRN Reason: Heartburn Dextrose (Dextrose 50 % 25 Gm/50 Ml Syringe) 25 gm IVPUSH Q15M PRN; Protocol PRN Reason: per Hypoglycemia Standing Ord. Ferrous Sulfate (Ferrous Sulfate 324 Mg Tablet.) 324 mg PO DAILY [facility] Last Admin: 03/13/25 08:12 Dose: 324 mg Documented By: MADELEINE Furosemide (Furosemide 40 Mg/4 Ml Vial) 40 mg IVPUSH BID@0900,1800 [facility]; Protocol Last Admin: 03/13/25 08:12 Dose: 40 mg Documented By: MADELEINE Glucose (Glucose Gel 15 Gm Gel..Gram.) 15 gm PO Q15M PRN; Protocol PRN Reason: per Hypoglycemia Standing Ord. Insulin Glargine (Insulin Glargine,Hum.Rec.Anlog 100 Unit/Ml 10 Ml Vial) 30 unit SUBCUT DAILY [facility] Last Admin: 03/13/25 08:12 Dose: 30 unit Documented By: MADELEINE Insulin Human Lispro (Insulin Lispro 100 Unit/Ml 3 Ml Vial) 0 unit SUBCUT QIDACHS [facility]; Protocol Last Admin: 03/13/25 07:34 Dose: Not Given Documented By: MADELEINE Non-Admin Reason: No Insulin Coverage Isosorbide Mononitrate (Isosorbide Mononitrate 30 Mg Tab.Er.24h) 30 mg PO DAILY [facility]; Protocol Last Admin: 03/13/25 08:12 Dose: 30 mg Documented By: MADELEINE Magnesium Hydroxide (Milk Of Magnesia 30 Ml Oral.Susp) 30 ml PO DAILY PRN PRN Reason: Constipation Melatonin (Melatonin 3 Mg Tablet) 6 mg PO BEDTIME PRN PRN Reason: Insomnia Omeprazole (Omeprazole 20 Mg Capsule.Dr) 20 mg PO DAILY@0630 [facility] Last Admin: 03/13/25 06:13 Dose: 20 mg Documented By: NATE Prednisone (Prednisone 10 Mg Tablet) 20 mg PO DAILY [facility]; Taper Stop: 03/19/25 08:59 Last Admin: 03/13/25 08:11 Dose: 20 mg Documented By: MADELEINE Pyridostigmine [place] (Pyridostigmine [place] 60 Mg Tablet) 60 mg PO QID PRN PRN Reason: Muscle Pain Last Admin: 03/13/25 08:54 Dose: 60 mg Documented By: MADELEINE Sodium Bicarbonate (Sodium Bicarbonate 650 Mg Tablet) 650 mg PO DAILY [facility] Last Admin: 03/13/25 08:11 Dose: 650 mg Documented By: MADELEINE Sodium Chloride (0.9 % Sodium Chloride Flush 3 Ml Syringe) 3 ml IVFLUSH QSHIFT [facility] Last Admin: 03/13/25 07:46 Dose: Not Given Documented By: MADELEINE Non-Admin Reason: See Note Sodium Zirconium Cyclosilicate (Sodium Zirconium Cyclosilicate 10 Gm Powd.Pack) 10 gm PO MO [facility] Last Admin: 03/12/25 15:30 Dose: 10 gm Documented By: DEANNA Warfarin Sodium (Warfarin Sodium 5 Mg Tablet) 5 mg PO DAILY@1800 [facility] Last Admin: 03/12/25 20:49 Dose: 5 mg Documented By: NATE Labs 03/13/25 04:56 03/13/25 04:56 Labs: Laboratory Results - last 24 hr 03/12/25 03/12/25 03/12/25 10:49 10:50 18:00 MCV 72.8 L MCH 20.1 L MCHC 27.6 L RDW 19.8 H Plt Count 105 L MPV Not Reportable Immature Gran % (Auto) 0.5 H Neut % (Auto) 90.6 H Lymph % (Auto) 3.8 L [place] % (Auto) 4.2 Eos % (Auto) 0.6 Baso % (Auto) 0.3 Lymph # (Auto) 0.4 L [place] # (Auto) 0.4 Eos # (Auto) 0.1 Baso # (Auto) 0.0 Abs Immat Gran (auto) 0.05 H Absolute Neuts (auto) 8.4 H Absolute Nucleated RBC 0.000 Nucleated RBC % (auto) 0.0 Smear Tech's Comments VERIFIED PT 17.2 H D INR 1.5 H Anion Gap 15 Estim Creat Clear Calc 29.8 Estimated GFR 22 POC Glucose 169 H Random Glucose 132 H Calcium 8.2 L Magnesium 2.2 Total Bilirubin 0.7 Direct Bilirubin 0.3 AST 21 ALT 34 Alkaline Phosphatase 100 Total Protein 6.5 Albumin 4.1 TSH 1.13 Urine Color Yellow Urine Appearance Clear Urine pH 5.5 Ur Specific [place] 1.010 Urine Protein Trace Urine Glucose (UA) 500 H Urine Ketones Negative Urine Blood Trace H Urine Nitrite Negative Ur Leukocyte Esterase Negative Urine RBC 0-2 Urine WBC 0-5 Ur Squamous Epith Cells 0-2 Urine Bacteria None Seen Hyaline Casts 0-2 03/12/25 03/12/25 03/13/25 21:57 23:24 04:56 MCV 73.0 L MCH 19.9 L MCHC 27.3 L RDW 19.8 H Plt Count 97 L MPV Not Reportable Immature Gran % (Auto) Neut % (Auto) Lymph % (Auto) [place] % (Auto) Eos % (Auto) Baso % (Auto) Lymph # (Auto) [place] # (Auto) Eos # (Auto) Baso # (Auto) Abs Immat Gran (auto) Absolute Neuts (auto) Absolute Nucleated RBC 0.000 Nucleated RBC % (auto) 0.0 Smear Tech's Comments PT 16.8 H INR 1.5 H Anion Gap 17 Estim Creat Clear Calc 30.2 Estimated GFR 23 POC Glucose 160 H 123 H Random Glucose 115 Calcium 8.2 L Magnesium 2.3 Total Bilirubin Direct Bilirubin AST ALT Alkaline Phosphatase Total Protein Albumin TSH Urine Color Urine Appearance Urine pH Ur Specific [place] Urine Protein Urine Glucose (UA) Urine Ketones Urine Blood Urine Nitrite Ur Leukocyte Esterase Urine RBC Urine WBC Ur Squamous Epith Cells Urine Bacteria Hyaline Casts 03/13/25 07:30 MCV MCH MCHC RDW Plt Count MPV Immature Gran % (Auto) Neut % (Auto) Lymph % (Auto) [place] % (Auto) Eos % (Auto) Baso % (Auto) Lymph # (Auto) [place] # (Auto) Eos # (Auto) Baso # (Auto) Abs Immat Gran (auto) Absolute Neuts (auto) Absolute Nucleated RBC Nucleated RBC % (auto) Smear Tech's Comments PT INR Anion Gap Estim Creat Clear Calc Estimated GFR POC Glucose 118 H Random Glucose Calcium Magnesium Total Bilirubin Direct Bilirubin AST ALT Alkaline Phosphatase Total Protein Albumin TSH Urine Color Urine Appearance Urine pH Ur Specific [place] Urine Protein Urine Glucose (UA) Urine Ketones Urine Blood Urine Nitrite Ur Leukocyte Esterase Urine RBC Urine WBC Ur Squamous Epith Cells Urine Bacteria Hyaline Casts Assessment and Plan (1) Congestive heart failure: Status: Acute Plan 69M PMH DM, mysathenia gravis, pafib on warfarin, ckd IV, morbid obesity, htn, hld presented with worsening edema and weight gain Acute on chronic diastolic CHF IV Lasix, monitor electrolytes Diabetes Insulin sliding scale Myasthenia gravis with mild flare Controlled, continue prednisone and mestinon Paroxysmal AFib Continue warfarin Morbid obesity Weight loss recommended CKD 4 Stable, monitor DVT prophylaxis-warfarin Full Code reason for continued hospitalization:iv diuresis Quality Stroke Does the patient have a stroke diagnosis?: No VTE Prior VTE?: No VTE Risk Level:: Medical - moderate - high VTE Device Contraindication: Treatment Not Indicated VTE Drug Contraindication: N/A - Med Ordered
--- NOTE | 2025-03-13 12:12 | MHC.EDTECH ---
pt urinated 400ml of pale yellow urine into urinal
[2025-03-13 12:38] LABS: B Type Natriuretic Peptide 755 pg/mL (<100)
[2025-03-13 12:59] LABS: Glucose, Whole Blood 201 mg/dL (60-115)
[2025-03-13 13:54] VITALS: BP 130/71; PULSE 101; RESP 15; O2SAT 96
[2025-03-13 18:12] LABS: Glucose, Whole Blood 210 mg/dL (60-115)
[2025-03-13 19:08] VITALS: BP 119/73; PULSE 100; RESP 20; TEMP 36.4; O2SAT 97
[2025-03-13 20:26] VITALS: BMI 39.2
[2025-03-13 20:30] VITALS: BP 145/65; PULSE 95; RESP 18; TEMP 36.7; O2SAT 98
[2025-03-13] MEDS: 0.9 % Sodium Chloride Flush 3 ML SYRINGE IVFLUSH (20:55)
[2025-03-13 20:57] LABS: Glucose, Whole Blood 242 mg/dL (60-115)
[2025-03-14] VITALS (7 sets, daily range): BP systolic 128–163; BP diastolic 62–90; PULSE 88–122; RESP 18–20; TEMP 36.2–36.8; O2SAT 95–99
[2025-03-14 07:21] LABS: Glucose, Whole Blood 186 mg/dL (60-115)
[2025-03-14 08:02] LABS: Hematocrit 32.8 % (42.0-52.0); Hemoglobin 9.1 g/dl (14.0-18.0); Mean Corpuscular HGB Conc 27.7 g/dl (31.0-36.0); Mean Corpuscular Hemoglobin 19.9 pg (27.0-33.0); Mean Corpuscular Volume 71.6 fL (80.0-98.0); NRBC Abs Auto 0.000 X10*3/uL (0.0-0.012); NRBC Pct Auto 0.0 /100WBC (0.0-0.2); Red Blood Count 4.58 X10*6/uL (4.60-5.80); White Blood Count 7.0 X10*3/uL (4.8-10.8)
[2025-03-14 08:03] LABS: Platelet Count 99 X10*3/uL (160-400)
[2025-03-14 08:09] LABS: INTERNATIONAL NORM RATIO 1.7 (0.9-1.1); Prothrombin Time 19.7 SEC (10.9-12.4)
[2025-03-14] MEDS: Ferrous Sulfate 324 MG TABLET.DR PO (08:12)
[2025-03-14] MEDS: Insulin Glargine,Hum.rec.anlog 100 UNIT/ML 10 ML VIAL 30 UNIT SUBCUT (08:15)
[2025-03-14] MEDS: 0.9 % Sodium Chloride Flush 3 ML SYRINGE IVFLUSH ×3 (08:17→22:08)
[2025-03-14] MEDS: Furosemide 40 MG/4 ML VIAL IVPUSH ×2 (08:23→17:32)
[2025-03-14 08:26] LABS: Anion Gap 16 (12-20); Blood Urea Nitrogen 65 mg/dL (9-16); Calcium 8.2 mg/dL (8.4-10.2); Carbon Dioxide 29 mmol/L (22-29); Chloride 99 mmol/L (96-108); Creatinine Clr Calc Pharmacy 30.5; Estimated Glomerular Filt Rate 23; Magnesium 2.2 mg/dL (1.6-2.6); Potassium 4.2 mmol/L (3.3-5.1); Sodium 140 mmol/L (135-145)
[2025-03-14 11:38] LABS: Glucose, Whole Blood 160 mg/dL (60-115)
--- NOTE | 2025-03-14 15:52 | HO.PM.IMPN ---
Subjective Subjective Date of Service: 03/14/25 Interval History: Notes breathing somewhat improved as well as edema. Review of Systems Denies chest pain Denies shortness of breath Denies nausea vomiting diarrhea Denies fever chills Physical Exam Vital Signs: Vital Signs: Last Vital Signs Temp 97.4 F 03/14/25 15:50 Pulse 92 03/14/25 15:50 Resp 18 03/14/25 15:50 BP 135/90 H 03/14/25 15:50 Pulse Ox 95 03/14/25 15:50 O2 Del Method Room Air 03/14/25 15:50 BMI result Body Mass Index 39.2 Const: Other: Awake alert no acute distress Resp: Other: Clear to auscultation bilaterally no rales rhonchi or wheezes Cardio: Other: No S4; positive S1-S2; no S3 murmurs rubs or gallops GI: Other: Soft nontender nondistended normoactive bowel sounds Extrem: Other: No edema bilaterally Objective Data Active Medications Acetaminophen (Acetaminophen 325 Mg Tablet) 650 mg PO Q6H PRN PRN Reason: Pain, Mild 1-3,fever,headache Atenolol (Atenolol 50 Mg Tablet) 50 mg PO BEDTIME [facility]; Protocol Atorvastatin Calcium (Atorvastatin Calcium 40 Mg Tablet) 40 mg PO BEDTIME [facility] Last Admin: 03/13/25 20:55 Dose: 40 mg Documented By: ELIV Calcitriol (Calcitriol 0.25 Mcg Capsule) 0.25 mcg PO Q48H [facility] Last Admin: 03/13/25 08:13 Dose: Not Given Documented By: MADELEINE Non-Admin Reason: Patient Refused Calcium Carbonate (Calcium Carbonate 750 Mg Tab.Chew) 750 mg PO Q4H PRN PRN Reason: Heartburn Dextrose (Dextrose 50 % 25 Gm/50 Ml Syringe) 25 gm IVPUSH Q15M PRN; Protocol PRN Reason: per Hypoglycemia Standing Ord. Ferrous Sulfate (Ferrous Sulfate 324 Mg Tablet.Dr) 324 mg PO DAILY [facility] Last Admin: 03/14/25 08:12 Dose: 324 mg Documented By: DENISE Furosemide (Furosemide 40 Mg/4 Ml Vial) 40 mg IVPUSH BID@0900,1800 [facility]; Protocol Last Admin: 03/14/25 08:23 Dose: 40 mg Documented By: DENISE Glucose (Glucose Gel 15 Gm Gel..Gram.) 15 gm PO Q15M PRN; Protocol PRN Reason: per Hypoglycemia Standing Ord. Insulin Glargine (Insulin Glargine,Hum.Rec.Anlog 100 Unit/Ml 10 Ml Vial) 30 unit SUBCUT DAILY [facility] Last Admin: 03/14/25 08:15 Dose: 30 unit Documented By: DENISE Insulin Human Lispro (Insulin Lispro 100 Unit/Ml 3 Ml Vial) 0 unit SUBCUT QIDACHS [facility]; Protocol Last Admin: 03/14/25 12:05 Dose: 2 unit Documented By: DENISE Isosorbide Mononitrate (Isosorbide Mononitrate 30 Mg Tab.Er.24h) 30 mg PO DAILY [facility]; Protocol Last Admin: 03/14/25 08:14 Dose: 30 mg Documented By: DENISE Magnesium Hydroxide (Milk Of Magnesia 30 Ml Oral.Susp) 30 ml PO DAILY PRN PRN Reason: Constipation Melatonin (Melatonin 3 Mg Tablet) 6 mg PO BEDTIME PRN PRN Reason: Insomnia Omeprazole (Omeprazole 20 Mg Capsule.Dr) 20 mg PO DAILY@0630 [facility] Last Admin: 03/14/25 06:03 Dose: 20 mg Documented By: ELVI Prednisone (Prednisone 10 Mg Tablet) 20 mg PO DAILY [facility]; Taper Stop: 03/19/25 08:59 Last Admin: 03/14/25 08:14 Dose: 20 mg Documented By: DENISE Pyridostigmine [place] (Pyridostigmine [place] 60 Mg Tablet) 60 mg PO QID [facility] Last Admin: 03/14/25 12:06 Dose: 60 mg Documented By: DENISE Sodium Bicarbonate (Sodium Bicarbonate 650 Mg Tablet) 650 mg PO DAILY [facility] Last Admin: 03/14/25 08:12 Dose: 650 mg Documented By: DENISE Sodium Chloride (0.9 % Sodium Chloride Flush 3 Ml Syringe) 3 ml IVFLUSH QSHIFT [facility] Last Admin: 03/14/25 08:17 Dose: 3 ml Documented By: DENISE Sodium Zirconium Cyclosilicate (Sodium Zirconium Cyclosilicate 10 Gm Powd.Pack) 10 gm PO MO [facility] Last Admin: 03/12/25 15:30 Dose: 10 gm Documented By: DEANNA Warfarin Sodium (Warfarin Sodium 5 Mg Tablet) 5 mg PO DAILY@1800 [facility] Labs 03/14/25 07:43 03/14/25 07:43 Labs: Laboratory Results - last 24 hr 03/13/25 03/13/25 03/14/25 18:06 20:52 07:17 MCV MCH MCHC RDW Plt Count MPV Absolute Nucleated RBC Nucleated RBC % (auto) PT INR Anion Gap Estim Creat Clear Calc Estimated GFR POC Glucose 210 H 242 H 186 H Random Glucose Calcium Magnesium 03/14/25 03/14/25 07:43 11:23 MCV 71.6 L MCH 19.9 L MCHC 27.7 L RDW 19.8 H Plt Count 99 L MPV Not Reportable Absolute Nucleated RBC 0.000 Nucleated RBC % (auto) 0.0 PT 19.7 H INR 1.7 H Anion Gap 16 Estim Creat Clear Calc 30.5 Estimated GFR 23 POC Glucose 160 H Random Glucose 176 H Calcium 8.2 L Magnesium 2.2 Assessment and Plan (1) Congestive heart failure: Status: Acute (2) Myasthenia gravis: Status: Acute Plan 69M PMH DM, mysathenia gravis, pafib on warfarin, ckd IV, morbid obesity, htn, hld presented with worsening edema and weight gain 1.Acute on chronic diastolic CHF -IV Lasix ...strict I/O -restart orals at dc -follow renals/divalents 2.Diabetes II -acceptable control on current therapies -lispro correctional scale -adjust as indicated 3.Myasthenia gravis with mild flare -prednisone and mestinon -adjust as indicated 4.Paroxysmal AFib -acceptable control on current therapies -warfarin Morbid obesity Weight loss recommended Warfarin Full Code reason for continued hospitalization:iv diuresis Quality Stroke Does the patient have a stroke diagnosis?: No VTE Prior VTE?: No VTE Risk Level:: Medical - moderate - high VTE Device Contraindication: Treatment Not Indicated VTE Drug Contraindication: N/A - Med Ordered
[2025-03-14 16:29] LABS: Glucose, Whole Blood 264 mg/dL (60-115)
[2025-03-14 20:55] LABS: Glucose, Whole Blood 209 mg/dL (60-115)
[2025-03-15] VITALS: BP 150/69; PULSE 96; RESP 20; TEMP 36.2; O2SAT 95
[2025-03-15 03:40] VITALS: BP 141/72; PULSE 67; RESP 18; TEMP 36.8; O2SAT 96
[2025-03-15 07:14] LABS: MANUAL DIFF FLAG NO
[2025-03-15 07:21] LABS: Hematocrit 35.3 % (42.0-52.0); Hemoglobin 9.9 g/dl (14.0-18.0); Imm Gran Abs Auto 0.04 X10*3/uL (0.00-0.03); Imm Gran Pct Auto 0.5 % (0.0-0.4); Lymphocytes Absolute Auto 0.9 X10*3/uL (1.2-4.9); Mean Corpuscular HGB Conc 28.0 g/dl (31.0-36.0); Mean Corpuscular Hemoglobin 20.3 pg (27.0-33.0); Mean Corpuscular Volume 72.5 fL (80.0-98.0); NRBC Abs Auto 0.000 X10*3/uL (0.0-0.012); NRBC Pct Auto 0.0 /100WBC (0.0-0.2); Platelet Count 103 X10*3/uL (160-400); Red Blood Count 4.87 X10*6/uL (4.60-5.80); White Blood Count 8.4 X10*3/uL (4.8-10.8)
[2025-03-15 07:33] LABS: Glucose, Whole Blood 100 mg/dL (60-115)
[2025-03-15 07:35] LABS: INTERNATIONAL NORM RATIO 1.8 (0.9-1.1); Prothrombin Time 21.2 SEC (10.9-12.4)
[2025-03-15 07:41] LABS: Alanine Aminotransferase 24 U/L (0-40); Albumin Level 4.0 g/dL (3.5-5.0); Alkaline Phosphatase 85 U/L (39-117); Anion Gap 15 (12-20); Aspartate Amino Transferase 21 U/L (5-37); Blood Urea Nitrogen 68 mg/dL (9-16); Calcium 8.2 mg/dL (8.4-10.2); Carbon Dioxide 29 mmol/L (22-29); Chloride 100 mmol/L (96-108); Creatinine Clr Calc Pharmacy 28.2; Estimated Glomerular Filt Rate 21; Potassium 4.2 mmol/L (3.3-5.1); Sodium 140 mmol/L (135-145); Total Protein 6.2 g/dL (6.5-8.0)
[2025-03-15 08:00] VITALS: BP 135/65; PULSE 78; RESP 18; TEMP 36.1; O2SAT 95
[2025-03-15] MEDS: Ferrous Sulfate 324 MG TABLET.DR PO (09:05)
[2025-03-15] MEDS: Insulin Glargine,Hum.rec.anlog 100 UNIT/ML 10 ML VIAL 30 UNIT SUBCUT (09:08)
[2025-03-15] MEDS: Furosemide 40 MG/4 ML VIAL IVPUSH (09:08)
[2025-03-15] MEDS: 0.9 % Sodium Chloride Flush 3 ML SYRINGE IVFLUSH (09:14)
[2025-03-15 11:57] LABS: Glucose, Whole Blood 172 mg/dL (60-115)
[2025-03-15 12:00] VITALS: BP 136/86; PULSE 86; RESP 18; TEMP 36.1; O2SAT 96
--- NOTE | 2025-03-15 13:58 | PM.DS ---
DS: Providers Provider Date of Service: 03/15/25 Date of admission: 03/12/25 11:44 Date of discharge: 03/15/25 Primary care physician: Eder Ortega DO, MD DS: Diagnosis Discharge Diagnosis (1) Congestive heart failure: Status: Acute (2) Myasthenia gravis: Status: Acute DS: Summary Hospital Course Hospital Course: 69M PMH DM, mysathenia gravis, pafib on warfarin, ckd IV, morbid obesity, htn, hld presented with worsening edema and weight gain. Patient states over the past couple weeks he has noticed increased lower extremity edema coming up to his abdomen. Worsening shortness of breath on exertion. 15-20 lb weight gain. Only change in medication was tapering of prednisone for myasthenia. He takes torsemide 40 mg b.i.d.. Denies chest pain, fever, chills, cough. Hospital Course Patient admitted to telemetry where monitor failed to demonstrate any acute dysrhythmias. He was switch to IV Lasix and over the course of the next 72 hours diuresed well. Patient states he was taking half his torsemide dose; review of weights demonstrates patient is back at his baseline of 112-113 kg. He has no respiratory distress or oxygen requirement. At this point in time he will be discharged on torsemide 40 mg twice daily and we will follow up with his systems program manager and PCP as scheduled Time Attestation Discharge Coordination Time (in mins): 35 Quality: Safe Use of Opioids Does Pt have an Active Cancer Diagnosis on the Problem List?: No Quality: Stroke Does the patient have a stroke diagnosis?: No Physical Exam Vital Signs: Vital Signs: Last Vital Signs Temp 97.0 F 03/15/25 12:00 Pulse 86 03/15/25 12:00 Resp 18 03/15/25 12:00 BP 136/86 03/15/25 12:00 Pulse Ox 96 03/15/25 12:00 O2 Del Method Room Air 03/15/25 12:00 BMI result Body Mass Index 39.2 Const: Other: Awake alert no acute distress Resp: Other: Clear to auscultation bilaterally no rales rhonchi or wheezes Cardio: Other: No S4; positive S1-S2; no S3 murmurs rubs or gallops GI: Other: Soft nontender nondistended normoactive bowel sounds Extrem: Other: No edema bilaterally DS: Data Data Completed and Pending Labs on day of discharge: Laboratory Results - last 24 hr 03/14/25 03/14/25 03/15/25 16:24 20:50 07:07 WBC 8.4 RBC 4.87 Hgb 9.9 L Hct 35.3 L MCV 72.5 L MCH 20.3 L MCHC 28.0 L RDW 20.3 H Plt Count 103 L MPV Not Reportable Immature Gran % (Auto) 0.5 H Neut % (Auto) 78.8 H Lymph % (Auto) 11.1 L [place] % (Auto) 7.8 Eos % (Auto) 1.4 Baso % (Auto) 0.4 Lymph # (Auto) 0.9 L [place] # (Auto) 0.7 Eos # (Auto) 0.1 Baso # (Auto) 0.0 Abs Immat Gran (auto) 0.04 H Absolute Neuts (auto) 6.6 Absolute Nucleated RBC 0.000 Nucleated RBC % (auto) 0.0 PT 21.2 H INR 1.8 H Sodium 140 Potassium 4.2 Chloride 100 Carbon Dioxide 29 Anion Gap 15 BUN 68 H Creatinine 2.93 H Estim Creat Clear Calc 28.2 Estimated GFR 21 POC Glucose 264 H 209 H Fasting Glucose 102 H Calcium 8.2 L Total Bilirubin 0.5 AST 21 ALT 24 Alkaline Phosphatase 85 Total Protein 6.2 L Albumin 4.0 03/15/25 03/15/25 07:14 11:47 WBC RBC Hgb Hct MCV MCH MCHC RDW Plt Count MPV Immature Gran % (Auto) Neut % (Auto) Lymph % (Auto) [place] % (Auto) Eos % (Auto) Baso % (Auto) Lymph # (Auto) [place] # (Auto) Eos # (Auto) Baso # (Auto) Abs Immat Gran (auto) Absolute Neuts (auto) Absolute Nucleated RBC Nucleated RBC % (auto) PT INR Sodium Potassium Chloride Carbon Dioxide Anion Gap BUN Creatinine Estim Creat Clear Calc Estimated GFR POC Glucose 100 172 H Fasting Glucose Calcium Total Bilirubin AST ALT Alkaline Phosphatase Total Protein Albumin Discharge Plan Discharge Anticipated Discharge Date/Time: 03/15/25 13:47 Patient Disposition: Home, Self-Care Discharge Diagnosis: Acute on chronic diastolic heart failure Referrals: Eder Ortega DO, MD [Primary Care Provider, Internal Medicine] - 1 Week Discharge Medications: New torsemide 20 mg tablet 40 mg PO BID Qty: 120 0RF Continued atorvastatin 40 mg tablet 40 mg PO BEDTIME warfarin 5 mg tablet 5 mg PO DAILY@1800 (DME) insulin syringe-needle U-100 [BD Insulin Syringe Ultra-Fine] 1 mL 31 gauge x 5/16 syringe MISCELLANEOUS DAILY calcitriol 0.25 mcg Capsule 0.25 mcg PO Q48H ferrous sulfate 325 mg (65 mg iron) Tablet 325 mg PO DAILY Qty: 90 3RF isosorbide mononitrate 30 mg tablet extended release 24 hr 30 mg PO DAILY loperamide 2 mg capsule 2 mg PO Q3H PRN (Reason: Loose Stool) pyridostigmine bromide 60 mg tablet 60 mg PO TID-QID PRN (Reason: Muscle Pain) atenolol 50 mg tablet 50 mg PO DAILY glipizide 5 mg tablet 5 mg PO BID [place] 10 gram powder in packet 10 g PO MO insulin glargine [Lantus U-100 Insulin] 100 unit/mL solution 30 unit subcut DAILY prednisone 20 mg tablet 10 mg PO DAILY Taper: Prednisone 20 mg daily for 3 Days and 0 Hour 10 mg daily for 3 Days and 0 Hour Rx Instructions: take 4 weeks then will be decreased sodium bicarbonate 650 mg tablet 650 mg PO DAILY omeprazole 20 mg Capsule,Delayed Release(Dr/Ec) 20 mg PO DAILY@0630 Discontinued torsemide 20 mg tablet 40 mg PO DAILY Discharge Orders: Discharge Order (Routine); Ordered 03/15/25 Ordered By: Kenan Garvin Diet: Advance to usual diet Activity on Discharge: As tolerated Stand Alone Forms: Patient Portal Discharge page Print Language: Unable To Collect Care Plan Goals: Your torsemide has been increased to 40 mg twice daily. Follow up with your PCP or systems program manager who can make adjustments at that time Health Concerns: Continue all other previous medicines as taken before you came to the hospital Plan of Treatment: Follow up with the PCP and your systems program manager. Next available appointment Assessment: See discharge summary
--- NOTE | 2025-03-15 15:50 | MHC.CM.PN ---
Pt is medically cleared for discharge home self-care, he will arrange his own transport home today.
[2025-03-15 16:00] VITALS: BP 145/93; PULSE 92; RESP 18; TEMP 36.1; O2SAT 100
[2025-03-15 17:20] LABS: Glucose, Whole Blood 197 mg/dL (60-115)
== END 2025-03-15 18:40 | disposition home or self-care (01) | DRG 291 ==
LOC: HO.ED 11:42 → HO.EDOVER 12:01 → HO.IMC 03-13 19:07
PROVIDERS: Admitting Provider Internal Medicine; Emergency Provider Emergency Medicine; PCP Internal Medicine; Visit Provider Hospitalist
DX: I13.0 Hypertensive heart and chronic kidney disease with heart failure and stage 1 through stage 4 chronic kidney disease, or unspecified chronic kidney disease (principal); G70.01 Myasthenia gravis with (acute) exacerbation; I50.33 Acute on chronic diastolic (congestive) heart failure; N18.4 Chronic kidney disease, stage 4 (severe); Z68.41 Body mass index [BMI] 40.0-44.9, adult; I48.0 Paroxysmal atrial fibrillation; E66.01 Morbid (severe) obesity due to excess calories; Z71.3 Dietary counseling and surveillance; E11.22 Type 2 diabetes mellitus with diabetic chronic kidney disease; Z79.4 Long term (current) use of insulin; Z79.01 Long term (current) use of anticoagulants; Z79.84 Long term (current) use of oral hypoglycemic drugs; Z79.899 Other long term (current) drug therapy
CPT/HCPCS: 36415; 71045; 80048; 80053; 80076; 81001; 81003; 82947; 83735; 83880; 84443; 84484; 85025; 85027; 85610; 93005; 99285; J1938; J2916

== ENCOUNTER → 2025-03-12 10:21 | Outpatient (BNV) | payer MEDICARE, SELFPAY | PROVIDERS: Admitting Provider Internal Medicine; Emergency Provider Emergency Medicine; PCP Internal Medicine; Visit Provider Internal Medicine Cardiovascular Disease | DX: I48.91 Unspecified atrial fibrillation (principal) | CPT/HCPCS: 93010 ==

== ENCOUNTER → 2025-03-12 10:21 | Outpatient (BNV) | payer MEDICARE, SELFPAY | PROVIDERS: Admitting Provider Internal Medicine; Emergency Provider Emergency Medicine; PCP Internal Medicine; Visit Provider Radiology Diagnostic Radiology | DX: J84.9 Interstitial pulmonary disease, unspecified (principal) | CPT/HCPCS: 71045 ==

== ENCOUNTER → 2025-03-12 11:44 | Outpatient (BNV) | payer MEDICARE, SELFPAY | PROVIDERS: Admitting Provider Internal Medicine; Emergency Provider Emergency Medicine; PCP Internal Medicine; Visit Provider Internal Medicine | DX: I50.9 Heart failure, unspecified (principal) | CPT/HCPCS: 99223; 99232; 99239 ==

== ENCOUNTER 2025-04-23 10:37 | Outpatient (AMB) | payer MEDICARE, SELFPAY ==
--- OUTSIDE RECORDS SUMMARY | 2025-04-19 12:30 | XMS_ITS | Encounter Summary ---
Author Organization [facility] Address [address] [place] [address] Care Team Providers Care Cigar Wrapper Name Role Phone Shannon Eder Primary Care Provider [phone] Reason for Visit * Imaging (Routine) - Authorized Specialty Diagnoses / Procedures Referred By Contac t Referred To Contact Cardiology Diagnoses Chronic heart failure with preserved ejection fraction (HFpEF) (CMS/[facility] V24, [facility] V28) Procedures Transthoracic echocardiogram (TTE) complete with PRN contrast, bubble, strain, and 3D order panel AZ TTE W 2D IMAGE COMPLETE W DOPPLER ECHO & COLOR FLOW DOPPLER ECHO AZ PASQUALE 2D COMPLETE W/CONTRAST OR W & WO CONTRAST WITH DOPPLER Pinky Mijares NP [address] [place] [address] Dr Florian [address] [place] [phone] Phone: tel: fax: [facility] Referral ID Status Reason Start Date Expiration Date V isits Requested Visits Authorized [id number] Authorized 04/12/2025 04/12/2026 1 1 Encounter Details Date Type Department Care Team (Latest Contact Info) Description 04/19/2025 12:30 PM EDT Ancillary Procedure [facility] - [address] [place] [address] Chronic heart failure with preserved ejection fraction (HFpEF) ([facility] V24, [facility] V28) Social History Tobacco Use Types Packs/Day Years [...] on file documented as of this encounter Last Filed Vital Signs Vital Sign Reading Time Taken Comments Blood Pressure 130/80 04/19/2025 12:32 PM EDT Pulse - - Temperature - - Respiratory Rate - - Oxygen Saturation - - Inhaled Oxygen Concentration - - Weight 115 kg (253 lb) 04/19/2025 12:32 PM EDT Height 170.2 cm (5' 7 ) 04/19/2025 12:32 PM EDT Body Mass Index 39.63 04/19/2025 12:32 PM EDT documented in this encounter Plan of Treatment Upcoming Encounters Date Type Department Care Team (Late st Contact Info) Description 05/09/2025 3:10 PM EDT Office Visit [facility] [address] [place] [address] Pinky Mijares NP [address] [place] [address] Dr [address]ian [address] [place] [address] Pending Results Name Type Priority Associated Diagnoses Date/Time Transthoracic echocardiogram (TTE) complete with PRN contrast, bubble, strain, and 3D order panel Echocardiography Routine Chronic heart failure with preserved ejection fraction (HFpEF) (CMS/HCC V24, CMS/HCC V28) 04/19/2025 1:12 PM EDT documented as of this encounter Visit Diagnoses Diagnosis Chronic heart failure with preserved ejection fraction (HFpEF) (CMS/HCC V24, CMS/HCC V28) documented in this encounter Administered Medications Inactive Administered Medications - up to 3 most recent administrations Medication Order MAR Action Action Date Dose Rate Site perflutren lipid microsphere (DEFINITY) 1.3 mL in sodium chloride 0.9% 8.7 mL injection 10 mL, intravenous, Administer over 10 Minutes, Once in imaging, Starting on Lisa 04/19/25 at 1312, For 1 dose, CV Medication OrdersIndications:Chronic heart failure with preserved ejection fraction (HFpEF) (CMS/HCC V24, CMS/HCC V28) Given 04/19/2025 1:12 PM EDT 2 mL documented in this encounter Orders Medications Ordered That Erwin ht Not Have Been Administered Count Last Ordered Date First Ordered Date perflutren lipid microsphere (DEFINITY) 1.3 mL in sodium chloride 0.9% 8.7 mL injection 1 04/19/2025 documented in this encounter Care Teams Cigar Wrapper Relationship Specialty Start Date End Date Eder Ortega DO [address] [place] [phone] PCP - General 06/27/14 documented as of this encounter
--- NOTE | 2025-04-23 10:51 | MHC.OFFVIS ---
Intake Visit Reasons: 4 week followup Allergies Penicillins Allergy (Verified 03/12/25 10:20) Hives HPI Comments Details: 70 years old man with chronic renal insufficiency, chronic anemia, type 2 diabetes, and antibody positive generalized myasthenia gravis. He presented with fluctuating ptosis in August of 2023. CTA of brain did not reveal aneurysm while acetylcholine receptor antibody titers were high. In November of 2024, he developed difficulty swallowing and speaking and went to [facility] where he was treated wtih IVIg for 5 days. He was feeling somewhat better. He has started to take 10mg prednisone every other day and decreased pyridostigmine dose to half due to stomach issues. [facility] Medical History (Updated 04/23/25 @ 10:55 by Jero Sanderson MD) Myasthenia gravis Congestive heart failure Diabetic neuropathy Multifactorial gait disorder Myasthenia gravis Iron deficiency Chronic kidney disease Diabetes Surgical History H/O hernia repair Family History Mother Cancer Lung cancer Father Testicular cancer Social History Household Members: None Housing: House Do you presently have visiting nurse or other home services: Yes Alcohol intake: current Alcohol intake frequency: a few times a month Patient Tobacco Use Status: Never used Tobacco Tobacco use type: Cigarette Cigarettes Per Day: 1 service: No Current occupational status: retired Review of Systems Const Details: No double vision. some stomach issues. Physical Exam Neuro Other: He is alert and awake with normal spontaneity of speech fluency comprehension and affect. There was no ptosis. Walking was cautious. Speech was okay. Assessment & Plan Assessment & Plan (1) Diabetic neuropathy: Code(s): E11.40 - Type 2 diabetes mellitus with diabetic neuropathy, unspecified Category: Medical Qualifiers: Diabetes mellitus type: type 2 Diabetes mellitus complication detail: with other neurological complication Qualified Code(s): E11.49 - Type 2 diabetes mellitus with other diabetic neurological complication (2) Myasthenia gravis: Comment: Ach receptor Abs at [facility] in Oct 2024: all three are high CTA brain at [facility] in Aug 2024: [place] CT brain at [facility] in Aug 2024: OK. Code(s): G70.00 - Myasthenia gravis without (acute) exacerbation Category: Medical Plan Impression: a: Myasthenia gravis, mostly ocular b: Myasthenia gravis exacerbation in November, which can happen again b: Diabetic neuropathy Rec: a: Prednisone 5mg one a day, or 1/2 of 10mg daily. He was hesitant to take prednisone but he was educated that this medicine was necessary and as we would decrease the dose it is negative affect were decline. Unfortunately, he was also unable to afford co-pay of regular IVIG. b: Pyridostigmine 60mg 1/2-1 tid Coding Level of Care Code Est Pt Level 4 (79732) Diagnoses Other diabetic neurological complication associated with type 2 diabetes mellitus E11.49 Diabetes mellitus type: type 2 Diabetes mellitus complication detail: with other neurological complication Myasthenia gravis G70.00
--- OUTSIDE RECORDS SUMMARY | 2025-04-23 11:55 | XMS_ITS | Clinical Summary ---
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 Take 10 mg by mouth 1 (one) time each day in the morning 30 tablet 11 08/22/19 25 026 Active pyridostigmine (MESTINON) 60 MG tablet [...] 36 each 3 02/27/20 25 026 Active calcitriol (Rocaltrol) 0.25 MCG capsuleIndications:Sterile Tech temi kidney disease, stage 4 (severe) (HCC),Secondary hyperparathyroidism of renal origin (HCC) Take 1 capsule (0.25 mcg total) by mouth 1 (one) time each day 30 capsule 5 03/14/20 25 026 Active Hospital, Clinic, or Other Facility Administered Medication Ordered Dose Route Frequency Start Date End Date Status epoetin lawson (EPOGEN,PROCRIT) injection 20,000 UnitsIndications:Anemi a due to Renal Failure 93328 Units IV Every 14 days 07/08/2022 Active epoetin lawson (EPOGEN,PROCRIT) injection 40,000 UnitsIndications:Anemi a due to Renal Failure 87829 Units IV Every 14 days 07/22/2022 Active epoetin lawson (EPOGEN,PROCRIT) injection 30,000 UnitsIndications:Anemi a due to Renal Failure 14344 Units IV Every 14 days 08/05/2022 Active ferumoxytol (FERAHEME) injection 510 mgIndications:Iron deficiency anemia, not otherwise specified 510 mg IV Once in dialysis 01/28/2023 Active Epoetin Lawson-epbx solution 20,000 UnitsIndications:Chron ic kidney disease, not otherwise specified,Anemia in chronic kidney disease 96902 Units IJ Once 07/27/2023 A ctive Active [...] Encounters Date Type Department Care Team Description 03/14/2025 Office Communication [facility] [address] [address] Cassandra Jordan ARNP 03/14/2025 Orders Only [facility] [address] [address] Cassandra Jordan ARNP Chronic kidney disease, stage 4 (severe) (HCC); Secondary hyperparathyroidism of renal origin (HCC) 03/09/2025 Orders Only [facility] [address] [address] Cassandra Jordan ARNP 02/26/2025 1:15 PM EDT Office Visit [facility] [address] [address] Cassandra Jordan ARNP Chronic kidney disease, stage 4 (severe) (HCC) (Primary Dx); Focal segmental glomerulosclerosis; Hypertension; Anemia in chronic kidney disease; Secondary hyperparathyroidism of renal origin (HCC); Chronic metabolic acidosis 02/18/2025 Orders Only [facility] [address] [phone] Cassandra Jordan ARNP Chronic kidney disease, stage 4 (severe) (HCC); Hypertension; Anemia in chronic kidney disease; Secondary hyperparathyroidism of renal origin (HCC); Focal segmental glomerulosclerosis; Other iron deficiency anemia from Last 3 Months Family History Medical [...] Department Care Team (Latest Contact Info) Description 05/20/2025 Orders Only [facility] [address] [phone] Cassandra Jordan ARNP [address] [phone] Chronic kidney disease, stage 4 (severe) (HCC); Focal segmental glomerulosclerosis; Hypertension; Anemia in chronic kidney disease; Secondary hyperparathyroidism of renal origin (HCC); Chronic metabolic acidosis 05/28/2025 3:15 PM EST Office Visit [facility] [address] [address] Cassandra JordanSATNAM [address] [address] Health Maintenance Due Date Last [...] EDT) Iron 24(L) 50 - 160 mcg/dL [facility] TIBC 374 250 - 450 mcg/dL [facility] Iron Saturation (TSat) 6(L) 20 - 50 % [facility] Blood Venous blood / Unknown 03/09/2025 12:00 PM EDT 03/09/2025 3:07 PM EDT [facility] BLOOD ORDERABLES Final Result Performing Organization Address [facility] Co de Phone Number [facility] [address] [place] [address] * (ABNORMAL) Urine Protein / creatinine ratio (03/09/2025 12:00 PM EDT) Protein, Ur 32 mg/dL [facility] Urine Protein/Creati nine Ratio 0.68(H) <=0.20 mg/mg creat [facility] Creatinine, Urine 47.0 mg/dL [facility] Urine Urine specimen obtained by clean catch procedure / Unknown 03/09/2025 12:00 PM EDT 03/09/2025 3:09 PM EDT [facility] URINE ORDERABLES Final Result Performing Organization Address [facility] de Phone Number [facility] [address] [place] [address] * (ABNORMAL) Urine Albumin / Creatinine Ratio (03/09/2025 12:00 PM EDT) Creatinine, Urine 47.0 mg/dL [facility] Microalbumin Urine Random 325.0(H) 0.0 - 29.0 mg/L [facility] Microalbumin/Cre atinine Ratio 691(H) <30 mg/g [facility] Urine Urine specimen obtained by clean catch procedure / Unknown 03/09/2025 12:00 PM EDT 03/09/2025 3:09 PM EDT [facility] URINE ORDERABLES Final Result Performing Organization Address City/[facility]/ZIP Co de Phone Number [facility] [address] [place] [address] * (ABNORMAL) Urinalysis Reflex Microscopic (03/09/2025 12:00 PM EDT) [facility] Specific [place] 1.010 1.003 - 1.030 [facility] pH Urine 5.5 5.0 - 8.0 pH [facility] LEUKOCYTES, URINE Negative Negative [facility] Nitrite, Urine Negative Negative [facility] Protein, Urine 30(A) <=Trace mg/dL [facility] Glucose Urine >=1000(A) Negative mg/dL [facility] Ketones, Urine Negative Negative mg/dL [facility] Urobilinogen Urine 0.2 0.2 - 1.0 mg/dL [facility] Bilirubin Urine Negative Negative [facility] Blood Urine Negative Negative [facility] RBC, Urine 2.0 0 - 4 /HPF [facility] WBC, Urine 0.1 0 - 4 /HPF [facility] Squamous Epithelial, Urine 1 0 - 60 /LPF [facility] Bacteria, Urine Negative Negative /HPF [facility] Hyaline Casts, UA 0.0 0 - 3 /LPF [facility] 03/09/2025 12:0 0 PM EDT 03/09/2025 3:09 PM EDT Cassandra OLIVEROSP LAB URINE ORDERABLES Final Result [facility] [address] [place] [address] * (ABNORMAL) CBC (03/09/2025 12:00 PM EDT) [facility] WBC 7.6 4.8 - 10.8 K/[facility] RBC 4.60 4.50 - 5.50 M/[facility] Hgb 9.2(L) 13.5 - 17.5 g/dL [facility] Hematocrit 33.4(L) 42.0 - 54.0 % [facility] MCV 73.4(L) 79.0 - 98.0 FL [facility] MCH 20.2(L) 27.0 - 32.0 pcg [facility] MCHC 27.5(L) 32.0 - 37.0 g/dL [facility] RDW 19.2(H) 11.0 - 15.0 % [facility] Platelets 119(L) 130 - 400 K/[facility] MPV [facility] Comment:Not Measured nRBC Count 0.3 <1.0 % [facility] NRBC Absolute 0.02 <0.10 /[facility] Blood Venous blood / Unknown 03/09/2025 12:00 PM EDT 03/09/2025 3:11 PM EDT Cassandra Jordan [facility] BLOOD ORDERABLES Final Result [facility] [address] [place] [address] * Urine culture (03/09/2025 12:00 PM EDT) Culture Result, Urine No growth [facility] Urine Urine specimen obtained by clean catch procedure / Unknown 03/09/2025 12:00 PM EDT 03/09/2025 3:09 PM EDT [facility] URINE ORDERABLES Final Result Performing Organization Address City/[facility]/ZIP Co de Phone Number [facility] [address] [place] [address] * (ABNORMAL) PTH, intact (03/09/2025 12:00 PM EDT) Pathologist [facility] PTH 487.2(H) 18.5 - 88.0 pcg/mL [facility] Blood Venous blood / Unknown 03/09/2025 12:00 PM EDT 03/09/2025 3:07 PM EDT [facility] BLOOD ORDERABLES Final Result Performing Organization Address [facility] Co de Phone Number [facility] [address] [place] [address] * (ABNORMAL) Ferritin (03/09/2025 12:00 PM EDT) [facility] Ferritin 10(L) 26 - 388 ng/mL [facility] Blood Venous blood / Unknown 03/09/2025 12:00 PM EDT 03/09/2025 3:07 PM EDT [facility] BLOOD ORDERABLES Final Result Performing Organization Address City/[facility]/ZIP Co de Phone Number [facility] [address] [place] [address] * (ABNORMAL) Renal function panel (03/09/2025 12:00 PM EDT) [facility] Sodium 138 133 - 145 mmol/L [facility] Potassium 3.8 3.5 - 5.5 mmol/L [facility] Chloride 103 96 - 110 mmol/L [facility] Bicarbonate (CO2) 27 21 - 32 mmol/L [facility] Anion Gap 8 3 - 11 [facility] Glucose 122(H) 70 - 100 mg/dL [facility] BUN 63(H) 5 - 25 mg/dL [facility] Creatinine Serum 2.86(H) 0.70 - 1.30 mg/dL [facility] eGFR 23(L) >=60 mL/min/1. 73m2 [facility] Comment:Calculation based on the Chronic Kidney Disease Epidemiology Collaboration (CKD-EPI) equation refit without adjustment for race. BUN/Creatinine Ratio 22.0 [facility] Albumin 3.2 3.2 - 5.0 g/dL [facility] Calcium 7.5(L) 8.5 - 10.5 mg/dL [facility] Phosphorus 4.0 2.5 - 4.5 mg/dL [facility] Blood Venous blood / Unknown 03/09/2025 12:00 PM EDT 03/09/2025 3:07 PM EDT Cassandra Jordan [facility] BLOOD ORDERABLES Final Result [facility] [address] [place] [address] * (ABNORMAL) Hemoglobin A1c (06/10/2023 11:01 AM EST) Hemoglobin A1C 5.9(H) (4.0-5.6) % [facility] Comment: MONITORING: In known diabetic patients, hemoglobin A1c targets should be discussed with health care provider. DIAGNOSTIC USE: The [place] [employer] (ADA) and the World Health [...] Supplement 1 Testing performed or reported by [facility], a Service of [facility], [address] [place] [id number] Keegan Carrillo MD, Immunochemist [facility]# [id number] Blood specimen (specimen) Venous blood / Unknown 06/10/2023 11:01 AM EST 06/10/2023 11:06 AM EST us Shawn Florez MD LAB BLOOD ORDERABLES Marianna anderson Result [facility] from Last 3 Months or Most Recently Relevant to Health Maintenance Insurance Medicare Medicare Care Teams Video Engineer Relationship Specialty Start Date End Date Eder Ortega DO [address] [place] [address] PCP - General Internal Medicine 02/26/21
--- OUTSIDE RECORDS SUMMARY | 2025-04-23 11:55 | XMS_ITS | Clinical Summary ---
Author Organization [facility] [email or web address] [facility] Address [address] [place] [phone] Phone Care Team Providers Care Thermodynamic Physicist Name Role Phone Eder Ortega DO Primary Care Provider [phone] Allergies Active Allergy Reactions Criticality Noted Date [...] Take 1 Capsule by mouth daily. Active warfarin (COUMADIN) 5 mg tablet Take 1 Tablet by mouth See Admin Instructions . As directed by PCP Active atorvastatin (LIPITOR) 40 mg tablet Take 1 tablet (40 mg total) by mouth 1 (one) time each day. 90 tablet 1 04/11/20 25 Active isosorbide mononitrate (IMDUR) 30 mg 24 hr tablet TAKE 1 TABLET BY MOUTH EVERY DAY 90 tablet 1 04/12/20 25 Active empagliflozin (Jardiance) 10 mg tablet Take 1 tablet (10 mg total) by mouth 1 (one) time each day in the morning. Active pyridostigmine (MESTINON) 30 mg tablet Take 1 tablet (30 mg total) by mouth 3 (three) times a day. Active torsemide (DEMADEX) 20 mg tablet Take 3 tablets (60 mg total) by mouth 2 (two) times a day. Active torsemide (DEMADEX) 20 mg tablet Take 2 tablets (40 mg total) by mouth 1 (one) time each day. 025 Discontinued(Do se adjustment) isosorbide mononitrate (IMDUR) 30 mg 24 hr tablet TAKE 1 TABLET BY MOUTH EVERY DAY 03/10/20 025 Discontinued losartan (COZAAR) 25 mg tablet Take 1 tablet (25 mg total) by mouth 1 (one) time each day. 025 Discontinued(Pa tient Discharge) atorvastatin (LIPITOR) 40 mg tablet Take 1 tablet (40 mg total) by mouth 1 (one) time each day. Take 1 Tablet by mouth daily. 90 tablet 3 05/30/20 025 Discontinued Hospital, Clinic, or Other Facility Administered Medication Ordered Dose Route Frequency Start Date End Date Status perflutren lipid microsphere (DEFINITY) 1.3 mL in sodium chloride 0.9% 8.7 mL injectionIndications: Chronic heart failure with preserved ejection fraction (HFpEF) (CMS/HCC V24, CMS/HCC V28) 10 mL IV Once in imaging 04/19/2025 04/19/2025 Ended Active Problems Problem Noted Date Diagnosed Date [...] failure with p reserved ejection fraction (HFpEF) ([facility] V24, [facility] V28) 08/12/2023 Overview (05/15/2024): Last Assessment & [...] will continue current therapies. Assessment & Plan (04/12/2025 3:23 PM EDT): Patient has a history of HFpEF, his last echocardiogram in our office in July 2023 showed grade 2 diastolic dysfunction. He continues on torsemide 60 mg twice daily and Jardiance. He has lower extremity swelling noted to his bilateral lower extremities and abdominal firmness. He reports his abdomen is chronically firm. He states that the lower extremity edema is greatly improved since discharge from the hospital and continues to slowly improve on the increased dose of torsemide. He monitors his weight closely at home and states he is currently losing approximately a pound a day for the last several days. I have advised that he continue to monitor his weight and call our office if he gains 2 pounds in a day or 4 pounds in a week. I have also advised that he follow a low-sodium diet, wear compression stockings and elevate his legs at rest. Will update an echocardiogram and follow up with him closely to ensure continued improvement. Orders: Transthoracic echocardiogram (TTE) complete with PRN contrast, bubble, strain, and 3D order panel; Future perflutren lipid microsphere (DEFINITY) 1.3 mL in sodium chloride 0.9% 8.7 mL injection Assessment & Plan (05/30/2024 10:57 AM EST): Patient has a history of heart failure with preserved ejection fraction. His last echocardiogram July 2023 showed normal LV function and grade 2 diastolic dysfunction. He continues on torsemide and Farxiga as prescribed. He appears euvolemic on physical exam today without clinical signs of acute heart failure. Will continue current therapies. Aneurysm of ascending aorta ([facility] V24) 2023 Overview (05/15/2024): Last Assessment & Plan: Patient has a history of ascending aorta dilation measuring 3.9 cm on recent echocardiogram completed July 2023. Will continue with periodic echocardiograms to evaluate for progression. Assessment & Plan (05/30/2024 10:57 AM EST): Will continue with annual monitoring of mild dilation of aorta. Last echocardiogram July 2023. Paroxysmal A-fib (CMS/[facility] V24, CMS/[facility] V28) 07/26 Overview (05/15/2024): Last Assessment & Plan: The patient has a history of paroxysmal atrial fibrillation and continues on rate control therapy with atenolol as prescribed. His heart rate is well-controlled today. He also continues on anticoagulation therapy with warfarin given his [id number] VASc score of 4. The patient has [...] will continue to follow with hematology at [facility]. Assessment & Plan (05/30/2024 10:57 AM EST): Patient has a history of paroxysmal atrial fibrillation continues on rate control therapy with atenolol as prescribed. His heart rate is adequate today. He also continues on anticoagulation therapy with warfarin. He has a [id number] score of 4. He has remained on [...] current antihypertensive medication regimen. Assessment & Plan (04/12/2025 3:23 PM EDT): BP is well-controlled today, continue on current antihypertensive therapies. Assessment & Plan (05/30/2024 10:57 AM EST): Patient's blood pressure is acceptable today. He will continue his current antihypertensive medication regimen as prescribed. Encounters Date Type Department Care Team Description 04/19/2025 12:30 PM EDT Ancillary Procedure [facility] [address] [place] [phone] Chronic heart failure with preserved ejection fraction (HFpEF) (CMS/HCC V24, CMS/HCC V28) 04/12/2025 1:40 PM EDT Office Visit [facility] [address] [place] [address] Pinky Mijares NP Paroxysmal A-fib (CMS/HCC V24, CMS/HCC V28) (Primary Dx); Chronic heart failure with preserved ejection fraction (HFpEF) (CMS/HCC V24, CMS/HCC V28); Atrial fibrillation, persistent (CMS/HCC V24, CMS/HCC V28); Primary hypertension; Hyperlipidemia, unspecified hyperlipidemia type 04/09/2025 Telephone [facility] [address] [place] [address] Omaira Cruz NP from Last 3 Months Medical History Medical History Date Comments Diabetes mellitus, type II ( CMS/HCC V24, CMS/HCC V28) DX:Diabetes mellitus, type I I (HCC) Anemia in chronic kidney disease DX:Anemia in chronic kidney disease CKD (chronic kidney disease) , stage IV (CMS/HCC V24, CMS/HCC V28) DX:CKD (chronic kidney dise ase), stage IV (HCC) Social History Tobacco Use Types Packs/Day Years Used Date Smoking Tobacco: Some Days Cigarettes Smokeless Tobacco: Never Tobacco Cessation:Ready to Q uit: Not Asked; Counseling Given: Not Answered Alcohol Use Standard Drinks/Week Comments Yes 0 [...] Pressure 130/80 04/19/2025 12:32 PM EDT Pulse 92 04/12/2025 3:13 PM EDT Temperature - - Respiratory Rate - - Oxygen Saturation 93% 04/12/2025 1:24 PM EDT Inhaled Oxygen Concentration - - Weight 115 kg (253 lb) 04/19/2025 12:32 PM EDT Height 170.2 cm (5' 7 ) 04/19/2025 12:32 PM EDT Body Mass Index 39.63 04/19/2025 12:32 PM EDT Plan of Treatment Upcoming Encounters Date Type Department Care Team (Late st Contact Info) Description 05/09/2025 3:10 PM EDT Office Visit [facility] [address] [place] [address] [address] [place] [phone] Pinky Mijares NP [address] [place] [address] [address] [place] [id number] Health Maintenance Due Date Last Done Comments Colorectal Cancer Screening: Colonoscopy 1954 Diabetes: Annual Foot Exam 1964 Diabetes: Annual Retina Eye Exam 1964 DTaP,Tdap,and Td Vaccines (1 - Tdap) 1973 Pneumococcal Vaccine: 50+ Years (1 of 2 - PCV) 1973 Zoster Vaccines (1 of 2) 1973 RSV Immunization Adult Patients (1 - Risk 60-74 years 1-dose series) 2014 Abdominal Aortic Aneurysm (AAA) Screen 06/23/2022 Falls Risk Assessment 06/23/2022 Hepatitis C Screening 06/23/2022 Medicare Annual Wellness Visit 06/23/2022 Social Influencers of Health Screening 06/23/2022 Depression Screening 07/26/2024 COVID-19 Vaccine (4 - 5-26 season) 2025 08/08/2021, 12/30/2020, 12/09/2020 Influenza Vaccine (#1) 2025 , 05/10/2023, 05/11/2022 Diabetes: Blood Sugar Control Test (HGBA1C) 08/05/2025 02/02/2025, 10/02/2024, 06/08/2024, Additional history exists Diabetes: Annual Urine Albumin-Creatinine Ratio (uACR) 03/09/2026 03/09/2025, 03/09/2025 Diabetes: Annual GFR (Glomerular Filtration Rate) 03/09/2026 03/09/2025, 02/02/2025, 10/02/2024, Additional history exists Hypertension/CHF/CAD Annual BMP Blood Test 03/09/2026 03/09/2025, 02/02/2025, 10/02/2024, Additional history exists Cholesterol Screening (Lipid Panel) 02/02/2030 02/02/2025, 10/02/2024, [...] Procedure Name Priority Date/Time Associated Diagnosis Comments ECG 12-LEAD Routine 04/12/2025 2:32 PM EDT Paroxysmal A-fib (CMS/HCC V24, [facility] V28) PROTHROMBIN TIME WITH INR Routine 04/10/2025 10:26 AM EDT 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 URINALYSIS WITH REFLEX MICROSCOPIC Routine 03/09/2025 12:00 PM EDT Chronic kidney disease, stage IV (severe) (CMS/HCC V24, CMS/HCC V28) Focal glomerular sclerosis Essential hypertension, malignant Anemia of chronic renal failure Secondary hyperparathyroidism of renal origin (CMS/HCC V24) URINALYSIS WITH REFLEX MICROSCOPIC Routine 03/09/2025 12:00 PM EDT Chronic kidney disease, stage IV (severe) (CMS/HCC V24, CMS/HCC V28) Focal glomerular sclerosis Essential hypertension, malignant Anemia of chronic renal failure Secondary hyperparathyroidism of renal origin (CMS/HCC V24) PARATHYROID HORMONE INTACT Routine 03/09/2025 12:00 PM EDT Chronic kidney disease, stage IV (severe) (CMS/HCC V24, CMS/HCC V28) Focal glomerular sclerosis Essential hypertension, malignant Anemia of chronic renal failure Secondary hyperparathyroidism of renal origin (CMS/HCC V24) FERRITIN Routine 03/09/2025 12:00 PM EDT Chronic kidney disease, stage IV (severe) (CMS/HCC V24, CMS/HCC V28) Focal glomerular sclerosis Essential hypertension, malignant Anemia of chronic renal failure Secondary hyperparathyroidism of renal origin (CMS/HCC V24) IRON AND TIBC Routine 03/09/2025 12:00 PM EDT Chronic kidney disease, stage IV (severe) (CMS/HCC V24, CMS/HCC V28) Focal glomerular sclerosis Essential hypertension, malignant Anemia of chronic renal failure Secondary hyperparathyroidism of renal origin (CMS/HCC V24) COMPLETE BLOOD COUNT Routine 03/09/2025 12:00 PM EDT Chronic kidney disease, stage IV (severe) (CMS/HCC V24, CMS/HCC V28) Focal glomerular sclerosis Essential hypertension, malignant Anemia of chronic renal failure Secondary hyperparathyroidism of renal origin (CMS/HCC V24) PROTEIN AND CREATININE WITH RATIO, URINE Routine 03/09/2025 12:00 PM EDT Chronic kidney disease, stage IV (severe) (CMS/HCC V24, CMS/HCC V28) Focal glomerular sclerosis Essential hypertension, malignant Anemia of chronic renal failure Secondary hyperparathyroidism of renal origin (CMS/HCC V24) MICROALBUMIN CREATININE URINE RATIO Routine 03/09/2025 12:00 PM EDT Chronic kidney disease, stage IV (severe) (CMS/HCC V24, CMS/HCC V28) Focal glomerular sclerosis Essential hypertension, malignant Anemia of chronic renal failure Secondary hyperparathyroidism of renal origin (CMS/HCC V24) RENAL FUNCTION PANEL Routine 03/09/2025 12:00 PM EDT Chronic kidney disease, stage IV (severe) (CMS/HCC V24, CMS/HCC V28) Focal glomerular sclerosis Essential hypertension, malignant Anemia of chronic renal failure Secondary hyperparathyroidism of renal origin (CMS/HCC V24) PROTHROMBIN TIME WITH INR Routine 03/09/2025 12:00 PM EDT 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 CULTURE URINE Routine 03/09/2025 12:00 PM EDT Chronic kidney disease, stage IV (severe) (CMS/HCC V24, CMS/HCC V28) Focal glomerular sclerosis Essential hypertension, malignant Anemia of chronic renal failure Secondary hyperparathyroidism of renal origin (CMS/HCC V24) HEMOGLOBIN A1C Routine 02/02/2025 11:19 AM EDT Diabetes mellitus (CMS/HCC V24, CMS/HCC V28) Essential hypertension, malignant Hyperlipemia COMPREHENSIVE METABOLIC [...] WITH INR Routine 02/02/2025 11:19 AM EDT penitentiary (current) use of anticoagulants from Last 3 Months Results * ECG 12 lead (04/12/2025 2:32 PM EDT) Ventricular Rate ECG 114 BPM GEMUSE Atrial Rate 113 BPM GEMUSE QRS Duration 84 ms GEMUSE Q-T Interval 342 ms GEMUSE QTc 471 ms GEMUSE R [place] 115 degrees GEMUSE T [place] 76 degrees GEMUSE ECG Interpretation Atrial fibrillation with rapid ventricular response Right axis deviation Abnormal ECG When compared with ECG of 30-MAY-2024 10:18, Atrial fibrillation has replaced Sinus rhythm Vent. rate has increased BY 49 BPM Right axis deviation is now Present Confirmed by MD TRAM, ARABELLA ([id number]) on 04/19/2025 1:09:52 PM GEMUSE 04/12/2025 1:37 PM EDT 04/19/2025 1:09 PM EDT us Pinky Mijares NP ECG ORDERABLES Edited Result - Final GEMUSE * (ABNORMAL) Prothrombin time with INR (04/10/2025 10:26 AM EDT) Only the most recent of3 resultswithin the time period is included. Protime 29.0(H) 10.6 - 13.9 sec LAB COAGULATION METHOD 04/10/2025 11:11 AM EDT [facility] [address] [facility] INR 2.3 LAB COAGULATION METHOD 04/10/2025 11:11 AM EDT [facility] Blood Venous blood specimen / Unknown Venipuncture / Unknown 04/10/2025 10:26 AM EDT 04/10/2025 10:26 AM EDT us Eder Ortega DO LAB BLOOD ORDERABLES Final Re sult [facility] [address] [place] [address], [place] [phone] * (ABNORMAL) Urinalysis with reflex microscopic (03/09/2025 12:00 PM EDT) Specific [place] Urine 1.010 1.003 - 1.030 LAB URINALYSIS - AUTOMATED METHOD 03/09/2025 3:44 PM [facility] pH, Urine 5.5 5.0 - 8.0 pH LAB URINALYSIS - AUTOMATED METHOD 03/09/2025 3:44 PM [facility] Leukocytes, Urine Negative Negative LAB URINALYSIS - AUTOMATED METHOD 03/09/2025 3:44 PM [facility] Nitrite, Urine Negative Negative LAB URINALYSIS - AUTOMATED METHOD 03/09/2025 3:44 PM [facility] Protein, Urine 30(A) <=Trace mg/dL LAB URINALYSIS - AUTOMATED METHOD 03/09/2025 3:44 PM [facility] Glucose, Urine >=1000(A) Negative mg/dL LAB URINALYSIS - AUTOMATED METHOD 03/09/2025 3:44 PM [facility] Ketones, Urine Negative Negative mg/dL LAB URINALYSIS - AUTOMATED METHOD 03/09/2025 3:44 PM [facility] Urobilinogen , Urine 0.2 0.2 - 1.0 mg/dL LAB URINALYSIS - AUTOMATED METHOD 03/09/2025 3:44 PM EDT [facility] Bilirubin, Urine Negative Negative LAB URINALYSIS - AUTOMATED METHOD 03/09/2025 3:44 PM EDT [facility] Blood, Urine Negative Negative LAB URINALYSIS - AUTOMATED METHOD 03/09/2025 3:44 PM [facility] RBC, Urine 2.0 0 - 4 /HPF LAB URINALYSIS - AUTOMATED METHOD 03/09/2025 3:44 PM EDT [facility] WBC, Urine 0.1 0 - 4 /HPF LAB URINALYSIS - AUTOMATED METHOD 03/09/2025 3:44 PM [facility] Squamous Epithelial, Urine 1 0 - 60 /LPF LAB URINALYSIS - AUTOMATED METHOD 03/09/2025 3:44 PM [facility] Bacteria, Urine Negative Negative /HPF LAB URINALYSIS - AUTOMATED METHOD 03/09/2025 3:44 PM [facility] Hyaline Casts, Urine 0.0 0 - 3 /LPF LAB URINALYSIS - AUTOMATED METHOD 03/09/2025 3:44 PM [facility] Urine Urine specimen obtained by clean catch procedure / Unknown Non-blood Collection / Unknown 03/09/2025 12:00 PM EDT 03/09/2025 12:00 PM EDT [facility] URINE ORDERABLES Final R esult [facility] [address] [place] [address], [place] [phone] * (ABNORMAL) Iron and TIBC (03/09/2025 12:00 PM EDT) Iron 24(L) 50 - 160 mcg/dL LAB CHEMISTRY METHOD 03/09/2025 3:37 PM EDT [facility] TIBC 374 250 - 450 mcg/dL LAB CHEMISTRY METHOD 03/09/2025 3:37 PM EDT [facility] Iron Saturation 6(L) 20 - 50 % LAB CHEMISTRY METHOD 03/09/2025 3:37 PM EDT [facility] Blood Venous blood specimen / Unknown Venipuncture / Unknown 03/09/2025 12:00 PM EDT 03/09/2025 12:00 PM EDT [facility] LAB BLOOD ORDERABLES Final R esult [facility] [address] [place] [address], [place] [phone] * (ABNORMAL) Protein and creatinine with ratio, urine (03/09/2025 12:00 PM EDT) Protein, Urine 32 mg/dL LAB CHEMISTRY METHOD 03/09/2025 4:17 PM EDT [facility] Prot/Creat, Ur 0.68(H) <=0.20 mg/mg creat LAB CHEMISTRY METHOD 03/09/2025 4:17 PM EDT [facility] Creatinine, Urine 47.0 mg/dL LAB CHEMISTRY METHOD 03/09/2025 4:17 PM EDT [facility] Urine Urine specimen obtained by clean catch procedure / Unknown Non-blood Collection / Unknown 03/09/2025 12:00 PM EDT 03/09/2025 12:00 PM EDT [facility] LAB URINE ORDERABLES Final R esult [facility] [address] [place] [address], [place] [phone] * (ABNORMAL) Microalbumin creatinine urine ratio (03/09/2025 12:00 PM EDT) Creatinine, Urine 47.0 mg/dL LAB CHEMISTRY METHOD 03/09/2025 4:26 PM EDT [facility] Microalb, Ur 325.0(H) 0.0 - 29.0 mg/L LAB CHEMISTRY METHOD 03/09/2025 4:26 PM EDT [facility] Microalb/Crea t Ratio 691(H) <30 mg/g creat LAB CHEMISTRY METHOD 03/09/2025 4:26 PM EDT [facility] Urine Urine specimen obtained by clean catch procedure / Unknown Non-blood Collection / Unknown 03/09/2025 12:00 PM EDT 03/09/2025 12:00 PM EDT [facility] URINE ORDERABLES Final R esult [facility] [address] [place] [address], * (ABNORMAL) Complete blood count (03/09/2025 12:00 PM EDT) WBC 7.6 4.8 - 10.8 K/mcL LAB HEMETOLOGY METHOD 03/09/2025 3:39 PM EDT [facility] RBC 4.60 4.50 - 5.50 M/mcL LAB HEMETOLOGY METHOD 03/09[facility]2025 3:[facility] Hemoglobin 9.2(L) 13.5 - 17.5 g/dL LAB HEMETOLOGY METHOD 03/09/2025 3:39 PM EDT [facility] Hematocrit 33.4(L) 42.0 - 54.0 % LAB HEMETOLOGY METHOD 03/09/2025 3:39 PM EDT [facility] MCV 73.4(L) 79.0 - 98.0 FL LAB HEMETOLOGY METHOD 03/09/2025 3:39 [facility] MCH 20.2(L) 27.0 - 32.0 pcg LAB HEMETOLOGY METHOD 03/09/2025 3:39 PM EDT [facility] MCHC 27.5(L) 32.0 - 37.0 g/dL LAB HEMETOLOGY METHOD 03/09/2025 3:39 PM EDT [facility] RDW 19.2(H) 11.0 - 15.0 % LAB HEMETOLOGY METHOD 03/09/2025 3:39 PM EDT [facility] Platelets 119(L) 130 - 400 K/mcL LAB HEMETOLOGY METHOD 03/09/2025 3:39 PM EDT [facility] MPV LAB HEMETOLOGY METHOD 03/09/2025 3:39 PM EDT [facility] Comment:Not Measured NRBC 0.3 <1.0 % LAB HEMETOLOGY METHOD 03/09/2025 3:39 PM EDT [facility] NRBC Absolute 0.02 <0.10 K/mcL LAB HEMETOLOGY METHOD 03/09/2025 3:39 PM EDT [facility] Blood Venous blood specimen / Unknown Venipuncture / Unknown 03/09/2025 12:00 PM EDT 03/09/2025 12:00 PM EDT us [facility] BLOOD ORDERABLES Final R esult [facility] [address] [place] [address], * Culture urine (03/09/2025 12:00 PM EDT) Culture, Urine No growth 03/10/2025 7:05 AM EDT [facility] Urine Urine specimen obtained by clean catch procedure / Unknown Non-blood Collection / Unknown 03/09/2025 12:00 PM EDT 03/09/2025 12:00 PM EDT [facility] MICROBIOLOGY - GENERAL O RDERABLES Final Result Performing Organization Address City/[facility]/ZIP Co de Phone Number [facility] [address] [place] [address], [place] [phone] * (ABNORMAL) Parathyroid hormone intact (03/09/2025 12:00 PM EDT) [facility] PTH 487.2(H) 18.5 - 88.0 pcg/mL LAB CHEMISTRY METHOD 03/09/2025 4:44 PM EDT [facility] Blood Venous blood specimen / Unknown Venipuncture / Unknown 03/09/2025 12:00 PM EDT 03/09/2025 12:00 PM EDT [facility] LAB BLOOD ORDERABLES Final R esult Performing Organization Address [facility] Co de Phone Number [facility] [address] [place] [address], [place] [phone] * (ABNORMAL) Ferritin (03/09/2025 12:00 PM EDT) [facility] Ferritin 10(L) 26 - 388 ng/mL LAB CHEMISTRY METHOD 03/09/2025 4:00 PM EDT [facility] Blood Venous blood specimen / Unknown Venipuncture / Unknown 03/09/2025 12:00 PM EDT 03/09/2025 12:00 PM EDT [facility] LAB BLOOD ORDERABLES Final R esult Performing Organization Address City/[facility]/ZIP Co de Phone Number [facility] [address] [place] [address], [place] [phone] * (ABNORMAL) Renal function panel (03/09/2025 12:00 PM EDT) [facility] Sodium 138 133 - 145 mmol/L LAB CHEMISTRY METHOD 03/09/2025 3:37 PM [facility] Potassium 3.8 3.5 - 5.5 mmol/L LAB CHEMISTRY METHOD 03/09/2025 3:37 PM [facility] Chloride 103 96 - 110 mmol/L LAB CHEMISTRY METHOD 03/09/2025 3:37 PM [facility] CO2 27 21 - 32 mmol/L LAB CHEMISTRY METHOD 03/09/2025 3:37 PM [facility] Anion Gap 8 3 - 11 LAB CHEMISTRY METHOD 03/09/2025 3:37 PM [facility] Glucose 122(H) 70 - 100 mg/dL LAB CHEMISTRY METHOD 03/09/2025 3:37 PM [facility] BUN 63(H) 5 - 25 mg/dL LAB CHEMISTRY METHOD 03/09/2025 3:37 PM [facility] Creatinine 2.86(H) 0.70 - 1.30 mg/dL LAB CHEMISTRY METHOD 03/09/2025 3:37 PM [facility] eGFR 23(L) >=60 mL/min/1. 73m2 LAB CHEMISTRY METHOD 03/09/2025 3:37 PM [facility] Comment:Calculation based on the Chronic Kidney Disease Epidemiology Collaboration (CKD-EPI) equation refit without adjustment for race. BUN/Creatinine Ratio 22.0 LAB CHEMISTRY METHOD 03/09/2025 3:37 PM [facility] Albumin 3.2 3.2 - 5.0 g/dL LAB CHEMISTRY METHOD 03/09/2025 3:37 PM [facility] Calcium 7.5(L) 8.5 - 10.5 mg/dL LAB CHEMISTRY METHOD 03/09/2025 3:37 PM [facility] Phosphorus 4.0 2.5 - 4.5 mg/dL LAB CHEMISTRY METHOD 03/09/2025 3:37 PM [facility] Blood Venous blood specimen / Unknown Venipuncture / Unknown 03/09/2025 12:00 PM EDT 03/09/2025 12:00 PM EDT [facility] LAB BLOOD ORDERABLES Final R esult Performing Organization Address [facility] de Phone Number [facility] [address] [place] [address], * Prostate specific antigen screen (02/02/2025 11:19 AM EDT) PSA 0.94 0.00 - 4.00 ng/mL LAB CHEMISTRY METHOD 02/02/2025 4:28 PM EDT [facility] Blood Venous blood specimen / Unknown Venipuncture / Unknown 02/02/2025 11:19 AM EDT 02/02/2025 11:19 AM EDT Narrative [facility] - 02/02/2025 4:28 PM EDT The Siemens Advia Centaur Chemiluminescent Immunoassay is used. Results obtained with different assay methods or kits cannot be used interchangeably. Results cannot be interpreted as absolute evidence of the presence or absence of malignant disease. Jeannine Monroe ASSISTANT PUBLIC DEFENDER LAB BLOOD ORDERABLES Fi nal Result Performing Organization Address [facility] de Phone Number [facility] [address] [place] [address], * Lipid panel with reflex to direct LDL (02/02/2025 11:19 AM EDT) Cholesterol 87 0 - 200 mg/dL LAB CHEMISTRY METHOD 02/02/2025 4:04 PM EDT [facility] Triglycerides 93 0 - 150 mg/dL LAB CHEMISTRY METHOD 02/02/2025 4:04 PM EDT [facility] HDL 52 >=40 mg/dL LAB CHEMISTRY METHOD 02/02/2025 4:04 PM EDT [facility] LDL Calculated 16 0 - 100 mg/dL LAB CHEMISTRY METHOD 02/02/2025 4:04 PM EDT [facility] VLDL Cholesterol Shaka 18.6 mg/dL LAB CHEMISTRY METHOD 02/02/2025 4:04 PM EDT [facility] Non HDL Chol. (LDL+VLDL) 35 <145 mg/dL LAB CHEMISTRY METHOD 02/02/2025 4:04 PM EDT [facility] Chol/HDL Ratio 1.7 0.0 - 4.4 LAB CHEMISTRY METHOD 02/02/2025 4:04 PM EDT [facility] Blood Venous blood specimen / Unknown Venipuncture / Unknown 02/02/2025 11:19 AM EDT 02/02/2025 11:19 AM EDT us Jeannine Monroe NP LAB BLOOD ORDERABLES Fi nal Result Performing Organization Address City/[facility]/ZIP Co de Phone Number [facility] [address] [place] [address], [place] [phone] * Thyroid stimulating hormone (02/02/2025 11:19 AM EDT) [facility] TSH 0.78 0.40 - 4.00 mcIU/mL LAB CHEMISTRY METHOD 02/02/2025 5:04 PM EDT [facility] Blood Venous blood specimen / Unknown Venipuncture / Unknown 02/02/2025 11:19 AM EDT 02/02/2025 11:19 AM EDT us Jeannine Monroe NP LAB BLOOD ORDERABLES Fi nal Result [facility] [address] [place] [address], [place] [phone] * (ABNORMAL) Hemoglobin A1c (02/02/2025 11:19 AM EDT) [facility] Hemoglobin A1C 8.1(H) <6.5 % LAB CHEMISTRY METHOD 02/02/2025 9:25 PM EDT [facility] Mean Bld Glu Estim. 186 mg/dL LAB CHEMISTRY METHOD 02/02/2025 9:25 PM EDT [facility] Blood Venous blood specimen / Unknown Venipuncture / Unknown 02/02/2025 11:19 AM EDT 02/02/2025 11:19 AM EDT us Jeannine Monroe ASSISTANT PUBLIC DEFENDER LAB BLOOD ORDERABLES Fi nal Result [facility] [address] [place] [address], [place] [phone] * Creatine kinase (02/02/2025 11:19 AM EDT) [facility] Total CK 71 22 - 269 unit/L LAB CHEMISTRY METHOD 02/02/2025 4:03 PM EDT [facility] Blood Venous blood specimen / Unknown Venipuncture / Unknown 02/02/2025 11:19 AM EDT 02/02/2025 11:19 AM EDT Jeannine Monroe ASSISTANT PUBLIC DEFENDER LAB BLOOD ORDERABLES Fi nal Result [facility] [address] [place] [address], [place] [phone] * (ABNORMAL) Comprehensive metabolic panel (02/02/2025 11:19 AM EDT) [facility] Sodium 135 133 - 145 mmol/L LAB CHEMISTRY METHOD 02/02/2025 4:03 PM EDT [facility] Potassium 4.3 3.5 - 5.5 mmol/L LAB CHEMISTRY METHOD 02/02/2025 4:03 PM EDT [facility] Chloride 98 96 - 110 mmol/L LAB CHEMISTRY METHOD 02/02/2025 4:03 PM [facility] CO2 25 21 - 32 mmol/L LAB CHEMISTRY METHOD 02/02/2025 4:03 PM [facility] Anion Gap 12(H) 3 - 11 LAB CHEMISTRY METHOD 02/02/2025 4:03 PM [facility] Glucose 247(H) 70 - 100 mg/dL LAB CHEMISTRY METHOD 02/02/2025 4:03 PM [facility] BUN 66(H) 5 - 25 mg/dL LAB CHEMISTRY METHOD 02/02/2025 4:03 PM [facility] Creatinine 2.95(H) 0.70 - 1.30 mg/dL LAB CHEMISTRY METHOD 02/02/2025 4:03 PM [facility] eGFR 22(L) >=60 mL/min/1. 73m2 LAB CHEMISTRY METHOD 02/02/2025 4:03 PM [facility] Comment:Calculation based on the Chronic Kidney Disease Epidemiology Collaboration (CKD-EPI) equation refit without adjustment for race. BUN/Creatinine Ratio 22.4 LAB CHEMISTRY METHOD 02/02/2025 4:03 PM [facility] Calcium 8.2(L) 8.5 - 10.5 mg/dL LAB CHEMISTRY METHOD 02/02/2025 4:03 PM [facility] AST (SGOT) 12 10 - 42 unit/L LAB CHEMISTRY METHOD 02/02/2025 4:03 PM [facility] ALT (SGPT) 30 10 - 60 unit/L LAB CHEMISTRY METHOD 02/02/2025 4:03 PM [facility] Alkaline Phosphatase 80 42 - 121 unit/L LAB CHEMISTRY METHOD 02/02/2025 4:03 PM [facility] Total Protein 6.7 6.0 - 8.0 g/dL LAB CHEMISTRY METHOD 02/02/2025 4:03 PM [facility] Albumin 3.6 3.2 - 5.0 g/dL LAB CHEMISTRY METHOD 02/02/2025 4:03 PM EDT [facility] Total Bilirubin 0.6 0.0 - 1.4 mg/dL LAB CHEMISTRY METHOD 02/02/2025 4:03 PM EDT [facility] Blood Venous blood specimen / Unknown Venipuncture / Unknown 02/02/2025 11:19 AM EDT 02/02/2025 11:19 AM EDT us Jeannine Monroe ASSISTANT PUBLIC DEFENDER LAB BLOOD ORDERABLES Fi nal Result [facility] ([facility]) [facility] [address] [place] [address], [place] [phone] from Last 3 Months Insurance MEDICARE Advance Directives Documents on File Type Date Recorded 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
== END 2025-04-23 11:06 | disposition home or self-care (01) ==
LOC: HO.HSM 10:38
PROVIDERS: PCP Internal Medicine; Visit Provider Psychiatry & Neurology Neurology
DX: E11.49 Type 2 diabetes mellitus with other diabetic neurological complication (principal); G70.00 Myasthenia gravis without (acute) exacerbation
CPT/HCPCS: 99214

== ENCOUNTER → 2025-04-23 10:37 | Outpatient (BNVA) | payer MEDICARE, SELFPAY | PROVIDERS: PCP Internal Medicine; Visit Provider Psychiatry & Neurology Neurology | DX: E11.49 Type 2 diabetes mellitus with other diabetic neurological complication (principal); G47.00 Insomnia, unspecified | CPT/HCPCS: 99212 ==

== ENCOUNTER 2025-06-01 11:15 | Outpatient (RCR) | payer MEDICARE, SELFPAY ==
[2025-05-24 09:27] VITALS: BP 127/67; PULSE 91; RESP 18; TEMP 36.3; O2SAT 100
[2025-06-01 11:01] VITALS: BP 125/68; PULSE 88; RESP 16; TEMP 36.6; O2SAT 100
== END 2025-06-01 12:18 | disposition home or self-care (01) ==
LOC: HO.INF 11:15
PROVIDERS: Visit Provider Internal Medicine Medical Oncology
DX: D64.9 Anemia, unspecified (principal)
CPT/HCPCS: 96365; J1439